=== PATIENT | male | born 1950 | race African-American/Black ===

== ENCOUNTER 2017-05-29 10:21 | Outpatient (CLI) | payer MEDICARE, BC ==
[2017-05-29] MEDS ORDERED: Sodium Chloride 0.9% 15 ML NEB ONE (18:58)
== END 2017-05-29 10:22 | disposition home or self-care (01) ==
LOC: WCC 10:21
PROVIDERS: ATTEND Family Medicine
DX: S91.302D Unspecified open wound, left foot, subsequent encounter (principal)
CPT/HCPCS: 97602; A4218

== ENCOUNTER 2017-06-05 09:41 | Outpatient (CLI) | payer MEDICARE, BC ==
[2017-06-05] MEDS ORDERED: Sodium Chloride 0.9% 15 ML NEB ONE (11:11)
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
== END 2017-06-05 09:42 | disposition home or self-care (01) ==
LOC: WCC 09:41
PROVIDERS: ATTEND Family Medicine
DX: L97.529 Non-pressure chronic ulcer of other part of left foot with unspecified severity (principal); E11.621 Type 2 diabetes mellitus with foot ulcer; E11.22 Type 2 diabetes mellitus with diabetic chronic kidney disease; I12.0 Hypertensive chronic kidney disease with stage 5 chronic kidney disease or end stage renal disease; I73.9 Peripheral vascular disease, unspecified; G47.33 Obstructive sleep apnea (adult) (pediatric); D63.1 Anemia in chronic kidney disease; K21.9 Gastro-esophageal reflux disease without esophagitis; M14.679 Charcot's joint, unspecified ankle and foot
CPT/HCPCS: 11042; 97139; G0463; 99204; A4218

== ENCOUNTER 2017-06-19 09:49 | Outpatient (CLI) | payer MEDICARE, BC ==
--- NOTE | 2017-06-19 11:46 | PRG ---
DATE OF SERVICE: 06/19/2017 HISTORY: Mr. Sean Hicks is a very pleasant 67-year-old gentleman who presents to the Wound Cent er for evaluation of a wound of the plantar surface over the lateral aspect of the left foot. The p atient was referred to the Wound Center by Dr. Clarissa Zazueta on 05/20/2017. The patient was referr ed to the Wound Center for evaluation for treatment with a bioengineered skin substitute. The patie nt has completed a course of negative pressure therapy for the ulceration of the plantar surface of the left lateral foot. PHYSICAL EXAMINATION: VITAL SIGNS: Temperature 98.4, pulse 95, respirations 17, blood pressure 145/65, Accu-Chek 297. EXTREMITIES: An ulceration of the plantar surface of the left foot over the lateral aspect of the f oot is still present. The dimensions of the wound are approximately 2.6 x 2.9 cm. The dimensions o f the wound at the time of the patient's last visit were approximately 2.7 x 3.4 cm. The wound is g ranulating. Undermining desiccated tissue and callus at the periphery of the wound were eliminated with an excisional full-thickness debridement with the use of scissors. No purulent drainage is ass ociated with the wound. No erythema of the skin surrounding the wound is present. No maceration of the skin of the periwound is noted. A posterior tibial pulse is easily palpable on the left. No s ignificant edema of the left foot is present on exam today. ASSESSMENT AND PLAN: 1. Ulceration of plantar surface of left foot over the lateral aspect of the foot. Dressing change s of Silverlon, 4 x 4s, Kerlix, and an Carlton bandage will be continued 3 times per week after cleansin g and irrigation with the assistance of Home Health. I have reiterated to the patient that he is a suitable candidate for treatment with a bioengineered skin substitute because of the presence of an easily palpable posterior tibial pulse on the left. In addition, the ulceration has been present fo r 4 weeks. The patient understands and is in agreement with the preceding treatment plan. I will s ee Mr. Hicks again in two weeks. At this time, consideration will be given to treatment with a b ioengineered skin substitute. 2. Diabetes mellitus. The patient's Accu-Chek in clinic today is 297. The patient has been remind ed that for optimal wound healing, his blood glucoses should remain below 150. 3. End-stage renal disease. 4. History of hypertension. 5. History of peripheral vascular disease. 6. Obstructive sleep apnea. 7. History of gastrointestinal bleeding. 8. Anemia. 9. Charcot foot. 10. Gastroesophageal reflux disease.
[2017-06-19] MEDS ORDERED: Sodium Chloride 0.9% 15 ML NEB ONE (17:19)
[2017-06-19] MEDS ORDERED: Lidocaine 2% Jelly 5 ML TUBE ONE (17:19)
== END 2017-06-19 09:50 | disposition home or self-care (01) ==
LOC: WCC 09:49
PROVIDERS: ATTEND Family Medicine
DX: E11.621 Type 2 diabetes mellitus with foot ulcer (principal); L97.529 Non-pressure chronic ulcer of other part of left foot with unspecified severity; E11.22 Type 2 diabetes mellitus with diabetic chronic kidney disease; I12.0 Hypertensive chronic kidney disease with stage 5 chronic kidney disease or end stage renal disease; N18.6 End stage renal disease; G47.33 Obstructive sleep apnea (adult) (pediatric); K21.9 Gastro-esophageal reflux disease without esophagitis; D64.9 Anemia, unspecified; E11.610 Type 2 diabetes mellitus with diabetic neuropathic arthropathy
CPT/HCPCS: 11042; 36416; A4218

== ENCOUNTER 2017-07-24 07:52 | Outpatient (CLI) | payer MEDICARE, BC ==
--- NOTE | 2017-07-24 08:47 | PRG ---
DATE OF SERVICE: 07/24/2017 HISTORY: Mr. Sean Hicks is a very pleasant 67-year-old gentleman, who presents to the Wound C enter for evaluation of a wound of the plantar surface over the lateral aspect of the left foot. The patient was referred to the Wound Center by Dr. Clarissa Zazueta on 05/20/2017. The patient was refer red to the Wound Center for evaluation for treatment with a bioengineered skin substitute. The patie nt has completed a course of negative pressure therapy for the ulceration of the plantar surface of t he left lateral foot. PHYSICAL EXAMINATION: VITAL SIGNS: Temperature 98.1, pulse 94, respirations 18, blood pressure 107/56. EXTREMITIES: An ulceration of the plantar surface of the left foot, over the lateral aspect of the f oot, is still present. The dimensions of the wound are approximately 2.8 x 1.0 cm. The dimensions o f the wound at the time of the patient's last visit were approximately 2.6 x 2.9 cm. The wound is gr anulating. Desiccated tissue at the periphery of the wound was eliminated with an excisional full-th ickness debridement with the use of scissors. Nonviable tissue present within the wound margins was debrided with an excisional full-thickness debridement with the use of a curette. No purulent draina ge is associated with the wound. No erythema of the skin surrounding the wound is present. No macer ation of the skin of the periwound is noted. A posterior tibial pulse is easily palpable on the left . No significant edema of the left foot is present on exam today. Dermagraft was applied to the [facility] eration of the plantar surface of the left foot over the lateral aspect of the foot followed by Mepit el, a gauze bolster, 4 x 4's, Webril, and 3M Coban 2 layer compression system. ASSESSMENT AND PLAN: 1. Ulceration of plantar surface of left foot over the lateral aspect of the foot. Dermagraft was a pplied to the left foot ulceration today. Orders will be transmitted to Home Health for dressing crissy nges of Silverlon, 4 x 4s, Kerlix, and an Carlton bandage 3 times per week after cleansing and irrigation , beginning 1 week from today. I will see Mr. Hicks again in 2 weeks. At this time, consideratio n will be given to another placement of Dermagraft. 2. Diabetes mellitus. Accu-Cheks will be obtained at the time of the patient's clinic visits. The patient has been reminded that, for optimal wound healing, his blood glucoses should remain below 150 . 3. End-stage renal disease. 4. History of hypertension. 5. History of peripheral vascular disease. 6. Obstructive sleep apnea. 7. History of gastrointestinal bleeding. 8. Anemia. 9. Charcot foot. 10. Gastroesophageal reflux disease.
== END 2017-07-24 07:53 | disposition home or self-care (01) ==
LOC: WCC 07:52
PROVIDERS: ATTEND Family Medicine
DX: E11.621 Type 2 diabetes mellitus with foot ulcer (principal); L97.529 Non-pressure chronic ulcer of other part of left foot with unspecified severity; I12.0 Hypertensive chronic kidney disease with stage 5 chronic kidney disease or end stage renal disease; E11.22 Type 2 diabetes mellitus with diabetic chronic kidney disease; N18.6 End stage renal disease; D63.1 Anemia in chronic kidney disease; G47.33 Obstructive sleep apnea (adult) (pediatric); M14.672 Charcot's joint, left ankle and foot; Z86.79 Personal history of other diseases of the circulatory system
CPT/HCPCS: 15275; 82962; 97139; Q4106; 36416

== ENCOUNTER 2017-08-07 09:08 | Outpatient (CLI) | payer MEDICARE, BC ==
--- NOTE | 2017-08-07 10:21 | PRG ---
DATE OF SERVICE: 08/07/2017 HISTORY: Mr. Sean Hicks is a very pleasant 67-year-old gentleman who presents to the Wound Ce nter for evaluation of a wound of the plantar surface of the lateral aspect of the left foot. The pa ramon was referred to the Wound Center by Dr. Clarissa Zazueta on 05/20/2017. The patient was referred to the Wound Center for evaluation for treatment with a bioengineered skin substitute. The patient has completed a course of negative pressure therapy for the ulceration of the plantar surface of the left lateral foot. Presently, the patient is receiving treatment with Dermagraft. PHYSICAL EXAMINATION: VITAL SIGNS: Temperature 97.4, pulse 110, respirations 22, blood pressure 130/60. Accu-Chek 142. EXTREMITIES: An ulceration of the plantar surface of the left foot over the lateral aspect of the fo ot is still present. The dimensions of the wound are approximately 2.3 x 0.7 cm. The dimensions of the wound at the time of the patient's last visit were approximately 2.8 x 1.0 cm. The wound is gran ulating. No purulent drainage is associated with the wound. No erythema of the skin surrounding the wound is present. No maceration of the skin of the periwound is noted. No significant edema of the left foot is present on exam today. Dermagraft was applied to the ulceration of the plantar surface of the left foot over the lateral aspect of the foot in 2 layers followed by Adaptic touch, a gauze bolster, 4 x 4's, Webril, and 3M Coban 2 layer compression system. ASSESSMENT AND PLAN: 1. Ulceration of plantar surface of left foot over the lateral aspect of the foot. Dermagraft was a pplied in 2 layers to the left foot ulceration today. I will see Mr. Hicks again in 1 week. At t his time consideration will be given to another placement of Dermagraft. 2. Diabetes mellitus. The patient's Accu-Chek in clinic today is 142. The patient has been reminde d that for optimal wound healing, his blood glucoses should remain below 150. 3. End-stage renal disease. 4. History of hypertension. 5. History of peripheral vascular disease. 6. Obstructive sleep apnea. 7. History of gastrointestinal bleeding. 8. Anemia. 9. Charcot foot. 10. Gastroesophageal reflux disease.
[2017-08-07] MEDS ORDERED: Sodium Chloride 0.9% 15 ML NEB ONE (17:21)
== END 2017-08-07 09:09 | disposition home or self-care (01) ==
LOC: WCC 09:08
PROVIDERS: ATTEND Family Medicine
DX: L97.529 Non-pressure chronic ulcer of other part of left foot with unspecified severity (principal); E11.621 Type 2 diabetes mellitus with foot ulcer; E11.22 Type 2 diabetes mellitus with diabetic chronic kidney disease; I12.0 Hypertensive chronic kidney disease with stage 5 chronic kidney disease or end stage renal disease; N18.6 End stage renal disease; G47.33 Obstructive sleep apnea (adult) (pediatric); D63.1 Anemia in chronic kidney disease; M14.679 Charcot's joint, unspecified ankle and foot; K21.9 Gastro-esophageal reflux disease without esophagitis
CPT/HCPCS: 15275; 97139; Q4106; A4218

== ENCOUNTER 2017-08-14 09:22 | Outpatient (CLI) | payer MEDICARE, BC ==
--- NOTE | 2017-08-14 10:51 | PRG ---
DATE OF SERVICE: 08/14/2017 HISTORY: Mr. Sean Hicks is a very pleasant 67-year-old gentleman who presents to the Wound Ce nter for evaluation of a wound of the plantar surface of the lateral aspect of the left foot. The pa ramon was referred to the Wound Center by Dr. Clarissa Zazueta on 05/20/2017. The patient was referred to the Wound Center for evaluation for treatment with a bioengineered skin substitute. The patient has completed a course of negative pressure therapy for the ulceration of the plantar surface of the left lateral foot. Currently, the patient is receiving treatment with Dermagraft. PHYSICAL EXAMINATION: VITAL SIGNS: Temperature 97.3, pulse 108, respirations 19, blood pressure 115/55. Accu-Chek 118. EXTREMITIES: An ulceration of the plantar surface of the left foot over the lateral aspect of the fo ot is still present. The dimensions of the wound are approximately 0.7 x 1.1 cm. The dimensions of the wound at the time of the patient's last visit were approximately 2.3 x 0.7 cm. The wound is gran ulating. No purulent drainage is associated with the wound. No erythema of the skin surrounding the wound is present. No maceration of the skin of the periwound is noted. A posterior tibial pulse is easily palpable on the left. No significant edema of the left foot is present on exam today. [place] graft was applied to the ulceration of the plantar surface of the left foot over the lateral aspect o f the foot followed by Adaptic touch, a gauze bolster, 4 x 4's, Webril, and 3M Coban 2 layer compress ion system. ASSESSMENT AND PLAN: 1. Ulceration of plantar surface of left foot over the lateral aspect of the foot. Dermagraft was a pplied to the left foot ulceration today. I will see Mr. Hicks again in 1 week. At this time, co nsideration will be given to another placement of Dermagraft. 2. Diabetes mellitus. The patient's Accu-Chek in clinic today is 118. The patient has been reminde d that for optimal wound healing, his blood glucoses should remain below 150. 3. End-stage renal disease. 4. History of hypertension. 5. History of peripheral vascular disease. 6. Obstructive sleep apnea. 7. History of gastrointestinal bleeding. 8. Anemia. 9. Charcot foot. 10. Gastroesophageal reflux disease.
== END 2017-08-14 09:23 | disposition home or self-care (01) ==
LOC: WCC 09:22
PROVIDERS: ATTEND Family Medicine
DX: L97.529 Non-pressure chronic ulcer of other part of left foot with unspecified severity (principal); E11.621 Type 2 diabetes mellitus with foot ulcer; N18.6 End stage renal disease; E11.22 Type 2 diabetes mellitus with diabetic chronic kidney disease; I12.0 Hypertensive chronic kidney disease with stage 5 chronic kidney disease or end stage renal disease; G47.33 Obstructive sleep apnea (adult) (pediatric); D63.1 Anemia in chronic kidney disease; K21.9 Gastro-esophageal reflux disease without esophagitis; M14.679 Charcot's joint, unspecified ankle and foot
CPT/HCPCS: 15275; 97139; Q4106

== ENCOUNTER 2017-08-21 09:13 | Outpatient (CLI) | payer MEDICARE, BC ==
--- NOTE | 2017-08-21 10:50 | PRG ---
DATE OF SERVICE: 08/21/2017 HISTORY: Mr. Sean Hicks is a very pleasant 67-year-old gentleman, who presents to the Wound C enter for evaluation of a wound of the plantar surface of the lateral aspect of the left foot. The p atient was referred to the Wound Center by Dr. Clarissa Zazueta on 05/20/2017. The patient was referre d to the Wound Center for evaluation for treatment with a bioengineered skin substitute. The patient has completed a course of negative pressure therapy for the ulceration of the plantar surface of the left lateral foot. Presently, the patient is receiving treatment with Dermagraft. PHYSICAL EXAMINATION: VITAL SIGNS: Temperature 97.6, pulse 111, respirations 18, blood pressure 122/56. Accu-Chek 126. EXTREMITIES: An ulceration of the plantar surface of the left foot over the lateral aspect of the fo ot is still present. The wound is granulating. No purulent drainage is associated with the wound. No erythema of the skin surrounding the wound is present. No maceration of the skin of the periwound is noted. No significant edema of the left foot is present on exam today. Dermagraft was applied t o the ulceration of the plantar surface of the left foot over the lateral aspect of the foot followed by Adaptic touch, a gauze bolster, 4 x 4's, Webril, and 3M Coban 2 layer compression system. ASSESSMENT AND PLAN: 1. Ulceration of plantar surface of left foot over the lateral aspect of the foot. Dermagraft was a pplied to the left foot ulceration today. I will see Mr. Hicks again in 1 week. At this time, co nsideration will be given to another placement of Dermagraft. 2. Diabetes mellitus. The patient's Accu-Chek in clinic today is 126. The patient has been reminde d that for optimal wound healing, his blood glucoses should remain below 150. 3. End-stage renal disease. 4. History of hypertension. 5. History of peripheral vascular disease. 6. Obstructive sleep apnea. 7. History of gastrointestinal bleeding. 8. Anemia. 9. Charcot foot. 10. Gastroesophageal reflux disease.
[2017-08-21] MEDS ORDERED: Sodium Chloride 0.9% 15 ML NEB ONE (17:55)
== END 2017-08-21 09:14 | disposition home or self-care (01) ==
LOC: WCC 09:13
PROVIDERS: ATTEND Family Medicine
DX: E11.621 Type 2 diabetes mellitus with foot ulcer (principal); L97.529 Non-pressure chronic ulcer of other part of left foot with unspecified severity; I12.0 Hypertensive chronic kidney disease with stage 5 chronic kidney disease or end stage renal disease; E11.22 Type 2 diabetes mellitus with diabetic chronic kidney disease; N18.6 End stage renal disease; D63.1 Anemia in chronic kidney disease; G47.33 Obstructive sleep apnea (adult) (pediatric); K21.9 Gastro-esophageal reflux disease without esophagitis; M14.672 Charcot's joint, left ankle and foot
CPT/HCPCS: 15275; 97139; Q4106; A4218

== ENCOUNTER 2017-08-28 09:29 | Outpatient (CLI) | payer MEDICARE, BC ==
--- NOTE | 2017-08-28 11:54 | PRG ---
DATE OF SERVICE: 08/28/2017 HISTORY: Mr. Sean Hicks is a very pleasant 67-year-old gentleman, who presents to the Wound Cent er for evaluation of a wound of the plantar surface of the lateral aspect of the left foot. The gertrude ent was referred to the Wound Center by Dr. Clarissa Zazueta on 05/20/2017. The patient was referred t o the Wound Center for evaluation for treatment with a bioengineered skin substitute. The patient kyle s completed a course of negative pressure therapy for the ulceration of the plantar surface of the le ft lateral foot. Currently, the patient is receiving treatment with Dermagraft. PHYSICAL EXAMINATION: VITAL SIGNS: Temperature 97.5, pulse 107, respirations 16, blood pressure 118/72. Accu-Chek 158. EXTREMITIES: An ulceration of the plantar surface of the left foot over the lateral aspect of the fo ot is still present. The wound is granulating. No purulent drainage is associated with the wound. No erythema of the skin surrounding the wound is present. No maceration of the skin of the periwound is noted. No significant edema of the left foot is present on exam today. Dermagraft was applied t o the ulceration of the plantar surface of the left foot over the lateral aspect of the foot followed by Adaptic, gauze bolster, 4 x 4's, Webril, and 3M Coban 2 layer compression system. ASSESSMENT AND PLAN: 1. Ulceration of plantar surface of left foot over the lateral aspect of the foot. Dermagraft was a pplied to the left foot ulceration today. Arrangements will be made for dressing changes of Adaptic, Webril, and 3M Coban 2 layer compression system on a weekly basis by Home Health for the next 2 week s. I will see Mr. Hicks again in three weeks if his wound is still present at this time. 2. Diabetes mellitus. The patient's Accu-Chek in clinic today is 158. The patient has been reminde d that for optimal wound healing, his blood glucoses should remain below 150. 3. End-stage renal disease. 4. History of hypertension. 5. History of peripheral vascular disease. 6. Obstructive sleep apnea. 7. History of gastrointestinal bleeding. 8. Anemia. 9. Charcot foot. 10. Gastroesophageal reflux disease.
[2017-08-28] MEDS ORDERED: Sodium Chloride 0.9% 15 ML NEB ONE (21:24)
== END 2017-08-28 09:30 | disposition home or self-care (01) ==
LOC: WCC 09:29
PROVIDERS: ATTEND Family Medicine
DX: E11.621 Type 2 diabetes mellitus with foot ulcer (principal); L97.529 Non-pressure chronic ulcer of other part of left foot with unspecified severity; I12.0 Hypertensive chronic kidney disease with stage 5 chronic kidney disease or end stage renal disease; E11.22 Type 2 diabetes mellitus with diabetic chronic kidney disease; N18.6 End stage renal disease; D63.1 Anemia in chronic kidney disease; K21.9 Gastro-esophageal reflux disease without esophagitis; M14.672 Charcot's joint, left ankle and foot
CPT/HCPCS: A4218

== ENCOUNTER 2017-09-25 10:13 | Outpatient (CLI) | payer MEDICARE, BC ==
--- NOTE | 2017-09-25 12:06 | PRG ---
DATE OF SERVICE: 09/25/2017 HISTORY: Mr. Sean Hicks is a very pleasant 67-year-old gentleman who presented to the Wound C enter for evaluation of a wound of the plantar surface of the lateral aspect of the left foot. The p atient was referred to the Wound Center by Dr. Clarissa Zazueta on 05/20/2017. The patient was referre d to the Wound Center for evaluation for treatment with a bioengineered skin substitute. The patient has completed a course of negative pressure therapy for the ulceration of the plantar surface of the left lateral foot. Presently, the patient is receiving treatment with Dermagraft. PHYSICAL EXAMINATION: VITAL SIGNS: Temperature 97.5, pulse 99, respirations 18, blood pressure 121/59. Accu-Chek 168. EXTREMITIES: An ulceration of the plantar surface of the left foot over the lateral aspect of the fo ot is still present. Granulation tissue is present within the wound margins. No purulent drainage i s associated with the wound. No erythema of the skin surrounding the wound is present. Maceration o f the skin of the periwound is noted. No significant edema of the left foot is present on exam today . Dermagraft was applied to the ulceration of the plantar surface of the left foot over the lateral aspect of the foot followed by Adaptic touch, a gauze bolster, 4 x 4's, Webril, and 3M Coban 2 layer compression system. ASSESSMENT AND PLAN: 1. Ulceration of plantar surface of left foot over the lateral aspect of the foot. Dermagraft was a pplied to the left foot ulceration today. I will see Mr. Hicks again in 1 week. At this time, co nsideration will be given to another placement of Dermagraft. The patient states he is utilizing his diabetic shoes with inserts. I have asked him to resume utilizing his splint for more optimal offlo ading of the ulceration of the plantar surface of the left foot. 2. Diabetes mellitus. The patient's Accu-Chek in clinic today is 168. The patient has been reminde d that for optimal wound healing, his blood glucoses should remain below 150. 3. End-stage renal disease. 4. History of hypertension. 5. History of peripheral vascular disease. 6. Obstructive sleep apnea. 7. History of gastrointestinal bleeding. 8. Anemia. 9. Charcot foot. 10. Gastroesophageal reflux disease.
[2017-09-25] MEDS ORDERED: Lidocaine 2% Jelly 5 ML TUBE ONE (17:14)
[2017-09-25] MEDS ORDERED: Sodium Chloride 0.9% 15 ML NEB ONE (17:14)
== END 2017-09-25 10:14 | disposition home or self-care (01) ==
LOC: WCC 10:13
PROVIDERS: ATTEND Family Medicine
DX: E11.621 Type 2 diabetes mellitus with foot ulcer (principal); L97.429 Non-pressure chronic ulcer of left heel and midfoot with unspecified severity; I12.0 Hypertensive chronic kidney disease with stage 5 chronic kidney disease or end stage renal disease; E11.22 Type 2 diabetes mellitus with diabetic chronic kidney disease; N18.6 End stage renal disease; D63.1 Anemia in chronic kidney disease; K21.9 Gastro-esophageal reflux disease without esophagitis; G47.33 Obstructive sleep apnea (adult) (pediatric); Z87.19 Personal history of other diseases of the digestive system
CPT/HCPCS: 15275; 97139; Q4106; A4218

== ENCOUNTER 2017-10-02 12:34 | Outpatient (CLI) | payer MEDICARE, BC ==
--- NOTE | 2017-10-02 11:23 | PRG ---
DATE OF SERVICE: 10/02/2017 HISTORY: Mr. Sean Hicks is a very pleasant 67-year-old gentleman, who presents to the Wound C enter for evaluation of a wound of the plantar surface of the lateral aspect of the left foot. The p atient was referred to the Wound Center by Dr. Clarissa Zazueta on 05/20/2017. The patient was referre d to the Wound Center for evaluation for treatment with a bioengineered skin substitute. The patient has completed a course of negative pressure therapy for the ulceration of the plantar surface of the left lateral foot. Currently, the patient is receiving treatment with Dermagraft. PHYSICAL EXAMINATION: VITAL SIGNS: Temperature 97.5, pulse 107, respirations 18, blood pressure 118/55. Accu-Chek 126. EXTREMITIES: An ulceration of the plantar surface of the left foot over the lateral aspect of the fo ot is still present. Granulation tissue is present within the wound margins. No purulent drainage i s associated with the wound. No erythema of the skin surrounding the wound is present. Maceration o f the skin of the periwound is noted. No significant edema of the left foot is present on exam today . Dermagraft was applied to the ulceration of the plantar surface of the left foot over the lateral aspect of the foot followed by Adaptic touch, a gauze bolster, 4 x 4's, Webril, and 3M Coban 2 layer compression system. ASSESSMENT AND PLAN: 1. Ulceration of plantar surface of left foot over the lateral aspect of the foot. Dermagraft was a pplied to the left foot ulceration today. I will see Mr. Hicks again in one week. At this time, consideration will be given to another placement of Dermagraft. The patient has resumed utilizing hi s splint for more optimal offloading of the ulceration of the plantar surface of the left foot as req uested at the time of the patient's last visit. 2. Diabetes mellitus. The patient's Accu-Chek in clinic today is 126. The patient has been reminde d that for optimal wound healing, his blood glucoses should remain below 150. 3. End-stage renal disease. 4. History of hypertension. 5. History of peripheral vascular disease. 6. Obstructive sleep apnea. 7. History of gastrointestinal bleeding. 8. Anemia. 9. Charcot foot. 10. Gastroesophageal reflux disease.
[2017-10-03] MEDS ORDERED: Sodium Chloride 0.9% 15 ML NEB ONE (15:48)
== END 2017-10-02 12:35 | disposition home or self-care (01) ==
LOC: WCC 12:34
PROVIDERS: ATTEND Family Medicine
DX: E11.621 Type 2 diabetes mellitus with foot ulcer (principal); L97.429 Non-pressure chronic ulcer of left heel and midfoot with unspecified severity; E11.22 Type 2 diabetes mellitus with diabetic chronic kidney disease; N18.6 End stage renal disease; I12.0 Hypertensive chronic kidney disease with stage 5 chronic kidney disease or end stage renal disease; G47.33 Obstructive sleep apnea (adult) (pediatric); D63.1 Anemia in chronic kidney disease; K21.9 Gastro-esophageal reflux disease without esophagitis; Z86.79 Personal history of other diseases of the circulatory system
CPT/HCPCS: 15275; 97139; Q4106

== ENCOUNTER 2017-10-09 09:49 | Outpatient (CLI) | payer MEDICARE, BC ==
--- NOTE | 2017-10-09 12:01 | PRG ---
DATE OF SERVICE: 10/09/2017 HISTORY: Mr. Sean Hicks is a very pleasant 67-year-old gentleman who presents to the Wound Center for evaluation of a wound of the plantar surface of the lateral aspect of the left foot. The patient was referred to the Wound Center by Dr. Clarissa Zazueta on 05/20/2017. The patient was referred to the Wound Center for evaluation for treatment with a bioengineered skin substitute. The patient has completed a course of negative pressure therapy for the ulceration of the plantar surface of the left lateral foot. Presently, the patient is receiving treatment with Dermagraft. PHYSICAL EXAMINATION: VITAL SIGNS: Temperature 97.8, pulse 107, respirations 18, blood pressure 85/ 52. Accu-Chek 226. EXTREMITIES: An ulceration of the plantar surface of the left foot over the lateral aspect of the foot is still present. Granulation tissue is present within the wound margins. No purulent drainage is associated with the wound. No erythema of the skin surrounding the wound is present. No maceration of the skin of the periwound is noted. No significant edema of the left foot is present on exam today. Dermagraft was applied to the ulceration of the plantar surface of the left foot over the lateral aspect of the foot followed by Adaptic Touch, a gauze bolster, 4 x 4s, Webril, and the Brainscape Coban 2-layer compression system. ASSESSMENT AND PLAN: 1. Ulceration of plantar surface of left foot over the lateral aspect of the foot. Dermagraft was applied to the left foot ulceration today. Orders will be transmitted to Home Health for the dressings applied in clinic today to be discontinued in 7-10 days. At this time, the patient is to receive dressing changes of Silverlon followed by bordered gauze 3 times per week after cleansing and irrigation. The patient is also to utilize his splint until his ulceration has healed completely. The patient will be discharged from clinic today with follow up on a p.r.n. basis. If the ulceration fails to heal with the preceding measures, consideration will be given to treatment with Apligraf. The patient understands and is in agreement with the preceding treatment plan. 2. Diabetes mellitus. The patient's Accu-Chek in clinic today is 226. The patient has been reminded that for optimal wound healing, his blood glucoses should remain below 150. 3. End-stage renal disease. 4. History of hypertension. 5. History of peripheral vascular disease. 6. Obstructive sleep apnea. 7. History of gastrointestinal bleeding. 8. Anemia. 9. Charcot foot. 10. Gastroesophageal reflux disease. MTDD
[2017-10-13] MEDS ORDERED: Sodium Chloride 0.9% 15 ML NEB ONE (15:17)
== END 2017-10-09 09:50 | disposition home or self-care (01) ==
LOC: WCC 09:49
PROVIDERS: ATTEND Family Medicine
DX: E11.621 Type 2 diabetes mellitus with foot ulcer (principal); L97.429 Non-pressure chronic ulcer of left heel and midfoot with unspecified severity; I12.0 Hypertensive chronic kidney disease with stage 5 chronic kidney disease or end stage renal disease; E11.22 Type 2 diabetes mellitus with diabetic chronic kidney disease; N18.6 End stage renal disease; D63.1 Anemia in chronic kidney disease; G47.33 Obstructive sleep apnea (adult) (pediatric); M14.671 Charcot's joint, right ankle and foot; Z86.79 Personal history of other diseases of the circulatory system; Z87.19 Personal history of other diseases of the digestive system
CPT/HCPCS: 15275; 97139; Q4106

== ENCOUNTER 2017-12-03 13:53 | Outpatient (CLI) | payer MEDICARE, BC ==
--- NOTE | 2017-12-03 15:36 | PRG ---
DATE OF SERVICE: 12/03/2017 HISTORY: Mr. Sean Hicks is a very pleasant 67-year-old gentleman, who presents to the Wound C enter for evaluation of a wound of the plantar surface of the lateral aspect of the left foot. The p atient was referred to the Wound Center by Dr. Clarissa Zazueta on 05/20/2017. The patient was referre d to the Wound Center for evaluation for treatment with a bioengineered skin substitute. The patient completed a course of negative pressure therapy for the ulceration of the plantar surface of the lef t lateral foot. The patient also completed a course of treatment with Dermagraft, after being seen i n the Wound Center. The patient states that the wound had almost healed completely, and after wearin g his diabetic shoes with inserts, the ulceration increased in its dimensions. PHYSICAL EXAMINATION: VITAL SIGNS: Temperature 97.9, pulse 110, respirations 18, blood pressure 84/45. Accu-Chek 149. EXTREMITIES: An ulceration of the plantar surface of the left foot over the lateral aspect of the fo ot is present. The dimensions of the wound are approximately 2.5 x 2.0 cm. Granulation tissue is pr esent within the wound margins. Necrotic and nonviable tissue present within the wound margins was d ebrided with an excisional full-thickness debridement with the use of scissors. Callus undermining a nd desiccated tissue at the periphery of the wound were also excised with the use of scissors. No pu rulent drainage is associated with the wound. No erythema of the skin surrounding the wound is prese nt. No maceration of the skin of the periwound is noted. No significant edema of the left foot is p resent on exam today. ASSESSMENT AND PLAN: 1. Ulceration of plantar surface of left foot over the lateral aspect of the foot. As stated above, the patient has completed a course of treatment with Dermagraft for the left foot ulceration. Order s will be transmitted to Home Health for dressing changes of Silverlon, 4 x 4s, Kerlix, and ZONIA 3 rik es per week after cleansing and irrigation. The patient is also to utilize his splint until the ulce ration has healed completely. I have also asked the patient to follow up with his weatherseal technician and to refrain from using his diabetic shoes with inserts until he has been seen by his weatherseal technician. The pat ient understands and is in agreement with the preceding treatment plan. I have also explained to the patient that he may require fitting with a [place] boot. 2. Diabetes mellitus. The patient's Accu-Chek in clinic today is 149. The patient has been reminde d that for optimal wound healing, his blood glucoses should remain below 150. 3. End-stage renal disease. 4. History of hypertension. 5. History of peripheral vascular disease. 6. Obstructive sleep apnea. 7. History of gastrointestinal bleeding. 8. Anemia. 9. Charcot foot. 10. Gastroesophageal reflux disease.
[2017-12-03] MEDS ORDERED: Sodium Chloride 0.9% 15 ML NEB ONE (17:53)
[2017-12-03] MEDS ORDERED: Lidocaine 2% Jelly 5 ML TUBE ONE (17:53)
== END 2017-12-03 13:54 | disposition home or self-care (01) ==
LOC: WCC 13:53
PROVIDERS: ATTEND Family Medicine
DX: E11.621 Type 2 diabetes mellitus with foot ulcer (principal); L97.529 Non-pressure chronic ulcer of other part of left foot with unspecified severity; I12.0 Hypertensive chronic kidney disease with stage 5 chronic kidney disease or end stage renal disease; E11.22 Type 2 diabetes mellitus with diabetic chronic kidney disease; I73.9 Peripheral vascular disease, unspecified; G47.33 Obstructive sleep apnea (adult) (pediatric); D63.1 Anemia in chronic kidney disease; M14.679 Charcot's joint, unspecified ankle and foot; K21.9 Gastro-esophageal reflux disease without esophagitis
CPT/HCPCS: A4218

== ENCOUNTER 2018-01-15 09:23 | Outpatient (CLI) | payer MEDICARE, BC ==
--- NOTE | 2018-01-15 11:19 | PRG ---
DATE OF SERVICE: 01/15/2018 HISTORY: Mr. Sean Hicks is a very pleasant 67-year-old gentleman who presents to the Wound Ce nter for evaluation of a wound of the plantar surface of the lateral aspect of the left foot. The pa ramon was referred to the Wound Center by Dr. Clarissa Zazueta on 05/20/2017. The patient was referred to the Wound Center for evaluation for treatment with a bioengineered skin substitute. The patient completed a course of negative pressure therapy for the ulceration of the plantar surface of the left lateral foot. The patient also completed a course of treatment with Dermagraft after being seen in the Wound Center. The patient previously stated that the wound had almost healed completely, but aft er wearing his diabetic shoes with inserts, the ulceration increased in its dimensions. The patient has been receiving dressing changes with the assistance of Home Health. He is referred to the Wound Center today by [facility] for evaluation for debridement of the plantar ulceration. PHYSICAL EXAMINATION: VITAL SIGNS: Temperature 98.2, pulse 101, respirations 18, blood pressure 99/50. Accu-Chek 118. EXTREMITIES: An ulceration of the plantar surface of the left foot over the lateral aspect of the fo ot is present. The dimensions of the wound are approximately 1.9 x 1.0 cm. Granulation tissue is pr esent within the wound margins. Necrotic and nonviable tissue present within the wound margins was d ebrided with an excisional full-thickness debridement with the use of scissors. Callus undermining a nd desiccated tissue at the periphery of the wound were also excised with the use of scissors. No pu rulent drainage is associated with the wound. No erythema of the skin surrounding the wound is prese nt. No maceration of the skin of the periwound is noted. A posterior tibial pulse is easily palpabl e on the left. No significant edema of the left foot is present on exam today. ASSESSMENT AND PLAN: 1. Ulceration of plantar surface of left foot over the lateral aspect of the foot. As stated above, the patient has completed a course of treatment with Dermagraft for the left foot ulceration. Order s will be transmitted to Home Health for dressing changes of Medihoney, 4 x 4s, Kerlix, and an Carlton ba ndage 3 times per week after cleansing and irrigation. The patient is also to utilize his splint unt il the ulceration has healed completely. Again, I have asked the patient to follow up with his pedor thist and to refrain from using his diabetic shoes with inserts until he has been seen by his pedorth ist. The patient understands and is in agreement with the preceding treatment plan. The patient was previously told that he may require fitting with a [employer] boot. 2. Diabetes mellitus. The patient's Accu-Chek in clinic today is 118. The patient has been reminde d that for optimal wound healing, his blood glucoses should remain below 150. 3. End-stage renal disease. 4. History of hypertension. 5. History of peripheral vascular disease. 6. Obstructive sleep apnea. 7. History of gastrointestinal bleeding. 8. Anemia. 9. Charcot foot. 10. Gastroesophageal reflux disease.
== END 2018-01-15 09:24 | disposition home or self-care (01) ==
LOC: WCC 09:23
PROVIDERS: ATTEND Family Medicine
DX: E11.621 Type 2 diabetes mellitus with foot ulcer (principal); L97.429 Non-pressure chronic ulcer of left heel and midfoot with unspecified severity; I12.0 Hypertensive chronic kidney disease with stage 5 chronic kidney disease or end stage renal disease; E11.22 Type 2 diabetes mellitus with diabetic chronic kidney disease; N18.6 End stage renal disease; D63.1 Anemia in chronic kidney disease; K21.9 Gastro-esophageal reflux disease without esophagitis; G47.33 Obstructive sleep apnea (adult) (pediatric); M14.672 Charcot's joint, left ankle and foot; Z86.79 Personal history of other diseases of the circulatory system; Z87.19 Personal history of other diseases of the digestive system
CPT/HCPCS: 11042

== ENCOUNTER 2018-04-02 08:01 | Outpatient (CLI) | payer MEDICARE, BC ==
--- NOTE | 2018-04-02 09:22 | PRG ---
DATE OF SERVICE: 04/02/2018 HISTORY: Mr. Sean Hicks is a very pleasant 68-year-old gentleman who presents to the Wound Ce nter for evaluation of a wound of the plantar surface of the lateral aspect of the left foot. The pa ramon was referred to the Wound Center by Dr. Clarissa Zazueta on 05/20/2017. The patient was referred to the Wound Center for evaluation for treatment with a bioengineered skin substitute. The patient completed a course of negative pressure therapy for the ulceration of the plantar surface of the left lateral foot. The patient also completed a course of treatment with Dermagraft after being seen in the Wound Center. The patient previously stated that the wound had almost healed completely, but aft er wearing his diabetic shoes with inserts, the ulceration increased in its dimensions. The patient has been receiving dressing changes with the assistance of Home Health. He is again referred to the Wound Center today by [facility] for evaluation for debridement of the plantar ulceration. The gertrude ent states he has been utilizing a splint for offloading of the plantar ulceration. The patient also admits to being on his feet more than usual because of having to attend a . PHYSICAL EXAMINATION: VITAL SIGNS: Temperature 98.5, pulse 104, respirations 24, blood pressure 135/59. Accu-Chek 258. EXTREMITIES: An ulceration of the plantar surface of the left foot over the lateral aspect of the fo ot is present. Very little granulation tissue is present within the wound margins. Necrotic and non viable tissue present within the wound margins was debrided with an excisional full-thickness debride ment with the use of scissors. Undermining and desiccated tissue at the periphery of the wound were also eliminated with the use of scissors. No purulent drainage is associated with the wound. No olivia thema of the skin surrounding the wound is present. No maceration of the skin of the periwound is no flor. No significant edema of the left foot is present on exam today. Post-debridement measurements are approximately 7.0 x 5.7 cm. ASSESSMENT AND PLAN: 1. Ulceration of plantar surface of left foot over the lateral aspect of the foot. As stated above, the patient has completed a course of treatment with Dermagraft for the left foot ulceration. Order s will be transmitted to Home Health for dressing changes of Medihoney, 4 x 4s, Kerlix, and an Carlton ba ndage 3 times per week after cleansing and irrigation. ABDs will also be utilized as needed at the t mary of dressing changes. I have explained to the patient that the splint itself may be worsening the appearance of the ulceration. The patient has been asked to stay off his feet completely as much as possible. The patient has been given a prescription for a wheelchair. I will see Mr. Hicks rogers barrett in two weeks. The patient understands and is in agreement with the preceding treatment plan. 2. Diabetes mellitus. The patient's Accu-Chek in clinic today is 258. The patient has been told th at for optimal wound healing, his blood glucoses should remain below 150. 3. End-stage renal disease. 4. History of hypertension. 5. History of peripheral vascular disease. 6. Obstructive sleep apnea. 7. History of gastrointestinal bleeding. 8. Anemia. 9. Charcot foot. 10. Gastroesophageal reflux disease.
== END 2018-04-02 08:02 | disposition home or self-care (01) ==
LOC: WCC 08:01
PROVIDERS: ATTEND Family Medicine
DX: E11.621 Type 2 diabetes mellitus with foot ulcer (principal); L97.429 Non-pressure chronic ulcer of left heel and midfoot with unspecified severity; E11.51 Type 2 diabetes mellitus with diabetic peripheral angiopathy without gangrene; E11.22 Type 2 diabetes mellitus with diabetic chronic kidney disease; I12.0 Hypertensive chronic kidney disease with stage 5 chronic kidney disease or end stage renal disease; N18.6 End stage renal disease; D63.1 Anemia in chronic kidney disease; E11.610 Type 2 diabetes mellitus with diabetic neuropathic arthropathy; G47.33 Obstructive sleep apnea (adult) (pediatric); K21.9 Gastro-esophageal reflux disease without esophagitis; Z87.19 Personal history of other diseases of the digestive system
CPT/HCPCS: 11042; 36416

== ENCOUNTER 2018-04-10 13:17 | Inpatient (IN) | payer MEDICARE, BC ==
[2018-04-10 14:21] LABS: #Basophils 0.1 thou/uL (0.0-0.2); #Eosinphils 0.1 thou/uL (0.0-0.7); #Lymphocytes 1.3 thou/uL (1.20-3.40); #Monocytes 0.7 thou/uL (0.11-0.59); #Neutrophils 11.9 thou/uL (1.40-6.50); %Basophils 0.4 % (0.0-1.0); %Eosinophils 0.6 % (0.0-10.0); %Lymphocytes 9.3 % (21.0-51.0); %Monocytes 5.3 % (0.0-10.0); %Neutrophils 84.5 % (42.0-75.0); Hemoglobin 8.8 g/dL (14.0-18.0); Mean Corpuscular HGB CONC 33.8 g/dL (32.0-36.0); Mean Corpuscular Hemoglobin 31.4 pg (27.0-31.0); Mean Corpuscular Volume 92.9 fL (78.0-98.0); Mean Platelet Volume 6.8 fL (7.4-10.4); Platelet Count 280 thou/uL (130-400); RBC Distribution Width 12.7 % (11.5-14.5); Red Blood Cell (RBC) Count 2.79 mill/uL (4.70-6.10); White Blood Cell (WBC) Count 14.1 thou/uL (4.8-10.8)
--- NOTE | 2018-04-10 14:26 | RAD ---
CHEST ONE VIEW: 04/10/18 HISTORY: 68-year-old male with history of low grade fever and left foot wound. COMPARISON: 08/14/15. Inspiration is somewhat less than optimal. There are mild increased bronchovascular markings noted bi laterally and mild vascular congestion. No confluent pneumonia. No overt edema or pleural effusion. N o cardiomegaly. IMPRESSION: Somewhat less than optimal inspiration with some mild increased bronchovascular markings and mild vas cular congestion. No confluent pneumonia or overt edema or pleural effusion. Atherosclerosis of the a rohini. POS: TPC
--- NOTE | 2018-04-10 14:32 | RAD ---
LEFT FOOT 3 VIEWS: Date: 04/10/18 HISTORY: 68-year-old male with history of low grade fever today with left foot wound that is being treated by Home Health. COMPARISON: 04/09/17. FINDINGS: Stable amputation changes of the third, fourth, and fifth toes, and postoperative anchor at the base of the fifth metatarsal, with arthrosis changes involving the cuboid fourth and fifth metatarsal join ts in particular, as well as considerable arthrosis changes of the tibiotalar joint. No evidence for new bony erosive or destructive process. No acute fracture. IMPRESSION: Stable appearing postoperative amputation changes and arthrosis and degenerative changes. Evidence fo r wound on the plantar aspect of the midfoot at the level of the cuboid bone, which was present at th e time of the prior study. No overt new process. POS: TPC
[2018-04-10 14:42] LABS: ALT (SGPT) Less than 7 U/L (8-55); AST (SGOT) 4 U/L (5-34); Albumin 3.5 g/dL (3.4-4.8); Alkaline Phosphatase 86 U/L (40-150); Anion Gap 15 mmol/L (10-20); BUN (Urea Nitrogen) 14 mg/dL (8.4-25.7); Bilirubin, Total 0.4 mg/dL (0.2-1.2); Calc. Creatinine Clearance 0 mL/min (70-130); Calcium 8.9 mg/dL (7.8-10.44); Carbon Dioxide 29 mmol/L (23-31); Chloride 96 mmol/L (98-107); Estimated GFR-MDRD 12; Globulin 3.9 g/dL (2.4-3.5); Glucose 228 mg/dL (80-115); Potassium 3.6 mmol/L (3.5-5.1); Protein, Total 7.4 g/dL (5.8-8.1); Sodium 136 mmol/L (136-145)
[2018-04-10] MEDS ORDERED: MEROPENEM 1 GM/50 ML 1 GM in Premix Bag 1 BAG IVPB SCH ×2 (15:15→22:00)
--- NOTE | 2018-04-10 15:23 | CT ---
CT LEFT LOWER LEG NONCONTRAST: HISTORY: Foot wound. Fever. Necrosis. FINDINGS: Prominent soft tissue ulceration and edema are present at the lateral plantar surface of the mid foot . Gas extends into the inflamed soft tissues that are thickened. There is cortical irregularity inv olving the lateral margin of the cuboid. Old injury and postoperative changes of the fifth metatarsal base and amputation of the fifth toes ar e evident. Severe degenerative changes throughout the foot. Osseous structures are demineralized. Severe muscu lar atrophy of the lower leg. IMPRESSION: 1. Cortical irregularity and subtle erosion involving the inferior aspect of the cuboid, evidence of osteomyelitis in the appropriate clinical setting and given the overlying ulceration of the skin. 2. Old post surgical, post traumatic, and severe degenerative changes throughout the foot. POS: ESTHER
--- NOTE | 2018-04-10 16:06 | ULT ---
ULTRASOUND WITH DOPPLER DUPLEX VENOUS LOWER EXTREMITY LEFT: HISTORY: 68-year-old male with left lower extremity pain. TECHNIQUE: Color flow Doppler, spectral waveform analysis of pulsed Doppler, and pizano-scale imaging with js eugenio and augmentation, were used to evaluate the left common femoral, femoral, popliteal, posterior t ibial, and superficial femoral, veins; and the proximal portions of the profunda femoral and greater saphenous, veins. FINDINGS: There is normal compressibility, demonstration of blood flow by color Doppler and pulsed Doppler, and response to augmentation, in all interrogated veins. There are enlarged lymph nodes in the left groi n. IMPRESSION: 1. No deep vein thrombosis in the left lower extremity. 2. Enlarged lymph nodes in left groin. ashley[] POS: ESTHER
[2018-04-10 18:19] LABS: Lactic Acid 1.4 mmol/L (0.5-2.2)
[2018-04-10] MEDS ORDERED: Ondansetron HCl/PF 4 MG/2 ML Vial IVP PRN ×2 (18:34→20:32)
[2018-04-10] MEDS ORDERED: Ondansetron ODT 4 MG TAB SL PRN (18:34)
[2018-04-10] MEDS ORDERED: Mag-Al 1200 mg/1200 mg/30 ML UDCUP PO PRN (20:32)
[2018-04-10] MEDS ORDERED: Insulin Regular 300 UNITS/3 ML VIAL SC PRN (20:32)
[2018-04-10] MEDS ORDERED: Calcium Carbonate 500 MG ChewTAB PO PRN (20:32)
[2018-04-10] MEDS ORDERED: Senokot 8.6 MG TAB PO PRN (20:32)
[2018-04-10] MEDS ORDERED: Dextrose 5% in Water 1,000 ML IV PRN (20:32)
[2018-04-10] MEDS ORDERED: Dextrose 50% Abboject 50 ML SYRINGE SLOW IVP PRN (20:32)
[2018-04-10] MEDS ORDERED: Ondansetron ODT 4 MG TAB PO PRN (20:32)
[2018-04-10] MEDS ORDERED: Acetaminophen 325 MG TAB PO PRN (20:32)
[2018-04-10] MEDS ORDERED: Vancomycin HCl 1 GM in Premix Bag 1 BAG IVPB SCH ×2 (20:45→21:00)
[2018-04-10] MEDS ORDERED: NPH, Human Insulin Isophane 300 UNIT/3 ML VIAL SC SCH ×2 (20:45→21:00)
[2018-04-10] MEDS ORDERED: Diphenoxylate HCl/Atropine Tablet PO PRN (20:54)
[2018-04-10] MEDS ORDERED: Temazepam 15 MG CAP PO PRN (20:54)
[2018-04-10] MEDS ORDERED: Vancomycin Sliding Scale 1 EACH FS ONE (21:00)
[2018-04-10] MEDS ORDERED: HOLD VANCOMYCIN FOR LEVEL >20 FS SCH (21:00)
[2018-04-10] MEDS ORDERED: Vancomycin HCl 750 MG in Sodium Chloride 0.9% 250 ML 250 ML IVPB SCH (21:00)
[2018-04-10] MEDS ORDERED: Heparin 5,000 UNITS/ML VIAL SC SCH (21:00)
[2018-04-10] MEDS ORDERED: Vancomycin HCl 1.25 GM in Sodium Chloride 0.9% 250 ML 250 ML IVPB SCH (21:00)
[2018-04-10] MEDS ORDERED: Famotidine 20 MG TAB PO SCH (21:00)
[2018-04-10] MEDS ORDERED: Vancomycin HCl 1.5 GM in Sodium Chloride 0.9% 250 ML 300 ML IVPB SCH (21:00)
[2018-04-10 21:29] LABS: Troponin I Less than 0.010 ng/mL (< 0.028)
--- NOTE | 2018-04-10 21:32 | HP ---
DATE OF ADMISSION: 04/10/2018 PRIMARY CARE PHYSICIAN: Dr. Perry. PRIMARY SURGEON: Dr. Zazueta. CHIEF COMPLAINT: Left lower extremity pain along with increasing drainage from the left foot wound a nd fever. HISTORY OF PRESENT ILLNESS: The patient is a 68-year-old -Serbian male with diabetes mellitu s, type 2; end-stage renal disease, on hemodialysis; hypertension; and peripheral vascular disease; w ho presented to the emergency room with above complaints. Two weeks ago, the patient was seen in the Wound Care. He had a left foot wound debrided and was dis charged home. Over the last one week, the patient noticed worsening swelling along with increasing d rainage and pain over the left foot wound. He also noticed a low grade fever along with chills over the last 2-3 days. The pain was moderate to severe in intensity, worse on ambulation. The drainage was serosanguineous per patient report. He denies any trauma. He currently has home healthcare. [facility] home healthcare nurse recommended the patient to be evaluated in the emergency room due to increasi ng odor from the wound. In the emergency room, his vital signs showed temperature 99.5, respirations 17, pulse rate of 114 wi th blood pressure 116/42 with O2 saturation 97% on room air. Lower extremity CT showed changes consi stent with osteomyelitis. Lower extremity Doppler was negative for DVT. He received vancomycin and meropenem in the emergency room with IV fluids. PAST MEDICAL HISTORY: 1. Diabetes mellitus, type 2. 2. Hypertension. 3. End-stage renal disease, on hemodialysis. 4. Gastroesophageal reflux disease. 5. Peripheral vascular disease. 6. Hypertension. 7. Hyperlipidemia. 8. Sleep apnea. PAST SURGICAL HISTORY: 1. Dialysis access. 2. Partial colectomy. 3. Skin graft. 4. Debridement of the left foot wound. 5. Amputation of toes of bilateral feet. ALLERGIES: The patient is allergic to IODINE. CURRENT HOME MEDICATIONS: He does not remember any of his home medication. Family to bring the list in a.m. SOCIAL HISTORY: The patient currently lives at home with his . He smokes up to half pack a day since last 25 years or so. No alcohol or drug use. He is FULL [employer], makes his own decisions with [facility] help of his family. FAMILY HISTORY: Significant for malignancy of different kinds. REVIEW OF SYSTEMS: The following complete review of systems was negative, unless otherwise mentioned in the HPI or below: Constitutional: Weight loss or gain, ability to conduct usual activities. Sk in: Rash, itching. Eyes: Double vision, pain. ENT/Mouth: Nose bleeding, neck stiffness, pain, te nderness. Cardiovascular: Palpitations, dyspnea on exertion, orthopnea. Respiratory: Shortness of breath, wheezing, cough, hemoptysis, fever or night sweats. Gastrointestinal: Poor appetite, abdomi nal pain, heartburn, nausea, vomiting, constipation, or diarrhea. Genitourinary: Urgency, frequency , dysuria, nocturia. Musculoskeletal: Pain, swelling. Neurologic/Psychiatric: Anxiety, depression . Allergy/Immunologic: Skin rash, bleeding tendency. PHYSICAL EXAMINATION: VITAL SIGNS: As discussed above. GENERAL: A 68-year-old male, in mild distress due to left foot pain. HEENT: Head atraumatic, normocephalic. Sclerae are anicteric. Moist mucous membrane. No oral lesi on. NECK: Supple, no JVD appreciated. No carotid bruit. LUNGS: Clear to auscultation bilaterally. No wheezing, rales or rhonchi. HEART: S1, S2 present. Regular rate and rhythm. No murmur, rubs, or gallops appreciated. ABDOMEN: Soft, nontender, bowel sounds present. EXTREMITIES: There is significant swelling along with erythema over the plantar aspect of the foot. The wound is approximately 4 cm in diameter with some oozing. There is some erythema around the wou nd as well. PERIPHERAL VASCULAR: Radial pulses palpable bilaterally. I could not feel the dorsalis pedis in the left foot. SKIN: As discussed above. LYMPH NODES: No palpable lymph nodes in the neck. MUSCULOSKELETAL: No joint swelling or tenderness. LABORATORY AND X-RAY FINDINGS: CBC showed WBC 14.1 with hemoglobin 8.8, hematocrit 25.9, platelet 28 0. Chemistries showed sodium 136, potassium 3.6, chloride 96, bicarbonate 29, BUN 14, creatinine 5.6 8. Lactic acid was 4.2. CRP 19.2. ESR greater than 130. X-ray of the chest by my review was negat chelle for infiltrate. Telemetry rhythm by my review showed sinus tachycardia. IMPRESSION: 1. Sepsis with acute organ dysfunction secondary to diabetic foot infection on the left. 2. Diabetes mellitus, type 2. 3. End-stage renal disease on hemodialysis. 4. Peripheral vascular disease. 5. Gastroesophageal reflux disease. 6. Chronic anemia secondary to renal disease. 7. Diabetic neuropathy. 8. Obstructive sleep apnea. 9. History of GI bleeding in the past. 10. Diverticulosis. 11. Tobacco dependence. PLAN: The patient will be monitored on the telemetry unit. We will continue vancomycin that was sta rted in the emergency room. We will add Levaquin. We will consult Infectious Disease and General Prieto rgery. Dialysis per Nephrology. We will repeat labs in a.m. We will start insulin sliding scale. Tobacco cessation was emphasized. We will confirm home medications and start accordingly. Plan of care was discussed with the patient in detail. He stated understanding.
[2018-04-10] MEDS: Docusate 100 MG CAP PO SCH (21:40)
[2018-04-10] MEDS: metroNIDAZOLE 250 MG TAB PO SCH (21:42)
[2018-04-10] MEDS ORDERED: HYDROcodone/Acetaminophen 10/325 mg Tablet PO SCH ×2 (21:45→23:59)
[2018-04-11 01:04] LABS: Troponin I 0.018 ng/mL (< 0.028)
[2018-04-11 03:30] LABS: #Basophils 0.1 thou/uL (0.0-0.2); #Eosinphils 0.3 thou/uL (0.0-0.7); #Monocytes 1.2 thou/uL (0.11-0.59); #Neutrophils 8.1 thou/uL (1.40-6.50); %Basophils 0.6 % (0.0-1.0); %Eosinophils 2.4 % (0.0-10.0); %Lymphocytes 17.4 % (21.0-51.0); %Monocytes 10.4 % (0.0-10.0); %Neutrophils 69.2 % (42.0-75.0); Hemoglobin 7.9 g/dL (14.0-18.0); Mean Corpuscular HGB CONC 33.9 g/dL (32.0-36.0); Mean Corpuscular Hemoglobin 31.7 pg (27.0-31.0); Mean Corpuscular Volume 93.4 fL (78.0-98.0); Mean Platelet Volume 6.2 fL (7.4-10.4); Platelet Count 217 thou/uL (130-400); RBC Distribution Width 12.6 % (11.5-14.5); White Blood Cell (WBC) Count 11.7 thou/uL (4.8-10.8)
[2018-04-11 03:44] LABS: Anion Gap 14 mmol/L (10-20); BUN (Urea Nitrogen) 21 mg/dL (8.4-25.7); Calc. Creatinine Clearance 15 mL/min (70-130); Calcium 8.8 mg/dL (7.8-10.44); Carbon Dioxide 28 mmol/L (23-31); Chloride 100 mmol/L (98-107); Estimated GFR-MDRD 10; Glucose 64 mg/dL (80-115); Potassium 3.5 mmol/L (3.5-5.1); Sodium 138 mmol/L (136-145); Troponin I 0.013 ng/mL (< 0.028)
[2018-04-11] MEDS: HYDROcodone/Acetaminophen 10/325 mg Tablet PO SCH ×3 (06:29→18:34)
--- NOTE | 2018-04-11 06:45 | HP ---
HISTORY OF PRESENT ILLNESS: Sean Hicks is a 68-year-old black male well known to me. The gertrude ent is a diabetic, end-stage renal disease on dialysis. He has had amputations of toes on his right foot and toes with metatarsals, left foot. He is followed by Dr. Barrett. He has developed a planta r ulceration in left foot proximally, in the proximal arch, Dr. Barrett debrided a wound. The patien t presented to the emergency room, noted to have a white count of 14,000, hemoglobin 8.8, changes in his BMP consistent with end-stage renal disease on dialysis patient. He had x-rays of his foot revea ling postoperative changes with signs of wound on the plantar aspect of the midfoot left to the level of the cuboid bone, which was present at the time of the prior study. No other new findings were ap preciated. CT scan of the lower extremities obtained revealing cortical irregularity and some erosio n involving the anterior aspect of the cuboid bone osteomyelitis findings. An MRI has been ordered. The patient has an appointment to see Dr. Zazueta in the next week or two. Today, he underwent a va scular ultrasound study revealing absence of DVT. He had lymphadenopathy in the left groin. He has been admitted to the hospital and started on vancomycin, Levaquin, and Dr. Mcneil has been consulted a long with Dr. Rojo. I personally evaluated his foot and he has a 2.5 to 3 cm opening in the plantar aspect, proximal arch , left foot. This has extensive undermining with foul-smelling necrotic grayish tissue protruding ou t. On probing, it extends down to the deep fascia, cuboid bone and tendons. He has palpable femoral and popliteal pulses. ALLERGIES: IODINE: TOBACCO: 1/2 pack per day. ALCOHOL: None. PAST MEDICAL HISTORY: Diabetes mellitus type 2, hypertension, tobacco abuse, end-stage renal disease on maintenance dialysis, followed by Dr. Emory Rojo, GERD, hypertension, hyperlipidemia, sleep ap johana, and obesity. PAST SURGICAL HISTORY: Right arm Brenda fistula, partial colectomy, skin grafting, partial amputatio ns of both feet. 04/15/2017, Dr. Alvarez performed colonoscopy and rectal polypectomy, noted changes co nsistent with subtotal colectomy. 04/07/2016, Dr. Degroot performed amputation of left fourth and thi rd toes of metatarsal, wound helping to heal by secondary intention, left fifth toe had been pr eviously amputated. 11/30/2015, Dr. Zazueta, Brenda fistula, right. 09/13/2015, IJ tunneled cathete r. 11/26/2012, total abdominal colectomy with ileocolic anastomosis. Patient had a total abdominal colectomy, ileocolic anastomosis per GI bleeding. REVIEW OF SYSTEMS: Ten-point noncontributory. MEDICATIONS: Restoril, Protonix, insulin, hydrocodone, glimepiride, ferrous sulfate, calcitriol at h ome, vancomycin, metronidazole, Levaquin in the hospital. PHYSICAL EXAMINATION: VITAL SIGNS: 6 feet tall, 227 pounds, 30 BMI, 99 degrees, 110, 22, 114/55. HEAD, EYES, EARS, NOSE AND THROAT: Unremarkable. LUNGS: Clear to auscultation. CARDIAC: Regular rate and rhythm without murmur or gallop. ABDOMEN: Soft, nontender, obese. EXTREMITIES: Unremarkable. Amputations of toes, right foot in the past. Brenda fistula of right fo rearm. Left foot, proximal plantar ulceration 3 cm diameter with necrotic foul-smelling protruding g rayish necrotic tissue undermining extensively protruding down to the cuboid bones, tendons, and fasc ia. ASSESSMENT AND PLAN: 1. Diabetic neuropathic foot ulceration. In my opinion, this will not heal and involves the cuboid bones and tarsal bones and with the extensive undermining tissue the patient is in need of below-the- knee amputation. He has an MRI scheduled for tomorrow, which I do not think is necessary, but it is scheduled. Patient will talk about this recommendation with his and will plan [id number] am putation. At a later time, I do not see any point in debriding the wound as it is so extensive and u ndermining that this wound will not heal. I would recommend amputation. 2. Tobacco abuse. 3. Diabetes mellitus. 4. Obesity. 5. Hypertension. 6. Status post total abdominal colectomy, ileocolic anastomosis.
[2018-04-11] MEDS ORDERED: Glimepiride 4 MG TAB PO SCH (08:00)
[2018-04-11] MEDS ORDERED: Sodium Chloride 0.9% 10 ML ONE (08:06)
[2018-04-11] MEDS ORDERED: NPH, Human Insulin Isophane 300 UNIT/3 ML VIAL SC SCH ×2 (09:00)
[2018-04-11] MEDS: Ferrous Sulfate 325 MG TAB PO SCH (09:43)
[2018-04-11] MEDS: metroNIDAZOLE 250 MG TAB PO SCH ×3 (09:44→20:50)
[2018-04-11] MEDS: Calcitriol 0.25 MCG CAP PO SCH (09:44)
[2018-04-11] MEDS: Docusate 100 MG CAP PO SCH (09:44)
--- NOTE | 2018-04-11 11:38 | PDOC.PN ---
- Subjective Encounter Start Date: 04/11/18 Encounter Start Time: 08:00 Patient seen and examined for Sepsis/diabetic foot infection. Feels better. Pain controlled. No new complaints. No overnight events - Objective Resuscitation Status: Resuscitation Status FULL:Full Resuscitation MAR Reviewed: Yes Vital Signs & Weight: Vital Signs (12 hours) Temp Pulse Resp BP Pulse Ox 04/11/18 07:55 98.9 F 100 18 115/51 L 94 L 04/11/18 03:14 99.4 F 91 16 112/54 L 93 L 04/10/18 23:41 98.6 F 90 20 98/51 L 95 Weight Weight 227 lb I&O: 04/10/18 04/11/18 04/12/18 06:59 06:59 06:59 Intake Total 240 Output Total 0 Balance 240 Result Diagrams: 04/11/18 03:10 04/11/18 03:10 Additional Labs: Accuchecks 04/11/18 04/11/18 04/10/18 06:37 05:46 20:47 POC Glucose 101 67 L 143 H EKG Reviewed by me: Yes (Tele SR) Phys Exam - Physical Examination Constitutional: NAD Respiratory: no wheezing, no rales, no rhonchi, clear to auscultation bilateral Cardiovascular: RRR, no rub no heaves/pulsations Gastrointestinal: soft, non-tender, no distention, positive bowel sounds Musculoskeletal: no edema Dressing over the left foot + Neurological: non-focal, moves all 4 limbs Psychiatric: A&O x 3 Dx/Plan - Plan DVT proph w/SCDs IMPRESSION: 1. Sepsis with acute organ dysfunction secondary to left diabetic foot infection. 2. Diabetes mellitus, type 2. on sliding scale. 3. End-stage renal disease on hemodialysis. 4. Peripheral vascular disease. 5. Gastroesophageal reflux disease. 6. Chronic anemia secondary to renal disease. 7. Diabetic neuropathy. 8. Obstructive sleep apnea. 9. History of GI bleeding in the past. 10. Diverticulosis. 11. Tobacco dependence. PLAN: Cont Vancomycin/Levaquin/Flagyl Await ID/Surg input AM labs Hold NPH/Amaryl due to hypoglycemia Dialysis per Nephrology Cont Wound care Cont current meds as below Review of Systems - Review of Systems Respiratory: negative: Cough, Dry, Shortness of Breath, Hemoptysis, SOB with Excertion, Pleuritic Pain, Sputum, Wheezing Cardiovascular: negative: chest pain, palpitations, orthopnea, paroxysmal nocturnal dyspnea, edema, light headedness, other - Medications/Allergies Allergies/Adverse Reactions: Allergies Allergy/AdvReac Type Severity Reaction Status Date / Time Iodine and Iodide Containing Allergy swelling Verified 04/10/18 20:33 Produc and blisters Medications: Current Medications Acetaminophen (Tylenol) 650 mg PO Q4H PRN PRN Reason: Headache/Fever or Pain Hydrocodone Bitart/Acetaminophen ([place] 10/325) 1 tab PO Q6HR [facility] Last Admin: 04/11/18 06:29 Dose: Not Given Al Hydroxide/Mg Hydroxide (Maalox) 30 ml PO Q6H PRN PRN Reason: Heartburn or Indigestion Calcitriol (Rocaltrol) 0.25 mcg PO DAILY [facility] Last Admin: 04/11/18 09:44 Dose: 0.25 mcg Calcium Carbonate (Tums) 1,000 mg PO Q4H PRN PRN Reason: Heartburn or Indigestion Dextrose/Water (Dextrose 50%) 25 gm SLOW IVP PRN PRN PRN Reason: Hypoglycemia Diphenoxylate HCl/Atropine (Lomotil) 1 tab PO BIDPRN PRN PRN Reason: Diarrhea/Loose Stools Docusate Sodium (Colace) 100 mg PO BID [facility] Last Admin: 04/11/18 09:44 Dose: 100 mg Ferrous Sulfate (Feosol) 325 mg PO QAM-WM [facility] Last Admin: 04/11/18 09:43 Dose: 325 mg Glucagon (Glucagon) 1 mg IM PRN PRN PRN Reason: Hypoglycemia Dextrose/Water (D5w) 1,000 mls @ 0 mls/hr IV .Q0M PRN; As Directed PRN Reason: Hypoglycemia Levofloxacin 500 mg/ Device 100 mls @ 100 mls/hr IVPB Q2D@2100 [facility] Last Admin: 04/10/18 21:42 Dose: 100 mls Vancomycin HCl 1.5 gm/ Sodium (Chloride) 300 mls @ 200 mls/hr IVPB WILLCALL [facility] Vancomycin HCl 1.25 gm/ Sodium (Chloride) 250 mls @ 166.667 mls/hr IVPB WILLCALL [facility] Vancomycin HCl 1 gm/ Device 200 mls @ 200 mls/hr IVPB WILLCALL [facility] Vancomycin HCl 750 mg/ Sodium (Chloride) 250 mls @ 250 mls/hr IVPB WILLCALL HOLLIE Insulin Human Regular (Humulin R) 0 units SC .BEDTIME SLIDING SC PRN PRN Reason: Bedtime Correctional Scale Insulin Human Regular (Humulin R) 0 units SC .AGGRESSIVE SLIDING PRN PRN Reason: Aggressive Sliding Scale Metronidazole (Flagyl) 250 mg PO TID [facility] Last Admin: 04/11/18 09:44 Dose: 250 mg Miscellaneous Medication (Pharmacy To Dose) 1 each IVPB ONE PRN PRN Reason: Pharmacy to dose Stop: 04/20/18 20:32 Hold Vancomycin For (Level >20) 0 each FS .AT DIALYSIS [facility] Ondansetron HCl (Zofran Odt) 4 mg PO Q6H PRN PRN Reason: Nausea/Vomiting Ondansetron HCl (Zofran) 4 mg IVP Q6H PRN PRN Reason: Nausea/Vomiting Pantoprazole Sodium (Protonix) 40 mg PO DAILY [facility] Last Admin: 04/11/18 09:44 Dose: 40 mg Senna (Senokot) 2 tab PO HSPRN PRN PRN Reason: Constipation Temazepam (Restoril) 15 mg PO HSPRN PRN PRN Reason: Insomnia
--- NOTE | 2018-04-11 11:42 | MRI ---
MRI LEFT FOOT WITHOUT CONTRAST: Date: 04/11/18 HISTORY: Ulcer. Evaluate for osteomyelitis. COMPARISON: Lateral radiograph same day. FINDINGS: There is a large plantar ulcer of the mid foot extending to the fifth metatarsal, as well as the cubo id. There is loss of normal marrow signal within the plantar cortex of the cuboid, as well as of the remnant of the fifth metatarsal base. There is also loss of normal marrow signal of the fourth metata rsal base. There is overlying susceptibility from tendon suture anchor. Evaluation for drainable fluid collection is limited without intravenous contrast. There is a sinus t ract extending to the skin. There is abnormal fluid within the fourth and fifth tarsometatarsal joints. IMPRESSION: Osteomyelitis of the plantar aspect of the cuboid, as well as of the fifth and likely the fourth meta tarsal bases. POS: ESTHER
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
[2018-04-11] MEDS ORDERED: Aspirin 81 mg Enteric Coated Tablet PO SCH (12:00)
--- NOTE | 2018-04-11 18:34 | CON ---
DATE OF CONSULTATION: 04/11/2018 REASON FOR CONSULTATION: Left foot infection. HISTORY OF PRESENT ILLNESS: A 68-year-old known to me from prior visits, last time I saw him on 04/2017. He presented with type 2 diabetes, peripheral vascular disease, neuropathy, chronic ulcer in the mid plantar left foot region , fever, and neutrophilia. He did have a CT angio evaluation, which showed bilateral runoff with high grade focal distal SFA stenosis. At that time, Dr. Singh evaluated the patient and he felt that his circulation was adequate for healing of wounds. Left foot MRI without contrast done showed T2 hyperintense, T1 hypointense signal consistent with a phlegmon. There are some subtle signal changes in the plantar periphery of the cuboid bone overlying the large plantar ulcer, nonspecific osteitis. The patient followed with Dr. Barrett through the second half of 2016 and the first half of 2017 and did have granulation of the wound. He used the splint and Dermagraft, but never completely closed the area and he did receive protracted antimicrobial therapy at the end of 2016. Finally , he developed worsening of the appearance of the ulceration with drainage and he was admitted. He has been evaluated by Surgery. He did have a CT of the extremity, which demonstrated cortical irregularity and subtle erosion in the inferior aspect of the cuboid. The patient had an MRI, which showed osteomyelitis of the plantar aspect of the cuboid as well as a fifth and likely fourth metatarsal bases. Currently, he is awake and alert. He denies any headaches, no shortness of breath, cough or sputum production, no chest pain or abdominal pain, no diarrhea, no genitourinary symptoms. The patient is dialyzed 3 times a week through an AV fistula in the right upper extremity. PAST MEDICAL HISTORY: Includes type 2 diabetes; GISELE; COPD; prior amputations of toes in the right and left feet; chronic ulcer in the mid foot area, left side, with cuboid osteomyelitis; peripheral vascular disease, which was felt not to be requiring revascularization by Dr. Singh recently. FAMILY HISTORY: Noncontributory. ALLERGIES: IODINE. CURRENT MEDICATIONS: Include Wallace, Maalox, Ecotrin, Rocaltrol, Tums, dextrose , Feosol, insulin, levofloxacin, Flagyl, vancomycin, sliding scale. PHYSICAL EXAMINATION: VITAL SIGNS: T-max 99.4, blood pressure 130/50, pulse 98, respirations 16, O2 sat 94%. SKIN: Examination shows the ulcerated area in the mid foot region left side with a necrotic center. The area probes to bone. There is purulent exudate draining from the site. The patient has no lymphadenopathy. HEENT: Ocular movements conjugate. Oral cavity is noncontributory. NECK: Supple. No jugular venous distention. LUNGS: With symmetric clear breath sounds. HEART: S1, S2, regular rate without murmurs. ABDOMEN: Soft, nondistended or tender. No ascites. No bladder distention. GENITOURINARY: No genital abnormalities. EXTREMITIES: I could not feel any popliteals or dorsalis pedis in the left side. The foot is warm. LABORATORY DATA: The latest labs with a white cell count initially 14, now 11.7 ; hemoglobin 7.9; platelets 217. Sodium 138, creatinine 6.38, calcium 8.9. Liver profile normal, alkaline phosphatase including. CRP is 19.2. Microbiology: Two sets of blood cultures thus far negative. Previous foot culture from 2016 with Staph aureus, which was an MSSA Enterococcus and Proteus mirabilis. The Proteus had a broad susceptibility profile. He also had Prevotella retrieved. ASSESSMENT: Type 2 diabetes; peripheral vascular disease; end-stage renal disease, on hemodialysis, on AV fistula; and chronic ulcer in the left foot with no evidence of recrudescence with worsening, evidence of osteomyelitis. DISCUSSION: The patient has peripheral vascular disease. The options would include a conservative surgery with limited debridement of the areas of osteomyelitis involvement associated with protracted antimicrobial therapy versus BKA amputation. He wants to get a second opinion in terms of surgical approaches. Since he has peripheral vascular disease, the chances for successful conservative approach with just debridement of the infected bone without total amputation of the foot would be less, but I guess it could be attempted. The current antimicrobial regimen seems to be adequate based on the previous microbiology, but that is an old sample and repeat cultures would be necessary if a conservative approach is chosen. Obviously if BKA is chosen, then no antimicrobial therapy would be required after the procedure is completed. In view of the areas of stenosis detected during the angiogram done last year, he would be at risk for complications of the BKA amputation site healing as well. JAZZY
[2018-04-11] MEDS: Insulin Regular 300 UNITS/3 ML VIAL SC PRN ×2 (18:43→20:50)
--- NOTE | 2018-04-11 20:37 | PRG ---
DATE OF SERVICE: 04/11/2018 SUBJECTIVE: Sean Hicks has no complaints today. He requested second opinion regarding his left foot. Dr. Zazueta is out of town for the next week and a half. He had been seen her previously. Sh e had performed his right seminal fistula and performed amputation of some of his toes. The patient has had a CT scan and MRI scan of his left foot demonstrating osteomyelitis of the cuboid bone as wel l as osteomyelitis of the fifth and likely fourth metatarsal bases. This osteomyelitic infection is not amenable to intravenous antibiotic treatment as there is too much soft tissue destruction and inf ection and the underlying neuropathic ulcer is too deep. Antibiotics will not suffice for this and I have informed the patient and his family of this. I again have recommended a [id number] amputat ion. The patient desires a second opinion and I have talked to Dr. Armond Vallejo about seeing him. I have asked the patient prior to this dictation to visit to ensure that he was agreeable as Dr. Jono holland is not available for another week and a half to [address] Vallejo will see the patient later t fátima or tomorrow. It is the patient's perception that per conversations with Dr. Mcneil and Darrel that antibiotics alone administered during dialysis will remedy his osteomyelitis problem, but I have info rmed him that I have a different opinion that this current neuropathic plantar wound is extensive wit h abundant necrotic gangrenous tissue, there is foul smelling and there is extensive undermining and destruction and that antibiotics alone will not resolve this diabetic neuropathic ulceration and oste omyelitis problem, and that [id number] amputation is warranted. We will await second opinion.
[2018-04-12] MEDS: HYDROcodone/Acetaminophen 10/325 mg Tablet PO SCH ×5 (00:25→23:32)
[2018-04-12 05:47] LABS: #Eosinphils 0.4 thou/uL (0.0-0.7); #Lymphocytes 1.5 thou/uL (1.20-3.40); #Monocytes 0.7 thou/uL (0.11-0.59); #Neutrophils 6.4 thou/uL (1.40-6.50); %Basophils 0.4 % (0.0-1.0); %Eosinophils 4.6 % (0.0-10.0); %Lymphocytes 16.4 % (21.0-51.0); %Monocytes 7.7 % (0.0-10.0); %Neutrophils 70.9 % (42.0-75.0); Hemoglobin 7.6 g/dL (14.0-18.0); Mean Corpuscular HGB CONC 33.3 g/dL (32.0-36.0); Mean Corpuscular Hemoglobin 31.3 pg (27.0-31.0); Mean Corpuscular Volume 93.9 fL (78.0-98.0); Mean Platelet Volume 7.1 fL (7.4-10.4); Platelet Count 285 thou/uL (130-400); RBC Distribution Width 12.6 % (11.5-14.5); Red Blood Cell (RBC) Count 2.44 mill/uL (4.70-6.10); White Blood Cell (WBC) Count 9.1 thou/uL (4.8-10.8)
[2018-04-12 06:16] LABS: Anion Gap 16 mmol/L (10-20); BUN (Urea Nitrogen) 32 mg/dL (8.4-25.7); Calc. Creatinine Clearance 10 mL/min (70-130); Calcium 8.8 mg/dL (7.8-10.44); Carbon Dioxide 26 mmol/L (23-31); Chloride 99 mmol/L (98-107); Estimated GFR-MDRD 6; Glucose 159 mg/dL (80-115); Potassium 3.6 mmol/L (3.5-5.1); Sodium 137 mmol/L (136-145)
[2018-04-12] MEDS: Docusate 100 MG CAP PO SCH (09:48)
[2018-04-12] MEDS: Aspirin 81 mg Enteric Coated Tablet PO SCH (09:48)
[2018-04-12] MEDS: Saccharomyces boulardii 250 MG CAP PO SCH (09:48)
[2018-04-12] MEDS: Calcitriol 0.25 MCG CAP PO SCH (09:48)
[2018-04-12] MEDS: metroNIDAZOLE 250 MG TAB PO SCH ×3 (09:48→20:44)
[2018-04-12] MEDS: Ferrous Sulfate 325 MG TAB PO SCH (09:48)
--- NOTE | 2018-04-12 10:47 | PRG ---
DATE OF SERVICE: 04/12/2018 SUBJECTIVE: Mr. Hicks is a 68-year-old black male with end-stage renal disease on maintenance hem odialysis. He was admitted for left foot infection - x-ray of the foot suggests osteomyelitis. Malik mmendation for foot surgery was done to the patient, but he declined. He wants to try IV antibiotics . He is currently receiving Flagyl, Levaquin, and vancomycin. Infectious Disease is also following. We are following this patient for his maintenance hemodialysis. No other complaints today, no ches t pain or shortness of breath. OBJECTIVE: VITAL SIGNS: Blood pressure 107/50, heart rate 97, respiratory rate 19, temperature 98.9, pulse ox 9 5% - on room air. GENERAL: Noted to be awake, alert, supine, comfortable, not in distress. SKIN: Adequate turgor. HEENT: He has slightly pale conjunctivae, anicteric sclerae. NECK: No neck mass, no carotid bruits, no JVD. CHEST: No deformities. LUNGS: Clear breath sounds. HEART: Normal sinus rhythm. No murmur, no gallops, no rubs. ABDOMEN: Globular, soft, nontender, no masses. EXTREMITIES: No edema, positive for left foot dressing. MEDICATIONS: Of 04/12/2018 was reviewed. LABORATORY DATA: Of 04/12/2018, white count 9.1, hemoglobin 7.6. Sodium 137, potassium 3.6, chlorid e 99, carbon dioxide 26, BUN 32, creatinine 9.85, glucose 159, calcium is 8.8. ASSESSMENT AND PLAN: 1. Left foot osteomyelitis - declining surgery. Continue IV antibiotics. ID is following. This pa tient most likely will need several weeks of IV antibiotics. 2. End-stage renal disease, stable. We will continue current Friday, Friday, Friday hemodialysis regimen. There is no indication for any emergent hemodialysis today. 3. Anemia. Resume Epogen 10,000 units subcutaneously every week. Continue ferrous sulfate.
[2018-04-12] MEDS: Epoetin (ESRD) 10,000 UNITS/ML VIAL SC SCH (12:01)
[2018-04-12] MEDS: Insulin Regular 300 UNITS/3 ML VIAL SC PRN ×2 (12:06→20:51)
--- NOTE | 2018-04-12 14:03 | PDOC.PN ---
- Subjective Encounter Start Date: 04/12/18 Encounter Start Time: 08:00 Patient seen and examined for Sepsis. No fever or chills. Pain controlled. No new complaints. No overnight events - Objective Resuscitation Status: Resuscitation Status FULL:Full Resuscitation MAR Reviewed: Yes Vital Signs & Weight: Vital Signs (12 hours) Temp Pulse Resp BP BP Pulse Ox 04/12/18 11:48 98.6 F 76 16 114/51 L 97 04/12/18 08:01 98.9 F 97 19 107/50 L 95 04/12/18 03:10 98.4 F 84 18 119/60 94 L Weight Admit Weight 227 lb Weight 227 lb I&O: 04/11/18 04/12/18 04/13/18 06:59 06:59 06:59 Intake Total 240 200 Output Total 0 Balance 240 200 Result Diagrams: 04/12/18 04:05 04/12/18 04:05 Additional Labs: Accuchecks 04/12/18 04/12/18 04/11/18 10:36 05:41 20:29 POC Glucose 272 H 178 H 253 H 04/11/18 16:42 POC Glucose 186 H EKG Reviewed by me: Yes (Tele SR) Phys Exam - Physical Examination Constitutional: NAD Respiratory: no wheezing, no rhonchi Cardiovascular: RRR, no rub Gastrointestinal: soft, non-tender, positive bowel sounds Musculoskeletal: no edema left foot dressing + Dx/Plan - Plan PT/OT, DVT proph w/SCDs IMPRESSION: 1. Sepsis with acute organ dysfunction secondary to left diabetic foot infection. WBC improving 2. Diabetes mellitus, type 2. on sliding scale. uncontrolled. 3. End-stage renal disease on hemodialysis. 4. Peripheral vascular disease. on ASA 5. Gastroesophageal reflux disease. on PPI 6. Chronic anemia secondary to renal disease. on Procrit 7. Diabetic neuropathy. 8. Obstructive sleep apnea. 9. History of GI bleeding in the past. 10. Diverticulosis. 11. Tobacco dependence. Counselled. PLAN: Cont current Atbx AM labs Resume NPH at 10 units BID and Amaryl at 2 mg BID-WM Dialysis per Nephrology Cont Wound care Cont other meds as below Not on SQ Heparin due to Anemia Monitor Vancomycin levels Review of Systems - Medications/Allergies Allergies/Adverse Reactions: Allergies Allergy/AdvReac Type Severity Reaction Status Date / Time Iodine and Iodide Containing Allergy swelling Verified 04/10/18 20:33 Produc and blisters Medications: Current Medications Acetaminophen (Tylenol) 650 mg PO Q4H PRN PRN Reason: Headache/Fever or Pain Hydrocodone Bitart/Acetaminophen ([place] 10/325) 1 tab PO Q6HR [facility] Last Admin: 04/12/18 12:00 Dose: 1 tab Al Hydroxide/Mg Hydroxide (Maalox) 30 ml PO Q6H PRN PRN Reason: Heartburn or Indigestion Aspirin (Ecotrin) 81 mg PO DAILY [facility] Last Admin: 04/12/18 09:48 Dose: 81 mg Calcitriol (Rocaltrol) 0.25 mcg PO DAILY [facility] Last Admin: 04/12/18 09:48 Dose: 0.25 mcg Calcium Carbonate (Tums) 1,000 mg PO Q4H PRN PRN Reason: Heartburn or Indigestion Dextrose/Water (Dextrose 50%) 25 gm SLOW IVP PRN PRN PRN Reason: Hypoglycemia Diphenoxylate HCl/Atropine (Lomotil) 1 tab PO BIDPRN PRN PRN Reason: Diarrhea/Loose Stools Docusate Sodium (Colace) 100 mg PO DAILY [facility] Last Admin: 04/12/18 09:48 Dose: 100 mg Epoetin Rafael (Procrit) 10,000 units SC Q7D [facility] Last Admin: 04/12/18 12:01 Dose: 10,000 units Ferrous Sulfate (Feosol) 325 mg PO QAM-WM [facility] Last Admin: 04/12/18 09:48 Dose: 325 mg Glucagon (Glucagon) 1 mg IM PRN PRN PRN Reason: Hypoglycemia Dextrose/Water (D5w) 1,000 mls @ 0 mls/hr IV .Q0M PRN; As Directed PRN Reason: Hypoglycemia Levofloxacin 500 mg/ Device 100 mls @ 100 mls/hr IVPB Q2D@2100 [facility] Last Admin: 04/10/18 21:42 Dose: 100 mls Vancomycin HCl 1.5 gm/ Sodium (Chloride) 300 mls @ 200 mls/hr IVPB WILLCALL [facility] Vancomycin HCl 1.25 gm/ Sodium (Chloride) 250 mls @ 166.667 mls/hr IVPB WILLCALL [facility] Vancomycin HCl 1 gm/ Device 200 mls @ 200 mls/hr IVPB WILLCALL [facility] Vancomycin HCl 750 mg/ Sodium (Chloride) 250 mls @ 250 mls/hr IVPB WILLCALL [facility] Insulin Human Regular (Humulin R) 0 units SC .BEDTIME SLIDING SC PRN PRN Reason: Bedtime Correctional Scale Last Admin: 04/11/18 20:50 Dose: 3 unit Insulin Human Regular (Humulin R) 0 units SC .MODERATE SLIDING SC PRN PRN Reason: Moderate Correctional Scale Last Admin: 04/12/18 12:06 Dose: 6 unit Metronidazole (Flagyl) 250 mg PO TID [facility] Last Admin: 04/12/18 09:48 Dose: 250 mg Miscellaneous Medication (Pharmacy To Dose) 1 each IVPB ONE PRN PRN Reason: Pharmacy to dose Stop: 04/20/18 20:32 Hold Vancomycin For (Level >20) 0 each FS .AT DIALYSIS [facility] Ondansetron HCl (Zofran Odt) 4 mg PO Q6H PRN PRN Reason: Nausea/Vomiting Ondansetron HCl (Zofran) 4 mg IVP Q6H PRN PRN Reason: Nausea/Vomiting Pantoprazole Sodium (Protonix) 40 mg PO DAILY [facility] Last Admin: 04/12/18 09:48 Dose: 40 mg Saccharomyces Boulardii (Florastor) 250 mg PO DAILY [facility] Last Admin: 04/12/18 09:48 Dose: 250 mg Senna (Senokot) 2 tab PO HSPRN PRN PRN Reason: Constipation Temazepam (Restoril) 15 mg PO HSPRN PRN PRN Reason: Insomnia
[2018-04-12] MEDS: Glimepiride 2 MG TAB PO SCH (16:17)
[2018-04-12] MEDS: NPH, Human Insulin Isophane 300 UNIT/3 ML VIAL SC SCH (20:53)
[2018-04-13 05:06] LABS: #Eosinphils 0.4 thou/uL (0.0-0.7); #Lymphocytes 1.6 thou/uL (1.20-3.40); #Monocytes 0.7 thou/uL (0.11-0.59); #Neutrophils 5.9 thou/uL (1.40-6.50); %Basophils 0.3 % (0.0-1.0); %Eosinophils 5.1 % (0.0-10.0); %Lymphocytes 18.6 % (21.0-51.0); Hemoglobin 7.3 g/dL (14.0-18.0); Mean Corpuscular HGB CONC 34.1 g/dL (32.0-36.0); Mean Corpuscular Hemoglobin 31.8 pg (27.0-31.0); Mean Corpuscular Volume 93.3 fL (78.0-98.0); Mean Platelet Volume 6.8 fL (7.4-10.4); Platelet Count 289 thou/uL (130-400); RBC Distribution Width 12.8 % (11.5-14.5); Red Blood Cell (RBC) Count 2.31 mill/uL (4.70-6.10); White Blood Cell (WBC) Count 8.7 thou/uL (4.8-10.8)
[2018-04-13] MEDS: HYDROcodone/Acetaminophen 10/325 mg Tablet PO SCH ×3 (05:30→19:53)
[2018-04-13 05:31] LABS: Anion Gap 18 mmol/L (10-20); BUN (Urea Nitrogen) 38 mg/dL (8.4-25.7); Calc. Creatinine Clearance 9 mL/min (70-130); Calcium 8.5 mg/dL (7.8-10.44); Carbon Dioxide 23 mmol/L (23-31); Chloride 98 mmol/L (98-107); Estimated GFR-MDRD 5; Glucose 85 mg/dL (80-115); Potassium 3.6 mmol/L (3.5-5.1); Sodium 135 mmol/L (136-145)
--- NOTE | 2018-04-13 07:47 | CON ---
DATE OF CONSULTATION: 04/12/2018 HISTORY OF PRESENT ILLNESS: Mr. Huntley is a 68-year-old male who has type 2 diabetes, peripheral va scular disease, diabetic neuropathy. He has had chronic open ulcer on the mid plantar aspect of the left foot. He had studies which showed high-grade stenosis at the distal superficial femoral artery. He had regular x-rays and MRI, which showed osteomyelitis on the plantar aspect of the cuboid fourt h and fifth metatarsal bones. The patient has had amputations of toes to the left foot. He has also had amputations previously to the right foot. Right foot currently is doing very well, has no open wounds. He states that he has been treated with antibiotics per Dr. Mcneil and has very little pain i n the left foot. It was recommended by Dr. Degroot that he undergo left [id number] amputation. T he patient requested a second opinion. PHYSICAL EXAMINATION: LEFT FOOT: Patient has an open wound on the plantar lateral aspect of the mid foot. There is purule nt exudate at the site. The wound measures approximately 2.5 cm. There is moderate swelling on the plantar aspect of the foot, no swelling in the ankle or leg. There is no erythema in the ankle or le g. No palpable pulses in the foot or ankle. IMPRESSION: Patient has osteomyelitis of the left foot with type 2 diabetes, severe peripheral vascu lar disease, diabetic neuropathy, and end-stage renal disease. DISCUSSION: I talked with the patient and based on the anatomy of his left foot as well as the osteo myelitis, it is my opinion that he has an extremely low chance of healing this with any type of local surgery. I explained to him and his and his family that his best option to be completely rid o f the infection would be a [id number] amputation. I do not feel that he has good enough circulat ion that a Syme's amputation at the ankle would be of benefit. The patient's questions were answered and we will consider that option.
[2018-04-13] MEDS ORDERED: Sodium Chloride 0.9% 10 ML ONE (09:00)
--- NOTE | 2018-04-13 09:16 | PRG ---
DATE OF SERVICE: 04/13/2018 SUBJECTIVE: Mr. Hicks is a 68-year-old black male with known history of ESRD. Admitted for left foot infection, currently on IV antibiotics. ID and Surgery are following. Patient declining surger y. I am at the bedside supervising his hemodialysis. He is tolerating said treatment. PHYSICAL EXAMINATION: VITAL SIGNS: Blood pressure is 135/50, heart rate 95, respiratory rate 20, temperature 98.6, pulse o x 94%. GENERAL: Noted to be awake, alert, comfortable, not in distress. SKIN: Adequate turgor. HEENT: He has slightly pale conjunctivae, anicteric sclerae. NECK: No neck mass, no carotid bruits, no JVD. CHEST: No deformities. LUNGS: Clear breath sounds. No wheezing, no crackles. HEART: Normal sinus rhythm. No murmur, no gallops or rubs. ABDOMEN: Globular, soft, nontender, no masses. EXTREMITIES: Left foot dressing. MEDICATIONS: 04/13/2018 - Reviewed. LABORATORY: 04/13/2018 - White count 8.7, hemoglobin 7.3. Sodium 135, potassium 3.6, chloride 98, c arbon dioxide 23, BUN 38, creatinine 11.62, glucose 85, calcium 8.5. ASSESSMENT AND PLAN: 1. End-stage renal disease, stable. Continuing Friday, Friday, Friday dialysis. Fluid removal o nly as tolerated. 2. Anemia. Epogen initiated at 10,000 units subcutaneously every week. 3. Left foot cellulitis on IV antibiotics. ID is following. Recheck base met and CBC in a.m.
[2018-04-13 12:49] LABS: Vancomycin, Random 6.4 ug/mL (See Comment)
[2018-04-13] MEDS: Glimepiride 2 MG TAB PO SCH ×2 (13:56→14:02)
[2018-04-13] MEDS: metroNIDAZOLE 250 MG TAB PO SCH ×3 (13:57→20:19)
[2018-04-13] MEDS: Ferrous Sulfate 325 MG TAB PO SCH (14:02)
[2018-04-13] MEDS: Docusate 100 MG CAP PO SCH (14:02)
[2018-04-13] MEDS: Aspirin 81 mg Enteric Coated Tablet PO SCH (14:02)
[2018-04-13] MEDS: Calcitriol 0.25 MCG CAP PO SCH (14:02)
[2018-04-13] MEDS: Saccharomyces boulardii 250 MG CAP PO SCH (14:02)
[2018-04-13] MEDS: NPH, Human Insulin Isophane 300 UNIT/3 ML VIAL SC SCH ×2 (16:31→20:20)
[2018-04-13] MEDS ORDERED: Vancomycin HCl 1.25 GM in Sodium Chloride 0.9% 250 ML 250 ML IVPB SCH (17:45)
--- NOTE | 2018-04-13 18:54 | PRG ---
DATE OF SERVICE: 04/13/2018 Sean Hicks has received a second opinion regarding management of his neuropathic ulcer, diabetic left foot with osteomyelitis of his cuboid bone. Dr. Vallejo has seen him and told the patient that prognosis is poor and this will not heal and amputation is the best solution. I have talked to the p atient today. Patient states that Dr. Rojo, Dr. Mcneil and Dr. Woo; however, have told him that anti biotics are worth a try. At this point, the patient should keep followup appointments with Dr. Jono holland and Dr. Zazueta is out of town this week. I will see the patient is needed. Please call if I can provide any other services.
--- NOTE | 2018-04-13 20:21 | PDOC.PN ---
- Subjective Encounter Start Date: 04/13/18 Encounter Start Time: 07:30 Patient seen and examined for diabetic foot infection. No new complaints. No overnight events - Objective Resuscitation Status: Resuscitation Status FULL:Full Resuscitation MAR Reviewed: Yes Vital Signs & Weight: Vital Signs (12 hours) Temp Pulse Resp BP BP Pulse Ox 04/13/18 19:57 97.6 F 92 18 134/60 04/13/18 16:07 97.8 F 97 16 125/57 L 97 04/13/18 12:41 98.2 F 88 16 148/55 H 93 L 04/13/18 09:15 98.0 F 87 16 93 L Weight Admit Weight 227 lb Weight 233 lb 3.2 oz I&O: 04/12/18 04/13/18 04/14/18 06:59 06:59 06:59 Intake Total 200 460 Output Total 0 Balance 200 460 Result Diagrams: 04/13/18 04:08 04/13/18 04:08 Additional Labs: Accuchecks 04/13/18 04/13/18 04/13/18 16:15 14:16 05:29 POC Glucose 175 H 140 H 91 04/12/18 20:42 POC Glucose 202 H EKG Reviewed by me: Yes (Tele SR) Phys Exam - Physical Examination Constitutional: NAD Respiratory: no wheezing, no rhonchi Cardiovascular: RRR, no rub Gastrointestinal: soft, non-tender, positive bowel sounds Musculoskeletal: no edema dressing + Neurological: non-focal, moves all 4 limbs Dx/Plan - Plan DVT proph w/SCDs IMPRESSION: 1. Sepsis with acute organ dysfunction secondary to left diabetic foot infection. 2. Diabetes mellitus, type 2. on sliding scale. 3. End-stage renal disease on hemodialysis. 4. Peripheral vascular disease. on ASA 5. Gastroesophageal reflux disease. on PPI 6. Chronic anemia secondary to renal disease. on Procrit 7. Diabetic neuropathy. 8. Obstructive sleep apnea. 9. History of GI bleeding in the past. 10. Diverticulosis. 11. Tobacco dependence. Counselled. PLAN: Cont Vancomycin/Levaquin and Flagyl - Monitor Vancomycin levels Cont NPH at 10 units BID and Amaryl at 2 mg BID-WM Patient declining BKA HH in AM Dialysis per Nephrology Cont Wound care Cont other meds as below Not on SQ Heparin due to Anemia DC planning in 24 hr if ok with ID Review of Systems - Review of Systems Respiratory: negative: Cough, Dry, Shortness of Breath, Hemoptysis, SOB with Excertion, Pleuritic Pain, Sputum, Wheezing Cardiovascular: negative: chest pain, palpitations, orthopnea, paroxysmal nocturnal dyspnea, edema, light headedness, other - Medications/Allergies Allergies/Adverse Reactions: Allergies Allergy/AdvReac Type Severity Reaction Status Date / Time Iodine and Iodide Containing Allergy swelling Verified 04/10/18 20:33 Produc and blisters Medications: Current Medications Acetaminophen (Tylenol) 650 mg PO Q4H PRN PRN Reason: Headache/Fever or Pain Hydrocodone Bitart/Acetaminophen ([place] 10/325) 1 tab PO Q6HR [facility] Last Admin: 04/13/18 19:53 Dose: 1 tab Al Hydroxide/Mg Hydroxide (Maalox) 30 ml PO Q6H PRN PRN Reason: Heartburn or Indigestion Aspirin (Ecotrin) 81 mg PO DAILY [facility] Last Admin: 04/13/18 14:02 Dose: 81 mg Calcitriol (Rocaltrol) 0.25 mcg PO DAILY [facility] Last Admin: 04/13/18 14:02 Dose: 0.25 mcg Calcium Carbonate (Tums) 1,000 mg PO Q4H PRN PRN Reason: Heartburn or Indigestion Dextrose/Water (Dextrose 50%) 25 gm SLOW IVP PRN PRN PRN Reason: Hypoglycemia Diphenoxylate HCl/Atropine (Lomotil) 1 tab PO BIDPRN PRN PRN Reason: Diarrhea/Loose Stools Docusate Sodium (Colace) 100 mg PO DAILY [facility] Last Admin: 04/13/18 14:02 Dose: 100 mg Epoetin Rafael (Procrit) 10,000 units SC Q7D [facility] Last Admin: 04/12/18 12:01 Dose: 10,000 units Ferrous Sulfate (Feosol) 325 mg PO QAM-WM [facility] Last Admin: 04/13/18 14:02 Dose: 325 mg Glimepiride (Amaryl) 2 mg PO BID-AC [facility] Last Admin: 04/13/18 14:02 Dose: 2 mg Glucagon (Glucagon) 1 mg IM PRN PRN PRN Reason: Hypoglycemia Dextrose/Water (D5w) 1,000 mls @ 0 mls/hr IV .Q0M PRN; As Directed PRN Reason: Hypoglycemia Levofloxacin 500 mg/ Device 100 mls @ 100 mls/hr IVPB Q2D@2100 [facility] Last Admin: 04/12/18 20:43 Dose: 100 mls Vancomycin HCl 1.5 gm/ Sodium (Chloride) 300 mls @ 200 mls/hr IVPB WILLCALL [facility] Vancomycin HCl 1.25 gm/ Sodium (Chloride) 250 mls @ 166.667 mls/hr IVPB WILLCALL [facility] Vancomycin HCl 1 gm/ Device 200 mls @ 200 mls/hr IVPB WILLCALL [facility] Vancomycin HCl 750 mg/ Sodium (Chloride) 250 mls @ 250 mls/hr IVPB WILLCALL [facility] Vancomycin HCl 1.25 gm/ Sodium (Chloride) 250 mls @ 166.667 mls/hr IVPB NOW [facility] Stop: 04/13/18 23:59 Last Admin: 04/13/18 17:53 Dose: 250 mls Insulin Human NPH (Humulin N) 10 unit SC BID [facility] Last Admin: 04/13/18 16:31 Dose: 10 unit Insulin Human Regular (Humulin R) 0 units SC .BEDTIME SLIDING SC PRN PRN Reason: Bedtime Correctional Scale Last Admin: 04/12/18 20:51 Dose: 2 unit Insulin Human Regular (Humulin R) 0 units SC .AGGRESSIVE SLIDING PRN PRN Reason: Aggressive Sliding Scale Metronidazole (Flagyl) 250 mg PO TID [facility] Last Admin: 04/13/18 14:02 Dose: 250 mg Miscellaneous Medication (Pharmacy To Dose) 1 each IVPB ONE PRN PRN Reason: Pharmacy to dose Stop: 04/20/18 20:32 Hold Vancomycin For (Level >20) 0 each FS .AT DIALYSIS [facility] Ondansetron HCl (Zofran Odt) 4 mg PO Q6H PRN PRN Reason: Nausea/Vomiting Ondansetron HCl (Zofran) 4 mg IVP Q6H PRN PRN Reason: Nausea/Vomiting Pantoprazole Sodium (Protonix) 40 mg PO DAILY [facility] Last Admin: 04/13/18 12:02 Dose: 40 mg Saccharomyces Boulardii (Florastor) 250 mg PO DAILY [facility] Last Admin: 04/13/18 14:02 Dose: 250 mg Senna (Senokot) 2 tab PO HSPRN PRN PRN Reason: Constipation Temazepam (Restoril) 15 mg PO HSPRN PRN PRN Reason: Insomnia
[2018-04-13] MEDS: Senokot S 8.6-50 MG TAB PO SCH (20:29)
[2018-04-14] MEDS: HYDROcodone/Acetaminophen 10/325 mg Tablet PO SCH ×5 (00:31→22:30)
[2018-04-14 04:41] LABS: #Basophils 0.1 thou/uL (0.0-0.2); #Eosinphils 0.3 thou/uL (0.0-0.7); #Lymphocytes 2.2 thou/uL (1.20-3.40); #Monocytes 0.8 thou/uL (0.11-0.59); #Neutrophils 4.9 thou/uL (1.40-6.50); %Basophils 0.6 % (0.0-1.0); %Eosinophils 4.1 % (0.0-10.0); %Lymphocytes 26.9 % (21.0-51.0); %Monocytes 9.1 % (0.0-10.0); %Neutrophils 59.3 % (42.0-75.0); Mean Corpuscular HGB CONC 32.8 g/dL (32.0-36.0); Mean Corpuscular Hemoglobin 30.9 pg (27.0-31.0); Mean Corpuscular Volume 94.2 fL (78.0-98.0); Mean Platelet Volume 6.8 fL (7.4-10.4); Platelet Count 337 thou/uL (130-400); RBC Distribution Width 12.8 % (11.5-14.5); Red Blood Cell (RBC) Count 2.58 mill/uL (4.70-6.10); White Blood Cell (WBC) Count 8.2 thou/uL (4.8-10.8)
[2018-04-14 05:19] LABS: Anion Gap 16 mmol/L (10-20); BUN (Urea Nitrogen) 21 mg/dL (8.4-25.7); Calc. Creatinine Clearance 13 mL/min (70-130); Calcium 8.7 mg/dL (7.8-10.44); Carbon Dioxide 25 mmol/L (23-31); Chloride 100 mmol/L (98-107); Estimated GFR-MDRD 8; Glucose 135 mg/dL (80-115); Potassium 3.9 mmol/L (3.5-5.1); Sodium 137 mmol/L (136-145)
--- NOTE | 2018-04-14 08:53 | PRG ---
DATE OF SERVICE: 04/14/2018 SUBJECTIVE: Mr. Hicks is a 68-year-old black male with ESRD and being followed by [facility] or his maintenance hemodialysis. He underwent hemodialysis yesterday without any difficulty. He is tolerating said treatment. No new complaints today, no chest pain or shortness of breath. He has be en evaluated by Dr. Degroot and Dr. Vallejo. He has been advised to consider a left BKA due to poor c irculation and for his underlying osteomyelitis. The patient is still hesitant to do this. He did h ave a discussion with Dr. Degroot regarding consideration for a possibility of any revascularization t o improve blood flow. Dr. Degroot is contemplating on this. PHYSICAL EXAMINATION: VITAL SIGNS: Blood pressure is 143/63, heart rate 94, respiratory rate 16, temperature 97.9, pulse o x 94%. GENERAL: Awake, comfortable, not in overt distress. SKIN: Adequate turgor. HEENT: He has slightly pale conjunctivae, anicteric sclerae. NECK: No neck mass, no carotid bruits, no JVD. CHEST: No deformities. LUNGS: Clear breath sounds, no wheezing, no crackles. HEART: Normal sinus rhythm. No murmur, no gallops or rubs. ABDOMEN: Globular, soft, nontender. No masses. EXTREMITIES: No edema. Positive for left foot dressing. MEDICATIONS: 04/14/2018 - Reviewed. LABORATORY: 04/14/2018 - White count 8.2, hemoglobin 8. Sodium 137, potassium 3.9, chloride 100, ca rbon dioxide 25, BUN 21, creatinine 7.85, glucose 135, calcium 8.7. ASSESSMENT AND PLAN: 1. End-stage renal disease, stable. Continuing Friday, Friday, Friday hemodialysis regimen. Flu id removal only as tolerated. 2. Anemia - the patient has been placed on a weekly Epogen at 10,000 units subcutaneously every week . P.r.n. blood transfusion. 3. Left foot infection/osteomyelitis. Recommendation for left [id number] amputation, but the pa ramon is declining to proceed with this. He wants to be evaluated for possible revascularization. Maya Degroot is to address this. Recheck base met and CBC in a.m.
[2018-04-14] MEDS: Calcitriol 0.25 MCG CAP PO SCH (09:48)
[2018-04-14] MEDS: Aspirin 81 mg Enteric Coated Tablet PO SCH (09:48)
[2018-04-14] MEDS: Senokot S 8.6-50 MG TAB PO SCH ×3 (09:48→22:29)
[2018-04-14] MEDS: Polyethylene Glycol 3350 17 GM Packet PO SCH (09:48)
[2018-04-14] MEDS: Ferrous Sulfate 325 MG TAB PO SCH (09:48)
[2018-04-14] MEDS: Glimepiride 2 MG TAB PO SCH ×2 (09:48→16:10)
[2018-04-14] MEDS: metroNIDAZOLE 250 MG TAB PO SCH ×3 (09:48→22:29)
[2018-04-14] MEDS: Saccharomyces boulardii 250 MG CAP PO SCH (09:48)
--- NOTE | 2018-04-14 10:47 | PRG ---
DATE OF SERVICE: 04/14/2018 Mr. Hicks is doing well today. I have reviewed past records, he has had previous imaging demonstr ating suggesting left superficial femoral artery, high grade stenosis. By exam he has PAD. The gertrude ent refused surgical intervention for his left foot wound. It is my belief that this wound will not heal and he will need a below knee amputation, but other consultants have given the patient hope that antibiotics will resolve this. To optimize healing conditions I have consulted Dr. Blaine Singh for ar teriography and interventional procedures indicated for maximizing optimizing left foot blood flow. Even if he ends with a below knee amputation intervention of a significant stenosis of his superficia l femoral artery will improve healing. The patient also asked me about his ventral hernias. He has a subtotal abdominal colectomy with ileorectal distal sigmoid anastomosis by Dr. Yuan years ago. He has 2 large incisional hernias in his upper abdomen which are asymptomatic, but cosmetically bother h im. He is obese. I have told him that there is no urgency in repairing these hernias and he can hav e them addressed as an outpatient when he follows with Dr. Zazueta in the future. At this time, we w ill focus on his peripheral vascular disease and his neuropathic ulcer and osteomyelitis of his cuboi d bone.
[2018-04-14] MEDS: NPH, Human Insulin Isophane 300 UNIT/3 ML VIAL SC SCH ×2 (10:58→22:31)
[2018-04-14] MEDS: Insulin Regular 300 UNITS/3 ML VIAL SC PRN (12:10)
--- NOTE | 2018-04-14 12:18 | PRG ---
DATE OF SERVICE: 04/14/2018 SUBJECTIVE: The patient is seen and examined at bedside. He is not having much complaints to offer. He feels good. His appetite is fair. He does not have much pain. OBJECTIVE: VITAL SIGNS: Blood pressure is 143/63, pulse is 94, respiratory rate 16, O2 saturation is 94% on isha m air. His temperature is 97.9. HEENT: His head is atraumatic, normocephalic. Eyes are PERRLA. Sclerae nonicteric. Oral mucosa is moist. NECK: Supple, no lymphadenopathy. LUNGS: Clear. HEART: S1 and S2 normal. ABDOMEN: Soft, nontender. He has large 2 incisional hernias in his upper abdomen, but both of them are asymptomatic. EXTREMITIES: His left foot is dressed. NEUROLOGIC EXAMINATION: He is alert and oriented x4. There are not any motor deficits. LABORATORY DATA: Showed a white count of 8.2, hemoglobin 8.0, hematocrit 24.3, platelet count is 337 . Normal electrolytes, BUN 21, creatinine 7.85. Glycemia is ranging from 140-203, calcium is 8.7. Microbiology: Blood cultures x2, no growth in 48 hours. IMPRESSION: 1. Sepsis with acute organ dysfunction, secondary to left diabetic foot infection. 2. Diabetes mellitus, type 2. 3. End-stage renal disease, on hemodialysis 3 times a week. 4. Peripheral vascular disease. The patient is going to have evaluation by cardiovascular surgeon a nd he might go through the revascularization procedure to improve the blood supply to the left foot. 5. Gastroesophageal reflux disease, on PPI. 6. Chronic anemia secondary to renal disease, on weekly Procrit. 7. Diabetic neuropathy. 8. Obstructive sleep apnea. 9. History of gastrointestinal bleeding in the past. 10. Tobacco dependence. 11. Diverticulosis. PLAN: 1. Continue vancomycin, Levaquin, and Flagyl. 2. Obtain cardiovascular consultation for revascularization of his left lower extremity. 3: Apparently, the patient declined [id number] amputation of this leg. 4. We will continue dialysis per Nephrology recommendation. 5. We will continue wound care.
--- NOTE | 2018-04-14 23:08 | CON ---
DATE OF CONSULTATION: 04/14/2018 HISTORY OF PRESENT ILLNESS: This is a 68-year-old gentleman on chronic hemodialysis for the past sev eral years who has had multiple toe amputations related to vascular disease. He has had an open woun d on the plantar aspect of his left foot for at least a year and this has failed to heal. He was adm itted and evaluated and felt to be a candidate for a [id number] amputation; however, he preferred to continue with attempts at limb preservation. CTA was done showing what appeared to be about 80% stenosis in the distal left SFA/proximal popliteal artery on the left and I was therefore consulted. PAST MEDICAL HISTORY: Significant for insulin-dependent diabetes mellitus and smoking history. PAST SURGICAL HISTORY: Includes colon resection for diverticulitis as well as multiple toe amputatio ns, all done by Dr. Yuan. He has also had an AV fistula in his right arm by Dr. Zazueta. MEDICATIONS: Prior to admission included insulin, glimepiride, and Calcitriol, and iron supplements. ALLERGIES: He reports allergies to IODINE. PHYSICAL EXAMINATION: GENERAL: Alert, cooperative gentleman in no distress. VITAL SIGNS: Weight 222. NECK: No carotid bruits. Full geller. LUNGS: Clear to auscultation. CARDIAC: Regular rate and rhythm. No murmurs with a continuous thrill at the supraclavicular area o n the right. He has a functioning AV fistula in the right lower arm Brenda. ABDOMEN: Obese. EXTREMITIES: He has palpable femoral pulses bilaterally as well as a left popliteal and left posteri or tibial. I did not palpate a right popliteal pulse. He has a dressing on his left foot and I have reviewed photos of this and he has a large deep wound involving his mid and proximal plantar surface of his foot with reported osteo of the calcaneus. At this time, plan angiography, possible angioplasty or stenting of his distal SFA. Left SFA of the stenosis appears significant. Overall, his examination vascular-magaña is relatively well preserved wi th good Doppler signals and a palpable posterior tibial pulse.
[2018-04-15] MEDS ORDERED: predniSONE 20 MG TAB PO SCH ×2 (04:00→11:55)
[2018-04-15 05:43] LABS: Anion Gap 17 mmol/L (10-20); BUN (Urea Nitrogen) 28 mg/dL (8.4-25.7); Calc. Creatinine Clearance 10 mL/min (70-130); Calcium 8.6 mg/dL (7.8-10.44); Carbon Dioxide 25 mmol/L (23-31); Chloride 101 mmol/L (98-107); Estimated GFR-MDRD 6; Glucose 178 mg/dL (80-115); Potassium 4.2 mmol/L (3.5-5.1); Sodium 139 mmol/L (136-145)
[2018-04-15 05:46] LABS: #Basophils 0.1 thou/uL (0.0-0.2); #Eosinphils 0.4 thou/uL (0.0-0.7); #Lymphocytes 1.4 thou/uL (1.20-3.40); #Monocytes 0.7 thou/uL (0.11-0.59); #Neutrophils 4.9 thou/uL (1.40-6.50); %Eosinophils 4.9 % (0.0-10.0); %Lymphocytes 18.6 % (21.0-51.0); %Neutrophils 65.5 % (42.0-75.0); Hemoglobin 7.6 g/dL (14.0-18.0); Mean Corpuscular HGB CONC 32.8 g/dL (32.0-36.0); Mean Corpuscular Hemoglobin 31.1 pg (27.0-31.0); Mean Corpuscular Volume 94.8 fL (78.0-98.0); Mean Platelet Volume 6.8 fL (7.4-10.4); Platelet Count 329 thou/uL (130-400); Red Blood Cell (RBC) Count 2.44 mill/uL (4.70-6.10); White Blood Cell (WBC) Count 7.4 thou/uL (4.8-10.8)
[2018-04-15] MEDS: HYDROcodone/Acetaminophen 10/325 mg Tablet PO SCH ×3 (06:26→18:31)
[2018-04-15] MEDS ORDERED: Iopamidol 370 76% 50 ML VIAL FS ONE (06:53)
[2018-04-15 09:51] LABS: HBSAg Index 0.15 S/CO (0-0.99); Hep B Surf AB Non-Reactive (NonReactive); Hep B Surf Ag Non-Reactive S/CO (NonReactive)
--- NOTE | 2018-04-15 09:56 | PRG ---
DATE OF SERVICE: 04/15/2018 SUBJECTIVE: Mr. Hicks is a 68-year-old black male with end-stage renal disease [facility] I am at the bedside supervising his dialysis. He has also been seen by Vas cular Surgery, Dr. Singh for a planned angiography and possible angioplasty or stenting of the distal left SFA. Please note, he came in with left foot ulceration. Initial recommendation is to consider left BKA, b ut the patient declined and would like to proceed with possible revascularization if that is possible . He voices no new complaints. He denies any chest pain or shortness of breath. PHYSICAL EXAMINATION: VITAL SIGNS: Blood pressure is 148/66, heart rate 94, respiratory rate 14, temperature 98.5, pulse o x 95%. GENERAL: Awake, alert, comfortable, not in distress. SKIN: Adequate turgor. HEENT: Slightly pale conjunctivae, anicteric sclerae. NECK: No neck mass, no carotid bruits, no JVD. CHEST: No deformities. LUNGS: Clear breath sounds. No wheezing, no crackles. HEART: Normal sinus rhythm. No murmur, gallops or rubs. ABDOMEN: Globular, soft, nontender, no masses. EXTREMITIES: No edema, no deformities except for left foot dressing. MEDICATIONS: Of 04/15/2018 was reviewed. LABORATORY DATA: Of 04/15/2018, white count 7.4, hemoglobin 7.6. Sodium 139, potassium 4.2, chlorid e 101, carbon dioxide 25, BUN 28, creatinine 9.87, glucose 178, calcium 8.6. ASSESSMENT AND PLAN: 1. End-stage renal disease, stable. Continuing Friday, Friday, Friday hemodialysis. Fluid remov al as tolerated. 2. Anemia, continuing weekly Epogen and iron supplementation, p.r.n. blood transfusion. 3. Left foot ulceration/cellulitis on IV antibiotics. Patient will undergo angiography for possible revascularization. Recheck base met and CBC in a.m.
[2018-04-15] MEDS ORDERED: diphenhydrAMINE 50 MG CAP PO SCH (11:00)
[2018-04-15] MEDS: Calcitriol 0.25 MCG CAP PO SCH (13:16)
[2018-04-15] MEDS: Ferrous Sulfate 325 MG TAB PO SCH (13:16)
[2018-04-15] MEDS: Glimepiride 2 MG TAB PO SCH ×2 (13:16→16:37)
[2018-04-15] MEDS: Aspirin 81 mg Enteric Coated Tablet PO SCH (13:16)
[2018-04-15] MEDS: Saccharomyces boulardii 250 MG CAP PO SCH (13:17)
[2018-04-15] MEDS: NPH, Human Insulin Isophane 300 UNIT/3 ML VIAL SC SCH ×2 (13:17→20:38)
[2018-04-15] MEDS: Senokot S 8.6-50 MG TAB PO SCH ×2 (13:17→20:38)
[2018-04-15] MEDS: Polyethylene Glycol 3350 17 GM Packet PO SCH (13:17)
[2018-04-15] MEDS: metroNIDAZOLE 250 MG TAB PO SCH ×3 (13:17→20:38)
[2018-04-15] MEDS ORDERED: Heparin 10,000 UNITS/1 ML VIAL ONE (13:42)
[2018-04-15] MEDS ORDERED: Protamine Sulfate 50 MG/5 ML VIAL ONE (14:15)
[2018-04-15 15:08] LABS: Vancomycin, Random 15.4 ug/mL (See Comment)
[2018-04-15] MEDS ORDERED: Clopidogrel Bisulfate 75 MG TAB PO SCH (15:15)
[2018-04-15] MEDS ORDERED: Vancomycin HCl 750 MG in Sodium Chloride 0.9% 250 ML 250 ML IVPB SCH (16:15)
--- NOTE | 2018-04-15 18:23 | OP ---
DATE OF PROCEDURE: 04/15/2018 PREOPERATIVE DIAGNOSIS: Peripheral artery disease. PROCEDURE: Aortogram, bilateral lower extremity runoff, left superficial femoral angioplasty for abo ut 40 balloon, left posterior tibial angioplasty for about 40 drug-coated Lutonix balloon. CONTRAST: 46 mL FLUOROSCOPY: Fluoroscopy 7.3 minutes. PROCEDURE: After adequate prepping and draping, ultrasound guided puncture of the right common femor al artery was performed after 1% lidocaine infiltration. A 5 Cambodian dilator and sheath were placed a nd runoff of the right leg was obtained. Following this, a 4-Cambodian Contra catheter was introduced i n the aorta where aortogram and iliofemoral runoff was obtained. The Contra catheter directed it int o the left common femoral artery and runoff of the left leg. Following heparinization, the wire was advanced through the Contra catheter and the 5-Cambodian sheath and system exchanged for a 6-Cambodian dest ination sheath. An 0.014 loose wire was then passed through the stenosis in the posterior tibial art olivia and a 4 x 40 Lutonix balloon inflated for 2 minutes. The balloon was then withdrawn into the mid superficial femoral artery where it was again inflated. Runoff was then obtained and the balloon wa s then readvanced into the posterior tibial where it was reinflated again. System was then removed a fter protamine administration. FINDINGS: Aortoiliac segments were unremarkable as were common and deep femoral arteries. Left supe rficial femoral artery had some irregularities with the worst being about 75% in the mid portion, and then single vessel runoff below the knee with a 90% proximal posterior tibial stenosis reduced to ab out 20%. Right leg demonstrated diffuse severe disease in the superficial femoral artery with essent ially single vessel runoff via a diseased posterior tibial.
[2018-04-15] MEDS: Insulin Regular 300 UNITS/3 ML VIAL SC PRN (21:40)
--- NOTE | 2018-04-15 23:51 | PDOC.PN ---
- Subjective Encounter Start Date: 04/15/18 Encounter Start Time: 16:00 Subjective: nsg notes rev, allen ovn, no new c/o -: reports he had an angioplasty earlier today and is aware of POC -: denies any fevers/ chills/ pain - Objective Resuscitation Status: Resuscitation Status FULL:Full Resuscitation Vital Signs & Weight: Vital Signs (12 hours) Temp Pulse Resp BP Pulse Ox 04/15/18 20:40 98.5 F 93 18 94 L 04/15/18 20:00 98.5 F 93 18 137/54 L 96 04/15/18 16:00 99 F 85 18 153/67 H 95 04/15/18 14:30 99 F 85 18 Weight Admit Weight 227 lb Weight 223 lb 4.8 oz I&O: 04/14/18 04/15/18 04/16/18 06:59 06:59 06:59 Intake Total 460 Balance 460 Result Diagrams: 04/15/18 05:17 04/16/18 05:15 Additional Labs: Accuchecks 04/15/18 04/15/18 04/14/18 16:20 05:26 20:41 POC Glucose 197 H 194 H 144 H Phys Exam - Physical Examination Constitutional: NAD lying in hospital bed HEENT: PERRLA, moist MMs Respiratory: no wheezing, no rales, no rhonchi, clear to auscultation bilateral Cardiovascular: RRR, no significant murmur, no rub Gastrointestinal: positive bowel sounds Musculoskeletal: pulses present dressing on LLE not removed Psychiatric: normal affect, A&O x 3 Dx/Plan - Plan cont current plan of care, continue antibiotics IMPRESSION: 1. Sepsis with acute organ dysfunction secondary to left diabetic foot infection. continue vanc/ levaquin/ flagyl combination s/p balloon angioplasty - pt would like to avoid surg/ BKA if at all possible continue with wound care as well 2. Diabetes mellitus, type 2. on sliding scale. stable, continue to monitor 3. End-stage renal disease on hemodialysis. continue 4. Peripheral vascular disease. on ASA also with PAD s/p balloon angioplasty 04/15/18 5. Gastroesophageal reflux disease. on PPI 6. Chronic anemia secondary to renal disease. on Procrit 7. Diabetic neuropathy. 8. Obstructive sleep apnea. 9. History of GI bleeding in the past. 10. Diverticulosis. 11. Tobacco dependence. Counselled. diet: as juan j activity: as juan j dvt ppx Review of Systems - Medications/Allergies Allergies/Adverse Reactions: Allergies Allergy/AdvReac Type Severity Reaction Status Date / Time Iodine and Iodide Containing Allergy swelling Verified 04/10/18 20:33 Produc and blisters Medications: Current Medications Acetaminophen (Tylenol) 650 mg PO Q4H PRN PRN Reason: Headache/Fever or Pain Hydrocodone Bitart/Acetaminophen ([place] 10/325) 1 tab PO Q6HR [facility] Last Admin: 04/15/18 18:31 Dose: 1 tab Al Hydroxide/Mg Hydroxide (Maalox) 30 ml PO Q6H PRN PRN Reason: Heartburn or Indigestion Aspirin (Ecotrin) 81 mg PO DAILY [facility] Last Admin: 04/15/18 13:16 Dose: Not Given Calcitriol (Rocaltrol) 0.25 mcg PO DAILY [facility] Last Admin: 04/15/18 13:16 Dose: Not Given Calcium Carbonate (Tums) 1,000 mg PO Q4H PRN PRN Reason: Heartburn or Indigestion Clopidogrel Bisulfate (Plavix) 75 mg PO DAILY [facility] Dextrose/Water (Dextrose 50%) 25 gm SLOW IVP PRN PRN PRN Reason: Hypoglycemia Diphenoxylate HCl/Atropine (Lomotil) 1 tab PO BIDPRN PRN PRN Reason: Diarrhea/Loose Stools Epoetin Rafael (Procrit) 10,000 units SC Q7D [facility] Last Admin: 04/12/18 12:01 Dose: 10,000 units Ferrous Sulfate (Feosol) 325 mg PO QAM-WM [facility] Last Admin: 04/15/18 13:16 Dose: Not Given Glimepiride (Amaryl) 2 mg PO BID-AC [facility] Last Admin: 04/15/18 16:37 Dose: 2 mg Glucagon (Glucagon) 1 mg IM PRN PRN PRN Reason: Hypoglycemia Dextrose/Water (D5w) 1,000 mls @ 0 mls/hr IV .Q0M PRN PRN Reason: Hypoglycemia Levofloxacin 500 mg/ Device 100 mls @ 100 mls/hr IVPB Q2D@2100 [facility] Last Admin: 04/14/18 22:29 Dose: 100 mls Vancomycin HCl 1.5 gm/ Sodium (Chloride) 300 mls @ 200 mls/hr IVPB WILLCALL [facility] Vancomycin HCl 1.25 gm/ Sodium (Chloride) 250 mls @ 166.667 mls/hr IVPB WILLCALL [facility] Vancomycin HCl 1 gm/ Device 200 mls @ 200 mls/hr IVPB WILLCALL [facility] Vancomycin HCl 750 mg/ Sodium (Chloride) 250 mls @ 250 mls/hr IVPB WILLCALL [facility] Insulin Human NPH (Humulin N) 10 unit SC BID [facility] Last Admin: 04/15/18 20:38 Dose: 10 unit Insulin Human Regular (Humulin R) 0 units SC .BEDTIME SLIDING SC PRN PRN Reason: Bedtime Correctional Scale Last Admin: 04/15/18 21:40 Dose: 4 unit Insulin Human Regular (Humulin R) 0 units SC .AGGRESSIVE SLIDING PRN PRN Reason: Aggressive Sliding Scale Last Admin: 04/14/18 12:10 Dose: 3 unit Metronidazole (Flagyl) 250 mg PO TID [facility] Last Admin: 04/15/18 20:38 Dose: 250 mg Miscellaneous Medication (Pharmacy To Dose) 1 each IVPB ONE PRN PRN Reason: Pharmacy to dose Stop: 04/20/18 20:32 Hold Vancomycin For (Level >20) 0 each FS .AT DIALYSIS [facility] Ondansetron HCl (Zofran Odt) 4 mg PO Q6H PRN PRN Reason: Nausea/Vomiting Ondansetron HCl (Zofran) 4 mg IVP Q6H PRN PRN Reason: Nausea/Vomiting Pantoprazole Sodium (Protonix) 40 mg PO DAILY [facility] Last Admin: 04/15/18 13:17 Dose: Not Given Polyethylene Glycol (Miralax) 17 gm PO DAILY [facility] Last Admin: 04/15/18 13:17 Dose: Not Given Saccharomyces Boulardii (Florastor) 250 mg PO DAILY [facility] Last Admin: 04/15/18 13:17 Dose: Not Given Senna (Senokot) 2 tab PO HSPRN PRN PRN Reason: Constipation Senna/Docusate Sodium (Senokot S) 1 tab PO BID [facility] Last Admin: 04/15/18 20:38 Dose: 1 tab Temazepam (Restoril) 15 mg PO HSPRN PRN PRN Reason: Insomnia
[2018-04-16] MEDS: HYDROcodone/Acetaminophen 10/325 mg Tablet PO SCH ×4 (00:21→18:01)
[2018-04-16 05:42] LABS: Anion Gap 16 mmol/L (10-20); BUN (Urea Nitrogen) 22 mg/dL (8.4-25.7); Calc. Creatinine Clearance 14 mL/min (70-130); Calcium 8.7 mg/dL (7.8-10.44); Carbon Dioxide 26 mmol/L (23-31); Chloride 99 mmol/L (98-107); Estimated GFR-MDRD 9; Glucose 153 mg/dL (80-115); Potassium 4.5 mmol/L (3.5-5.1); Sodium 136 mmol/L (136-145)
[2018-04-16] MEDS: Calcitriol 0.25 MCG CAP PO SCH (08:56)
[2018-04-16] MEDS: Senokot S 8.6-50 MG TAB PO SCH ×2 (08:56→20:20)
[2018-04-16] MEDS: Saccharomyces boulardii 250 MG CAP PO SCH (08:56)
[2018-04-16] MEDS: NPH, Human Insulin Isophane 300 UNIT/3 ML VIAL SC SCH (08:56)
[2018-04-16] MEDS: Glimepiride 2 MG TAB PO SCH ×2 (08:57→16:56)
[2018-04-16] MEDS: Ferrous Sulfate 325 MG TAB PO SCH (08:57)
[2018-04-16] MEDS: Polyethylene Glycol 3350 17 GM Packet PO SCH (08:57)
[2018-04-16] MEDS: metroNIDAZOLE 250 MG TAB PO SCH ×3 (08:57→20:20)
[2018-04-16] MEDS: Aspirin 81 mg Enteric Coated Tablet PO SCH (08:59)
[2018-04-16] MEDS: Clopidogrel Bisulfate 75 MG TAB PO SCH (09:01)
--- NOTE | 2018-04-16 09:07 | PRG ---
DATE OF SERVICE: 04/16/2018 SERVICE: Renal Medicine. SUBJECTIVE: Mr. Hicks is a 68-year-old black male with end-stage renal disease and being followed by the Renal Service for his maintenance hemodialysis. He underwent hemodialysis yesterday without any difficulty. In addition, yesterday, he underwent an aortogram with bilateral lower extremity run off. He also underwent a left superficial femoral artery angioplasty. His left foot is being treat ed with IV antibiotics. He underwent the said procedure in the hope of improving blood flow to his l eft foot and hoping to enhance healing of the left foot ulceration. He has declined any BKA at the [facility]. No other complaints today. Denies any chest pain or shortness of breath. His appetite is ex cellent. PHYSICAL EXAMINATION: VITAL SIGNS: Blood pressure is 137/63, heart rate 84, respiratory rate 18, temperature 97.7, pulse o x 94%. GENERAL: Noted to be awake, alert, comfortable, not in distress. SKIN: Adequate turgor. HEENT: He has slightly pale conjunctivae, anicteric sclerae. NECK: No neck mass, no carotid bruits, no JVD. CHEST: No deformities. LUNGS: Clear breath sounds. No wheezing, no crackles. HEART: Normal sinus rhythm. No murmur, no gallops or rubs. ABDOMEN: Globular, soft, nontender, no masses. EXTREMITIES: No edema, possible left foot dressing. MEDICATIONS: Of 04/16/2018 was reviewed. LABORATORY DATA: Of 04/15/2018, white count 7.4, hemoglobin 7.6. Sodium 136, potassium 4.5, chlorid e 99, carbon dioxide 26, BUN 22, creatinine 7.3, glucose 153, calcium 8.7. ASSESSMENT AND PLAN: 1. End-stage renal disease, stable. No indication for any emergent hemodialysis. Continuing Friday , Friday, Friday dialysis regimen. 2. Peripheral vascular disease - status post aortogram - with angioplasty of the left superficial fe moral artery. Doing well. 3. Left foot ulceration, currently on antibiotics, status post revascularization. 4. Anemia. We will continue current weekly Epogen. Recheck CBC, base met in a.m.
[2018-04-16 12:39] VITALS: BMI 29.8
--- NOTE | 2018-04-16 13:11 | PDOC.PN ---
- Subjective Encounter Start Date: 04/16/18 Encounter Start Time: 13:11 Subjective: nsg notes rev, allen ovn, seated in hospital chair, conversant -: no new c/o, @ bedside, understands POC - Objective Resuscitation Status: Resuscitation Status FULL:Full Resuscitation Vital Signs & Weight: Vital Signs (12 hours) Temp Pulse Resp BP Pulse Ox 04/16/18 08:00 97.7 F 84 18 137/63 94 L 04/16/18 04:00 97.9 F 83 16 115/56 L 96 Weight Admit Weight 227 lb Weight 220 lb 3.869 oz I&O: 04/15/18 04/16/18 04/17/18 06:59 06:59 06:59 Intake Total 460 180 Balance 460 180 Result Diagrams: 04/15/18 05:17 04/16/18 05:15 Additional Labs: Accuchecks 04/15/18 04/15/18 21:11 16:20 POC Glucose 334 H 197 H Phys Exam - Physical Examination Constitutional: NAD seated in hospital chair HEENT: PERRLA, moist MMs Respiratory: no wheezing, no rales, no rhonchi, clear to auscultation bilateral Cardiovascular: RRR, no significant murmur, no rub Gastrointestinal: soft, non-tender, positive bowel sounds 1+ edema LLE Neurological: moves all 4 limbs Psychiatric: normal affect, A&O x 3 Dx/Plan - Plan IMPRESSION: 1. Sepsis with acute organ dysfunction secondary to left diabetic foot infection. continue vanc/ levaquin/ flagyl combination s/p balloon angioplasty - pt would like to avoid surg/ BKA if at all possible continue with wound care as well continue to monitor 2. Diabetes mellitus, type 2. on sliding scale. stable, continue to monitor 3. End-stage renal disease on hemodialysis. apprec nephrolog c/s 4. Peripheral vascular disease. on ASA also with PAD s/p balloon angioplasty 04/15/18 5. Gastroesophageal reflux disease. on PPI 6. Chronic anemia secondary to renal disease. on Procrit 7. Diabetic neuropathy. 8. Obstructive sleep apnea. 9. History of GI bleeding in the past. 10. Diverticulosis. 11. Tobacco dependence. Counselled. diet: as juan j activity: as juan j dvt ppx transfer to med/surg Review of Systems - Medications/Allergies Allergies/Adverse Reactions: Allergies Allergy/AdvReac Type Severity Reaction Status Date / Time Iodine and Iodide Containing Allergy swelling Verified 04/10/18 20:33 Produc and blisters Medications: Current Medications Acetaminophen (Tylenol) 650 mg PO Q4H PRN PRN Reason: Headache/Fever or Pain Hydrocodone Bitart/Acetaminophen ([place] 10/325) 1 tab PO Q6HR [facility] Last Admin: 04/16/18 12:50 Dose: 1 tab Al Hydroxide/Mg Hydroxide (Maalox) 30 ml PO Q6H PRN PRN Reason: Heartburn or Indigestion Aspirin (Ecotrin) 81 mg PO DAILY [facility] Last Admin: 04/16/18 08:59 Dose: 81 mg Calcitriol (Rocaltrol) 0.25 mcg PO DAILY [facility] Last Admin: 04/16/18 08:56 Dose: 0.25 mcg Calcium Carbonate (Tums) 1,000 mg PO Q4H PRN PRN Reason: Heartburn or Indigestion Clopidogrel Bisulfate (Plavix) 75 mg PO DAILY [facility] Last Admin: 04/16/18 09:01 Dose: 75 mg Dextrose/Water (Dextrose 50%) 25 gm SLOW IVP PRN PRN PRN Reason: Hypoglycemia Diphenoxylate HCl/Atropine (Lomotil) 1 tab PO BIDPRN PRN PRN Reason: Diarrhea/Loose Stools Epoetin Rafael (Procrit) 10,000 units SC Q7D [facility] Last Admin: 04/12/18 12:01 Dose: 10,000 units Ferrous Sulfate (Feosol) 325 mg PO QAM-WM [facility] Last Admin: 04/16/18 08:57 Dose: 325 mg Glimepiride (Amaryl) 2 mg PO BID-AC [facility] Last Admin: 04/16/18 08:57 Dose: 2 mg Glucagon (Glucagon) 1 mg IM PRN PRN PRN Reason: Hypoglycemia Dextrose/Water (D5w) 1,000 mls @ 0 mls/hr IV .Q0M PRN PRN Reason: Hypoglycemia Levofloxacin 500 mg/ Device 100 mls @ 100 mls/hr IVPB Q2D@2100 [facility] Last Admin: 04/14/18 22:29 Dose: 100 mls Vancomycin HCl 1.5 gm/ Sodium (Chloride) 300 mls @ 200 mls/hr IVPB WILLCALL [facility] Vancomycin HCl 1.25 gm/ Sodium (Chloride) 250 mls @ 166.667 mls/hr IVPB WILLCALL [facility] Vancomycin HCl 1 gm/ Device 200 mls @ [facility]ls[facility] Vancomycin HCl 750 mg/ Sodium (Chloride) 250 mls @ 250 mls/[facility] Insulin Human NPH (Humulin N) 10 unit SC BID [facility] Last Admin: 04/16/18 08:56 Dose: 10 unit Insulin Human Regular (Humulin R) 0 units SC .BEDTIME SLIDING SC PRN PRN Reason: Bedtime Correctional Scale Last Admin: 04/15/18 21:40 Dose: 4 unit Insulin Human Regular (Humulin R) 0 units SC .AGGRESSIVE SLIDING PRN PRN Reason: Aggressive Sliding Scale Last Admin: 04/14/18 12:10 Dose: 3 unit Metronidazole (Flagyl) 250 mg PO TID [facility] Last Admin: 04/16/18 08:57 Dose: 250 mg Miscellaneous Medication (Pharmacy To Dose) 1 each IVPB ONE PRN PRN Reason: Pharmacy to dose Stop: 04/20/18 20:32 Hold Vancomycin For (Level >20) 0 each FS .AT DIALYSIS [facility] Ondansetron HCl (Zofran Odt) 4 mg PO Q6H PRN PRN Reason: Nausea/Vomiting Ondansetron HCl (Zofran) 4 mg IVP Q6H PRN PRN Reason: Nausea/Vomiting Pantoprazole Sodium (Protonix) 40 mg PO DAILY [facility] Last Admin: 04/16/18 08:56 Dose: 40 mg Polyethylene Glycol (Miralax) 17 gm PO DAILY [facility] Last Admin: 04/16/18 08:57 Dose: 17 gm Saccharomyces Boulardii (Florastor) 250 mg PO DAILY [facility] Last Admin: 04/16/18 08:56 Dose: 250 mg Senna (Senokot) 2 tab PO HSPRN PRN PRN Reason: Constipation Senna/Docusate Sodium (Senokot S) 1 tab PO BID [facility] Last Admin: 04/16/18 08:56 Dose: 1 tab Temazepam (Restoril) 15 mg PO HSPRN PRN PRN Reason: Insomnia
[2018-04-17] MEDS: HYDROcodone/Acetaminophen 10/325 mg Tablet PO SCH ×4 (00:55→17:57)
[2018-04-17] MEDS: NPH, Human Insulin Isophane 300 UNIT/3 ML VIAL SC SCH ×3 (04:47→21:09)
[2018-04-17 05:49] LABS: #Basophils 0.1 thou/uL (0.0-0.2); #Eosinphils 0.2 thou/uL (0.0-0.7); #Monocytes 0.7 thou/uL (0.11-0.59); #Neutrophils 5.5 thou/uL (1.40-6.50); %Basophils 0.7 % (0.0-1.0); %Eosinophils 2.6 % (0.0-10.0); %Neutrophils 64.8 % (42.0-75.0); Hemoglobin 8.4 g/dL (14.0-18.0); Mean Corpuscular HGB CONC 33.6 g/dL (32.0-36.0); Mean Corpuscular Hemoglobin 31.5 pg (27.0-31.0); Mean Corpuscular Volume 93.7 fL (78.0-98.0); Mean Platelet Volume 6.1 fL (7.4-10.4); Platelet Count 432 thou/uL (130-400); RBC Distribution Width 13.3 % (11.5-14.5); Red Blood Cell (RBC) Count 2.68 mill/uL (4.70-6.10); White Blood Cell (WBC) Count 8.4 thou/uL (4.8-10.8)
[2018-04-17 06:01] LABS: Anion Gap 16 mmol/L (10-20); BUN (Urea Nitrogen) 30 mg/dL (8.4-25.7); Calc. Creatinine Clearance 11 mL/min (70-130); Calcium 8.3 mg/dL (7.8-10.44); Carbon Dioxide 25 mmol/L (23-31); Chloride 100 mmol/L (98-107); Estimated GFR-MDRD 7; Glucose 75 mg/dL (80-115); Potassium 3.7 mmol/L (3.5-5.1); Sodium 137 mmol/L (136-145)
[2018-04-17 08:06] LABS: Vancomycin, Random 20.2 ug/mL (See Comment)
--- NOTE | 2018-04-17 11:10 | PRG ---
DATE OF SERVICE: 04/17/2018 SUBJECTIVE: Mr. Hicks is a 68-year-old black male with known history of peripheral vascular disea se and ESRD being followed by [facility]al Service for his maintenance hemodialysis. He is currently at the dialysis. I am supervising his dialysis. I am at the bedside. No other complaints, no chest pain or shortness of breath. PHYSICAL EXAMINATION: VITAL SIGNS: Blood pressure is 114/58, heart rate 86, respiratory 16, temperature 98.7, pulse ox 100 %. GENERAL: Awake, supine, comfortable, not in distress SKIN: Adequate turgor. HEENT: He has slightly pale conjunctivae, anicteric sclerae. NECK: No neck mass, no carotid bruits, no JVD. CHEST: No deformities. LUNGS: Clear breath sounds, no wheezing, no crackles. HEART: Normal sinus rhythm. No murmur, no gallops or rubs. ABDOMEN: Globular, soft, nontender, no masses. EXTREMITIES: No edema, no deformities. Positive for left foot dressing. MEDICATIONS: 04/17/2018 - Reviewed. LABORATORIES: 04/17/2018 - White count 8.4, hemoglobin 8.4, sodium 137, potassium 3.7, chloride 100, carbon dioxide 25, BUN 30, creatinine 9.34, glucose 75. ASSESSMENT AND PLAN: 1. End-stage renal disease, stable. Continuing Friday, Friday, Friday dialysis. Tolerating said treatment. 2. Left foot infection/osteomyelitis on antibiotics. 3. Peripheral vascular disease - the patient is status post revascularization of the left upper extr emity in the hope of improving blood circulation to enhance left foot wound healing. 4. Anemia, on weekly Epogen, p.r.n. blood transfusion. Agree with current management.
[2018-04-17] MEDS: Glimepiride 2 MG TAB PO SCH ×2 (12:01→15:29)
[2018-04-17] MEDS: metroNIDAZOLE 250 MG TAB PO SCH ×3 (12:02→21:09)
[2018-04-17] MEDS: Polyethylene Glycol 3350 17 GM Packet PO SCH (13:00)
[2018-04-17] MEDS: Saccharomyces boulardii 250 MG CAP PO SCH (13:00)
[2018-04-17] MEDS: Senokot S 8.6-50 MG TAB PO SCH ×2 (13:00→21:17)
[2018-04-17] MEDS: Ferrous Sulfate 325 MG TAB PO SCH (13:00)
[2018-04-17] MEDS: Aspirin 81 mg Enteric Coated Tablet PO SCH (13:00)
[2018-04-17] MEDS: Calcitriol 0.25 MCG CAP PO SCH (13:00)
[2018-04-17] MEDS: Clopidogrel Bisulfate 75 MG TAB PO SCH (13:00)
[2018-04-17] MEDS: Insulin Regular 300 UNITS/3 ML VIAL SC PRN (21:14)
--- NOTE | 2018-04-17 21:27 | PDOC.PN ---
- Subjective Encounter Start Date: 04/17/18 Encounter Start Time: 20:00 Subjective: nsg notes rev, allen ovn, no new issues - Objective Resuscitation Status: Resuscitation Status FULL:Full Resuscitation Vital Signs & Weight: Vital Signs (12 hours) Temp Pulse Resp BP Pulse Ox 04/17/18 19:45 98.4 F 93 16 145/71 H 96 04/17/18 18:29 98.2 F 94 18 132/69 97 04/17/18 16:00 98.0 F 87 16 116/55 L 93 L 04/17/18 11:35 97.9 F 92 16 116/56 L 96 Weight Admit Weight 227 lb Weight 218 lb 12.8 oz I&O: 04/16/18 04/17/18 04/18/18 06:59 06:59 06:59 Intake Total 180 1650 Output Total 0 Balance 180 1650 Result Diagrams: 04/17/18 05:16 04/17/18 05:16 Additional Labs: Accuchecks 04/17/18 04/17/18 04/17/18 20:48 16:47 06:01 POC Glucose 269 H 139 H 89 Dx/Plan - Plan IMPRESSION: 1. Sepsis with acute organ dysfunction secondary to left diabetic foot infection. continue vanc/ levaquin/ flagyl combination s/p balloon angioplasty - pt would like to avoid surg/ BKA if at all possible continue with wound care as well continue to monitor 2. Diabetes mellitus, type 2. on sliding scale. stable, continue to monitor 3. End-stage renal disease on hemodialysis. apprec nephrology c/s 4. Peripheral vascular disease. on ASA also with PAD s/p balloon angioplasty 04/15/18 5. Gastroesophageal reflux disease. on PPI 6. Chronic anemia secondary to renal disease. on Procrit 7. Diabetic neuropathy. stable 8. Obstructive sleep apnea. stable 9. History of GI bleeding in the past. 10. Diverticulosis. 11. Tobacco dependence. Counselled. diet: as juan j activity: as juan j dvt ppx Review of Systems - Medications/Allergies Allergies/Adverse Reactions: Allergies Allergy/AdvReac Type Severity Reaction Status Date / Time Iodine and Iodide Containing Allergy swelling Verified 04/10/18 20:33 Produc and blisters Medications: Current Medications Acetaminophen (Tylenol) 650 mg PO Q4H PRN PRN Reason: Headache/Fever or Pain Hydrocodone Bitart/Acetaminophen ([place] 10/325) 1 tab PO Q6HR [facility] Last Admin: 04/18/18 05:38 Dose: 1 tab Al Hydroxide/Mg Hydroxide (Maalox) 30 ml PO Q6H PRN PRN Reason: Heartburn or Indigestion Aspirin (Ecotrin) 81 mg PO DAILY [facility] Last Admin: 04/18/18 08:30 Dose: 81 mg Calcitriol (Rocaltrol) 0.25 mcg PO DAILY [facility] Last Admin: 04/18/18 08:30 Dose: 0.25 mcg Calcium Carbonate (Tums) 1,000 mg PO Q4H PRN PRN Reason: Heartburn or Indigestion Clopidogrel Bisulfate (Plavix) 75 mg PO DAILY [facility] Last Admin: 04/18/18 08:30 Dose: 75 mg Dextrose/Water (Dextrose 50%) 25 gm SLOW IVP PRN PRN PRN Reason: Hypoglycemia Diphenoxylate HCl/Atropine (Lomotil) 1 tab PO BIDPRN PRN PRN Reason: Diarrhea/Loose Stools Epoetin Rafael (Procrit) 10,000 units SC Q7D [facility] Last Admin: 04/12/18 12:01 Dose: 10,000 units Ferrous Sulfate (Feosol) 325 mg PO QAM-WM [facility] Last Admin: 04/18/18 08:30 Dose: 325 mg Glimepiride (Amaryl) 2 mg PO BID-AC [facility] Last Admin: 04/17/18 15:29 Dose: 2 mg Glucagon (Glucagon) 1 mg IM PRN PRN PRN Reason: Hypoglycemia Dextrose/Water (D5w) 1,000 mls @ 0 mls/hr IV .Q0M PRN PRN Reason: Hypoglycemia Levofloxacin 500 mg/ Device 100 mls @ 100 mls/hr IVPB Q2D@2100 [facility] Last Admin: 04/16/18 20:19 Dose: 100 mls Vancomycin HCl 1.5 gm/ Sodium (Chloride) 300 mls @ 200 mls/hr IVPB WILLCALL [facility] Vancomycin HCl 1.25 gm/ Sodium (Chloride) 250 mls @ 166.667 mls/hr IVPB WILLCALL [facility] Vancomycin HCl 1 gm/ Device 200 mls @ 200 mls/hr IVPB WILLCALL [facility] Vancomycin HCl 750 mg/ Sodium (Chloride) 250 mls @ 250 mls/hr IVPB WILLCALL [facility] Insulin Human NPH (Humulin N) 10 unit SC BID [facility] Last Admin: 04/18/18 08:31 Dose: 10 unit Insulin Human Regular (Humulin R) 0 units SC .BEDTIME SLIDING SC PRN PRN Reason: Bedtime Correctional Scale Last Admin: 04/17/18 21:14 Dose: 3 unit Insulin Human Regular (Humulin R) 0 units SC .AGGRESSIVE SLIDING PRN PRN Reason: Aggressive Sliding Scale Last Admin: 04/18/18 05:39 Dose: 3 unit Metronidazole (Flagyl) 250 mg PO TID [facility] Last Admin: 04/18/18 08:31 Dose: 250 mg Miscellaneous Medication (Pharmacy To Dose) 1 each IVPB ONE PRN PRN Reason: Pharmacy to dose Stop: 04/20/18 20:32 Hold Vancomycin For (Level >20) 0 each FS .AT DIALYSIS [facility] Ondansetron HCl (Zofran Odt) 4 mg PO Q6H PRN PRN Reason: Nausea/Vomiting Ondansetron HCl (Zofran) 4 mg IVP Q6H PRN PRN Reason: Nausea/Vomiting Pantoprazole Sodium (Protonix) 40 mg PO DAILY [facility] Last Admin: 04/18/18 08:31 Dose: 40 mg Polyethylene Glycol (Miralax) 17 gm PO DAILY [facility] Last Admin: 04/18/18 08:31 Dose: 17 gm Saccharomyces Boulardii (Florastor) 250 mg PO DAILY [facility] Last Admin: 04/18/18 08:30 Dose: 250 mg Senna (Senokot) 2 tab PO HSPRN PRN PRN Reason: Constipation Senna/Docusate Sodium (Senokot S) 1 tab PO BID [facility] Last Admin: 04/18/18 08:30 Dose: 1 tab Temazepam (Restoril) 15 mg PO HSPRN PRN PRN Reason: Insomnia
[2018-04-18] MEDS: HYDROcodone/Acetaminophen 10/325 mg Tablet PO SCH ×5 (00:39→23:53)
[2018-04-18] MEDS: Insulin Regular 300 UNITS/3 ML VIAL SC PRN ×4 (05:39→20:22)
[2018-04-18] MEDS: Senokot S 8.6-50 MG TAB PO SCH ×2 (08:30→20:20)
[2018-04-18] MEDS: Saccharomyces boulardii 250 MG CAP PO SCH (08:30)
[2018-04-18] MEDS: Clopidogrel Bisulfate 75 MG TAB PO SCH (08:30)
[2018-04-18] MEDS: Aspirin 81 mg Enteric Coated Tablet PO SCH (08:30)
[2018-04-18] MEDS: Calcitriol 0.25 MCG CAP PO SCH (08:30)
[2018-04-18] MEDS: Ferrous Sulfate 325 MG TAB PO SCH (08:30)
[2018-04-18] MEDS: Polyethylene Glycol 3350 17 GM Packet PO SCH (08:31)
[2018-04-18] MEDS: NPH, Human Insulin Isophane 300 UNIT/3 ML VIAL SC SCH ×2 (08:31→20:23)
[2018-04-18] MEDS: metroNIDAZOLE 250 MG TAB PO SCH ×3 (08:31→20:20)
--- NOTE | 2018-04-18 10:23 | PDOC.PN ---
- Subjective Encounter Start Date: 04/18/18 Encounter Start Time: 10:22 Subjective: nsg notes rev, allen ovn, no new c/o -: denies any pain - Objective Resuscitation Status: Resuscitation Status FULL:Full Resuscitation Vital Signs & Weight: Vital Signs (12 hours) Temp Pulse Resp BP Pulse Ox 04/18/18 08:00 98.5 F 97 20 100 04/18/18 07:37 98.5 F 97 20 134/62 100 04/18/18 04:25 98.6 F 93 18 121/68 97 04/18/18 00:00 97.9 F 90 18 130/71 97 Weight Admit Weight 227 lb Weight 218 lb 12.8 oz I&O: 04/17/18 04/18/18 04/19/18 06:59 06:59 06:59 Intake Total 1650 600 240 Output Total 0 Balance 1650 600 240 Result Diagrams: 04/17/18 05:16 04/17/18 05:16 Additional Labs: Accuchecks 04/18/18 04/17/18 04/17/18 04:28 20:48 16:47 POC Glucose 177 H 269 H 139 H 04/17/18 04/16/18 06:01 05:47 POC Glucose 89 156 H Phys Exam - Physical Examination Constitutional: NAD HEENT: moist MMs Respiratory: no wheezing, no rales, no rhonchi Cardiovascular: RRR, no significant murmur, no rub Gastrointestinal: soft, non-tender, no distention, positive bowel sounds Neurological: moves all 4 limbs Dx/Plan - Plan cont current plan of care, continue antibiotics IMPRESSION: 1. Sepsis with acute organ dysfunction secondary to left diabetic foot infection. continue vanc/ levaquin/ flagyl combination - to examine whether or not the IV medications can be given with HD (already on oral flagyl) s/p balloon angioplasty - pt would like to avoid surg/ BKA if at all possible continue with wound care as well continue to monitor apprec ID c/s 2. Diabetes mellitus, type 2. on sliding scale. stable, continue to monitor 3. End-stage renal disease on hemodialysis. apprec nephrology c/s 4. Peripheral vascular disease. on ASA also with PAD s/p balloon angioplasty 04/15/18 5. Gastroesophageal reflux disease. on PPI 6. Chronic anemia secondary to renal disease. on Procrit 7. Diabetic neuropathy. stable 8. Obstructive sleep apnea. stable 9. History of GI bleeding in the past. 10. Diverticulosis. 11. Tobacco dependence. Counselled. diet: as juan j activity: as juan j dvt ppx d/w pt at bedside Review of Systems - Medications/Allergies Allergies/Adverse Reactions: Allergies Allergy/AdvReac Type Severity Reaction Status Date / Time Iodine and Iodide Containing Allergy swelling Verified 04/10/18 20:33 Produc and blisters Medications: Current Medications Acetaminophen (Tylenol) 650 mg PO Q4H PRN PRN Reason: Headache/Fever or Pain Hydrocodone Bitart/Acetaminophen ([place] 10/325) 1 tab PO Q6HR [facility] Last Admin: 04/18/18 05:38 Dose: 1 tab Al Hydroxide/Mg Hydroxide (Maalox) 30 ml PO Q6H PRN PRN Reason: Heartburn or Indigestion Aspirin (Ecotrin) 81 mg PO DAILY [facility] Last Admin: 04/18/18 08:30 Dose: 81 mg Calcitriol (Rocaltrol) 0.25 mcg PO DAILY [facility] Last Admin: 04/18/18 08:30 Dose: 0.25 mcg Calcium Carbonate (Tums) 1,000 mg PO Q4H PRN PRN Reason: Heartburn or Indigestion Clopidogrel Bisulfate (Plavix) 75 mg PO DAILY [facility] Last Admin: 04/18/18 08:30 Dose: 75 mg Dextrose/Water (Dextrose 50%) 25 gm SLOW IVP PRN PRN PRN Reason: Hypoglycemia Diphenoxylate HCl/Atropine (Lomotil) 1 tab PO BIDPRN PRN PRN Reason: Diarrhea/Loose Stools Epoetin Rafael (Procrit) 10,000 units SC Q7D [facility] Last Admin: 04/12/18 12:01 Dose: 10,000 units Ferrous Sulfate (Feosol) 325 mg PO QAM-WM [facility] Last Admin: 04/18/18 08:30 Dose: 325 mg Glimepiride (Amaryl) 2 mg PO BID-AC [facility] Last Admin: 04/17/18 15:29 Dose: 2 mg Glucagon (Glucagon) 1 mg IM PRN PRN PRN Reason: Hypoglycemia Dextrose/Water (D5w) 1,000 mls @ 0 mls/hr IV .Q0M PRN PRN Reason: Hypoglycemia Levofloxacin 500 mg/ Device 100 mls @ 100 mls/hr IVPB Q2D@2100 [facility] Last Admin: 04/16/18 20:19 Dose: 100 mls Vancomycin HCl 1.5 gm/ Sodium (Chloride) 300 mls @ 200 mls/hr IVPB [facility] Vancomycin HCl 1.25 gm/ Sodium (Chloride) 250 mls @ 166.667 mls/hr [facility] Van[facility]ycin HCl 1 gm/ Device 200 mls @ 200 mls/hr [facility] Vancomycin HCl 750 mg/ Sodium (Chloride) 250 mls @ 250 mls/hr [facility] Insulin Human NPH (Humulin N) 10 unit SC BID [facility] Last Admin: 04/18/18 08:31 Dose: 10 unit Insulin Human Regular (Humulin R) 0 units SC .BEDTIME SLIDING SC PRN PRN Reason: Bedtime Correctional Scale Last Admin: 04/17/18 21:14 Dose: 3 unit Insulin Human Regular (Humulin R) 0 units SC .AGGRESSIVE SLIDING PRN PRN Reason: Aggressive Sliding Scale Last Admin: 04/18/18 05:39 Dose: 3 unit Metronidazole (Flagyl) 250 mg PO TID [facility] Last Admin: 04/18/18 08:31 Dose: 250 mg Miscellaneous Medication (Pharmacy To Dose) 1 each IVPB ONE PRN PRN Reason: Pharmacy to dose Stop: 04/20/18 20:32 Hold Vancomycin For (Level >20) 0 each FS .AT DIALYSIS [facility] Ondansetron HCl (Zofran Odt) 4 mg PO Q6H PRN PRN Reason: Nausea/Vomiting Ondansetron HCl (Zofran) 4 mg IVP Q6H PRN PRN Reason: Nausea/Vomiting Pantoprazole Sodium (Protonix) 40 mg PO DAILY [facility] Last Admin: 04/18/18 08:31 Dose: 40 mg Polyethylene Glycol (Miralax) 17 gm PO DAILY [facility] Last Admin: 04/18/18 08:31 Dose: 17 gm Saccharomyces Boulardii (Florastor) 250 mg PO DAILY [facility] Last Admin: 04/18/18 08:30 Dose: 250 mg Senna (Senokot) 2 tab PO HSPRN PRN PRN Reason: Constipation Senna/Docusate Sodium (Senokot S) 1 tab PO BID [facility] Last Admin: 04/18/18 08:30 Dose: 1 tab Temazepam (Restoril) 15 mg PO HSPRN PRN PRN Reason: Insomnia
[2018-04-18] MEDS: Glimepiride 2 MG TAB PO SCH ×2 (10:38→16:45)
[2018-04-19] MEDS: HYDROcodone/Acetaminophen 10/325 mg Tablet PO SCH ×3 (05:48→17:59)
[2018-04-19] MEDS: Insulin Regular 300 UNITS/3 ML VIAL SC PRN ×3 (05:50→21:21)
[2018-04-19] MEDS: metroNIDAZOLE 250 MG TAB PO SCH ×3 (09:47→21:21)
[2018-04-19] MEDS: Glimepiride 2 MG TAB PO SCH ×2 (09:47→16:49)
[2018-04-19] MEDS: Saccharomyces boulardii 250 MG CAP PO SCH (09:48)
[2018-04-19] MEDS: Clopidogrel Bisulfate 75 MG TAB PO SCH (09:48)
[2018-04-19] MEDS: Senokot S 8.6-50 MG TAB PO SCH ×2 (09:48→21:21)
[2018-04-19] MEDS: Calcitriol 0.25 MCG CAP PO SCH (09:48)
[2018-04-19] MEDS: Polyethylene Glycol 3350 17 GM Packet PO SCH (09:48)
[2018-04-19] MEDS: Ferrous Sulfate 325 MG TAB PO SCH (09:48)
[2018-04-19] MEDS: NPH, Human Insulin Isophane 300 UNIT/3 ML VIAL SC SCH ×2 (09:49→21:21)
[2018-04-19] MEDS: Aspirin 81 mg Enteric Coated Tablet PO SCH (09:49)
--- NOTE | 2018-04-19 10:08 | PRG ---
DATE OF SERVICE: 04/19/2018 Mr. Hicks is 68-year-old black male being followed up for his maintenance hemodialysis. He was ad mitted for left foot infection. He is on IV antibiotics. Revascularization was done with the left l eg also. Doing well. No other complaints, no chest pain, shortness of breath. OBJECTIVE: VITAL SIGNS: Blood pressure 132/65, heart rate 88, respiratory rate 16, temperature 98.5, pulse ox 9 6%. GENERAL: Awake, alert, comfortable, not in distress. SKIN: Adequate turgor. HEENT: Slightly pale conjunctivae, anicteric sclerae. NECK: No neck mass, no carotid bruits, no JVD. CHEST: No deformities. LUNGS: Clear breath sounds, no wheezing, no crackles. HEART: Normal sinus rhythm. No murmur, no gallops, no rubs. ABDOMEN: Globular, soft, nontender. No masses. EXTREMITIES: No edema, possible left foot dressing. MEDICATIONS: Medications of 04/19/2018 was reviewed. LABORATORY DATA: Laboratories of 04/17/2018 hemoglobin 8.4. 04/19/2018 glucose 178. 04/17/2018 BUN 30, creatinine 9.34, potassium 3.7. ASSESSMENT AND PLAN: 1. End-stage renal disease, stable. We will continue current Friday, Friday, Friday dialysis. I have scheduled him for dialysis in a.m. Fluid removal as tolerated. 2. Anemia, continuing weekly Epogen, p.r.n. blood transfusion. 3. Left foot infection -- on IV antibiotics. Status post revascularization left leg. He will need several weeks of antibiotics. ID following. Recheck base met and CBC in a.m.
[2018-04-19] MEDS: Epoetin (ESRD) 10,000 UNITS/ML VIAL SC SCH (11:42)
--- NOTE | 2018-04-19 16:40 | PDOC.PN ---
- Subjective Encounter Start Date: 04/19/18 Encounter Start Time: 16:30 Subjective: f/u for L DM foot with polymicrobial infection on Vanc/Levaquin/ Flagyl. -: No new complaints. - Objective Resuscitation Status: Resuscitation Status FULL:Full Resuscitation MAR Reviewed: Yes Vital Signs & Weight: Vital Signs (12 hours) Temp Pulse Resp BP Pulse Ox 04/19/18 08:00 98.5 F 88 16 96 04/19/18 07:38 98.5 F 88 16 132/65 96 Weight Admit Weight 227 lb Weight 218 lb 12.8 oz I&O: 04/18/18 04/19/18 04/20/18 06:59 06:59 06:59 Intake Total 600 1052 540 Balance 600 1052 540 Result Diagrams: 04/17/18 05:16 04/17/18 05:16 Additional Labs: Accuchecks 04/19/18 04/19/18 04/18/18 11:35 04:58 20:07 POC Glucose 174 H 178 H 210 H Microbiology 04/07/16 13:42 Foot - Left Bacterial Culture - Final 04/07/16 13:42 Foot - Left Anaerobic Culture - Final Proteus mirabilis Staphylococcus aureus Enterococcus species Prevotella loescheii Phys Exam - Physical Examination Constitutional: NAD HEENT: PERRLA, sclera anicteric, oral pharynx no lesions Neck: no nodes, no JVD, supple, full ROM Respiratory: no wheezing, no rales, no rhonchi, clear to auscultation bilateral S1, S2 Cardiovascular: RRR, no significant murmur, no rub, gallop Gastrointestinal: soft, non-tender, no distention, positive bowel sounds Musculoskeletal: pulses present Neurological: normal sensation, moves all 4 limbs Psychiatric: A&O x 3 Skin: no rash, normal turgor, cap refill <2 seconds Dx/Plan (1) Diabetic foot ulcer Code(s): E11.621 - TYPE 2 DIABETES MELLITUS WITH FOOT ULCER; L97.509 - NON- PRESSURE CHRONIC ULCER OTH PRT UNSP FOOT W UNSP SEVERITY Status: Acute Qualifiers: Diabetic foot ulcer location: midfoot Diabetes mellitus type: type 2 Laterality: left Non-pressure ulcer stage: with necrosis of muscle Qualified Code(s): E11.621 - Type 2 diabetes mellitus with foot ulcer; L97.423 - Non-pressure chronic ulcer of left heel and midfoot with necrosis of muscle Comment: Continue Vanc/Flagyl/Levaquin and streamline abx regimen for outpt, local WCT (2) Peripheral vascular disease Code(s): I73.9 - PERIPHERAL VASCULAR DISEASE, UNSPECIFIED Status: Chronic Comment: s/p balloon angioplasty, continue ASA/Plavix (3) Chronic anemia Code(s): D64.9 - ANEMIA, UNSPECIFIED Status: Chronic Comment: Stable currently, serial CBC, Epogen weekly (4) DM type 2 (diabetes mellitus, type 2) Status: Chronic Qualifiers: Diabetes mellitus remote computer terminal operator insulin use: with remote computer terminal operator use Diabetes mellitus complication status: with kidney complications Diabetes mellitus complication detail: with chronic kidney disease Chronic kidney disease stage : on chronic dialysis Qualified Code(s): E11.22 - Type 2 diabetes mellitus with diabetic chronic kidney disease; N18.6 - End stage renal disease; Z79.4 - senior care (current) use of insulin; Z99.2 - Dependence on renal dialysis Comment: Continue NPH 10u BID, ISS, ADA (5) End stage renal disease Code(s): N18.6 - END STAGE RENAL DISEASE Status: Chronic Comment: HD on // - Plan continue antibiotics, PT/OT, clinical social work aide, out of bed/ambulate Stable overall -: HD per Nephrology on // -: CM for assistance with outpt abx regimen -: Continue ASA/Plavix -: AM lab: BMP, CBC * .
[2018-04-20] MEDS: HYDROcodone/Acetaminophen 10/325 mg Tablet PO SCH ×3 (00:39→13:31)
[2018-04-20 05:09] LABS: #Basophils 0.1 thou/uL (0.0-0.2); #Eosinphils 0.3 thou/uL (0.0-0.7); #Lymphocytes 2.1 thou/uL (1.20-3.40); #Monocytes 0.8 thou/uL (0.11-0.59); #Neutrophils 5.4 thou/uL (1.40-6.50); %Basophils 0.8 % (0.0-1.0); %Eosinophils 3.6 % (0.0-10.0); %Lymphocytes 24.5 % (21.0-51.0); %Monocytes 8.7 % (0.0-10.0); %Neutrophils 62.5 % (42.0-75.0); Hemoglobin 8.6 g/dL (14.0-18.0); Mean Corpuscular HGB CONC 32.5 g/dL (32.0-36.0); Mean Corpuscular Hemoglobin 30.5 pg (27.0-31.0); Mean Corpuscular Volume 93.8 fL (78.0-98.0); Mean Platelet Volume 6.2 fL (7.4-10.4); Platelet Count 403 thou/uL (130-400); RBC Distribution Width 13.3 % (11.5-14.5); Red Blood Cell (RBC) Count 2.82 mill/uL (4.70-6.10); White Blood Cell (WBC) Count 8.7 thou/uL (4.8-10.8)
[2018-04-20 05:17] LABS: Anion Gap 16 mmol/L (10-20); BUN (Urea Nitrogen) 40 mg/dL (8.4-25.7); Calc. Creatinine Clearance 8 mL/min (70-130); Calcium 8.6 mg/dL (7.8-10.44); Carbon Dioxide 24 mmol/L (23-31); Chloride 104 mmol/L (98-107); Estimated GFR-MDRD 5; Glucose 173 mg/dL (80-115); Potassium 4.7 mmol/L (3.5-5.1); Sodium 139 mmol/L (136-145)
[2018-04-20] MEDS: Insulin Regular 300 UNITS/3 ML VIAL SC PRN (05:26)
[2018-04-20 08:10] VITALS: TEMP 97.7
[2018-04-20] MEDS: metroNIDAZOLE 250 MG TAB PO SCH ×2 (09:09→17:08)
[2018-04-20] MEDS: Aspirin 81 mg Enteric Coated Tablet PO SCH (09:09)
[2018-04-20] MEDS: Calcitriol 0.25 MCG CAP PO SCH (09:09)
[2018-04-20] MEDS: Ferrous Sulfate 325 MG TAB PO SCH (09:10)
[2018-04-20] MEDS: Clopidogrel Bisulfate 75 MG TAB PO SCH (09:10)
[2018-04-20] MEDS: Saccharomyces boulardii 250 MG CAP PO SCH (09:10)
[2018-04-20] MEDS: Glimepiride 2 MG TAB PO SCH ×2 (09:10→17:08)
[2018-04-20] MEDS: NPH, Human Insulin Isophane 300 UNIT/3 ML VIAL SC SCH (09:10)
[2018-04-20] MEDS: Polyethylene Glycol 3350 17 GM Packet PO SCH (09:11)
[2018-04-20] MEDS: Senokot S 8.6-50 MG TAB PO SCH (09:11)
--- NOTE | 2018-04-20 09:49 | PRG ---
DATE OF SERVICE: 04/20/2018 SUBJECTIVE: Mr. Hicks is 68-year-old black male with end-stage renal disease and being followed b y the Renal Service for his maintenance hemodialysis. I have scheduled him for an afternoon dialysis today. He was admitted for a left foot cellulitis. He had also osteomyelitis. He declined surgery . He declined amputation. He underwent revascularization. In addition, the plan is to give him sev eral weeks of antibiotics. No new complaints today, no chest pain or shortness of breath. OBJECTIVE: VITAL SIGNS: Blood pressure is 151/70, heart rate 84, respiratory rate 18, temperature 97.7, pulse o x 96%. GENERAL: Awake, alert, supine, comfortable, not in distress SKIN: Adequate turgor. HEENT: He has slightly pale conjunctivae, anicteric sclerae. NECK: No neck mass, no carotid bruits, no JVD. CHEST: No deformities. LUNGS: Clear breath sounds, no wheezing, no crackles. HEART: Normal sinus rhythm. No murmur, no gallops or rubs. ABDOMEN: Globular, soft, nontender. No masses. EXTREMITIES: No edema. Positive for left foot dressing. MEDICATIONS: Of 04/20/2018 was reviewed. LABORATORY DATA: Of 04/20/2018 showed the following: White count 8.7, hemoglobin 8.6. Sodium 139, potassium 4.7, chloride 104, carbon dioxide 24, BUN 40, creatinine 12.03, glucose 173, calcium 8.6. ASSESSMENT AND PLAN: 1. End-stage renal disease, stable. We will continue current Friday, Friday, Friday dialysis. A gain, fluid removal as tolerated by the patient. 2. Left foot cellulitis/osteomyelitis on antibiotics. The plan is to give him a course of several w eeks of antibiotics. He has declined amputation. He is status post revascularization. 3. Anemia, continuing weekly Epogen, p.r.n. blood transfusion. Overall, agree with current manageme nt.
[2018-04-20 12:36] LABS: Vancomycin, Random 13.6 ug/mL (See Comment)
--- NOTE | 2018-04-20 13:57 | DIS ---
DATE OF ADMISSION: 04/10/2018 DATE OF DISCHARGE: 04/20/2018 DISCHARGE DIAGNOSES: 1. Diabetic left foot ulcer. 2. Left lower extremity peripheral vascular disease, status post percutaneous transluminal angioplas ty with stent placement 04/15/2018. 3. Osteomyelitis of the left foot. 4. Sepsis secondarily to diabetic left foot infection, resolved. 5. End-stage renal disease with hemodialysis. 6. Diabetes mellitus type 2, insulin requiring. 7. Diabetic neuropathy. 8. Tobacco use. CONSULTATIONS: Dr. Mcneil with Infectious Disease Service. Dr. Degroot with General Surgery Service. Dr. Rojo with Nephrology Service. Dr. Singh with Vascular Surgery Service. PERTINENT LABORATORY AND X-RAY FINDINGS: Lactic acid level ranged between 1.4-4.2. CRP 19.2. CBC s howed a white blood cell count ranging between 7.4-14.1, hemoglobin ranged between 7.3-8.8. Hepatiti s B surface antigen and antibody nonreactive. Blood cultures x2 dated 04/09/2018 showed no growth at 5 days. Left foot ulcer bacterial culture dated 04/10/2018 showed mixed skin santosh. Blood cultures x2 from 04/10/2018 showed no growth at 5 days. Portable chest x-ray dated 04/10/2018 showed mild increased bronchovascular markings with mild vascul ar prominence. Three views of the left foot dated 04/10/2018 showed postoperative amputation changes and arthrosis with degenerative changes chronically noted. Wound on the plantar aspect of the mid f oot at the level of the cuboid bone noted. CT of the left lower extremity dated 04/10/2018 showed maldonado btle erosion involving the inferior aspect of the cuboid with evidence of osteomyelitis. Post-surgic al and posttraumatic changes with severe degeneration throughout the foot noted. Left lower extremit y venous Doppler study dated 04/10/2018 showed no evidence for DVT. MRI of the left lower extremity dated 04/11/2018 showed osteomyelitis of the plantar aspect of the cuboid as well as the fifth and fo urth metatarsal bases. HOSPITAL COURSE: The patient was admitted to the medical floor after initially presenting with left lower extremity pain with increased drainage of the left foot in the context of chronic diabetic foot ulcer. The patient underwent extensive evaluation with multiple imaging studies confirming the pres ence of osteomyelitis of the cuboid bone as well as fourth and fifth metatarsal bases. The patient w as evaluated by the Surgical Service; however, the patient did not want to proceed with amputation of his left lower extremity. Consultation was obtained with Vascular Surgery Service at which point th e patient underwent subsequent revascularization after percutaneous transluminal angioplasty was perf ormed on 04/15/2018 with stent placement. The patient continued on broad spectrum IV antibiotic ther apy to include vancomycin, Levaquin, and Flagyl. Local wound care was obtained through Wound Care Se rvices throughout the hospital course. The patient continued to receive maintenance hemodialysis thr oughout the hospital course at the direction of Nephrology Service without complication. The patient 's hospital course was protracted due to the complicated left foot wound. The patient ultimately cli nically stabilized and has been ambulatory with mild assistance. The patient voiding appropriately, tolerating oral intake and responding appropriately to maintenance hemodialysis. I have examined the patient at the time of discharge and discussed followup instructions and planning at which point the patient verbalized understanding and agreement. The patient overall clinically stabilized and ready for discharge on 04/20/2018. DISCHARGE MEDICATIONS: 1. Calcitriol 0.25 mcg p.o. daily. 2. Ferrous sulfate 325 mg p.o. daily. 3. Hydrocodone 10/325 mg 1 tab p.o. q.4 hours p.r.n. 4. NPH insulin 30-90 units subcutaneously b.i.d. 5. Protonix 40 mg p.o. daily. 6. Restoril 15 mg p.o. at bedtime. 7. Enteric-coated aspirin 81 mg p.o. daily. 8. Ciprofloxacin 250 mg p.o. q.12h. every other day x6 weeks. 9. Plavix 75 mg p.o. daily. 10. Amaryl 2 mg p.o. b.i.d. 11. Flagyl 250 mg p.o. t.i.d. x4 weeks. 12. Vancomycin sliding scale with hemodialysis x6 weeks. FOLLOWUP: The patient will follow up with Dr. Phoenix within 7 days of discharge. The patient will fo llow up with Dr. Emory Rojo with Nephrology Service. SPECIAL INSTRUCTIONS: Patient receiving [facility] for local wound care to the l eft foot. DIET: Heart healthy, ADA and renal. CODE STATUS: Full. DISPOSITION: Home with [facility] on 04/20/2018. Total time preparing and coordinating discharge is 35 minutes.
[2018-04-20 18:30] VITALS: BP 119/64
== END 2018-04-20 17:59 | disposition home or self-care (01) | DRG 853 ==
LOC: ERS 13:17 → 2NO 15:38 → T4-A 04-14 17:12 → 2NO 04-14 17:18 → T4-B 04-17 18:26
PROVIDERS: ADMIT Internal Medicine; ATTEND Internal Medicine
PROC: 047S3ZZ Dilation of Left Posterior Tibial Artery, Percutaneous Approach (ICD-10-PCS; principal; 2018-04-15)
PROC: B41DYZZ Fluoroscopy of Aorta and Bilateral Lower Extremity Arteries using Other Contrast (ICD-10-PCS; 2018-04-15)
DX: A41.9 Sepsis, unspecified organism (principal); N18.6 End stage renal disease; M86.8X7 Other osteomyelitis, ankle and foot; L03.116 Cellulitis of left lower limb; E11.621 Type 2 diabetes mellitus with foot ulcer; R65.20 Severe sepsis without septic shock; L97.529 Non-pressure chronic ulcer of other part of left foot with unspecified severity; E11.51 Type 2 diabetes mellitus with diabetic peripheral angiopathy without gangrene; E11.69 Type 2 diabetes mellitus with other specified complication; E11.22 Type 2 diabetes mellitus with diabetic chronic kidney disease; Z79.4 Long term (current) use of insulin; E11.40 Type 2 diabetes mellitus with diabetic neuropathy, unspecified; K21.9 Gastro-esophageal reflux disease without esophagitis; G47.33 Obstructive sleep apnea (adult) (pediatric); K57.90 Diverticulosis of intestine, part unspecified, without perforation or abscess without bleeding; D63.1 Anemia in chronic kidney disease; E11.65 Type 2 diabetes mellitus with hyperglycemia; E66.9 Obesity, unspecified; Z68.29 Body mass index [BMI] 29.0-29.9, adult
CPT/HCPCS: 36246; 36247; 36415; 36416; 37246; 71045; 75630; 75716; 76942; 80048; 80053; 80202; 83605; 84484; 85025; 85347; 85652; 86140; 86706; 87040; 87340; 90935; 96361; 96365; 96368; A4216; C1769; C1887; G0257; G8978-GP-CI; G8979-GP-CI; G8980-GP-CI; J1644; J1815; J1956; J2185; J2720; J3370; J7050; J7506; Q4081

== ENCOUNTER 2018-05-07 10:29 | Outpatient (CLI) | payer MEDICARE, BC ==
--- NOTE | 2018-05-07 11:21 | PRG ---
DATE OF SERVICE: 05/07/2018 HISTORY: Mr. Sean Hicks is a very pleasant 68-year-old gentleman who presents to the Wound C enter for evaluation of an ulceration of the plantar surface of the lateral aspect of the left foot. Since the patient was last seen in the Wound Center, Mr. Hicks was admitted to [facility]. MRI of the left lower extremity revealed osteomyelitis of the plantar aspect of the cuboid as well as of the 5th and likely the 4th metatarsal bases. Also, during the patient's hospit al stay, Mr. Hicks was seen in consultation by Dr. Sean Singh on 04/15/2018. The patient underwe nt percutaneous revascularization of the left lower extremity. The patient is presently receiving IV antibiotics at dialysis for a total of 6 weeks. The patient is also receiving p.o. antibiotics as p er Infectious Diseases. The patient has resumed receiving dressing changes with the assistance of [facility]. PHYSICAL EXAMINATION: VITAL SIGNS: Temperature 97.7, pulse 108, respirations 18, blood pressure 147/63. Accu-Chek 128. EXTREMITIES: An ulceration of the lateral aspect of the left foot over the lateral aspect of the lef t foot is still present. The dimensions of the wound are approximately 4.8 x 4.0 cm. Granulation ti ssue is present within the wound margins. Nonviable tissue present within the wound margins was debr ided with an excisional full-thickness debridement. No purulent drainage is associated with the woun d. No erythema of the skin surrounding the wound is present. No maceration of the skin of the periw ound is noted. No significant edema of the left foot is present on today's exam. ASSESSMENT AND PLAN: 1. Ulceration of plantar surface of the left foot over the lateral aspect of the foot. Dressing crissy nges of Medihoney, 4 x 4s and an ABD and Kerlix will be continued 3 times per week after cleansing an d irrigation with the assistance of [facility]. As stated above, the patient is now receiving IV an d p.o. antibiotics as per Infectious Diseases for left foot osteomyelitis. In addition, on 8 the patient underwent percutaneous revascularization of the left lower extremity by Dr. Sean Singh . The importance of offloading of the left foot has been discussed with Mr. Hicks. He has been g iven a prescription for a knee scooter. I will see Mr. Hicks again in 2 weeks. 2. Diabetes mellitus. The patient's Accu-Chek in clinic today is 128. The patient has been reminde d that for optimal wound healing, his blood glucoses should remain below 150. 3. End-stage renal disease. 4. History of hypertension. 5. History of peripheral vascular disease. 6. Obstructive sleep apnea. 7. History of gastrointestinal bleeding. 8. Anemia. 9. Charcot foot. 10. Gastroesophageal reflux disease.
[2018-05-07] MEDS ORDERED: Sodium Chloride 0.9% 15 ML NEB ONE (12:36)
== END 2018-05-07 10:30 | disposition home or self-care (01) ==
LOC: WCC 10:29
PROVIDERS: ATTEND Family Medicine
DX: E11.621 Type 2 diabetes mellitus with foot ulcer (principal); L97.529 Non-pressure chronic ulcer of other part of left foot with unspecified severity; E11.22 Type 2 diabetes mellitus with diabetic chronic kidney disease; I12.0 Hypertensive chronic kidney disease with stage 5 chronic kidney disease or end stage renal disease; N18.6 End stage renal disease; E11.51 Type 2 diabetes mellitus with diabetic peripheral angiopathy without gangrene; G47.33 Obstructive sleep apnea (adult) (pediatric); D63.1 Anemia in chronic kidney disease; K21.9 Gastro-esophageal reflux disease without esophagitis; M14.671 Charcot's joint, right ankle and foot
CPT/HCPCS: A4218

== ENCOUNTER 2018-05-28 09:50 | Outpatient (CLI) | payer MEDICARE, BC ==
--- NOTE | 2018-05-28 10:49 | PRG ---
DATE OF SERVICE: 05/28/2018 HISTORY: Mr. Sean Hicks is a very pleasant 68-year-old gentleman who presents to the Wound Ce nter for evaluation of an ulceration of the plantar surface of the lateral aspect of the left foot. Mr. Hicks was recently admitted to [facility]. MRI of the left lower extre mity revealed osteomyelitis of the plantar aspect of the cuboid as well as of the 5th and likely the fourth metatarsal bases. Also, during the patient's hospital stay, Mr. Hicks was seen in consulta tion by Dr. Sean Singh on 04/15/2018. The patient underwent percutaneous revascularization of the left lower extremity. The patient is currently receiving IV antibiotics at dialysis for a total of 6 weeks. The patient is also receiving p.o. antibiotics as per Infectious Diseases. The patient cont inues to receive dressing changes of Noel with the assistance of Home Health. PHYSICAL EXAMINATION: VITAL SIGNS: Temperature 98.1, pulse 102, respirations 20, blood pressure 133/62. Accu-Chek 178. EXTREMITIES: An ulceration of the lateral aspect of the left foot is still present. The dimensions of the wound are approximately 3.6 x 3.3 cm. The dimensions of the wound at the time of the patient' s visit on 05/07/2018 were approximately 4.8 x 4.0 cm. Granulation tissue is present within the woun d margins. Nonviable tissue present within the wound margins was debrided with an excisional full-th ickness debridement. No purulent drainage is associated with the wound. No erythema of the skin mary rounding the wound is present. No maceration of the skin of the periwound is noted. A posterior tib ial pulse is palpable on the left. No significant edema of the left foot is present on exam today. ASSESSMENT AND PLAN: 1. Ulceration of plantar surface of the left foot over the lateral aspect of the foot. Dressing crissy nges of Medihotonio, 4 x 4s, ABD and Kerlix will be continued 3 times per week after cleansing and irri gation with the assistance of Home Health. As stated above, the patient is now receiving IV and p.o. antibiotics as per Infectious Diseases for left foot osteomyelitis. In addition, on 04/15/2018, georgina degroot underwent percutaneous revascularization of the left lower extremity by Dr. Sean Singh. The im portance of offloading of the left foot has again been discussed with Mr. Hicks. I will see Mr. Gilbert zuñiga again in two weeks. 2. Diabetes mellitus. The patient's Accu-Chek in clinic today is 178. The patient has been reminde d that for optimal wound healing, his blood glucoses should remain below 150. 3. End-stage renal disease. 4. History of hypertension. 5. History of peripheral vascular disease. 6. Obstructive sleep apnea. 7. History of gastrointestinal bleeding. 8. Anemia. 9. Charcot foot. 10. Gastroesophageal reflux disease.
[2018-05-28] MEDS ORDERED: Sodium Chloride 0.9% 15 ML NEB ONE (20:24)
== END 2018-05-28 09:51 | disposition home or self-care (01) ==
LOC: WCC 09:50
PROVIDERS: ATTEND Family Medicine
DX: E11.621 Type 2 diabetes mellitus with foot ulcer (principal); L97.529 Non-pressure chronic ulcer of other part of left foot with unspecified severity; M86.9 Osteomyelitis, unspecified; E11.22 Type 2 diabetes mellitus with diabetic chronic kidney disease; I12.0 Hypertensive chronic kidney disease with stage 5 chronic kidney disease or end stage renal disease; N18.6 End stage renal disease; D63.1 Anemia in chronic kidney disease; G47.33 Obstructive sleep apnea (adult) (pediatric); M14.679 Charcot's joint, unspecified ankle and foot; K21.9 Gastro-esophageal reflux disease without esophagitis; Z86.79 Personal history of other diseases of the circulatory system; Z87.19 Personal history of other diseases of the digestive system
CPT/HCPCS: 11042; A4218

== ENCOUNTER 2018-06-18 09:10 | Outpatient (CLI) | payer MEDICARE, BC ==
[~2018-06-18 09:10] MED LIST: Lidocaine 2% Jelly 5 ML TUBE ONE; Sodium Chloride 0.9% 15 ML NEB ONE
--- NOTE | 2018-06-18 10:28 | PRG ---
DATE OF SERVICE: 06/18/2018 HISTORY: Mr. Sean Hicks is a very pleasant 68-year-old gentleman who presents to the Wound Ce nter for evaluation of an ulceration of the plantar surface of the lateral aspect of the left foot. Mr. Hicks was recently admitted to [facility]. MRI of the left lower extre mity revealed osteomyelitis of the plantar aspect of the cuboid as well as of the 5th and likely the 4th metatarsal bases. Also, during the patient's hospital stay, Mr. Hicks was seen in consultatio n by Dr. Sean Singh on 04/15/2018. The patient underwent percutaneous revascularization of the left lower extremity. The patient states that he recently completed a course of IV antibiotics at [facility] for a total of 6 weeks. The patient has also received p.o. antibiotics as per Infectious Diseases . The patient continues to receive dressing changes of Noel with the assistance of Home Health. PHYSICAL EXAMINATION: VITAL SIGNS: Temperature 98.0, pulse 104, respirations 19, blood pressure 138/63. Accu-Chek 128. EXTREMITIES: An ulceration of the lateral aspect of the left foot is still present. The dimensions of the wound are approximately 2.1 x 3.2 cm. The dimensions of the wound at the time of the patient' s visit on 05/28/2018 were approximately 3.6 x 3.3 cm. Granulation tissue is present within the woun d margins. Nonviable tissue present within the wound margins was debrided with an excisional full-th ickness debridement with the use of a curette. Callus desiccated tissue and undermining at the perip buddy of the wound were eliminated with the use of scissors. No purulent drainage is associated with the wound. No erythema of the skin surrounding the wound is present. No maceration of the skin of t he periwound is noted. No significant edema of the left foot is present on exam today. ASSESSMENT AND PLAN: 1. Ulceration of plantar surface of the left foot over the lateral aspect of the foot. Dressing crissy nges of Noel, 4 x 4s, ABD and Kerlix will be continued 3 times per week after cleansing and irri gation with the assistance of Home Health. As stated above, the patient has received IV and p.o. ant ibiotics as per Infectious Diseases for left foot osteomyelitis. In addition, on 04/15/2018, patient underwent percutaneous revascularization of the left lower extremity by Dr. Sean Singh. The import ance of offloading of the left foot has again been discussed with Mr. Hicks. I will see Mr. David robles again in two weeks. 2. Diabetes mellitus. The patient's Accu-Chek in clinic today is 128. The patient has been reminde d that for optimal wound healing, his blood glucoses should remain below 150. 3. End-stage renal disease. 4. History of hypertension. 5. History of peripheral vascular disease. 6. Obstructive sleep apnea. 7. History of gastrointestinal bleeding. 8. Anemia. 9. Charcot foot. 10. Gastroesophageal reflux disease.
== END 2018-06-18 09:11 | disposition home or self-care (01) ==
LOC: WCC 09:10
PROVIDERS: ATTEND Family Medicine
DX: E11.621 Type 2 diabetes mellitus with foot ulcer (principal); L97.529 Non-pressure chronic ulcer of other part of left foot with unspecified severity; E11.22 Type 2 diabetes mellitus with diabetic chronic kidney disease; E11.610 Type 2 diabetes mellitus with diabetic neuropathic arthropathy; N18.6 End stage renal disease; G47.33 Obstructive sleep apnea (adult) (pediatric); D64.9 Anemia, unspecified; K21.9 Gastro-esophageal reflux disease without esophagitis; Z86.79 Personal history of other diseases of the circulatory system; Z87.19 Personal history of other diseases of the digestive system
CPT/HCPCS: 11042

== ENCOUNTER 2018-07-02 08:41 | Outpatient (CLI) | payer MEDICARE, BC ==
--- NOTE | 2018-07-02 09:58 | PRG ---
DATE OF SERVICE: 07/02/2018 HISTORY: Mr. Sean Hicks is a very pleasant 68-year-old gentleman who presents to the Wound Ce nter for evaluation of an ulceration of the plantar surface of the lateral aspect of the left foot. The patient was previously admitted to [facility]. MRI of the left lower extr emity revealed osteomyelitis of the plantar aspect of the cuboid as well as of the fifth and likely t he fourth metatarsal bases. Also during the patient's hospital stay, Mr. Hicks was seen in consul tation by Dr. Sean Singh on 04/15/2018. The patient underwent percutaneous revascularization of the left lower extremity. The patient stated that he completed a course of IV antibiotics at dialysis f or a total of 6 weeks. The patient has also received p.o. antibiotics as per Infectious Diseases. T he patient continues to receive dressing changes of Medihotonio with the assistance of Home Health. PHYSICAL EXAMINATION: VITAL SIGNS: Temperature 98.2, pulse 101, respirations 18, blood pressure 118/78. Accu-Chek 142. EXTREMITIES: An ulceration of the lateral aspect of the left foot is still present. The dimensions of the wound are approximately 1.5 x 2.5 cm. The dimensions of the wound at the time of the patient' s visit on 06/18/2018 were approximately 2.1 x 3.2 cm. Granulation tissue is present within the woun d margins. Nonviable tissue present within the wound margins was debrided with an excisional full-th ickness debridement. No purulent drainage is associated with the wound. No erythema of the skin mary rounding the wound is present. No maceration of the skin of the periwound is noted. No significant edema of the left foot is present on exam today. ASSESSMENT AND PLAN: 1. Ulceration of plantar surface of the left foot over the lateral aspect of the foot. Dressing crissy nges of Medihoney, 4 x 4s and an ABD and Kerlix will be continued 3 times per week after cleansing an d irrigation with the assistance of Home Health. An Carlton bandage may also be used as needed at the ti me of dressing changes. As stated above, the patient has received IV and p.o. antibiotics as per Inf ectious Diseases for left foot osteomyelitis. In addition, on 04/15/2018, the patient underwent perc utaneous revascularization of the left lower extremity by Dr. Sean Singh. The importance of offload ing of the left foot has again been discussed with Pauline Kurt. He has been told that crutches, whe elchair or knee scooter are options for improved offloading of the left foot. I will see Mr. Audi marie again in two weeks. 2. Diabetes mellitus. The patient's Accu-Chek in clinic today is 142. The patient has been reminde d that for optimal wound healing, his blood glucoses should remain below 150. 3. End-stage renal disease. 4. History of hypertension. 5. History of peripheral vascular disease. 6. Obstructive sleep apnea. 7. History of gastrointestinal bleeding. 8. Anemia. 9. Charcot foot. 10. Gastroesophageal reflux disease.
== END 2018-07-02 08:42 | disposition home or self-care (01) ==
LOC: WCC 08:41
PROVIDERS: ATTEND Family Medicine
DX: E11.621 Type 2 diabetes mellitus with foot ulcer (principal); L97.529 Non-pressure chronic ulcer of other part of left foot with unspecified severity; I12.0 Hypertensive chronic kidney disease with stage 5 chronic kidney disease or end stage renal disease; E11.22 Type 2 diabetes mellitus with diabetic chronic kidney disease; N18.6 End stage renal disease; D63.1 Anemia in chronic kidney disease; G47.33 Obstructive sleep apnea (adult) (pediatric); K21.9 Gastro-esophageal reflux disease without esophagitis; M14.679 Charcot's joint, unspecified ankle and foot; Z87.19 Personal history of other diseases of the digestive system; Z86.79 Personal history of other diseases of the circulatory system
CPT/HCPCS: 11042

== ENCOUNTER 2018-07-23 09:44 | Outpatient (CLI) | payer MEDICARE, BC ==
--- NOTE | 2018-07-23 10:57 | PRG ---
DATE OF SERVICE: 07/23/2018 HISTORY: Mr. Sean Hicks is a very pleasant 68-year-old gentleman who presents to the Wound Ce nter for evaluation of an ulceration of the plantar surface of the lateral aspect of the left foot. The patient was previously admitted to [facility]. MRI of the left lower extr emity revealed osteomyelitis of the plantar aspect of the cuboid as well as of the 5th and likely the fourth metatarsal bases. Also, during the patient's hospital stay, Mr. Hicks was seen in consult ation by Dr. Sean Singh on 04/15/2018. The patient underwent percutaneous revascularization of the left lower extremity. The patient stated that he completed a course of IV antibiotics at [facility] a total of 6 weeks. The patient has also received p.o. antibiotics as per Infectious Diseases. Th e patient continues to receive dressing changes of Noel with the assistance of Home Health. PHYSICAL EXAMINATION: VITAL SIGNS: Temperature 97.8, pulse 95, respirations 18, blood pressure 114/53. Accu-Chek 153. EXTREMITIES: An ulceration of the lateral aspect of the left foot is still present. The dimensions of the wound are approximately 2.1 x 0.9 cm. The dimensions of the wound at the time of the patient' s visit on 07/02/2018 were approximately 2.5 x 1.5 cm. Granulation tissue is present within the woun d margins. Nonviable tissue present within the wound margins was debrided with an excisional full-th ickness debridement. No purulent drainage is associated with the wound. No erythema of the skin mary rounding the wound is present. No maceration of the skin of the periwound is noted. No significant edema of the left foot is present on exam today. ASSESSMENT AND PLAN: 1. Ulceration of plantar surface of the left foot over the lateral aspect of the foot. Dressing crissy nges of Medihotonio, 4 x 4s, ABD and Kerlix will be continued 3 times per week after cleansing and irri gation with the assistance of Home Health. An Carlton bandage may be utilized as needed at the time of d ressing changes. As stated above, the patient has received IV and p.o. antibiotics as per Infectious Diseases for left foot osteomyelitis. In addition, on 04/15/2018, the patient underwent percutaneou s revascularization of the left lower extremity by Dr. Sean Singh. The importance of offloading of the left foot has once again been discussed with Mr. Hicks. I will see Mr. Hicks again in 3 we eks. 2. Diabetes mellitus. The patient's Accu-Chek in clinic today is 153. The patient has been reminde d that for optimal wound healing, his blood glucoses should remain below 150. 3. End-stage renal disease. 4. History of hypertension. 5. History of peripheral vascular disease. 6. Obstructive sleep apnea. 7. History of gastrointestinal bleeding. 8. Anemia. 9. Charcot foot. 10. Gastroesophageal reflux disease.
[2018-07-23] MEDS ORDERED: Sodium Chloride 0.9% 15 ML NEB ONE (18:00)
== END 2018-07-23 09:45 | disposition home or self-care (01) ==
LOC: WCC 09:44
PROVIDERS: ATTEND Family Medicine
DX: E11.621 Type 2 diabetes mellitus with foot ulcer (principal); L97.529 Non-pressure chronic ulcer of other part of left foot with unspecified severity; E11.22 Type 2 diabetes mellitus with diabetic chronic kidney disease; N18.6 End stage renal disease; G47.33 Obstructive sleep apnea (adult) (pediatric); D64.9 Anemia, unspecified; K21.9 Gastro-esophageal reflux disease without esophagitis; M14.672 Charcot's joint, left ankle and foot; Z87.19 Personal history of other diseases of the digestive system; Z86.79 Personal history of other diseases of the circulatory system
CPT/HCPCS: 11042; A4218

== ENCOUNTER 2018-08-20 14:28 | Outpatient (CLI) | payer MEDICARE, BC ==
[~2018-08-20 14:28] MED LIST changes: -Lidocaine 2% Jelly 5 ML TUBE ONE
--- NOTE | 2018-08-20 16:36 | PRG ---
DATE OF SERVICE: 08/20/2018 HISTORY: Mr. Sean Hicks is a very pleasant 68-year-old gentleman, who presents to the Wound Center for evaluation of an ulceration of the plantar surface of the lateral aspect of the left foot. The patient was previously admitted to [facility]. MRI of the left lower extremity revealed osteomyelitis of the plantar aspect of the cuboid as well as of the fifth and likely the fourth metatarsal bases. Also during the patient's hospital stay, Mr. Hicks was seen in consultation by Dr. Sean Singh on 04/15/2018. The patient underwent percutaneous revascularization of the left lower extremity. The patient stated that he completed a course of IV antibiotics at dialysis for a total of 6 weeks. The patient has also received p.o. antibiotics as per Infectious Diseases. The patient continues to receive dressing changes of Medihoney with the assistance of Home Health. PHYSICAL EXAMINATION: VITAL SIGNS: Temperature 98.1, pulse 92, respirations 16, and blood pressure 108/56. Accu-Chek 143. EXTREMITIES: An ulceration of the lateral aspect of the left foot is still present. The dimensions of the wound are approximately 2.0 x 0.9 cm. The dimensions of the wound at the time of the patient's visit on 07/23/2018 were approximately 2.1 x 0.9 cm. Granulation tissue was present within the wound margins. Nonviable tissue present within the wound margins was debrided with an excisional full-thickness debridement. Callus, desiccated tissue, and undermining at the periphery of the wound were eliminated with the use of scissors. No purulent drainage is associated with the wound. No erythema of the skin surrounding the wound is present. No maceration of the skin of the periwound is noted. No significant edema of the left foot is present on exam today. Postdebridement measurements are approximately 2.6 x 1.2 cm. ASSESSMENT AND PLAN: 1. Ulceration of plantar surface of the left foot over the lateral aspect of the foot. Dressing changes of Medihoney, 4x4s, ABD as needed, Kerlix, and an Carlton bandage will be continued 3 times per week after cleansing and irrigation with the assistance of Home Health. As stated above, the patient has received IV and p.o. antibiotics as per Infectious Diseases for left foot osteomyelitis. In addition, on 04/15/2018, the patient underwent percutaneous revascularization of the left lower extremity by Dr. Sean Singh. The importance of offloading of the left foot has once again been discussed with Mr. Hicks. I will see Mr. Hicks again in 4 weeks. 2. Diabetes mellitus. The patient's Accu-Chek in clinic today is 143. The patient has been reminded that for optimal wound healing the patient's blood glucoses should remain below 150. 3. End-stage renal disease. 4. History of hypertension. 5. History of peripheral vascular disease. 6. Obstructive sleep apnea. 7. History of gastrointestinal bleeding. 8. Anemia. 9. Charcot foot. 10. Gastroesophageal reflux disease. Job ID: [id number]
== END 2018-08-20 14:29 | disposition home or self-care (01) ==
LOC: WCC 14:28
PROVIDERS: ATTEND Family Medicine
DX: E11.621 Type 2 diabetes mellitus with foot ulcer (principal); L97.529 Non-pressure chronic ulcer of other part of left foot with unspecified severity; E11.22 Type 2 diabetes mellitus with diabetic chronic kidney disease; E11.610 Type 2 diabetes mellitus with diabetic neuropathic arthropathy; N18.6 End stage renal disease; G47.33 Obstructive sleep apnea (adult) (pediatric); D64.9 Anemia, unspecified; K21.9 Gastro-esophageal reflux disease without esophagitis; Z86.79 Personal history of other diseases of the circulatory system; Z87.19 Personal history of other diseases of the digestive system
CPT/HCPCS: A4218

== ENCOUNTER 2018-10-01 10:41 | Outpatient (CLI) | payer MEDICARE, BC ==
--- NOTE | 2018-10-01 12:11 | PRG ---
DATE OF SERVICE: 10/01/2018 SUBJECTIVE: Mr. Sean Hicks is a very pleasant 68-year-old gentleman, who presents to the Wound Center for evaluation of an ulceration of the plantar surface of the lateral aspect of the left foot. The patient was previously admitted to [facility]. MRI of the left lower extremity revealed osteomyelitis of the plantar aspect of the cuboid as well as of the fifth and likely the fourth metatarsal bases. Also during the patient's hospital stay, Mr. Hicks was seen in consultation by Dr. Sean Singh on 04/15/2018. The patient underwent percutaneous revascularization of the left lower extremity. The patient stated that he completed a course of IV antibiotics at dialysis for a total of 6 weeks. The patient has also received p.o. antibiotics as per Infectious Diseases. The patient continues to receive dressing changes of Medihoney with the assistance of Home Health. OBJECTIVE: VITAL SIGNS: Temperature 98.0, pulse 108, respirations 19, blood pressure 132/59. Accu-Chek 156. EXTREMITIES: An ulceration of the lateral aspect of the left foot is still present. The dimensions of the wound are approximately 1.3 x 1.9 cm. Granulation tissue is present within the wound margins. Nonviable tissue present within the wound margins was debrided with an excisional full-thickness debridement. Callus desiccated tissue and undermining at the periphery of the wound were eliminated with the use of scissors. No purulent drainage is associated with the wound. No erythema of the skin surrounding the wound is present. No maceration of the skin of the periwound is noted. No significant edema of the left foot is present on exam today. ASSESSMENT AND PLAN: 1. Ulceration of plantar surface of the left foot over the lateral aspect of the foot. Dressing changes of Medihoney, 4x4s, Kerlix, and an Carlton bandage will be continued three times per week after cleansing and irrigation with the assistance of Home Health. ABDs will be utilized as needed at the time of dressing changes. As stated above, the patient has received IV and p.o. antibiotics as per Infectious Diseases for left foot osteomyelitis. In addition, on 04/15/2018, the patient underwent percutaneous revascularization of the left lower extremity by Dr. Sean Singh. The importance of offloading of the left foot has again been discussed with the patient. I will see Mr. Hicks again in 4 weeks. The patient states he has an appointment with [facility] in November of this year. 2. Diabetes mellitus. The patient's Accu-Chek in clinic today is 156. The patient has been reminded that for optimal wound healing, his blood glucoses should remain below 150. 3. End-stage renal disease. 4. History of hypertension. 5. History of peripheral vascular disease. 6. Obstructive sleep apnea. 7. History of gastrointestinal bleeding. 8. Anemia. 9. Charcot foot. 10. Gastroesophageal reflux disease. Job ID: [id number]
[2018-10-01] MEDS ORDERED: Sodium Chloride 0.9% 15 ML NEB ONE ×2 (15:56→19:55)
[2018-10-01] MEDS ORDERED: Lidocaine 2% PF 100 mg/5 ml Syringe ONE ×2 (15:56→19:55)
== END 2018-10-01 10:42 | disposition home or self-care (01) ==
LOC: WCC 10:41
PROVIDERS: ATTEND Family Medicine
DX: E11.621 Type 2 diabetes mellitus with foot ulcer (principal); L97.429 Non-pressure chronic ulcer of left heel and midfoot with unspecified severity; I12.0 Hypertensive chronic kidney disease with stage 5 chronic kidney disease or end stage renal disease; N18.6 End stage renal disease; D63.1 Anemia in chronic kidney disease; K21.9 Gastro-esophageal reflux disease without esophagitis; G47.33 Obstructive sleep apnea (adult) (pediatric); M14.672 Charcot's joint, left ankle and foot; Z86.79 Personal history of other diseases of the circulatory system; Z87.19 Personal history of other diseases of the digestive system
CPT/HCPCS: 11042; A4218; J2001

== ENCOUNTER 2018-10-22 10:03 | Outpatient (CLI) | payer MEDICARE, BC ==
--- NOTE | 2018-10-22 11:19 | PRG ---
DATE OF SERVICE: 10/22/2018 SUBJECTIVE: Mr. Sean Hicks is a very pleasant 68-year-old gentleman, who presents to the Wound Center for evaluation of an ulceration of the plantar surface of the lateral aspect of the left foot. MRI of the left lower extremity revealed osteomyelitis of the plantar aspect of the cuboid as well as of the fifth and likely the fourth metatarsal bases. Also, during the patient's hospital stay, Mr. Hicks was seen in consultation by Dr. Sean Singh on 04/15/2018. The patient underwent percutaneous revascularization of the left lower extremity. The patient stated that he completed a course of IV antibiotics at dialysis for a total of 6 weeks. The patient has also received p.o. antibiotics as per Infectious Diseases. The patient continues to receive dressing changes of Medihoney with the assistance of Home Health. OBJECTIVE: VITAL SIGNS: Temperature 97.5, pulse 99, respirations 18, blood pressure 140/60. Accu-Chek 128. EXTREMITIES: An ulceration of the lateral aspect of the left foot is still present. The dimensions of the wound are approximately 1.9 x 1.7 cm. The dimensions of the wound at the time of the patient's visit on 10/01/2018 were approximately 1.9 x 1.3 cm. Granulation tissue is present within the wound margins. Nonviable tissue present within the wound margins was debrided with an excisional full-thickness debridement. Callus desiccated tissue and undermining at the periphery of the wound were eliminated with the use of scissors. No purulent drainage is associated with the wound. No erythema of the skin surrounding the wound is present. No maceration of the skin of the periwound is noted. No significant edema of the left foot is present on exam today. ASSESSMENT AND PLAN: 1. Ulceration of plantar surface of the left foot over the lateral aspect of the foot. Dressing changes of Medihoney will be discontinued. Dressing changes of Promogran will be initiated today. Bordered gauze and Kerlix will be utilized as secondary dressings. As stated above, the patient has received IV and p.o. antibiotics as per Infectious Diseases for left foot osteomyelitis. In addition, on 04/15/2018, the patient underwent percutaneous revascularization of the left lower extremity by Dr. Sean Singh. The importance of offloading of the left foot has again been discussed with the patient. I will see Mr. Kurt again in 4 weeks. 2. Diabetes mellitus. The patient's Accu-Chek in clinic today is 128. The patient has been reminded that for optimal wound healing his blood glucoses should remain below 150. 3. End-stage renal disease. 4. History of hypertension. 5. History of peripheral vascular disease. 6. Obstructive sleep apnea. 7. History of gastrointestinal bleeding. 8. Anemia. 9. Charcot foot. 10. Gastroesophageal reflux disease. Job ID: [id number]
[2018-10-22] MEDS ORDERED: Lidocaine 2% PF 100 mg/5 ml Syringe ONE (15:00)
[2018-10-22] MEDS ORDERED: Sodium Chloride 0.9% 15 ML NEB ONE (15:00)
== END 2018-10-22 10:04 | disposition home or self-care (01) ==
LOC: WCC 10:03
PROVIDERS: ATTEND Family Medicine
DX: E11.621 Type 2 diabetes mellitus with foot ulcer (principal); L97.529 Non-pressure chronic ulcer of other part of left foot with unspecified severity; E11.22 Type 2 diabetes mellitus with diabetic chronic kidney disease; I12.0 Hypertensive chronic kidney disease with stage 5 chronic kidney disease or end stage renal disease; N18.6 End stage renal disease; G47.33 Obstructive sleep apnea (adult) (pediatric); D63.1 Anemia in chronic kidney disease; E11.610 Type 2 diabetes mellitus with diabetic neuropathic arthropathy; K21.9 Gastro-esophageal reflux disease without esophagitis; Z86.79 Personal history of other diseases of the circulatory system
CPT/HCPCS: 11042

== ENCOUNTER 2018-12-03 10:22 | Outpatient (CLI) | payer MEDICARE, BC ==
[~2018-12-03 10:22] MED LIST changes: +Lidocaine 2% PF 100 mg/5 ml Syringe ONE
--- NOTE | 2018-12-03 11:28 | PRG ---
DATE OF SERVICE: 12/03/2018 HISTORY: Mr. Sean Hicks is a very pleasant 68-year-old gentleman, who presents to the Wound Center for evaluation of an ulceration of the plantar surface of the lateral aspect of the left foot. MRI of the left lower extremity revealed osteomyelitis of the plantar aspect of the cuboid as well as of the fifth and likely the fourth metatarsal bases. Also during the patient's hospital stay, Mr. Hicks was seen in consultation by Dr. Sean Singh on 04/15/2018. The patient underwent percutaneous revascularization of the left lower extremity. The patient previously stated that he completed a course of IV antibiotics at dialysis for a total of 6 weeks. The patient has also received p.o. antibiotics as per Infectious Diseases. The patient has been receiving dressing changes of Promogran and gauze with the assistance of Home Health since his last visit. The patient also states that he has had new shoes fitted for him by a flow coordinator in [place] [employer] [employer], [place]. PHYSICAL EXAMINATION: VITAL SIGNS: Temperature 97.7, pulse 81, respirations 22, blood pressure 137/60. EXTREMITIES: An ulceration of the lateral aspect of the left foot is still present. The dimensions of the wound are approximately 1.3 x 1.6 cm. The dimensions of the wound at the time of the patient's visit on 10/22/2018 were approximately 1.9 x 1.7 cm. Granulation tissue is present within the wound margins. Nonviable tissue present within the wound margins was debrided with an excisional full-thickness debridement with the use of a curette. Callus desiccated tissue and undermining at the periphery of the wound were eliminated with the use of scissors. No purulent drainage is associated with the wound. No erythema of the skin surrounding the wound is present. No maceration of the skin of the periwound is noted. No significant edema of the left foot is present on exam today. ASSESSMENT AND PLAN: 1. Ulceration of plantar surface of the left foot over the lateral aspect of the foot. Dressing changes of Promogran and gauze will be continued 3 times per week after cleansing and irrigation with the assistance of Home Health. As stated above, the patient has received IV and p.o. antibiotics as per Infectious Diseases for left foot osteomyelitis. In addition on 04/15/2018, the patient underwent percutaneous revascularization of the left lower extremity by Dr. Sean Singh. The patient states he has a followup appointment with his flow coordinator in 4 weeks. I will see Mr. Hicks again in 5 weeks. 2. Two diabetes mellitus. Accu-Cheks will be obtained at the time of the patient's clinic visits. The patient has been reminded that for optimal wound healing, his blood glucoses should remain below 150. 3. End-stage renal disease. 4. History of hypertension. 5. History of peripheral vascular disease. 6. Obstructive sleep apnea. 7. History of gastrointestinal bleeding. 8. Anemia. 9. Charcot foot. 10. Gastroesophageal reflux disease. Job ID: [id number]
== END 2018-12-03 10:23 | disposition home or self-care (01) ==
LOC: WCC 10:22
PROVIDERS: ATTEND Family Medicine
DX: E11.621 Type 2 diabetes mellitus with foot ulcer (principal); L97.529 Non-pressure chronic ulcer of other part of left foot with unspecified severity; E11.22 Type 2 diabetes mellitus with diabetic chronic kidney disease; I12.0 Hypertensive chronic kidney disease with stage 5 chronic kidney disease or end stage renal disease; N18.6 End stage renal disease; G47.33 Obstructive sleep apnea (adult) (pediatric); K21.9 Gastro-esophageal reflux disease without esophagitis; E11.51 Type 2 diabetes mellitus with diabetic peripheral angiopathy without gangrene; I73.9 Peripheral vascular disease, unspecified; D64.9 Anemia, unspecified
CPT/HCPCS: 11042; A4218; J2001

== ENCOUNTER 2019-01-07 09:55 | Outpatient (CLI) | payer MEDICARE, BC ==
--- NOTE | 2019-01-07 11:21 | PRG ---
DATE OF SERVICE: 01/07/2019 HISTORY: Mr. Sean Hicks is a very pleasant 68-year-old gentleman, who presents to the Wound Center for evaluation of an ulceration of the plantar surface of the lateral aspect of the left foot. MRI of the left lower extremity revealed osteomyelitis of the plantar aspect of the cuboid as well as of the fifth and likely the fourth metatarsal bases. Also during the patient's hospital stay, Mr. Hicks was seen in consultation by Dr. Sean Singh on 04/15/2018. The patient underwent percutaneous revascularization of the left lower extremity. The patient previously stated that he completed a course of IV antibiotics at dialysis for a total of 6 weeks. The patient has also received p.o. antibiotics as per Infectious Diseases. The patient has been receiving dressing changes of Promogran and gauze with the assistance of Home Health since his last visit. The patient today states that he has been unable to obtain new diabetic shoes with inserts. PHYSICAL EXAMINATION: VITAL SIGNS: Temperature 97.7, pulse 101, respirations are 16, and blood pressure 132/53. Accu-Chek 178. EXTREMITIES: An ulceration of the lateral aspect of the left foot is still present. The dimensions of the wound are approximately 1.9 x 2.0 cm. The dimensions of the wound at the time of the patient's last visit were approximately 1.3 x 1.6 cm. Granulation tissue is present within the wound margins. Nonviable tissue present within the wound margins was debrided with an excisional full-thickness debridement. Callus desiccated tissue and undermining at the periphery of the wound were eliminated with the use of scissors. No purulent drainage is associated with the wound. No erythema of the skin surrounding the wound is present. Maceration of the skin of the periwound is noted. No significant edema of the left foot is present on today's exam. ASSESSMENT AND PLAN: 1. Ulceration of plantar surface of the left foot over the lateral aspect of the foot. Dressing changes of SilvaSorb gel sheet will be initiated today. These dressing changes are to be performed 3 times per week after cleansing and irrigation with the assistance of Home Health. An ABD and Kerlix will be utilized as secondary dressings. As stated above, the patient has received IV and p.o. antibiotics as per Infectious Diseases for left foot osteomyelitis. In addition on 04/15/2018, the patient underwent percutaneous revascularization of the left lower extremity by Dr. Sean Singh. I have asked the patient to be seen by his primary care physician so that he may obtain approval for diabetic shoes with inserts. I will see Mr. Hicks again in 5 weeks. 2. Diabetes mellitus. The patient's Accu-Chek in clinic today is 178. The patient has been reminded that for optimal wound healing, his blood glucoses should remain below 150. 3. End-stage renal disease. 4. History of hypertension. 5. History of peripheral vascular disease. 6. Obstructive sleep apnea. 7. History of gastrointestinal bleeding. 8. Anemia. 9. Charcot foot. 10. Gastroesophageal reflux disease. Job ID: [id number]
[2019-01-07] MEDS ORDERED: Lidocaine 2% 11 ML SYR ONE (16:17)
[2019-01-07] MEDS ORDERED: Sodium Chloride 0.9% 15 ML NEB ONE (16:17)
== END 2019-01-07 09:56 | disposition home or self-care (01) ==
LOC: WCC 09:55
PROVIDERS: ATTEND Family Medicine
DX: E11.621 Type 2 diabetes mellitus with foot ulcer (principal); L97.529 Non-pressure chronic ulcer of other part of left foot with unspecified severity; I12.0 Hypertensive chronic kidney disease with stage 5 chronic kidney disease or end stage renal disease; E11.22 Type 2 diabetes mellitus with diabetic chronic kidney disease; N18.6 End stage renal disease; G47.33 Obstructive sleep apnea (adult) (pediatric); D64.9 Anemia, unspecified; E11.51 Type 2 diabetes mellitus with diabetic peripheral angiopathy without gangrene; I73.9 Peripheral vascular disease, unspecified; K21.9 Gastro-esophageal reflux disease without esophagitis; D63.1 Anemia in chronic kidney disease
CPT/HCPCS: 11042; A4218

== ENCOUNTER 2019-02-11 12:10 | Outpatient (CLI) | payer MEDICARE, BC ==
--- NOTE | 2019-02-11 11:57 | PRG ---
DATE OF SERVICE: 02/11/2019 HISTORY: Mr. Sean Hicks is a very pleasant 69-year-old gentleman, who [facility] for evaluation of an ulceration of the plantar surface of the lateral aspect of the left foot. MRI of the left lower extremity obtained on 04/11/2018 revealed osteomyelitis of the plantar aspect of the cuboid as well as of the fifth and likely the fourth metatarsal bases. Also during the patient's hospital stay, Mr. Hicks was seen in consultation by Dr. Sean Singh on 04/15/2018. The patient underwent percutaneous revascularization of the left lower extremity. The patient previously stated that he completed a course of IV antibiotics at dialysis for a total of 6 weeks. The patient has also received p.o. antibiotics as per Infectious Diseases. Since the patient's last visit, Mr. Hicks has been receiving dressing changes of SilvaSorb gel sheet with the assistance of Home Health. PHYSICAL EXAMINATION: VITAL SIGNS: Temperature 97.6, pulse 102, and blood pressure 111/56. Accu-Chek 142. EXTREMITIES: An ulceration of the lateral aspect of the left foot is present, which measures approximately 1.7 x 1.2 cm. The dimensions of the wound at the time of the patient's last visit were approximately 1.9 x 2.0 cm. Granulation tissue is present within the wound margins. Nonviable tissue present within the wound margins was debrided with an excisional full-thickness debridement. Callus desiccated tissue and undermining at the periphery of the wound were eliminated with the use of scissors. No purulent drainage is associated with the wound. No erythema of the skin surrounding the wound is present. No maceration of the skin of the periwound is noted. No significant edema of the left foot is present on exam today. ASSESSMENT AND PLAN: 1. Ulceration of plantar surface of the left foot over the lateral aspect of the foot. Dressing changes of SilvaSorb gel sheet will be continued 3 times per week after cleansing and irrigation with the assistance of Home Health. An ABD and Kerlix will be utilized as secondary dressings. As stated above, the patient has received IV and p.o. antibiotics as per Infectious Diseases for left foot osteomyelitis. In addition on 04/15/2018, the patient underwent percutaneous revascularization of the left lower extremity by Dr. Sean Singh. I will see Mr. Hicks again in 4 to 6 weeks. 2. Diabetes mellitus. The patient's Accu-Chek in clinic today is 142. The patient has been reminded that for optimal wound healing, his blood glucoses should remain below 150. 3. End-stage renal disease. 4. History of hypertension. 5. History of peripheral vascular disease. 6. Obstructive sleep apnea. 7. History of gastrointestinal bleeding. 8. Anemia. 9. Charcot foot. 10. Gastroesophageal reflux disease. Job ID: [id number]
[2019-02-11] MEDS ORDERED: Lidocaine 2% PF 100 mg/5 ml Syringe ONE (15:00)
[2019-02-11] MEDS ORDERED: Sodium Chloride 0.9% 15 ML NEB ONE (15:00)
== END 2019-02-11 12:11 | disposition home or self-care (01) ==
LOC: WCC 12:10
PROVIDERS: ATTEND Family Medicine
DX: E11.621 Type 2 diabetes mellitus with foot ulcer (principal); L97.529 Non-pressure chronic ulcer of other part of left foot with unspecified severity; K21.9 Gastro-esophageal reflux disease without esophagitis; G47.33 Obstructive sleep apnea (adult) (pediatric); I12.0 Hypertensive chronic kidney disease with stage 5 chronic kidney disease or end stage renal disease; N18.6 End stage renal disease; E11.22 Type 2 diabetes mellitus with diabetic chronic kidney disease; D63.1 Anemia in chronic kidney disease; A52.16 Charcot's arthropathy (tabetic); E11.51 Type 2 diabetes mellitus with diabetic peripheral angiopathy without gangrene
CPT/HCPCS: 11042; A4218; J2001

== ENCOUNTER 2019-03-25 11:04 | Outpatient (CLI) | payer MEDICARE, BC ==
--- NOTE | 2019-03-25 11:25 | PRG ---
DATE OF SERVICE: 03/25/2019 SUBJECTIVE: Mr. Sean Hicks is a very pleasant 69-year-old gentleman, who presents to the [facility] for evaluation of an ulceration of the plantar surface of the lateral aspect of the left foot. MRI of the left lower extremity obtained on 04/11/2018 revealed osteomyelitis of the plantar aspect of the cuboid as well as of the fifth and likely the fourth metatarsal bases. Also during the patient's hospital stay, Mr. Hicks was seen in consultation by Dr. Sean Singh on 04/15/2018. The patient underwent percutaneous revascularization of the left lower extremity. The patient previously stated that he completed a course of IV antibiotics at dialysis for a total of 6 weeks. The patient has also received p.o. antibiotics as per Infectious Diseases. Since the patient's last visit, Mr. Hicks has received dressing changes of SilvaSorb gel sheet with the assistance of Home Health. OBJECTIVE: VITAL SIGNS: Temperature 98.3, pulse 101, respirations 18, blood pressure 117/56. Accu-Chek 139. EXTREMITIES: An ulceration of the lateral aspect of the left foot is present, which measures approximately 1.1 x 2.1 cm. The dimensions of the wound at the time of the patient's last visit were approximately 1.7 x 1.2 cm. Granulation tissue is present within the wound margins. Nonviable tissue present within the wound margins was debrided with an excisional full-thickness debridement. Callus desiccated tissue and undermining at the periphery of the wound were eliminated with the use of scissors. No purulent drainage is associated with the wound. No erythema of the skin surrounding the wound is present. No maceration of the skin of the periwound is noted. No significant edema of the left foot is present on exam today. ASSESSMENT AND PLAN: 1. Ulceration of plantar surface of the left foot over the lateral aspect of the foot. Dressing changes of SilvaSorb gel sheet will be continued 3 times per week after cleansing and irrigation with the assistance of Home Health. An ABD and Kerlix will be utilized as secondary dressings. As stated above, the patient has received IV and p.o. antibiotics as per Infectious Diseases for left foot osteomyelitis. In addition on 04/15/2018, the patient underwent percutaneous revascularization of the left lower extremity by Dr. Sean Singh. I will see Mr. Hicks again in 4 weeks. 2. Diabetes mellitus. The patient's Accu-Chek in clinic today is 139. The patient has been reminded that for optimal wound healing, his blood glucoses should remain below 150. 3. End-stage renal disease. 4. History of hypertension. 5. History of peripheral vascular disease. 6. Obstructive sleep apnea. 7. History of gastrointestinal bleeding. 8. Anemia. 9. Charcot foot. 10. Gastroesophageal reflux disease. Job ID: [id number]
== END 2019-03-25 11:05 | disposition home or self-care (01) ==
LOC: WCC 11:04
PROVIDERS: ATTEND Family Medicine
DX: E11.621 Type 2 diabetes mellitus with foot ulcer (principal); L97.429 Non-pressure chronic ulcer of left heel and midfoot with unspecified severity; M86.9 Osteomyelitis, unspecified; I12.9 Hypertensive chronic kidney disease with stage 1 through stage 4 chronic kidney disease, or unspecified chronic kidney disease; E11.22 Type 2 diabetes mellitus with diabetic chronic kidney disease; N18.6 End stage renal disease; D63.1 Anemia in chronic kidney disease; G47.33 Obstructive sleep apnea (adult) (pediatric); K21.9 Gastro-esophageal reflux disease without esophagitis; E11.610 Type 2 diabetes mellitus with diabetic neuropathic arthropathy; Z86.79 Personal history of other diseases of the circulatory system; Z87.19 Personal history of other diseases of the digestive system

== ENCOUNTER 2019-04-20 07:27 | Day surgery (SDC) | payer MEDICARE, BC ==
--- NOTE | 2019-04-20 07:53 | HP ---
HISTORY OF PRESENT ILLNESS: This is a 69-year-old male comes for EGD and flexible sigmoidoscopy. Mr. Hicks has been having abdominal pain for several months.The pain is over the epigastric and periumbilical area. He has had mild nausea with the pain. . The patient also has history of rectal bleeding also. The bleeding is painless. The patient has family history of colon cancer. The patient has had a subtotal colectomy in 2012, diverticular bleed. The patient is going to undergo EGD because of abdominal pain and sigmoidoscopy because of hematochezia and family history of colon cancer. ALLERGIES: IODINE COMPOUNDS. MEDICAL ILLNESSES: 1. Chronic kidney disease, on dialysis. 2. Diverticular bleed, status post subtotal colectomy. 3. Hypertension. 4. Diabetes. 5. Peripheral vascular disease. 6. Hyperlipidemia. 7. Sleep apnea. 8. Polyneuropathy. PHYSICAL EXAMINATION: VITAL SIGNS: Pulse 74, blood pressure 100/60. HEENT: Conjunctivae are clear. NECK: Supple. CARDIOVASCULAR SYSTEM: First and second heart sounds. ABDOMEN: Tender over the epigastric area. ADMITTING DIAGNOSES: 1. Abdominal pain. 2. Hematochezia. PLAN: EGD and flexible sigmoidoscopy. Job ID: [id number] MTDD
--- NOTE | 2019-04-20 12:41 | OP ---
DATE OF PROCEDURE: 04/20/2019 PROCEDURE PERFORMED: Esophagogastroduodenoscopy with biopsy. PREOPERATIVE DIAGNOSES: Abdominal pain, this is postprandial, with nausea. The symptoms are chronic in nature. Underwent esophagogastroduodenoscopy. POSTOPERATIVE DIAGNOSES: 1. Normal esophagus. 2. Gastric polyps x2 over the gastric antrum. 3. 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 Biopsy was obtained from the area. DESCRIPTION OF PROCEDURE: The patient was placed on his left lateral position and was given sedation by Anesthesia Department. A Pentax video gastroscope under direct vision passed down the oropharynx, past the GE junction into the stomach and subsequently into the descending duodenum. The esophageal mucosa appeared normal throughout. The GE junction, no pathology seen. Retroflexion failed to show any pathology in fundus and cardia. The gastric body, no pathology seen. The gastric antrum showed 2 polyps. Biopsy was obtained from the area. The duodenal bulb, no pathology seen. In the descending duodenum, the mucosa was somewhat edematous and shows multiple whitish spots. They possibly mostly represent lymphangiectasia. Biopsy was obtained of the descending duodenum. The stomach decompressed and the scope was removed. DISCHARGE PLANNING: This is a 69-year-old male, came for EGD and flexible sigmoidoscopy. EGD showed gastric polyps. The sigmoidoscopy basically was negative for hemorrhoids. Discharge recommendations, the patient advised to call back to me in 2 weeks. Depending on the biopsy, we will make further recommendation. Job ID: [id number]
--- NOTE | 2019-04-20 15:41 | OP ---
DATE OF PROCEDURE: 04/20/2019 PROCEDURE PERFORMED: Flexible sigmoidoscopy. PREOPERATIVE DIAGNOSES: Rectal bleeding, family history of colon cancer. POSTOPERATIVE DIAGNOSIS: Normal exam except for hemorrhoids. DESCRIPTION OF PROCEDURE: The patient was placed on his left lateral position and was given sedation by Anesthesia Department. A rectal exam was done before the scope was advanced into the rectum . No lesions felt on rectal exam. A Pentax video colonoscope was introduced into the rectum and advanced to a distance of 40 cm. The patient has had previous subtotal colectomy; otherwise, the colon appears healthy. The mucosa appears normal _. No colitis or any abdominal findings seen. The rectum showed hemorrhoids. Job ID: [id number] [facility]
== END 2019-04-20 11:04 | disposition home or self-care (01) ==
LOC: SDC 07:27
PROVIDERS: ATTEND Internal Medicine Gastroenterology
PROC: 0DJD8ZZ Inspection of Lower Intestinal Tract, Via Natural or Artificial Opening Endoscopic (ICD-10-PCS; principal; 2019-04-20)
PROC: 0DB78ZX Excision of Stomach, Pylorus, Via Natural or Artificial Opening Endoscopic, Diagnostic (ICD-10-PCS; 2019-04-20)
DX: K64.9 Unspecified hemorrhoids (principal); K31.7 Polyp of stomach and duodenum; I12.9 Hypertensive chronic kidney disease with stage 1 through stage 4 chronic kidney disease, or unspecified chronic kidney disease; E11.22 Type 2 diabetes mellitus with diabetic chronic kidney disease; N18.9 Chronic kidney disease, unspecified; E11.51 Type 2 diabetes mellitus with diabetic peripheral angiopathy without gangrene; E11.42 Type 2 diabetes mellitus with diabetic polyneuropathy; E78.5 Hyperlipidemia, unspecified; G47.30 Sleep apnea, unspecified; Z99.2 Dependence on renal dialysis; Z80.0 Family history of malignant neoplasm of digestive organs; Z90.49 Acquired absence of other specified parts of digestive tract; Z91.041 Radiographic dye allergy status; Z79.4 Long term (current) use of insulin; Z79.899 Other long term (current) drug therapy
CPT/HCPCS: 36416; 88305; 88312

== ENCOUNTER 2019-04-22 10:33 | Inpatient (IN) | payer MEDICARE, BC ==
[2019-04-22] MEDS ORDERED: Ondansetron PF 4 MG/2 ML Vial ONE (11:05)
[2019-04-22] MEDS ORDERED: Piperacillin/Tazobactam 4.5 GM VIAL ONE (11:05)
[2019-04-22] MEDS ORDERED: Sodium Chloride 0.9% 100 ML ONE (11:05)
[2019-04-22] MEDS ORDERED: Fentanyl 100 MCG/2 ML VIAL ONE (11:06)
[2019-04-22] MEDS ORDERED: Acetaminophen 1,000 MG in Premix Bag 1 BAG IVPB SCH (11:15)
--- NOTE | 2019-04-22 11:15 | RAD ---
Exam: Chest one view HISTORY:Fever Comparison: 04/10/2018 FINDINGS: Cardiac silhouette:Enlarged Aorta: Atherosclerosis of the aortic knob Pulmonary vessels: Slightly prominent Costophrenic angles: Clear LUNGS: Patchy interstitial and alveolar opacities. Pneumothorax: None Osseous abnormalities: None IMPRESSION: 1. Patchy interstitial and alveolar opacities. Correlate for edema versus infiltrate. 2. Continued surveillance is recommended.
[2019-04-22 11:17] LABS: #Basophils 0.1 thou/uL (0.0-0.2); #Eosinphils 0.1 thou/uL (0.0-0.7); #Lymphocytes 1.4 thou/uL (1.20-3.40); #Monocytes 0.3 thou/uL (0.11-0.59); #Neutrophils 6.1 thou/uL (1.40-6.50); %Basophils 0.9 % (0.0-1.0); %Eosinophils 0.7 % (0.0-10.0); %Lymphocytes 17.3 % (21.0-51.0); %Monocytes 3.4 % (0.0-10.0); %Neutrophils 77.8 % (42.0-75.0); Hemoglobin 11.5 g/dL (14.0-18.0); Mean Corpuscular Hemoglobin 30.8 pg (27.0-31.0); Mean Corpuscular Volume 93.4 fL (78.0-98.0); Mean Platelet Volume 8.3 fL (7.4-10.4); Platelet Count 249 thou/uL (130-400); Red Blood Cell (RBC) Count 3.72 mill/uL (4.70-6.10); White Blood Cell (WBC) Count 7.9 thou/uL (4.8-10.8)
[2019-04-22 11:47] LABS: ALT (SGPT) Less than 7 U/L (8-55); AST (SGOT) 12 U/L (5-34); Albumin 3.6 g/dL (3.4-4.8); Alkaline Phosphatase 107 U/L (40-150); Anion Gap 24 mmol/L (10-20); BUN (Urea Nitrogen) 27 mg/dL (8.4-25.7); Bilirubin, Total 0.8 mg/dL (0.2-1.2); Calc. Creatinine Clearance 0 mL/min (70-130); Calcium 9.2 mg/dL (7.8-10.44); Carbon Dioxide 17 mmol/L (23-31); Chloride 93 mmol/L (98-107); Estimated GFR-MDRD 6; Globulin 4.6 g/dL (2.4-3.5); Glucose 99 mg/dL (80-115); Potassium 4.3 mmol/L (3.5-5.1); Protein, Total 8.2 g/dL (5.8-8.1); Sodium 130 mmol/L (136-145)
--- NOTE | 2019-04-22 12:03 | CT ---
CT ABDOMEN NONCONTRAST CT PELVIS NONCONTRAST: (Urolithiasis protocol) DATE: 04/22/2019 HISTORY: 69-year-old male with generalized abdominal pain and fever. COMPARISON: CT angiogram of 04/21/2017. TECHNIQUE: IV injection of iodinated contrast media: None Oral contrast media: None FINDINGS: Other than for urolithiasis, the lack of IV and oral contrast limits the evaluation. Again noted is the 8 x 7.5 cm defect at midline in the upper-mid abdominal wall, through which hernia joanna an air-filled segment of colon which is mildly distended with transverse diameter of approximately 6 cm, but without mural thickening. The rest of the upper colon is all on the right karsten e of the abdominal cavity. There is no: In the left side of the upper abdominal cavity. There is anastomosis with suture lines involving: In a complex manner involving in enlarged pouch of bowel (bu t not distended) near midline at the pelvic inlet, which is anastomosed with the rectosigmoid. Diffuse mural thickening of the urinary bladder could be due to nondistention. It appears similar to the previous CT. This does not necessarily imply cystitis. No small bowel dilation. Bilateral kidneys are somewhat small. No hydronephrosis. No renal, ureteral, or bladder calculus. Exophytically protruding laterally from the lower pole cortex of the left kidney, there is a 1.5 x 1 x 1 cm masslike density with attenuation slightly higher than that of adjacent renal parenchyma. This is loc ated slightly inferior and posterior to the previously described small left renal cyst. This protrusion is either new or slightly larger than on the previous study. It is unlikely to represent a hemorrhagic renal cyst because this did not appear cystic on the previous CT. It had the appearance of normal renal parenchyma previously. No small bowel dilation. No abdominal aortic aneurysm. Cholecystectomy clips in the gallbladder fossa . Low hepatic attenuation consistent with fatty liver. No splenomegaly. No gross abnormality of pancreas or adrenals. No ascites or pneumoperitoneum. No pleural effusion or consolidation at lung ba ses. No destructive osseous lesion identified. IMPRESSION: 1) ventral hernia consisting of herniation of segment of colon through the defect at midline upper ab dominal wall, unchanged since 04/11/2017. 2) evidence of previous bowel surgery with surgical manipulation of colonic anatomy and anastomoses. 3) no urolithiasis or obstructive uropathy. 4) hepatic steatosis. 5) apparent small left lower pole renal mass. If there are no contraindications to iodinated contrast , this should be further evaluated with multiphase CT of abdomen with and without contrast, renal mass protocol. If there is a contraindication to iodinated contrast, serial follow-up noncontrast CTs of abdomen are recommended, beginning in 6 months.
[2019-04-22 12:07] LABS: Troponin I 0.031 ng/mL (< 0.028)
[2019-04-22] MEDS ORDERED: Vancomycin HCl 1.5 GM in Sodium Chloride 0.9% 250 ML 300 ML IVPB SCH ×2 (12:15→22:00)
[2019-04-22] MEDS ORDERED: Digoxin 0.5 MG/2 ML AMP ONE (13:50)
[2019-04-22] MEDS ORDERED: HumaLOG 300 UNITS/3 ML VIAL SC PRN (15:23)
[2019-04-22] MEDS ORDERED: Loratadine 10 MG TAB PO PRN (15:23)
[2019-04-22] MEDS ORDERED: Ondansetron PF 4 MG/2 ML Vial IVP PRN (15:23)
[2019-04-22] MEDS ORDERED: hydrALAZINE 20 MG/ML VIAL SLOW IVP PRN (15:23)
[2019-04-22] MEDS ORDERED: Diabetic Tussin 200 MG/10 ML UDCUP PO PRN (15:23)
[2019-04-22] MEDS ORDERED: Bisacodyl 10 MG SUPP PR PRN (15:23)
[2019-04-22] MEDS ORDERED: Dextrose 5% in Water 1,000 ML IV PRN (15:23)
[2019-04-22] MEDS ORDERED: Dextrose 50% Abboject 50 ML SYRINGE SLOW IVP PRN (15:23)
[2019-04-22] MEDS ORDERED: Ondansetron ODT 4 MG TAB PO PRN (15:23)
[2019-04-22] MEDS ORDERED: Senokot S 8.6-50 MG TAB PO PRN (15:23)
[2019-04-22] MEDS ORDERED: Sodium Chloride 0.65% Nasal 44 ML BOT EA NARE PRN (15:23)
[2019-04-22 15:49] LABS: Lactic Acid 1.3 mmol/L (0.5-2.2)
[2019-04-22 15:56] LABS: Troponin I 0.053 ng/mL (< 0.028)
--- NOTE | 2019-04-22 16:13 | HP ---
PRIMARY CARE PHYSICIAN: Dr. Coppola. REASON FOR ADMISSION: Sepsis due to pneumonia. HISTORY OF PRESENT ILLNESS: A 69-year-old male, who has underlying history of ESRD, on hemodialysis as well as diabetes type 2. The patient reports that he was having fever at home about 102 to 103 at home for last 2 days. The patient had dialysis yesterday. The patient did not have any cough, pleuritic chest pain, or shortness of breath. The patient [facility] where he was having high-grade fever and that is why he was sent to emergency room for evaluation. [facility], the patient's pulse was also variable and tachycardic. The patient had colonoscopy by Dr. Phillip on which was done for rectal bleeding and the patient had normal colonoscopy except hemorrhoid. In the emergency room, the patient also reported that he had some blood in stool. In the emergency room, the patient was also febrile with temperature 102.5 and his pulse was variable from 100 to 140 and his blood pressure also dropped from normal to 88/56. In the emergency room when I saw this patient, at that time patient was alert, oriented, and he was on room air. In the emergency room, the patient had CT abdomen and pelvis, which did not show any acute abdominal process, though the patient does have finding of ventral hernia, unchanged from 2017, as well as fatty liver and left lower pole renal mass. In the emergency room, routine blood test showed hyponatremia, lactic acidosis, and he has chronically elevated troponin. He received vancomycin, Zosyn, and IV fluid. For his fever, he was given Ofirmev 1 g. REVIEW OF SYSTEMS: CONSTITUTIONAL: Negative for weight loss or gain, ability to conduct usual activities. SKIN: Negative for rash, itching. EYES: Negative for double vision, pain. ENT/MOUTH: Negative for nose bleeding, neck stiffness, pain, tenderness. CARDIOVASCULAR: Negative for palpitations, dyspnea on exertion, orthopnea. RESPIRATORY: Negative for shortness of breath, wheezing, cough, hemoptysis, fever or night sweats. GASTROINTESTINAL: Negative for poor appetite, abdominal pain, heartburn, nausea, vomiting, constipation, or diarrhea. GENITOURINARY: Negative for urgency, frequency, dysuria, nocturia. MUSCULOSKELETAL: Negative for pain, swelling. NEUROLOGIC/PSYCHIATRIC: Negative for anxiety, depression. ALLERGY/IMMUNOLOGIC: Negative for skin rash, bleeding tendency. Please see my HPI for pertinent positives and negatives. All other review of systems reviewed and negative except as mentioned in HPI. PAST MEDICAL HISTORY: ESRD on hemodialysis, gastroesophageal reflux disease, peripheral vascular disease, hypertension, dyslipidemia, obstructive sleep apnea, and diabetes type 2. PAST SURGICAL HISTORY: Partial colectomy, skin grafting, amputation of toes of bilateral feet (he has only two toes on both feet), debridement of left foot wound, dialysis access. PAST PSYCHIATRIC HISTORY: Reviewed and negative. ALLERGIES: THE PATIENT IS ALLERGIC TO IODINE. SOCIAL HISTORY: The patient is , lives at home with his . He has history of smoking. He denies any alcohol or other illicit drug abuse. FAMILY HISTORY: Positive for cancer among several family members, but no strong family history of coronary artery disease. CURRENT HOME MEDICATIONS: As per emergency room record, the patient is on; 1. Protonix 40 mg daily. 2. Restoril 15 mg p.o. at bedtime. 3. Lomotil as needed. 4. Insulin 70/30 twice daily. 5. Iron one tablet daily. 6. Amaryl 4 mg twice daily. 7. Rocaltrol 0.25 mg p.o. daily. EMERGENCY ROOM COURSE: The patient has given vancomycin, Zosyn, fentanyl, Zofran, Tylenol 1 g and IV fluid. PHYSICAL EXAMINATION: VITAL SIGNS: On arrival, blood pressure 175/97, currently 88/56; pulse 109 to 132, irregular; respiratory rate 18; temperature 102.5 on admission; saturation 94% on room air. Weight 99.8 kg. GENERAL: The patient is chronically ill, no obvious acute distress. HEENT: Head; normocephalic, atraumatic. Eyes; pupils round, reactive to light. Extraocular muscle intact. ENT, moist mucous membranes. No oral lesion. No pharyngeal erythema. No exudate. No lymphadenopathy. NECK: Supple. Range of motion is normal. No meningeal signs of irritation. No lymphadenopathy. No JVD. LUNGS: Coarse breath sound noted bilaterally. The patient does have no obvious rhonchi or wheeze or rales heard. No accessory muscles of respiration in use. CARDIAC: S1, S2. Tachycardia. Irregularly irregular. No murmur elicited. No gallop. No rub. ABDOMEN: Obesity present. Ventral hernia noted. Surgical scar noted. No peritoneal sign. No rebound. No rigidity. BACK: Unremarkable. No CVA tenderness. EXTREMITIES: Upper extremities, passive movement of all joints are normal. Lower extremity, trace bilateral lower extremity edema noted. Good distal amputated toe noted. Wound on the left foot covered with dressing. SKIN: No skin rash. HEMATOLOGIC: No lymphadenopathy. NEUROLOGIC: Nonfocal examination. PSYCHIATRIC: Normal affect. SIGNIFICANT LABORATORY DATA: EKG showing sinus tachycardia, multiple PVCs and PACs. CT abdomen and pelvis showing ventral hernia, fatty liver, left lower pole renal mass. Chest x-ray showing patchy interstitial and alveolar opacities. CBC; WBC 7.9, hemoglobin 11.5, platelet 249. BMP; sodium 130, potassium 4.3, chloride 93, carbon dioxide 17, anion gap 24, BUN 27, creatinine 10.88, glucose 99, calcium 9.2. Lactic acid 9.9. LFTs; AST 12, ALT less than 7, alkaline phosphatase 107, albumin 3.6. TSH 0.490. Troponin 0.031. ASSESSMENT AND PLAN: 1. Sepsis likely due to underlying pneumonia. 2. Bilateral pneumonia. The patient has patchy interstitial and alveolar infiltration. Another differential diagnosis pulmonary edema, but the patient has fever, lactic acidosis, pneumonia is more favored. The patient has hemodialysis yesterday. We will consult Pulmonary for their opinion. 3. Chronically elevated troponin. 4. Hyponatremia due to end-stage renal disease. 5. Lactic acidosis, likely due to underlying sepsis. 6. Rectal bleeding. The patient had colonoscopy and showed only hemorrhoid without any acute process. CT abdomen and pelvis not showing any acute abdominal process or any complication after colonoscopy. End-stage renal disease on hemodialysis. We will consult Dr. Rojo for maintenance hemodialysis. Secondary hyperparathyroidism of renal origin. We will continue calcitriol 0.25 mcg p.o. daily. 7. Diabetes type 2. We will continue insulin as per sliding scale protocol. 8. Deep venous thrombosis prophylaxis. Heparin 5000 units subcu twice daily. GI prophylaxis, Pepcid 20 mg p.o. daily. CODE STATUS: The patient is full code. The patient's is surrogate decision maker. DISPOSITION PLAN: Based on clinical course, we are expecting the patient's stay in hospital more than 2 midnights. Plan of care discussed with the patient and patient's in the emergency room. We will admit this patient to intermediate care unit and closely monitor. Job ID: [id number]
[2019-04-22 17:43] LABS: Troponin I 0.048 ng/mL (< 0.028)
[2019-04-22 20:02] VITALS: BMI 30.6
[2019-04-22] MEDS: Piperacillin/Tazobactam 2.25 GM in Sodium Chloride 0.9% 100 ML IVPB SCH (21:31)
[2019-04-22] MEDS: Heparin 5,000 UNITS/ML VIAL SC SCH (21:31)
[2019-04-22] MEDS ORDERED: Vancomycin HCl 1 GM in Premix Bag 1 BAG IVPB SCH (22:00)
[2019-04-22] MEDS ORDERED: Vancomycin HCl 1.25 GM in Sodium Chloride 0.9% 250 ML 250 ML IVPB SCH (22:00)
[2019-04-22] MEDS ORDERED: HOLD VANCOMYCIN FOR LEVEL >20 FS SCH (22:00)
[2019-04-22] MEDS ORDERED: Vancomycin HCl 500 MG in Sodium Chloride 0.9% 100 ML IVPB SCH (22:00)
[2019-04-22] MEDS ORDERED: Vancomycin HCl 750 MG in Sodium Chloride 0.9% 250 ML 250 ML IVPB SCH (22:00)
--- NOTE | 2019-04-22 22:01 | CON ---
DATE OF CONSULTATION: 04/22/2019 HISTORY OF PRESENT ILLNESS: Mr. Hicks is a 69-year-old male, who came to the ER because of fever. He said he had dialysis yesterday, felt poorly before and after that and actually felt poorly the day before, but it is really not any more specific than that. His son provided some of the history. States he is feeling little bit better, but just complains of not feeling well and feeling sick. Denies specifically chest pain or abdominal pain. Past medical history is remarkable for being admitted earlier this week for EGD and colonoscopy/sigmoidoscopy. This was done as part of workup of abdominal pain. Dr. Phillip performed both procedures. He had hemorrhoids on his sigmoidoscopy and gastric polyps. He had two lesions in his duodenum that were biopsied. He says he has been nauseated for a couple days as well. He did manage to eat a quarter of a [employer] sandwich yesterday, but has not eaten anything today ___. PAST MEDICAL HISTORY: Remarkable for, 1. Dialysis requirements for end-stage renal disease, brought on by long- standing diabetes. 2. History of diverticular bleed leading to subtotal colectomy. 3. History of hypertension. 4. Diabetes. 5. Peripheral vascular disease. 6. Lipid disorder. 7. Sleep apnea, family says he is not wearing his CPAP. 8. History of polyneuropathy. FAMILY HISTORY: Negative for lung disease in early age. SOCIAL HISTORY: Not obtained. REVIEW OF SYSTEMS: 10 point review of systems completed, otherwise negative. PHYSICAL EXAMINATION: GENERAL: He is in no distress. He was almost flat in bed, in no distress. VITAL SIGNS: Blood pressure 130s. Heart rate was in the 90s, and respiratory rate was 18. HEENT: Pupils are equal. Sclerae are anicteric. Extraocular movements are intact. HEAD: Unremarkable. NECK: Otherwise unremarkable. LUNGS: Clear. HEART: Regular rhythm. S1 and S2 are normal. ABDOMEN: Soft and nontender. EXTREMITIES: Without clubbing, cyanosis, or edema. His left foot has an Carlton wrap around it. He is missing all of his lateral toes. LABORATORY DATA: White count 7.9, hemoglobin 11.5, and platelets 249,000. Sodium 130, potassium 4.3, chloride 93, bicarb 17, BUN 27, and creatinine 10.8. IMAGING: Chest radiograph shows a diffuse increase in interstitial markings. IMPRESSION: Chest radiograph suggestive of edema. This is not a typical presentation for bacterial process. He is scheduled for dialysis tomorrow, so we would simply repeat a chest x-ray the following morning. It is reasonable to cover him with a broaden empiric antimicrobial therapy pending culture results. If an echocardiogram has not been done recently, then this should be considered. Went back through records here in 2018, I do not find any echocardiograms going back as far as April. He did have a cardiac catheterization on April 10, 2018. He was seen by Dr. Singh that admission, and he underwent left superficial femoral angioplasty and left posterior tibial angioplasty. I will follow with the other physicians caring for him. This is a 70 minute consult, with greater than 50% of time spent on unit coordinating care. Job ID: [id number] MTDD
[2019-04-23] MEDS: Piperacillin/Tazobactam 2.25 GM in Sodium Chloride 0.9% 100 ML IVPB SCH ×3 (05:11→21:17)
[2019-04-23] MEDS: Acetaminophen 325 MG TAB PO PRN ×2 (05:11→21:16)
[2019-04-23 05:51] LABS: #Eosinphils 0.1 thou/uL (0.0-0.7); #Lymphocytes 0.8 thou/uL (1.20-3.40); #Monocytes 1.2 thou/uL (0.11-0.59); #Neutrophils 8.1 thou/uL (1.40-6.50); %Basophils 0.3 % (0.0-1.0); %Eosinophils 1.2 % (0.0-10.0); %Monocytes 11.7 % (0.0-10.0); %Neutrophils 78.8 % (42.0-75.0); Mean Corpuscular HGB CONC 33.1 g/dL (32.0-36.0); Mean Corpuscular Hemoglobin 30.6 pg (27.0-31.0); Mean Corpuscular Volume 92.3 fL (78.0-98.0); Mean Platelet Volume 8.1 fL (7.4-10.4); Platelet Count 213 thou/uL (130-400); RBC Distribution Width 13.1 % (11.5-14.5); Red Blood Cell (RBC) Count 2.93 mill/uL (4.70-6.10); White Blood Cell (WBC) Count 10.3 thou/uL (4.8-10.8)
[2019-04-23 06:07] LABS: ALT (SGPT) Less than 7 U/L (8-55); AST (SGOT) 20 U/L (5-34); Alkaline Phosphatase 84 U/L (40-150); Anion Gap 17 mmol/L (10-20); BUN (Urea Nitrogen) 34 mg/dL (8.4-25.7); Bilirubin, Total 0.5 mg/dL (0.2-1.2); Calc. Creatinine Clearance 8 mL/min (70-130); Calcium 7.9 mg/dL (7.8-10.44); Carbon Dioxide 23 mmol/L (23-31); Chloride 94 mmol/L (98-107); Estimated GFR-MDRD 5; Globulin 3.6 g/dL (2.4-3.5); Glucose 75 mg/dL (80-115); Potassium 3.7 mmol/L (3.5-5.1); Protein, Total 6.6 g/dL (5.8-8.1); Sodium 130 mmol/L (136-145)
--- NOTE | 2019-04-23 09:32 | PRG ---
DATE OF SERVICE: 04/23/2019 SUBJECTIVE: Sean Hicks has no complaints today. He denies shortness of breath. Since he has been admitted, he has had no fever. OBJECTIVE: VITAL SIGNS: His blood pressure is 103/60, heart rate is 100, respiratory rate is 21, and oximetry is 99. LUNGS: Clear. HEART: Regular rhythm. ABDOMEN: Soft and nontender. EXTREMITIES: Without edema. His left foot is bandaged. LABORATORY DATA: White count 10.3, hemoglobin 9, platelets 213. Sodium 130, potassium 3.7, chloride 94, bicarb 23, BUN 34, IMPRESSION: Diffuse infiltrates on chest x-ray with a fever, more likely to be pulmonary edema than a pneumonia. We will repeat a chest x-ray in the morning tomorrow after he is dialyzed today. He will continue with the empiric antimicrobial therapy. Blood cultures so far have not grown anything. We will continue to follow. Job ID: [id number] MTDD
[2019-04-23] MEDS: Famotidine 20 MG TAB PO SCH (10:18)
[2019-04-23] MEDS: Heparin 5,000 UNITS/ML VIAL SC SCH ×2 (10:19→21:17)
[2019-04-23] MEDS ORDERED: Heparin 1,000 UNITS/ML VIAL ONE (11:11)
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
--- NOTE | 2019-04-23 15:15 | PDOC.HOSPP ---
- Subjective Encounter Date: 04/23/19 Encounter Time: 08:30 Subjective: no sob or chest pain, is watching tv will have HD this afternoon is trying to eat his breakfast - Objective Vital Signs & Weight: Vital Signs (12 hours) Temp Pulse Ox 04/23/19 11:20 98.0 F 04/23/19 08:00 94 L 04/23/19 07:24 96.7 F L 04/23/19 03:17 98.6 F Weight Admit Weight 225 lb 9.6 oz Weight 226 lb Most Recent Monitor Data Heart Rate from ECG 95 NIBP 160/76 NIBP BP-Mean 104 Respiration from ECG 20 SpO2 100 I&O: 04/22/19 04/23/19 04/24/19 06:59 06:59 06:59 Intake Total 1050 Output Total 0 Balance 1050 Result Diagrams: 04/23/19 05:20 04/23/19 05:20 Additional Labs: Accuchecks 04/23/19 04/23/19 04/22/19 10:32 05:18 21:07 POC Glucose 132 H 68 L 130 H ROS - Medication Medications: Active Medications Generic Name Dose Route Start Last Admin Trade Name Freq PRN Reason Stop Dose Admin Acetaminophen 650 mg 04/22/19 15:23 04/23/19 05:11 Tylenol PO 650 mg Q4H PRN Administration Headache/Fever/Mild Pain (1-3) Famotidine 20 mg 04/23/19 09:00 04/23/19 10:18 Pepcid PO 20 mg DAILY HOLLIE Administration Heparin Sodium (Porcine) 5,000 units 04/22/19 21:00 04/23/19 10:19 Heparin SC 5,000 units BID HOLLIE Administration Piperacillin Sod/Tazobactam 100 mls @ 200 mls/hr 04/22/19 22:00 04/23/19 05: 11 Sod 2.25 gm/ Sodium Chloride IVPB 100 mls Q8HR HOLLIE Administration - Exam NAD, awake alert Eye: PERRL, anicteric sclera ENT: normocephalic atraumatic, moist mucosa Neck: supple, no JVD Heart: RRR, no murmur Respiratory: no wheezes, rales Gastrointestinal: soft, non-tender, normal bowel sounds Extremities: 1+ LE edema Extremeties - other findings: chronic left foot ulcer over the 5th MT head area Neurological: CN's grossly intact, no focal deficits Psychiatric: normal affect, A&O x 3 Hosp A/P (1) Diabetic foot ulcer Code(s): E11.621 - TYPE 2 DIABETES MELLITUS WITH FOOT ULCER; L97.509 - NON- PRESSURE CHRONIC ULCER OTH PRT UNSP FOOT W UNSP SEVERITY Status: Chronic Qualifiers: Diabetic foot ulcer location: midfoot Diabetes mellitus type: type 2 Laterality: left Non-pressure ulcer stage: with necrosis of muscle Qualified Code(s): E11.621 - Type 2 diabetes mellitus with foot ulcer; L97.423 - Non-pressure chronic ulcer of left heel and midfoot with necrosis of muscle (2) Chronic anemia Code(s): D64.9 - ANEMIA, UNSPECIFIED Status: Chronic (3) DM type 2 (diabetes mellitus, type 2) Status: Chronic Qualifiers: Diabetes mellitus terminal clerk insulin use: with terminal clerk use Diabetes mellitus complication status: with kidney complications Diabetes mellitus complication detail: with chronic kidney disease Chronic kidney disease stage : on chronic dialysis Qualified Code(s): E11.22 - Type 2 diabetes mellitus with diabetic chronic kidney disease; N18.6 - End stage renal disease; Z79.4 - tank terminal gauger (current) use of insulin; Z99.2 - Dependence on renal dialysis (4) Diabetic peripheral neuropathy Code(s): E11.42 - TYPE 2 DIABETES MELLITUS WITH DIABETIC POLYNEUROPATHY Status : Chronic (5) Dyslipidemia Code(s): E78.5 - HYPERLIPIDEMIA, UNSPECIFIED Status: Chronic (6) End stage renal disease Code(s): N18.6 - END STAGE RENAL DISEASE Status: Chronic (7) Peripheral vascular disease Code(s): I73.9 - PERIPHERAL VASCULAR DISEASE, UNSPECIFIED Status: Chronic (8) Bacteremia Code(s): R78.81 - BACTEREMIA Status: Acute Plan: citrobacter 1/2 - Plan is on vanc and zosyn for HD today, cxr in am wound care, ID consult, plain xray foot to r/o osteo hemostable
--- NOTE | 2019-04-23 15:45 | CON ---
DATE OF CONSULTATION: 04/23/2019 REASON FOR CONSULTATION: Bacteremia. HISTORY OF PRESENT ILLNESS: A 69-year-old known to me from prior visits both here as well as [facility], who has a history of type 2 diabetes, COPD, peripheral vascular disease complications related to neuropathy in lower extremities with partial amputations and recent treatment for osteomyelitis of the left mid foot region, who had a recent upper and lower endoscopy to evaluate hematochezia. The upper endoscopy showed possible lymphangiectasia and the colonoscopy was normal except for hemorrhoids. On , he went to Wound Care and in the Wound Care, they felt that he did not look right and sent him to the emergency room. He was admitted after being found hypotensive with the lactic acid of 9.9. The patient has been admitted to the [facility] and has been dialyzed at the moment. One out of two sets of blood cultures returned with Citrobacter species. During the endoscopic procedures, the patient had a biopsy of two polyps found in the gastric antrum and there was a biopsy of the descending duodenum according to the explosive technician of the procedure dictation. Currently, Mr. Hicks is being dialyzed. He is awake, alert, oriented, and appears in no distress. Some headaches yesterday, but not now. Chronic vision impairment due to diabetic retinopathy. No sore throat, odynophagia, or dysphagia. No neck pain. No shoulder pain. No dyspnea or chest pain. Little bit of cough. Mid abdominal pain, which is about 4/10 in the midline above the umbilicus. No diarrhea. The patient has no urinary output. He had a little bit of pain in the left foot ulcer, but not any more. No change in neurological status. PAST MEDICAL HISTORY: ESRD secondary to type 2 diabetes associated with nephropathy; hypertension; dyslipidemia; GISELE; COPD; neuropathy; peripheral vascular disease; chronic complications in both feet with partial amputations; chronic ulcer in bottom aspect of the left mid foot region, which is being managed by Wound Care; AV fistula placement, which is used for hemodialysis at this time; recent EGD and colonoscopy with biopsies in the gastric area and duodenum. ALLERGIES: IODINE. SOCIAL HISTORY: [place] town. Prior smoker. FAMILY HISTORY: Cancer. MEDICATIONS: 1. Tylenol. 2. Dulcolax. 3. Pepcid. 4. Glucagon. 5. Robitussin. 6. Heparin. 7. Apresoline. 8. Insulin. 9. Vancomycin. 10. Zosyn. PHYSICAL EXAMINATION: VITAL SIGNS: T-max 99.9, BP 160/76, pulse 95, respirations 16 to 20, and O2 saturation 100%. SKIN: With a shallow irregular ulcer at the bottom aspect of the left mid foot region. Surrounding this area, there is hyperpigmentation. No tenderness. No drainage. No evidence of bone exposure. The patient is being dialyzed at this moment, and he has an AV fistula in the right upper extremity and does not have Chaney catheter. GENERAL: He is awake, in no distress, pleasant as usual. LYMPH: There is no lymphadenopathy. HEENT: Ocular movements are conjugate. Sclerae are white. Conjunctivae normal. Oral cavity is not remarkable. NECK: Supple. No jugular vein distention. No shoulder involvement. No neck tenderness. No sternoclavicular joint tenderness. LUNGS: Clear breath sounds. HEART: S1 and S2 without murmurs. ABDOMEN: Soft, not distended or tender. No ascites. No bladder distention. No genital abnormalities. MUSCULOSKELETAL: No other joint inflammatory process noted. Pulses are 1+ in popliteals and faintly palpable in dorsalis pedis. He is able to move extremities. NEUROLOGIC: His cognitive function appears to be intact and stable. LABORATORY DATA: White cell count 7.9, hemoglobin 11.5, platelets 249. Sodium 130, creatinine 12.24. AST 20, ALT less than 7, alkaline phosphatase 84, albumin 3.0. One out of two sets of blood cultures, Citrobacter species pending susceptibility and identification. IMAGING STUDIES: Includes an abdomen and pelvis CT with ventral hernia, no obstructive uropathy, hepatic steatosis, small pole renal mass. ASSESSMENT: 1. End-stage renal disease secondary to type 2 diabetes. 2. Peripheral vascular disease with prior partial amputations in right and left foot. 3. Chronic ulcer in bottom aspect of the left mid foot region. 4. Recent endoscopic procedure with biopsies of the gastric area and duodenum. 5. Citrobacter species bacteremia in one out of two sets with sepsis. DISCUSSION: The differential diagnosis includes bacteremia secondary to the endoscopic procedure, which is the more likely scenario versus bacteremia from the ulcer in the foot or an alternate site that is not yet apparent at this time. He does have mild mid abdominal tenderness, but nothing worrisome was found in the CT scan. About 8% of endoscopic procedures are associated with transient bacteremia and this is the more likely scenario. We will wait for the susceptibility studies and hopefully discharge the patient on oral quinolone for a few days, unless his clinical presentation changes in the followup. Job ID: [id number]
--- NOTE | 2019-04-23 17:19 | RAD ---
LEFT FOOT: 04/23/19 INDICATIONS: Ulcer over fifth metatarsal plantar region. COMPARISON: 04/10/18 films left foot. Post amputation of the third, fourth and fifth digits at the mid metatarsal regions. Radiopaque pledg et at the base of the fifth metatarsal. Degenerative changes at the tarsometatarsal joints appear sta ble. No new erosive or lytic process seen when compared to the prior study. Soft tissue swelling cons istent with cellulitis. No soft tissue gas identified. IMPRESSION: Stable osseous findings with degenerative and postoperative changes. No evidence of osteomyelitis whe n compared to prior study. POS: [facility]
[2019-04-24] MEDS: Piperacillin/Tazobactam 2.25 GM in Sodium Chloride 0.9% 100 ML IVPB SCH ×3 (05:13→22:28)
--- NOTE | 2019-04-24 09:13 | RAD ---
PORTABLE CHEST ONE VIEW: 04/24/2019 5:21 a.m. HISTORY: Post dialysis. COMPARISON: 04/22/2019 FINDINGS: The heart size is borderline. No lobar consolidation, pneumothoraces, jae pulmonary edema, or pleu ral effusions are seen. POS: [facility]
[2019-04-24] MEDS: Heparin 5,000 UNITS/ML VIAL SC SCH ×2 (09:59→22:28)
[2019-04-24] MEDS: Famotidine 20 MG TAB PO SCH (09:59)
[2019-04-24] MEDS: HumaLOG 300 UNITS/3 ML VIAL SC PRN (12:17)
--- NOTE | 2019-04-24 13:04 | PDOC.HOSPP ---
- Subjective Encounter Date: 04/24/19 Encounter Time: 08:45 Subjective: no foot pain, sob or chest pain feels better had HD yesterday - Objective Vital Signs & Weight: Vital Signs (12 hours) Temp Pulse Pulse Ox 04/24/19 11:27 97.4 F L 04/24/19 07:40 97 04/24/19 07:08 97.8 F 04/24/19 04:40 98.6 F 04/24/19 04:00 115 H 04/24/19 03:00 117 H Weight Admit Weight 225 lb 9.6 oz Weight 226 lb 13.69 oz Most Recent Monitor Data Heart Rate from ECG 97 NIBP 143/60 NIBP BP-Mean 87 Respiration from ECG 16 SpO2 96 I&O: 04/23/19 04/24/19 04/25/19 06:59 06:59 06:59 Intake Total 1050 1730 Output Total 0 1300 Balance 1050 430 Result Diagrams: 04/23/19 05:20 04/23/19 05:20 Additional Labs: Accuchecks 04/24/19 04/23/19 04/23/19 10:34 19:55 16:46 POC Glucose 217 H 182 H 103 ROS - Medication Medications: Active Medications Generic Name Dose Route Start Last Admin Trade Name Freq PRN Reason Stop Dose Admin Acetaminophen 650 mg 04/22/19 15:23 04/23/19 21:16 Tylenol PO 650 mg Q4H PRN Administration Headache/Fever/Mild Pain (1-3) Famotidine 20 mg 04/23/19 09:00 04/24/19 09:59 Pepcid PO 20 mg DAILY HOLLIE Administration Heparin Sodium (Porcine) 5,000 units 04/22/19 21:00 04/24/19 09:59 Heparin SC 5,000 units BID HOLLIE Administration Piperacillin Sod/Tazobactam 100 mls @ 200 mls/hr 04/22/19 22:00 04/24/19 05: 13 Sod 2.25 gm/ Sodium Chloride IVPB 100 mls Q8HR HOLLIE Administration Insulin Human Lispro 0 units 04/22/19 15:23 04/24/19 12:17 Humalog SC 4 unit .MODERATE SLIDING SC PRN Administration Moderate Correctional Scale - Exam NAD, awake alert Eye: PERRL, anicteric sclera ENT: no oropharyngeal lesions, moist mucosa Neck: supple, no JVD Heart: RRR, no murmur Respiratory: no wheezes, no rales Gastrointestinal: soft, non-tender, normal bowel sounds Extremities: no cyanosis, no edema Neurological: CN's grossly intact, no focal deficits Psychiatric: normal affect, A&O x 3 Hosp A/P (1) Diabetic foot ulcer Code(s): E11.621 - TYPE 2 DIABETES MELLITUS WITH FOOT ULCER; L97.509 - NON- PRESSURE CHRONIC ULCER OTH PRT UNSP FOOT W UNSP SEVERITY Status: Chronic Qualifiers: Diabetic foot ulcer location: midfoot Diabetes mellitus type: type 2 Laterality: left Non-pressure ulcer stage: with necrosis of muscle Qualified Code(s): E11.621 - Type 2 diabetes mellitus with foot ulcer; L97.423 - Non-pressure chronic ulcer of left heel and midfoot with necrosis of muscle (2) Chronic anemia Code(s): D64.9 - ANEMIA, UNSPECIFIED Status: Chronic (3) DM type 2 (diabetes mellitus, type 2) Status: Chronic Qualifiers: Diabetes mellitus terminal operations manager insulin use: with halfway use Diabetes mellitus complication status: with kidney complications Diabetes mellitus complication detail: with chronic kidney disease Chronic kidney disease stage : on chronic dialysis Qualified Code(s): E11.22 - Type 2 diabetes mellitus with diabetic chronic kidney disease; N18.6 - End stage renal disease; Z79.4 - terminal operations manager (current) use of insulin; Z99.2 - Dependence on renal dialysis (4) Diabetic peripheral neuropathy Code(s): E11.42 - TYPE 2 DIABETES MELLITUS WITH DIABETIC POLYNEUROPATHY Status : Chronic (5) Dyslipidemia Code(s): E78.5 - HYPERLIPIDEMIA, UNSPECIFIED Status: Chronic (6) End stage renal disease Code(s): N18.6 - END STAGE RENAL DISEASE Status: Chronic (7) Peripheral vascular disease Code(s): I73.9 - PERIPHERAL VASCULAR DISEASE, UNSPECIFIED Status: Chronic (8) Bacteremia Code(s): R78.81 - BACTEREMIA Status: Acute Plan: citrobacter - Plan is on vanc and zosyn Had HD yesterday, cxr is clear this am wound care, plain xray foot shows no signs of osteo await full culture results may tx to medical floor PT to mobilize as tolerated hemostable
[2019-04-24] MEDS: Acetaminophen 325 MG TAB PO PRN ×2 (14:28→20:14)
--- NOTE | 2019-04-24 17:06 | PRG ---
DATE OF SERVICE: 04/24/2019 SERVICE: Pulmonary Medicine. INTERVAL HISTORY: The patient is doing really well from respiratory standpoint. He has no complaints of shortness of breath, chest pain, cough, or sputum production. Otherwise, there has been no interval change to his condition. PHYSICAL EXAMINATION: VITAL SIGNS: Afebrile, pulse 104, blood pressure 146/75, respirations 16, and saturation 96% on room air. GENERAL: The patient is awake and alert, in no apparent distress. LUNGS: Decent air entry. No prolonged expiratory phase or wheezing is appreciated. HEART: Normal rate and regular. ABDOMEN: Soft, nontender, and nondistended. Bowel sounds are positive. MUSCULOSKELETAL: No cyanosis or clubbing. No pitting in the bilateral lower extremities. NEUROLOGIC: Grossly nonfocal. LABORATORY DATA: WBC 10.3, hemoglobin 9.0, and platelets 213,000. Blood sugar ranges from 103 to 217. Magnesium 1.7. Blood culture is growing Citrobacter in 1/2. IMAGING STUDIES: Chest x-ray demonstrates no obvious consolidation, pneumothorax, or pleural effusions are present. His foot x-ray demonstrates no obvious evidence of osteomyelitis. ASSESSMENT: 1. Severe sepsis, resolved. 2. Bacteremia. 3. Foot ulcer. 4. End-stage renal disease. DISCUSSION AND PLAN: The patient is doing fine from respiratory standpoint. At this point, there are no further requirements for inpatient Pulmonary Critical Care opinion, and I will sign off. Please call with additional questions or concerns through time. Job ID: [id number]
[2019-04-25] MEDS: Piperacillin/Tazobactam 2.25 GM in Sodium Chloride 0.9% 100 ML IVPB SCH (05:13)
[2019-04-25] MEDS: Famotidine 20 MG TAB PO SCH (09:39)
[2019-04-25] MEDS: Heparin 5,000 UNITS/ML VIAL SC SCH ×2 (09:40→20:29)
[2019-04-25] MEDS ORDERED: EPOETIN ALFA-EPBX (ESRD) 4,000 UNIT/ML VIAL SC SCH (12:00)
--- NOTE | 2019-04-25 12:14 | PDOC.HOSPP ---
- Subjective Encounter Date: 04/25/19 Encounter Time: 09:15 Subjective: c/o diarrhea multiple episodes from yesterday, no blood in it no nausea or abd pain stood up with PT, says he is amb with walker in room to use rest room - Objective Vital Signs & Weight: Vital Signs (12 hours) Temp Pulse Resp BP BP Pulse Ox 04/25/19 08:00 94 L 04/25/19 06:59 98.8 F 100 18 110/77 94 L 04/25/19 04:40 98.8 F 82 20 123/49 L 92 L Weight Admit Weight 225 lb 9.6 oz Weight 226 lb 13.69 oz Most Recent Monitor Data Heart Rate from ECG 97 NIBP 143/60 NIBP BP-Mean 87 Respiration from ECG 16 SpO2 96 I&O: 04/24/19 04/25/19 04/26/19 06:59 06:59 06:59 Intake Total 1730 240 Output Total 1300 600 Balance 430 -360 Result Diagrams: 04/23/19 05:20 04/23/19 05:20 Additional Labs: Accuchecks 04/25/19 04/25/19 04/24/19 11:36 04:45 15:16 POC Glucose 258 H 156 H 157 H 04/24/19 05:45 POC Glucose 148 H ROS - Medication Medications: Active Medications Generic Name Dose Route Start Last Admin Trade Name Freq PRN Reason Stop Dose Admin Acetaminophen 650 mg 04/22/19 15:23 04/24/19 20:14 Tylenol PO 650 mg Q4H PRN Administration Headache/Fever/Mild Pain (1-3) Famotidine 20 mg 04/23/19 09:00 04/25/19 09:39 Pepcid PO 20 mg DAILY HOLLIE Administration Heparin Sodium (Porcine) 5,000 units 04/22/19 21:00 04/25/19 09:40 Heparin SC 5,000 units BID HOLLIE Administration Insulin Human Lispro 0 units 04/22/19 15:23 04/24/19 12:17 Humalog SC 4 unit .MODERATE SLIDING SC PRN Administration Moderate Correctional Scale - Exam NAD, awake alert Eye: PERRL, anicteric sclera Neck: supple, no JVD Heart: RRR, no murmur Respiratory: no wheezes, no rales Gastrointestinal: soft, non-tender, normal bowel sounds Extremities: no cyanosis, no edema Neurological: CN's grossly intact, no focal deficits Psychiatric: normal affect, A&O x 3 Hosp A/P (1) Diabetic foot ulcer Code(s): E11.621 - TYPE 2 DIABETES MELLITUS WITH FOOT ULCER; L97.509 - NON- PRESSURE CHRONIC ULCER OTH PRT UNSP FOOT W UNSP SEVERITY Status: Chronic Qualifiers: Diabetic foot ulcer location: midfoot Diabetes mellitus type: type 2 Laterality: left Non-pressure ulcer stage: with necrosis of muscle Qualified Code(s): E11.621 - Type 2 diabetes mellitus with foot ulcer; L97.423 - Non-pressure chronic ulcer of left heel and midfoot with necrosis of muscle (2) Chronic anemia Code(s): D64.9 - ANEMIA, UNSPECIFIED Status: Chronic (3) DM type 2 (diabetes mellitus, type 2) Status: Chronic Qualifiers: Diabetes mellitus skilled nursing insulin use: with long wall mining machine helper use Diabetes mellitus complication status: with kidney complications Diabetes mellitus complication detail: with chronic kidney disease Chronic kidney disease stage : on chronic dialysis Qualified Code(s): E11.22 - Type 2 diabetes mellitus with diabetic chronic kidney disease; N18.6 - End stage renal disease; Z79.4 - half-way (current) use of insulin; Z99.2 - Dependence on renal dialysis (4) Diabetic peripheral neuropathy Code(s): E11.42 - TYPE 2 DIABETES MELLITUS WITH DIABETIC POLYNEUROPATHY Status : Chronic (5) Dyslipidemia Code(s): E78.5 - HYPERLIPIDEMIA, UNSPECIFIED Status: Chronic (6) End stage renal disease Code(s): N18.6 - END STAGE RENAL DISEASE Status: Chronic (7) Peripheral vascular disease Code(s): I73.9 - PERIPHERAL VASCULAR DISEASE, UNSPECIFIED Status: Chronic (8) Bacteremia Code(s): R78.81 - BACTEREMIA Status: Acute Plan: citrobacter 1/2 - Plan will dc vanc and zosyn, start levaquin oral stool studies in view of diarrhea wound care, plain xray foot shows no signs of osteo PT to mobilize as tolerated, may need rehab if he didn't ambulate hemostable
--- NOTE | 2019-04-25 12:15 | PRG ---
DATE OF SERVICE: 04/25/2019 SUBJECTIVE: Mr. Hicks is a 69-year-old black male with ESRD and followed up by the [facility]al Service for his maintenance hemodialysis. He was admitted for fever and was bacteremic. He is on empiric IV antibiotics. ID has been consulted. This morning, no new complaints. No chest pain or shortness of breath. OBJECTIVE: VITAL SIGNS: Blood pressure is 123/49, heart rate 100, respiratory rate 18, temperature 98.8, and pulse ox 94%. GENERAL: The patient is awake, alert, comfortable, not in overt distress. SKIN: Adequate turgor. HEENT: He has a slightly pale conjunctivae. Anicteric sclerae. NECK: No neck mass. No carotid bruits. No JVD. CHEST: No deformities. LUNGS: Clear breath sounds. No wheezing. No crackles. HEART: Normal sinus rhythm. No murmur. No gallops. No rubs. ABDOMEN: Globular, soft, and nontender. No masses. EXTREMITIES: No edema. No deformities. MEDICATIONS: Medications of April 25, 2019, reviewed. LABORATORY DATA: Laboratories of April 23, 2019; hemoglobin 9. Potassium was noted at 3.7, BUN 34, and creatinine 12.24. ASSESSMENT AND PLAN: 1. End-stage renal disease, stable. Continue current hemodialysis regimen. Fluid removal only as tolerated. We will continue Friday, Friday, and Friday schedule. No indication for any emergent dialysis. 2. Bacteremia, on IV antibiotics. ID has been consulted. Possibility of being discharged on p.o. Cipro. 3. Anemia, continuing weekly Epogen for the patient. P.r.n. blood transfusion. Job ID: [id number]
--- NOTE | 2019-04-25 17:01 | PRG ---
DATE OF SERVICE: 04/25/2019 SUBJECTIVE: Still having fevers, having worsening lower back pain, particularly when he walks. No headaches. Not much in terms of coughing spells. No dyspnea. No chest pain. No genitourinary symptoms. Had liquid stool earlier. No abdominal pain. OBJECTIVE: VITAL SIGNS: Temperature max 102 at 7 p.m. yesterday, BP 110/77, pulse 100, respiratory rate 18. GENERAL: Awake, alert, and oriented. Does not appear in distress except when he tries to move in bed. Ocular movements conjugate. Oral cavity normal. LUNGS: Symmetric. Clear breath sounds. S1 and S2 without murmurs. Regular rate. ABDOMEN: Soft, mildly distended with a midline hernia. MUSCULOSKELETAL: Moderate lumbosacral spine tenderness on palpation. No joint inflammatory activity outside the area of involvement. Cognitive function appears to be intact. Moves all extremities equally. LABORATORY DATA: White cell count 10.3, hemoglobin 9, platelets 213, 78% neutrophils. Sodium 130, creatinine 12. Liver profile normal. Albumin 3.0. 1/2 sets of blood cultures with Citrobacter lambert susceptible. ASSESSMENT AND DISCUSSION: End-stage renal disease secondary to type 2 diabetes, peripheral vascular disease, and prior partial amputations right and left feet, chronic ulcer, bottom aspect of the left mid foot region, and recent endoscopic procedure with biopsies. Citrobacter species bacteremia 1/2 sets and now worsening low back pain. We will check his lower back with MRI without contrast. Switch him to oral Cipro, adjusted for renal function. Job ID: [id number]
[2019-04-26 05:17] LABS: Anion Gap 18 mmol/L (10-20); BUN (Urea Nitrogen) 34 mg/dL (8.4-25.7); Calc. Creatinine Clearance 7 mL/min (70-130); Calcium 8.6 mg/dL (7.8-10.44); Carbon Dioxide 19 mmol/L (23-31); Chloride 97 mmol/L (98-107); Estimated GFR-MDRD 4; Glucose 160 mg/dL (80-115); Potassium 3.8 mmol/L (3.5-5.1); Sodium 130 mmol/L (136-145)
[2019-04-26 05:38] LABS: Band 10 % (5-11); Eosinophils 1 % (0-10); Hemoglobin 9.5 g/dL (14.0-18.0); Lymphocytes 20 % (21-51); MDiff Complete? YES; Mean Corpuscular HGB CONC 33.3 g/dL (32.0-36.0); Mean Corpuscular Hemoglobin 31.1 pg (27.0-31.0); Mean Corpuscular Volume 93.5 fL (78.0-98.0); Mean Platelet Volume 7.7 fL (7.4-10.4); Monocytes 8 % (0-10); Neutrophil 61 % (42-75); Platelet Count 271 thou/uL (130-400); RBC Distribution Width 13.4 % (11.5-14.5); Red Blood Cell (RBC) Count 3.04 mill/uL (4.70-6.10); White Blood Cell (WBC) Count 15.7 thou/uL (4.8-10.8)
--- NOTE | 2019-04-26 08:53 | PRG ---
DATE OF SERVICE: 04/26/2019 SUBJECTIVE: Mr. Hicks is a 69-year-old black male, who was admitted for fever and bacteremia. He has been empirically treated with antibiotics. ID is following. We are currently dialyzing this patient. He is tolerating said treatment. We are doing fluid removal as tolerated. No new complaints today. No chest pain or shortness of breath. OBJECTIVE: VITAL SIGNS: Blood pressure 103/57, heart rate 112, temperature 98.8, pulse ox is 97% on room air, and respiratory rate 20. GENERAL: Awake, alert, and comfortable, not in distress. SKIN: Adequate turgor. HEENT: He has a slightly pale conjunctivae. Anicteric sclerae. NECK: No neck mass. No carotid bruits. No JVD. CHEST: No deformities. LUNGS: Clear breath sounds. HEART: Normal sinus rhythm. No murmur. No gallops. No rubs. ABDOMEN: Globular, soft, and nontender. No masses. EXTREMITIES: No edema. No deformities. MEDICATIONS: Medications of April 26, 2019, reviewed. LABORATORY DATA: Laboratories of April 26, 2019; white count 15.7, hemoglobin 9.5, and hematocrit 28.4. Sodium 130, potassium 3.8, chloride 97, carbon dioxide 19, BUN 34, creatinine 14, glucose 160, and calcium 8.6. ASSESSMENT AND PLAN: 1. Citrobacter bacteremia - currently on Levaquin. The patient is afebrile. This may be related to his procedure done - the patient had colonoscopy. 2. End-stage renal disease, stable, tolerating current hemodialysis regimen. Fluid removal only as tolerated. 3. Anemia. Continuing weekly Epogen. Agree with current management for possible discharge today. Job ID: [id number]
[2019-04-26] MEDS: Heparin 5,000 UNITS/ML VIAL SC SCH ×2 (11:09→20:37)
--- NOTE | 2019-04-26 11:58 | PDOC.HOSPP ---
- Subjective Encounter Date: 04/26/19 Encounter Time: 10:15 Subjective: getting HD, no sob - Objective Vital Signs & Weight: Weight Admit Weight 225 lb 9.6 oz Weight 226 lb 13.69 oz Most Recent Monitor Data Heart Rate from ECG 97 NIBP 143/60 NIBP BP-Mean 87 Respiration from ECG 16 SpO2 96 I&O: 04/25/19 04/26/19 04/27/19 06:59 06:59 06:59 Intake Total 240 100 Output Total 600 Balance -360 100 Result Diagrams: 04/26/19 04:16 04/26/19 04:16 Additional Labs: Accuchecks 04/26/19 04/25/19 04/25/19 04:49 19:07 15:33 POC Glucose 180 H 187 H 195 H ROS - Medication Medications: Active Medications Generic Name Dose Route Start Last Admin Trade Name Freq PRN Reason Stop Dose Admin Acetaminophen 650 mg 04/22/19 15:23 04/24/19 20:14 Tylenol PO 650 mg Q4H PRN Administration Headache/Fever/Mild Pain (1-3) Epoetin Rafael-epbx 7,500 unit 04/25/19 12:00 04/25/19 16:00 Retacrit SC 7,500 unit Q7D HOLLIE Administration Famotidine 20 mg 04/23/19 09:00 04/25/19 09:39 Pepcid PO 20 mg DAILY HOLLIE Administration Heparin Sodium (Porcine) 5,000 units 04/22/19 21:00 04/26/19 11:09 Heparin SC Not Given BID HOLLIE Insulin Human Lispro 0 units 04/22/19 15:23 04/24/19 12:17 Humalog SC 4 unit .MODERATE SLIDING SC PRN Administration Moderate Correctional Scale Levofloxacin 250 mg 04/26/19 06:00 04/26/19 05:26 Levaquin PO 250 mg 0600 HOLLIE Administration - Exam NAD, awake alert Eye: PERRL, anicteric sclera ENT: no oropharyngeal lesions, moist mucosa Neck: supple, no JVD Heart: RRR, no murmur Respiratory: no wheezes, no rales Gastrointestinal: soft, non-tender, non-distended, normal bowel sounds Extremities: no cyanosis, no edema Neurological: CN's grossly intact, no focal deficits Hosp A/P (1) Bacteremia Code(s): R78.81 - BACTEREMIA Status: Acute Plan: citrobacter 1/2 (2) Diabetic foot ulcer Code(s): E11.621 - TYPE 2 DIABETES MELLITUS WITH FOOT ULCER; L97.509 - NON- PRESSURE CHRONIC ULCER OTH PRT UNSP FOOT W UNSP SEVERITY Status: Chronic Qualifiers: Diabetic foot ulcer location: midfoot Diabetes mellitus type: type 2 Laterality: left Non-pressure ulcer stage: with necrosis of muscle Qualified Code(s): E11.621 - Type 2 diabetes mellitus with foot ulcer; L97.423 - Non-pressure chronic ulcer of left heel and midfoot with necrosis of muscle (3) Chronic anemia Code(s): D64.9 - ANEMIA, UNSPECIFIED Status: Chronic (4) DM type 2 (diabetes mellitus, type 2) Status: Chronic Qualifiers: Diabetes mellitus custodial insulin use: with custodial use Diabetes mellitus complication status: with kidney complications Diabetes mellitus complication detail: with chronic kidney disease Chronic kidney disease stage : on chronic dialysis Qualified Code(s): E11.22 - Type 2 diabetes mellitus with diabetic chronic kidney disease; N18.6 - End stage renal disease; Z79.4 - terminal manager (current) use of insulin; Z99.2 - Dependence on renal dialysis (5) Diabetic peripheral neuropathy Code(s): E11.42 - TYPE 2 DIABETES MELLITUS WITH DIABETIC POLYNEUROPATHY Status : Chronic (6) Dyslipidemia Code(s): E78.5 - HYPERLIPIDEMIA, UNSPECIFIED Status: Chronic (7) End stage renal disease Code(s): N18.6 - END STAGE RENAL DISEASE Status: Chronic (8) Peripheral vascular disease Code(s): I73.9 - PERIPHERAL VASCULAR DISEASE, UNSPECIFIED Status: Chronic - Plan levaquin oral, wbc is 15k this am, will check in am stool studies in view of diarrhea has not been collected yet. wound care, plain xray foot shows no signs of osteo, lumbar spine MRI pending to r/o osteo PT to mobilize as tolerated, may need rehab if he didn't ambulate hemostable
[2019-04-26] MEDS: Famotidine 20 MG TAB PO SCH (13:11)
[2019-04-26] MEDS ORDERED: Heparin 10,000 UNITS/1 ML VIAL ONE (15:00)
--- NOTE | 2019-04-26 16:09 | MRI ---
MRI LUMBAR SPINE: 04/26/2019 COMPARISON: 09/19/2016 HISTORY: Low back pain with bacteremia. TECHNIQUE: Multiplanar, multisequence MR imaging of the lumbar spine obtained without contrast. FINDINGS: The sagittal STIR imaging demonstrates no significant osseous marrow edema. On the basis of five lumbar type vertebral bodies, the conus medullaris terminates at the T12 level. T12-L1: Mild bilateral facet hypertrophy. Intervertebral disc height and signal intensity is within normal limits with no significant central canal or neural foraminal stenosis. L1-2: Intervertebral disc height and signal intensity is within normal limits. Mild bilateral facet hypertrophy, left greater than right. No significant central canal or neural foraminal stenosis. L2-3: There is disc space narrowing, disc desiccation, and mild disc bulge. Prominent bilateral fac et hypertrophy and hypertrophy of the ligamentum flavum. No significant neural foraminal stenosis. Moderate central canal stenosis. L3-4: Bilateral facet hypertrophy, left greater than right. Intervertebral disc height and signal i ntensity appears within normal limits. There is mild central canal stenosis. No significant neural foraminal stenosis noted on either side. L4-5: Bilateral facet hypertrophy, right greater than left. No significant central canal or neural foraminal stenosis. L5-S1: Stable increased T1 and T2 signal intensity within the intervertebral disc with no significan t central canal or neural foraminal stenosis. Imaged retroperitoneal structures demonstrate no acute findings. The kidneys appear relatively hypop lastic bilaterally. IMPRESSION: Multilevel degenerative change noted within the lumbar spine, most prominent at L2-3. No MRI evidenc e for discitis/osteomyelitis. Transcribed Date/Time: 04/26/2019 4:25 PM
--- NOTE | 2019-04-26 17:00 | PRG ---
DATE OF SERVICE: 04/26/2019 SUBJECTIVE: Feeling better. No headaches. No shortness of breath. Still with some back pain. Abdomen feeling much better. OBJECTIVE: VITAL SIGNS: Last temp elevation was 2 days ago. GENERAL: Awake, oriented, follows commands. LUNGS: Clear. HEART: S1 and S2, regular rate. ABDOMEN: Soft, not distended. Midline hernia as previously noted. LABORATORY DATA: White blood cell count 15.7, hemoglobin 9.5, platelets 271 with normal differential and sodium 130. Microbiology with no new findings. Lumbar spine MRI with just degenerative joint disease. ASSESSMENT AND DISCUSSION: End-stage renal disease secondary to type 2 diabetes; peripheral vascular disease and prior partial amputations, right and left feet; chronic ulcer, bottom aspect of the left mid foot region without inflammatory changes and recent endoscopic procedure with biopsies and transient Citrobacter species bacteremia 1/2 sets. He continues on Cipro and should be able to be discharged on Cipro tomorrow if he remains well. Repeat WBC count. Treat for about 1 week. Follow up in clinic. Job ID: [id number]
[2019-04-27] MEDS: HumaLOG 300 UNITS/3 ML VIAL SC PRN (06:03)
[2019-04-27] MEDS: Famotidine 20 MG TAB PO SCH (08:52)
[2019-04-27] MEDS: Heparin 5,000 UNITS/ML VIAL SC SCH (08:53)
--- NOTE | 2019-04-27 09:03 | DIS ---
DATE OF ADMISSION: 04/22/2019 DATE OF DISCHARGE: 04/27/2019 PRIMARY CARE PHYSICIAN: Pravin Perry MD DISPOSITION: Discharged home. FINAL DIAGNOSES: Sepsis secondary to Citrobacter bacteremia with Citrobacter end-stage renal disease on hemodialysis, diabetes mellitus type 2 with chronic kidney disease, end-stage renal disease, dyslipidemia, and anemia of chronic disease. DISCHARGE MEDICATIONS: 1. Levaquin 250 mg a day for seven more days plus his usual medications. 2. Amaryl 4 mg twice a day. 3. Restoril 15 mg at night p.r.n. 4. Lomotil 1 tablet b.i.d. 5. Hydrocodone 10/325 one every 4 hours as needed for pain. 6. Aspirin 81 mg a day. 7. Humulin 70/30 b.i.d. 8. Ferrous sulfate 325 mg a day. 9. Protonix 40 mg a day. 10. Calcitriol 0.25 mcg a day. ALLERGIES: NO KNOWN DRUG ALLERGIES. DIET: Diabetic. PENDING AT TIME OF DISCHARGE: Nothing. CODE STATUS: Full. HOSPITAL COURSE: The patient admitted to [facility] through [place] [facility] with sepsis syndrome, lactic acidosis, diabetes mellitus type 2, and end-stage renal disease on hemodialysis. The patient was started on antibiotics. Pulmonology was consulted. Dr. Prasanna Woo, Pulmonology was consulted. Dr. Emory Rojo, Nephrology was consulted. Dr. Mcneil, Infectious Disease was consulted. He had a chest x-ray that was initially thought to be pneumonia, but was later considered to be vascular congestion secondary to his end-stage renal disease. His white count was 7.9 with an absolute neutrophilia with a hemoglobin of 11.5. Chemistry showed a marked elevation of creatinine at 10.88 with a sodium of 130, a CO2 of 17, and a lactic acid of 9.9. After treatment with fluids and antibiotics, his lactic acid came down to normal. His Citrobacter koseri positive 1/2 on cultures. The patient had had a recent endoscopy and it was thought that this is probably the source of this infection. Citrobacter was sensitive to quinolones. He is currently on oral quinolones for that. He is afebrile, feeling well, doing well. One more week of oral quinolones has been recommended. He has been discharged to follow up with his PCP, Dr. Perry and to keep his Friday, Friday, and Friday dialysis appointments. Physical exam; chest is clear. Heart was regular rate and rhythm. Vital signs stable. Afebrile at the time of discharge. Job ID: [id number]
--- NOTE | 2019-04-27 09:39 | PRG ---
DATE OF SERVICE: 04/27/2019 SUBJECTIVE: Mr. Hicks is a 69-year-old black male, who was initially admitted for fever and bacteremia. We are following him up for his maintenance hemodialysis. He underwent dialysis yesterday without any difficulty. ID has also seen the patient. Recommendation is to continue either the Cipro or Levaquin. This morning, he is feeling better. He denies any chest pain or shortness of breath. OBJECTIVE: VITAL SIGNS: Blood pressure is 112/89, heart rate 92, respiratory rate 20, temperature 99.6, and pulse ox 91% on room air. GENERAL: Awake, alert, comfortable, not in overt distress. SKIN: Adequate turgor. HEENT: He has a slightly pale conjunctivae. Anicteric sclerae. NECK: No neck mass. No carotid bruits. No JVD. CHEST: No deformities. LUNGS: Clear breath sounds. No wheezing. No crackles. HEART: Normal sinus rhythm. No murmurs, no gallops, no rubs. ABDOMEN: Globular, soft, nontender. No masses. EXTREMITIES: No edema. MEDICATIONS: Medications of April 27, 2019, reviewed. LABORATORY DATA: Laboratories of April 26, 2019; white count 15.7, hemoglobin 9.5. Sodium 130, potassium 3.8, chloride 97, carbon dioxide 19, BUN 34, creatinine 14, glucose 160, calcium 8.6. ASSESSMENT AND PLAN: 1. End-stage renal disease, stable. We will continue current hemodialysis regimen on Friday, Friday, and Friday. Fluid removal only as tolerated. 2. Bacteremia. Currently, on p.o. antibiotics. Currently, on Levaquin. 3. Erythrocyte sedimentation rate anemia on weekly Epogen. P.r.n. blood transfusion. Overall agree with current management. The patient is for possible discharge today. Job ID: [id number]
[2019-04-27 11:55] VITALS: BP 101/56; TEMP 98.3
== END 2019-04-27 12:37 | disposition home health service (06) | DRG 871 ==
LOC: ERS 10:33 → IMCU/EMU 14:17 → T4-A 04-24 13:16
PROVIDERS: ADMIT Internal Medicine; ATTEND Internal Medicine
PROC: 5A1D70Z Performance of Urinary Filtration, Intermittent, Less than 6 Hours Per Day (ICD-10-PCS; principal; 2019-04-23)
DX: A41.59 Other Gram-negative sepsis (principal); N18.6 End stage renal disease; I12.0 Hypertensive chronic kidney disease with stage 5 chronic kidney disease or end stage renal disease; E87.2 Acidosis; E87.1 Hypo-osmolality and hyponatremia; J81.1 Chronic pulmonary edema; R65.20 Severe sepsis without septic shock; E11.22 Type 2 diabetes mellitus with diabetic chronic kidney disease; D63.1 Anemia in chronic kidney disease; E78.5 Hyperlipidemia, unspecified; K21.9 Gastro-esophageal reflux disease without esophagitis; E11.51 Type 2 diabetes mellitus with diabetic peripheral angiopathy without gangrene; G47.33 Obstructive sleep apnea (adult) (pediatric); E21.3 Hyperparathyroidism, unspecified; K64.9 Unspecified hemorrhoids; E11.42 Type 2 diabetes mellitus with diabetic polyneuropathy; K52.9 Noninfective gastroenteritis and colitis, unspecified; E11.621 Type 2 diabetes mellitus with foot ulcer; L97.529 Non-pressure chronic ulcer of other part of left foot with unspecified severity; Z89.421 Acquired absence of other right toe(s); Z89.422 Acquired absence of other left toe(s); Z79.899 Other long term (current) drug therapy; Z99.2 Dependence on renal dialysis; Z79.82 Long term (current) use of aspirin; Z91.041 Radiographic dye allergy status; Z79.84 Long term (current) use of oral hypoglycemic drugs; Z90.49 Acquired absence of other specified parts of digestive tract; F17.210 Nicotine dependence, cigarettes, uncomplicated; Z91.048 Other nonmedicinal substance allergy status; Z79.4 Long term (current) use of insulin; E11.21 Type 2 diabetes mellitus with diabetic nephropathy; J44.9 Chronic obstructive pulmonary disease, unspecified
CPT/HCPCS: 36415; 36416; 71045; 72148; 74176; 80048; 80053; 83605; 83735; 84443; 84484; 85025; 86850; 86900; 86901; 87040; 87045; 87046; 87077; 87149; 87186; 87324; 87427; 87449; 88305; 88312; 90935; 93005; 96360; 96365; 96367; 96368; 96375; 97602; A4218; G0257; J0131; J1160; J1644; J2001; J2405; J2543; J2704; J3010; J3370; J3490; J7050; Q5105

== ENCOUNTER 2019-06-24 15:03 | Outpatient (CLI) | payer MEDICARE, BC ==
--- NOTE | 2019-06-24 10:29 | PRG ---
DATE OF SERVICE: 06/24/2019 HISTORY: Mr. Sean Hicks is a very pleasant 69-year-old gentleman, who presents to the wound center for evaluation of an ulceration of the plantar surface of the lateral aspect of the left foot. The patient was last seen in the wound center on 04/22/2019, at which time he was referred immediately to the emergency department. On 04/22/2019, the patient was admitted for sepsis. The patient states that since his discharge from the hospital he has been receiving dressing changes of SilvaSorb gel sheet for his left plantar wound with the assistance of Home Health. He states that Home Health has ran out of SilvaSorb gel sheet, and today, the patient presents to the wound center with the ulceration dressed with Medihoney followed by QAMAR and Kirill. The patient has no other complaints today. He denies any fever or chills. PHYSICAL EXAMINATION: VITAL SIGNS: Temperature 98.1, pulse 105, respirations 20, blood pressure 105/46. Accu-Chek 136. EXTREMITIES: An ulceration of the plantar surface of the left foot is present, which measures approximately 2.5 x 4.5 cm. The dimensions of the wound at the time of the patient's visit on 03/25/2019 were approximately 1.1 x 2.1 cm. The depth of the wound is approximately 1.5 cm and bone is palpable with a curette on today's exam. Poor-quality granulation tissue is visible within the wound margins. A sample of granulation tissue was excised with the use of scissors and sent for aerobic and anaerobic cultures. No grossly purulent drainage is associated with the wound. No erythema of the skin surrounding the wound is present. No maceration of the skin of the periwound is noted. No significant edema of the left foot is present on exam today. ASSESSMENT AND PLAN: 1. Ulceration of plantar surface of left foot as described above. The dimensions of the wound have significantly increased since the patient's last visit. Moreover, bone is now palpable with a curette on today's exam. As stated above, the depth of the wound today is 1.5 cm. The depth of the wound at the time of the patient's visit on 04/22/2019 was approximately 0.2 cm. I have recommended to Mr. Hicks that he present to the emergency department for evaluation for admission for imaging of the left foot to look for findings suggestive of osteomyelitis. I have explained to the patient that should he be admitted to the hospital, he will likely be seen by General Surgery and Infectious Diseases. The patient understands and is in agreement with the preceding treatment plan. 2. Diabetes mellitus. The patient's Accu-Chek in clinic today is 136. 3. End-stage renal disease. 4. History of hypertension. 5. History of peripheral vascular disease. 6. Obstructive sleep apnea. 7. History of gastrointestinal bleeding. 8. Anemia. 9. Charcot foot. 10. Gastroesophageal reflux disease. Job ID: [id number]
[2019-06-24] MEDS ORDERED: Lidocaine 2% PF 100 mg/5 ml Syringe ONE (16:34)
[2019-06-24] MEDS ORDERED: Sodium Chloride 0.9% 15 ML NEB ONE (16:34)
== END 2019-06-24 15:04 | disposition home or self-care (01) ==
LOC: WCC 15:03
PROVIDERS: ATTEND Family Medicine
DX: E11.621 Type 2 diabetes mellitus with foot ulcer (principal); L97.529 Non-pressure chronic ulcer of other part of left foot with unspecified severity; I12.0 Hypertensive chronic kidney disease with stage 5 chronic kidney disease or end stage renal disease; E11.22 Type 2 diabetes mellitus with diabetic chronic kidney disease; N18.6 End stage renal disease; D63.1 Anemia in chronic kidney disease; G47.33 Obstructive sleep apnea (adult) (pediatric); K21.9 Gastro-esophageal reflux disease without esophagitis; M14.679 Charcot's joint, unspecified ankle and foot; Z86.79 Personal history of other diseases of the circulatory system; Z87.19 Personal history of other diseases of the digestive system
CPT/HCPCS: 87070; 87077; 87186; 87205; 97602; A4218; J2001

== ENCOUNTER 2019-08-14 14:08 | Day surgery (SDC) | payer MEDICARE, BC ==
[2019-08-14 14:53] VITALS: BMI 28.7
[2019-08-14 18:14] VITALS: BP 170/67; TEMP 98.5
== END 2019-08-14 18:45 | disposition home or self-care (01) ==
LOC: SDC/OP 14:08 → UNDOADMIN 14:08 → SURG B 14:08 → UNDODISIN 18:45 → SDC/OP 18:45 → EDSTATUS 09-17 14:32
PROVIDERS: ATTEND Internal Medicine Nephrology
PROC: 30233N1 Transfusion of Nonautologous Red Blood Cells into Peripheral Vein, Percutaneous Approach (ICD-10-PCS; principal; 2019-08-14)
DX: D50.0 Iron deficiency anemia secondary to blood loss (chronic) (principal); Z79.4 Long term (current) use of insulin; Z79.899 Other long term (current) drug therapy
CPT/HCPCS: 36415; 36430; 86850; 86900; 86901; P9016

== ENCOUNTER 2019-12-02 11:41 | Inpatient (IN) | payer MEDICARE, BC ==
--- NOTE | 2019-12-02 12:22 | RAD ---
CHEST 1 VIEW: Date: 12/02/2019 INDICATION: History of hypotension and weakness. COMPARISON: Prior chest radiograph dated 04/24/[address] abdomen and pelvis without contrast dated 04/22/2019. FINDINGS: There is gaseous distention underlying the right hemidiaphragm which may reflect gas-filled colon. No definite consolidation is evident. There are low lung volumes. There are vascular calcifications inv olving the aortic arch. No pneumothorax is evident. No acute osseous abnormality is evident. IMPRESSION: Gaseous density overlying the right hemidiaphragm may reflect intercalated gas-filled colon. Recommen d correlation with clinical examination as pneumoperitoneum is not excluded. If there is concern for acute abdomen, further evaluation with CT abdomen and pelvis with IV contrast recommended. Alternativ winston, left lateral decubitus abdominal radiograph may be helpful. Findings called to STERLING Zhu, and 1210 hours on 12/02/2019. CODE CR. POS: [facility]
[2019-12-02 12:39] LABS: Hemoglobin 13.6 g/dL (14.0-18.0); Mean Corpuscular HGB CONC 33.3 g/dL (32.0-36.0); Mean Corpuscular Hemoglobin 30.7 pg (27.0-31.0); Mean Corpuscular Volume 92.1 fL (78.0-98.0); Mean Platelet Volume 9.3 fL (7.4-10.4); Platelet Count 187 thou/uL (130-400); Red Blood Cell (RBC) Count 4.44 mill/uL (4.70-6.10); White Blood Cell (WBC) Count 28.1 thou/uL (4.8-10.8)
[2019-12-02 13:01] LABS: Band 47 % (5-11); MDiff Complete? YES; Monocytes 5 % (0-10); Neutrophil 47 % (42-75); Platelet Morphology Comment Appears Adequate; Polychromasia SLIGHT = 2-3 cells (100X) (0-2/hpf); Reactive Lymphocytes 1 % (0-10); Reflex for Review?? YES
[2019-12-02 13:09] LABS: ALT (SGPT) 31 U/L (8-55); AST (SGOT) 32 U/L (5-34); Albumin 3.9 g/dL (3.4-4.8); Alkaline Phosphatase 120 U/L (40-110); Anion Gap 18 mmol/L (10-20); BUN (Urea Nitrogen) 25 mg/dL (8.4-25.7); Bilirubin, Total 0.5 mg/dL (0.2-1.2); CK (CPK) 251 U/L (30-200); Calc. Creatinine Clearance 0 mL/min (70-130); Carbon Dioxide 27 mmol/L (23-31); Chloride 95 mmol/L (98-107); Estimated GFR-MDRD 7; Glucose 126 mg/dL (80-115); Lipase 29 U/L (8-78); Protein, Total 7.9 g/dL (5.8-8.1); Sodium 136 mmol/L (136-145)
[2019-12-02] MEDS ORDERED: Piperacillin/Tazobactam 4.5 GM VIAL ONE (13:50)
--- NOTE | 2019-12-02 14:14 | RAD ---
PORTABLE ABDOMEN: FINDINGS: A single view obtained. The exam is very subtle optimal due to positioning and exposure. There appe ars to be gas in the right colon. Small bowel gas pattern is nonspecific and unremarkable on this si ngle projection. No abnormal calcification. IMPRESSION: Very limited exam. POS: [facility]
--- NOTE | 2019-12-02 14:19 | CT ---
CT abdomen and pelvis noncontrast HISTORY: Flank pain. COMPARISON: Multiple exams back to 04/11/2017. FINDINGS: Lung bases are clear. Old right posterior rib fractures. There are degenerative changes thr oughout the lumbar spine. At each renal collecting system, ureter, and urinary bladder are decompressed. A tiny calcification a t the superior aspect of the right kidney is favored to be vascular in origin, as there is prominent arterial calcification throughout the abdomen and pelvis. Anterior abdominal wall umbilical hernia is stable. Supraumbilical hernia also unchanged in appearanc e, containing nonobstructed bowel. Lack of contrast limits evaluation of the soft tissues. Small hyperdense cyst, 1.5 cm, projecting lat erally from the inferior pole of the left kidney is stable. There are postoperative changes of the distal colon. Subtle circumferential wall thickening and minim al adjacent fat stranding involving the rectum and distal colon and the colon of the right IMPRESSION : Subtly inflamed appearance of the distal colon/rectum and colon of the the upper quadrant. Cause is n ot apparent. Possibly infection? Anterior abdominal wall hernias and other chronic-type findings are stable. Prominent atherosclerosis.
[2019-12-02] MEDS ORDERED: Vancomycin 1 GM/200 ML BAG ONE (14:30)
[2019-12-02] MEDS ORDERED: Dextrose 5% in Water 1,000 ML IV PRN (14:35)
[2019-12-02] MEDS ORDERED: HumaLOG 300 UNITS/3 ML VIAL SC PRN (14:35)
--- NOTE | 2019-12-02 14:57 | PDOC.HHP ---
Hospitalist HPI - History of Present Illness Hypotension, generalized weakness, bright red blood per rectum History of Present Illness: This is a 69 year old gentleman who presented to the ER from dialysis center with hypotension. Apparently his usual BP is in the 100's/50's range but was 75/60 per EMS. Patient was given gentle hydration and had an IO access prior to arrival. BP now in the low 110's with gentle hydration. Patient notes having chronic diarrhea due to h/o colectomy but was having bright red blood per rectum for the past 3 days. He noted 3 episodes today. Patient denies fevers but endorses chills and abdominal cramping. He denies SOB, Chest pain, palpitations, nausea or vomiting, headaches or urinary symptoms. 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 At the ER, patient vital signs are stable but CBC showed an elevated WBC of 28.1 , and a lactic acid of 3.2. His H/H was 13.6/40.9. CXR was showed free air under the diaphragm but CT abdomen did not show perforation. CT of the abdomen revealed inflammation of the distal colon. Will admit the patient for further work-up and management Hospitalist ROS - Review of Systems Constitutional: reports: chills, weakness, malaise. denies: fever Eyes: reports: vision change ENT: denies: ear pain, ear discharge Respiratory: reports: SOB with excertion. denies: cough, shortness of breath, hemoptysis Cardiovascular: denies: chest pain, palpitations, orthopnea Gastrointestinal: reports: diarrhea, melena. denies: nausea, vomiting, abdominal pain Genitourinary: denies: dysuria, frequency, hematuria Musculoskeletal: reports: other. denies: neck pain, arm pain Skin: denies: rash, lesions Neurological: reports: weakness. denies: numbness, change in speech, confusion - Medication Medications: blind to the right eye Hospitalist History - Past Medical History Gastrointestinal: reports: GI bleed, Other (DM, Hypotebnsion, ESRD, Blind to the right eye, chronic back pain s/p fall 10 years ago,) - Past Surgical History Other Surgical History: BKA, Colectomy, right leg 3 toes amputation, endoscopy/colonoscopy 3-6 months ago - Family History Family History: reports: cancer, diabetes mellitus - Social History Smoking Status: Current every day smoker Tobacco Type: cigarettes Alcohol: reports: None Drugs: reports: none Living Situation: With Family Domestic Violence: Negative - Exam General Appearance: awake alert Eye: PERRL Eye - other findings: blind to the right eye but tracks ENT: normocephalic atraumatic Neck: supple, symmetric, no JVD, no thyromegaly, no lymphadenopathy, no carotid bruit Heart: RRR, no murmur Respiratory: CTAB, no wheezes, no rales Gastrointestinal: soft, non-tender Gastrointestinal - other findings: retractable hernia Extremities: no cyanosis Skin: normal turgor, no lesions, no rashes Neurological: cranial nerve grossly intact, normal sensation to touch, no weakness, no focal deficits, no new deficit Musculoskeletal: generalized weakness Psychiatric: normal affect, normal behavior, A&O x 3 Hospitalist Results - Labs Result Diagrams: 12/02/19 12:22 12/02/19 12:22 Lab results: WBC 28.1 thou/uL (4.8-10.8) H 12/02/19 12:22 Hgb 13.6 g/dL (14.0-18.0) L 12/02/19 12:22 Hct 40.9 % (42.0-52.0) L 12/02/19 12:22 MCV 92.1 fL (78.0-98.0) 12/02/19 12:22 Plt Count 187 thou/uL (130-400) 12/02/19 12:22 Band Neuts % (Manual) 47 % (5-11) H 12/02/19 12:22 Sodium 136 mmol/L (136-145) 12/02/19 12:22 Potassium 4.0 mmol/L (3.5-5.1) 12/02/19 12:22 Chloride 95 mmol/L (98-107) L 12/02/19 12:22 Carbon Dioxide 27 mmol/L (23-31) 12/02/19 12:22 BUN 25 mg/dL (8.4-25.7) 12/02/19 12:22 Creatinine 8.68 mg/dL (0.7-1.3) H 12/02/19 12:22 Glucose 126 mg/dL (80-115) H 12/02/19 12:22 Lactic Acid 3.2 mmol/L (0.5-2.2) H 12/02/19 12:22 Calcium 9.0 mg/dL (7.8-10.44) 12/02/19 12:22 Total Bilirubin 0.5 mg/dL (0.2-1.2) 12/02/19 12:22 AST 32 U/L (5-34) 12/02/19 12:22 ALT 31 U/L (8-55) 12/02/19 12:22 Alkaline Phosphatase 120 U/L (40-110) H 12/02/19 12:22 Creatine Kinase 251 U/L (30-200) H 12/02/19 12:22 Troponin I 0.017 ng/mL (< 0.028) 12/02/19 12:22 B-Natriuretic Peptide 124.9 pg/mL (0-100) H 12/02/19 12:22 Serum Total Protein 7.9 g/dL (5.8-8.1) 12/02/19 12:22 Albumin 3.9 g/dL (3.4-4.8) 12/02/19 12:22 Lipase 29 U/L (8-78) 12/02/19 12:22 - EKG Interpretation EKG: NSR with [facility] Hospitalist H&P A/P - Problem (1) Colitis Code(s): K52.9 - NONINFECTIVE GASTROENTERITIS AND COLITIS, UNSPECIFIED Status : Acute (2) Hypotension Status: Acute (3) GI bleed Code(s): K92.2 - GASTROINTESTINAL HEMORRHAGE, UNSPECIFIED Status: Acute (4) Sepsis Code(s): A41.9 - SEPSIS, UNSPECIFIED ORGANISM Status: Acute (5) DM type 2 (diabetes mellitus, type 2) Status: Chronic Qualifiers: Diabetes mellitus oysterman insulin use: with fdc use Diabetes mellitus complication status: with kidney complications Diabetes mellitus complication detail: with chronic kidney disease Chronic kidney disease stage : on chronic dialysis Qualified Code(s): E11.22 - Type 2 diabetes mellitus with diabetic chronic kidney disease; N18.6 - End stage renal disease; Z79.4 - equipment operator intermodal 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 (current) use of insulin; Z99.2 - Dependence on renal dialysis (6) Diabetic foot ulcer Code(s): E11.621 - TYPE 2 DIABETES MELLITUS WITH FOOT ULCER; L97.509 - NON- PRESSURE CHRONIC ULCER OTH PRT UNSP FOOT W UNSP SEVERITY Status: Chronic Qualifiers: Diabetic foot ulcer location: midfoot Diabetes mellitus type: type 2 Laterality: left Non-pressure ulcer stage: with necrosis of muscle Qualified Code(s): E11.621 - Type 2 diabetes mellitus with foot ulcer; L97.423 - Non-pressure chronic ulcer of left heel and midfoot with necrosis of muscle (7) Diabetic peripheral neuropathy Code(s): E11.42 - TYPE 2 DIABETES MELLITUS WITH DIABETIC POLYNEUROPATHY Status : Chronic (8) End stage renal disease Code(s): N18.6 - END STAGE RENAL DISEASE Status: Chronic - Plan Plan: Sepsis Leukocytes with WBC OF 28.1 and lactic acid of 3.2 Had hypotension in HD that responded to gentle hydration due to ESRD Given vanc and Zosyn for broad coverage Continue broad IV antibiotic coverage with gentle hydrations GI bleed Had had upper GI scope and a colonoscopy few months ago (3-6 months) but not sure if there were any interventions. HGB is currently stable and >13 Monitor H/H Q6H Most likely from ulcerative colitis Will consults GI Hemmorrhagic vs inflammatory Colitis CT abdomen showing inflammations of the distal Colon Patient with frequent loose stools with bright red blood per rectum Will start patient on steroids Antibiotics as above Gentle hydration given his ESRD NPO for now Hypotension BP responded to gently hydration., Received about 400cc of NS prior to arrival Received 1L IVF in ED Will give another liter of NS Will closely monitor ESRD Patient on a Friday, and Friday dialysis schedule at home. Therapy was aborted today for hypotension and sepsis Patient has a right fore arm fistula Will consult nephrology to manage his Dialysis Monitor renal function with am labs DM Patient on Glyburide and insulin at home Will start a low dose SSI Monitor glucose levels via finger sticks q6h Chronic back pain Resume home regimen PPI proph Protonix DVT proph Patient with GI bleed and holding off from chemical prophylaxis at this time May initiate SCD to right leg
[2019-12-02] MEDS ORDERED: Vancomycin HCl 500 MG in Sodium Chloride 0.9% 100 ML IVPB SCH ×2 (16:30→17:00)
[2019-12-02] MEDS ORDERED: Vancomycin Sliding Scale 1 EACH FS ONE (16:30)
[2019-12-02] MEDS ORDERED: Vancomycin 1 GM in Premix Bag 1 BAG IVPB SCH (16:30)
[2019-12-02] MEDS ORDERED: Vancomycin HCl 750 MG in Sodium Chloride 0.9% 250 ML 250 ML IVPB SCH (16:30)
[2019-12-02] MEDS ORDERED: Vancomycin HCl 1.25 GM in Sodium Chloride 0.9% 250 ML 250 ML IVPB SCH (16:30)
[2019-12-02] MEDS ORDERED: HOLD VANCOMYCIN FOR LEVEL >20 FS SCH (16:30)
[2019-12-02] MEDS ORDERED: Sodium Chloride 0.9% 1,000 ML IV SCH (16:30)
--- NOTE | 2019-12-02 18:00 | CON ---
DATE OF CONSULTATION: 12/02/2019 CHIEF COMPLAINT: Low blood pressure. HISTORY OF PRESENT ILLNESS: Mr. Hicks is a 69-year-old man, who went in for dialysis today. He states his blood pressure was so low, they could not detect it when he was in the dialysis unit, so they sent him on to the emergency room for further care. 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 He has chronic diarrhea related to that and has a bowel movement 3 or 4 times per day, usually 20 or 30 minutes after eating. The stools are loose to liquidy at baseline. About a week ago, he started noticing some blood mixed with the stool. Two days ago, he developed severe diarrhea with watery stools every hour or two. Again, he had red blood mixed with the stool. He has had no nausea or vomiting with this. He does report cramping right lower quadrant abdominal pain, four bowel movements and intermittent through the day. This is mild to moderate overall and lasts for minutes at a time. His weight has been stable. His last EGD was April of [address] Phillip. He had a flexible sigmoidoscopy at that time. This patient has had a subtotal colectomy to view the entire rectosigmoid and then through the anastomosis to the ileum to about 40 cm. He has also had endoscopy in 2016 and 2014 which have been negative. PAST MEDICAL HISTORY: 1. End-stage renal disease, on hemodialysis. 2. Osteomyelitis of the foot for which he was treated with antibiotics back in April of 2019. PAST SURGICAL HISTORY: He has had a subtotal colectomy for diverticular hemorrhage, toe amputation, upper and lower endoscopy multiple times by Dr. Phillip and Dr. Alvarez. FAMILY HISTORY: Positive for cancer, unknown type. SOCIAL HISTORY: Smokes daily. No drugs or alcohol. ALLERGIES: NO KNOWN DRUG ALLERGIES. MEDICATIONS: Currently in the hospital include; 1. Nicotine patch. 2. Pantoprazole. 3. Zosyn. 4. Vancomycin. REVIEW OF SYSTEMS: Negative x10 systems reviewed except as stated in history of present illness. PHYSICAL EXAMINATION: VITAL SIGNS: Pulse 94, blood pressure 102/59, temperature 98.4. GENERAL: He is in no acute distress. Alert and oriented x3. HEENT: Eyes have no scleral icterus. Oropharynx is clear without lesions. No cervical or supraclavicular lymphadenopathy. LUNGS: Clear to auscultation bilaterally. HEART: Regular rate and rhythm without murmur. ABDOMEN: Soft. Mild tenderness in the right lower quadrant without guarding. He has a midline hernia. Bowel sounds are present. EXTREMITIES: No lower extremity edema, status post amputation. LABORATORY DATA: White blood cell count 28.1, hemoglobin 13.6, platelets 287. After he received some fluids, his hemoglobin was 11.0. Creatinine 8.68, lactate 3.5, bilirubin 0.5. AST 32, ALT 31, alkaline phosphatase 120. IMAGING: He had a CT scan of the abdomen and pelvis performed without contrast. This showed some subtle thickening and fat stranding around the rectosigmoid. IMPRESSION: 1. Acute infectious gastroenteritis. He has had severe diarrhea for the last couple of days and blood in the stool. He has been hospitalized with significant course of antibiotics several months ago and is at risk for Clostridium difficile. He has had a subtotal colectomy that still would need to consider Campylobacter, Shigella, Salmonella, or E coli. He could have some ischemia given the severe dehydration, but his pain really is minimal at this point. 2. Hematochezia. He has had upper and lower endoscopy recently, which was negative back in April of 2019. Endoscopy will not change management coordinator in the acute diarrhea setting at this point. 3. Severe dehydration. His baseline hemoglobin back in April was between 9 and 11. He presented with a hemoglobin of 13.6, which dropped to 11 after fluids. 4. End-stage renal disease. 5. Hypotension and leukocytosis on presentation. I think this was more related to the severe dehydration and potentially could be sepsis related to infectious gastroenteritis. RECOMMENDATIONS: 1. Check stool studies including Clostridium difficile and culture, ova, parasite and lactoferrin. 2. If the C diff comes back positive, then we will need to quickly adjust his antibiotics to oral vancomycin and stop the Zosyn. 3. IV fluids per the primary service and Nephrology. Job ID: [id number]
[2019-12-02] MEDS: Nicotine 14 MG PATCH TD SCH (18:13)
[2019-12-02 18:36] LABS: Lactic Acid 1.9 mmol/L (0.5-2.2)
[2019-12-02] MEDS: Dextrose 50% Abboject 50 ML SYRINGE SLOW IVP PRN ×3 (20:20→23:30)
[2019-12-02] MEDS ORDERED: Sodium Chloride 0.9% 500 ML IV SCH (20:30)
[2019-12-02] MEDS: Piperacillin/Tazobactam 2.25 GM in Sodium Chloride 0.9% 100 ML IVPB SCH (20:42)
--- NOTE | 2019-12-02 20:42 | PDOC.EVN ---
Event Note - Event Note Event Note: Notified by RN, patient with shaking and chills. Glucose was checked and low at 45. Patient also hypotensive in 70s systolic. Nurse indicated they were attempting to obtain manual bp. BP likely low as a reaction to low glucose. Hypoglycemia orders placed earlier by admitting team. I advised to give 1 amp of D50 stat and hold off on rechecking BP for now. Amp of D50 being given on arrival to patient bedside. Awake and alert. I have asked to place patient in trendelenburg and repeat BP. It has improved to 90s systolic. Awaiting repeat glucose. 250 bolus of NS given to help improve BP further. Will place patient on maintenance D5W given poor PO intake and being diabetic.
[2019-12-02] MEDS ORDERED: Famotidine 20 MG TAB PO SCH (21:00)
[2019-12-02] MEDS ORDERED: Vancomycin HCl 1 GM in Sodium Chloride 0.9% 250 ML 300 ML IVPB SCH (21:00)
[2019-12-02] MEDS: Pantoprazole 40 MG VIAL IVP SCH (21:40)
[2019-12-02] MEDS ORDERED: methylPREDNISolone Sod Succ 40 MG VIAL IVP SCH (22:00)
[2019-12-02] MEDS: Dextrose 5 %-0.45 % NaCl 1,000 ML IV SCH (23:26)
[2019-12-03] MEDS: Piperacillin/Tazobactam 2.25 GM in Sodium Chloride 0.9% 100 ML IVPB SCH ×2 (03:49→12:58)
[2019-12-03 05:14] LABS: #Basophils 0.1 thou/uL (0.0-0.2); #Eosinphils 0.2 thou/uL (0.0-0.7); #Lymphocytes 0.8 thou/uL (1.20-3.40); #Monocytes 0.7 thou/uL (0.11-0.59); #Neutrophils 12.6 thou/uL (1.40-6.50); %Basophils 0.4 % (0.0-1.0); %Eosinophils 1.3 % (0.0-10.0); %Lymphocytes 5.6 % (21.0-51.0); %Monocytes 5.1 % (0.0-10.0); %Neutrophils 87.7 % (42.0-75.0); Hemoglobin 9.9 g/dL (14.0-18.0); Mean Corpuscular HGB CONC 33.1 g/dL (32.0-36.0); Mean Corpuscular Volume 93.6 fL (78.0-98.0); Mean Platelet Volume 8.5 fL (7.4-10.4); Platelet Count 141 thou/uL (130-400); RBC Distribution Width 13.8 % (11.5-14.5); Red Blood Cell (RBC) Count 3.19 mill/uL (4.70-6.10); White Blood Cell (WBC) Count 14.4 thou/uL (4.8-10.8)
[2019-12-03] MEDS: Dextrose 50% Abboject 50 ML SYRINGE SLOW IVP PRN (05:16)
[2019-12-03] MEDS ORDERED: Dextrose 50% Abboject 50 ML SYRINGE SLOW IVP PRN (05:17)
[2019-12-03 05:31] LABS: Anion Gap 17 mmol/L (10-20); BUN (Urea Nitrogen) 30 mg/dL (8.4-25.7); Calc. Creatinine Clearance 8 mL/min (70-130); Calcium 7.7 mg/dL (7.8-10.44); Carbon Dioxide 23 mmol/L (23-31); Chloride 102 mmol/L (98-107); Estimated GFR-MDRD 7; Glucose 61 mg/dL (80-115); Potassium 3.5 mmol/L (3.5-5.1); Sodium 138 mmol/L (136-145)
[2019-12-03] MEDS ORDERED: Enoxaparin Sodium 30 MG/0.3 ML SYRINGE SC SCH (09:00)
[2019-12-03] MEDS ORDERED: Epoetin (ESRD) 20,000 UNITS/ML SC SCH (09:30)
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
[2019-12-03] MEDS: Pantoprazole 40 MG VIAL IVP SCH (10:05)
[2019-12-03 10:54] LABS: Hemoglobin 10.6 g/dL (14.0-18.0)
[2019-12-03] MEDS ORDERED: EPOETIN ALFA-EPBX (ESRD) 4,000 UNIT/ML VIAL SC SCH (12:00)
--- NOTE | 2019-12-03 12:27 | PRG ---
DATE OF SERVICE: 12/03/2019 SUBJECTIVE: Mr. Hicks has had 3 or 4 liquidy stools this morning. He has no abdominal pain or other complaints. He feels much better. OBJECTIVE: VITAL SIGNS: Temperature 97.7, pulse 80, blood pressure 113/58. GENERAL: He is in no acute distress. Alert and oriented x3. LUNGS: Clear to auscultation bilaterally. HEART: Regular rate and rhythm without murmur. ABDOMEN: Soft, nontender, and nondistended. Bowel sounds are present. EXTREMITIES: No lower extremity edema. LABORATORY DATA: White blood cell count 14.4, hemoglobin 10.6, platelets 141. IMPRESSION: 1. Clostridium difficile colitis. His Clostridium difficile antigen is positive with positive lactoferrin. He has had multiple prior hospitalizations and extended antibiotic treatments, which certainly puts him at risk for this. The C diff PCR toxin is pending. However, I think we need to proceed with treatment regardless of that result at this point given the positive antigen and lactoferrin and clinical picture. 2. Hematochezia. He has no significant ongoing overt bleeding and recent endoscopy and will not require repeat endoscopy at this time. 3. Severe dehydration on presentation. 4. End-stage renal disease. 5. Hypotension and leukocytosis with suspected sepsis, which is likely secondary to clostridium difficile. RECOMMENDATIONS: 1. Start oral vancomycin. 2. If the C diff toxin PCR comes back positive, then ideally we should stop any other antibiotics that will disrupt the normal santosh of the bowel as soon as possible. Job ID: [id number]
[2019-12-03] MEDS ORDERED: Temazepam 15 MG CAP PO PRN (13:46)
--- NOTE | 2019-12-03 13:46 | PDOC.HOSPP ---
- Subjective Encounter Date: 12/03/19 Encounter Time: 10:55 Subjective: pt up in bed still has some pain to his lower abdomen but diarrhea has improved. - Objective Vital Signs & Weight: Vital Signs (12 hours) Temp Pulse Resp BP Pulse Ox 12/03/19 11:31 97.7 F 80 16 113/58 L 98 12/03/19 07:17 97.4 F L 78 18 101/51 L 12/03/19 03:37 97.5 F L 76 18 104/63 97 Weight Admit Weight 171 lb 1.248 oz Weight 171 lb 1.248 oz I&O: 12/02/19 12/03/19 12/04/19 06:59 06:59 06:59 Intake Total 500 Balance 500 Result Diagrams: 12/03/19 10:34 12/03/19 04:57 Additional Labs: Accuchecks 12/03/19 12/03/19 12/03/19 12:15 08:51 06:14 POC Glucose 74 100 137 H 12/03/19 12/03/19 12/03/19 05:12 02:42 00:07 POC Glucose 47 L* 92 147 H 12/02/19 12/02/19 12/02/19 23:30 20:43 20:18 POC Glucose 51 L* 154 H 45 L* Hospitalist ROS - Review of Systems Respiratory: denies: cough, dry, shortness of breath, hemoptysis, SOB with excertion, pleuritic pain, sputum, wheezing, other Cardiovascular: denies: chest pain, palpitations, orthopnea, paroxysmal noc. dyspnea, edema, light headedness, other Gastrointestinal: reports: abdominal pain. denies: nausea, vomiting, diarrhea, constipation, melena, hematochezia, other - Medication Medications: Active Medications Generic Name Dose Route Start Last Admin Trade Name Freq PRN Reason Stop Dose Admin Dextrose/Water 25 gm 12/02/19 14:35 12/03/19 05:16 Dextrose 50% SLOW IVP 25 gm PRN PRN Administration Hypoglycemia Epoetin Rafael-epbx 7,500 unit 12/03/19 12:00 12/03/19 13:20 Retacrit SC 7,500 unit Q7D HOLLIE Administration Dextrose/Sodium Chloride 1,000 mls @ 50 mls/hr 12/02/19 20:45 12/02/19 23:26 D5 1/2 Ns IV 1,000 mls .Q20H HOLLIE Administration Nicotine 14 mg 12/02/19 15:00 12/02/19 18:13 Nicoderm Patch TD 14 mg Q24HR HOLLIE Administration - Exam Neck: negative: supple, symmetric, no JVD, no thyromegaly, no lymphadenopathy, no carotid bruit, JVD Heart: negative: RRR, no murmur, no gallops, no rubs, normal peripheral pulses, irregular, diminshed peripheral pulses, murmur present, II/IV, III/IV Respiratory: negative: CTAB, no wheezes, no rales, no ronchi, normal chest expansion, no tachypnea, normal percussion, rales, rhonchi, tachypneic, wheezes Gastrointestinal: soft, normal bowel sounds Gastrointestinal - other findings: mild pain on palpation of lower abdomen Hosp A/P (1) C. difficile diarrhea Code(s): A04.72 - ENTEROCOLITIS D/T CLOSTRIDIUM DIFFICILE, NOT SPCF RECUR Status: Acute (2) Colitis Code(s): K52.9 - NONINFECTIVE GASTROENTERITIS AND COLITIS, UNSPECIFIED Status : Acute (3) GI bleed Code(s): K92.2 - GASTROINTESTINAL HEMORRHAGE, UNSPECIFIED Status: Acute (4) Sepsis Code(s): A41.9 - SEPSIS, UNSPECIFIED ORGANISM Status: Acute (5) DM type 2 (diabetes mellitus, type 2) Status: Chronic Qualifiers: Diabetes mellitus terminal manager insulin use: with terminal manager use Diabetes mellitus complication status: with kidney complications Diabetes mellitus complication detail: with chronic kidney disease Chronic kidney disease stage : on chronic dialysis Qualified Code(s): E11.22 - Type 2 diabetes mellitus with diabetic chronic kidney disease; N18.6 - End stage renal disease; Z79.4 - 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 will monitor hh for now. renal diet started. will continue home meds. will restart his asa.
[2019-12-03] MEDS: Dextrose 5 %-0.45 % NaCl 1,000 ML IV SCH (15:50)
[2019-12-03] MEDS: Nicotine 14 MG PATCH TD SCH (15:50)
[2019-12-03 17:42] LABS: HBSAg Index 0.18 S/CO (0-0.99); Hep B Surf Ag Non-Reactive S/CO (NonReactive)
[2019-12-03] MEDS: Vancomycin HCl 25 MG/ML Oral PO SCH (17:51)
[2019-12-03] MEDS: Famotidine 20 MG TAB PO SCH (20:21)
[2019-12-04] MEDS: Vancomycin HCl 25 MG/ML Oral PO SCH ×4 (00:29→17:08)
[2019-12-04 05:26] LABS: #Eosinphils 0.4 thou/uL (0.0-0.7); #Lymphocytes 1.2 thou/uL (1.20-3.40); #Monocytes 0.7 thou/uL (0.11-0.59); #Neutrophils 7.3 thou/uL (1.40-6.50); %Basophils 0.5 % (0.0-1.0); %Eosinophils 3.8 % (0.0-10.0); %Lymphocytes 12.3 % (21.0-51.0); %Monocytes 7.4 % (0.0-10.0); %Neutrophils 76.1 % (42.0-75.0); Hemoglobin 10.3 g/dL (14.0-18.0); Mean Corpuscular Hemoglobin 30.8 pg (27.0-31.0); Mean Corpuscular Volume 93.3 fL (78.0-98.0); Platelet Count 156 thou/uL (130-400); RBC Distribution Width 13.6 % (11.5-14.5); Red Blood Cell (RBC) Count 3.33 mill/uL (4.70-6.10); White Blood Cell (WBC) Count 9.5 thou/uL (4.8-10.8)
[2019-12-04 05:50] LABS: Anion Gap 20 mmol/L (10-20); BUN (Urea Nitrogen) 33 mg/dL (8.4-25.7); Calc. Creatinine Clearance 7 mL/min (70-130); Calcium 7.8 mg/dL (7.8-10.44); Carbon Dioxide 17 mmol/L (23-31); Chloride 102 mmol/L (98-107); Estimated GFR-MDRD 6; Glucose 97 mg/dL (80-115); Potassium 3.8 mmol/L (3.5-5.1); Sodium 135 mmol/L (136-145)
[2019-12-04 06:00] VITALS: BMI 26.7
[2019-12-04] MEDS: Calcitriol 0.25 MCG CAP PO SCH (07:52)
[2019-12-04] MEDS: Aspirin 81 mg Enteric Coated Tablet PO SCH (07:52)
[2019-12-04] MEDS: Ferrous Sulfate 325 MG TAB PO SCH (07:53)
[2019-12-04 08:15] LABS: Vancomycin, Random 9.8 ug/mL (See Comment)
[2019-12-04] MEDS ORDERED: Acetaminophen 325 MG TAB PO PRN (10:47)
--- NOTE | 2019-12-04 11:56 | PRG ---
DATE OF SERVICE: 12/04/2019 SUBJECTIVE: Mr. Hicks is a 69-year-old black male, who is admitted for hypotension and for possible sepsis. GI has evaluated this patient and he has been diagnosed to have C difficile colitis. Currently, on p.o. oral vancomycin. His low blood pressure is also much improved with volume repletion. He is currently undergoing dialysis and tolerating said treatment. We are minimizing fluid removal due to the diarrhea and low blood pressure previously. No other complaints. No chest pain or shortness of breath. OBJECTIVE: VITAL SIGNS: Blood pressure 146/74, heart rate 75, respiratory rate 16, temperature 97.5, and pulse ox 100%. GENERAL: Noted to be awake, alert, comfortable, not in distress. SKIN: Adequate turgor. HEENT: Slightly pale conjunctivae. Anicteric sclerae. NECK: No neck mass. No carotid bruits. No JVD. CHEST: No deformities. LUNGS: Clear breath sounds. No wheezing. No crackles. HEART: Normal sinus rhythm. No murmurs. No gallops. No rubs. ABDOMEN: Globular, soft, and nontender. No masses. EXTREMITIES: No edema. Status post left BKA. MEDICATIONS: Medications of December 04, 2019, reviewed. LABORATORY DATA: Laboratories of December 04, 2019; white count 9.5, hemoglobin 10.3. Sodium 135, potassium 3.8, chloride 102, carbon dioxide 17, BUN 33, creatinine 10.89, and calcium 7.8. ASSESSMENT AND PLAN: 1. Clostridium difficile colitis, currently on oral vancomycin. GI following. 2. Hypertension, resolved with volume repletion. 3. End-stage renal disease, stable, continuing 3 times a week hemodialysis regimen with this patient. Fluid removal only as tolerated. Overall, agree with current management. Job ID: [id number]
[2019-12-04] MEDS: Dextrose 5 %-0.45 % NaCl 1,000 ML IV SCH (13:16)
--- NOTE | 2019-12-04 13:39 | PRG ---
DATE OF SERVICE: 12/04/2019 SUBJECTIVE: Mr. Hicks is on dialysis today. He is having thicker stools with 3 or 4 stools yesterday and today. He feels much better overall. PHYSICAL EXAMINATION: VITAL SIGNS: Temperature 97.5, pulse 75, and blood pressure 146/74. GENERAL: He is in no acute distress. Alert and oriented x3. LUNGS: Clear to auscultation bilaterally. HEART: Regular rate and rhythm without murmur. ABDOMEN: Soft, nontender, and nondistended. Bowel sounds are present. EXTREMITIES: No lower extremity edema. LABORATORY DATA: Hemoglobin is 10.3 and white blood cell count 9.5. IMPRESSION: Clostridium difficile colitis, improving with oral vancomycin. His other antibiotics have been discontinued. RECOMMENDATIONS: Continue 14-day course of vancomycin by mouth. Job ID: [id number]
[2019-12-04] MEDS: Nicotine 14 MG PATCH TD SCH (14:05)
--- NOTE | 2019-12-04 16:00 | PDOC.HOSPP ---
- Subjective Encounter Date: 12/04/19 Encounter Time: 11:15 Subjective: pt up in dialysis no complains. He had about 4 bouts of diarrhea early this am. - Objective Vital Signs & Weight: Vital Signs (12 hours) Temp Pulse Resp BP Pulse Ox 12/04/19 13:21 98.1 F 84 16 135/66 97 12/04/19 07:30 97.5 F L 75 16 146/74 H 100 12/04/19 05:55 147/72 H 12/04/19 04:53 98.3 F 77 16 151/57 H 95 Weight Admit Weight 171 lb 1.248 oz Weight 197 lb 8 oz I&O: 12/03/19 12/04/19 12/05/19 06:59 06:59 06:59 Intake Total 500 840 840 Output Total 0 Balance 500 840 840 Result Diagrams: 12/04/19 05:16 12/04/19 05:16 Additional Labs: Accuchecks 12/04/19 12/04/19 12/04/19 13:19 05:00 00:08 POC Glucose 88 103 94 12/03/19 12/03/19 20:39 15:51 POC Glucose 114 H 101 Hospitalist ROS - Review of Systems Cardiovascular: denies: chest pain, palpitations, orthopnea, paroxysmal noc. dyspnea, edema, light headedness, other Gastrointestinal: reports: diarrhea Genitourinary: denies: dysuria, frequency, incontinence, hematuria, retention, other Musculoskeletal: denies: neck pain, shoulder pain, arm pain, back pain, hand pain, leg pain, foot pain, other - Medication Medications: Active Medications Generic Name Dose Route Start Last Admin Trade Name Freq PRN Reason Stop Dose Admin Acetaminophen 650 mg 12/04/19 10:47 12/04/19 13:16 Tylenol PO 650 mg Q6H PRN Administration Pain Aspirin 81 mg 12/04/19 09:00 12/04/19 07:52 Ecotrin PO 81 mg DAILY HOLLIE Administration Calcitriol 0.25 mcg 12/04/19 09:00 12/04/19 07:52 Rocaltrol PO 0.25 mcg DAILY HOLLIE Administration Dextrose/Water 25 gm 12/02/19 14:35 12/03/19 05:16 Dextrose 50% SLOW IVP 25 gm PRN PRN Administration Hypoglycemia Epoetin Rafael-epbx 7,500 unit 12/03/19 12:00 12/03/19 13:20 Retacrit SC 7,500 unit Q7D HOLLIE Administration Famotidine 20 mg 12/03/19 21:00 12/03/19 20:21 Pepcid PO 20 mg 2100 HOLLIE Administration Ferrous Sulfate 325 mg 12/04/19 09:00 12/04/19 07:53 Feosol PO 325 mg DAILY HOLLIE Administration Dextrose/Sodium Chloride 1,000 mls @ 50 mls/hr 12/02/19 20:45 12/04/19 13:16 D5 1/2 Ns IV 1,000 mls .Q20H HOLLIE Administration Nicotine 14 mg 12/02/19 15:00 12/04/19 14:05 Nicoderm Patch TD Not Given Q24HR HOLLIE Vancomycin HCl 125 mg 12/03/19 18:00 12/04/19 14:04 First Vancomycin PO 125 mg Q6HR HOLLIE Administration - Exam Heart: negative: RRR, no murmur, no gallops, no rubs, normal peripheral pulses, irregular, diminshed peripheral pulses, murmur present, II/IV, III/IV Respiratory: negative: CTAB, no wheezes, no rales, no ronchi, normal chest expansion, no tachypnea, normal percussion, rales, rhonchi, tachypneic, wheezes Gastrointestinal: negative: soft, non-tender, non-distended, normal bowel sounds , no palpable masses, no hepatomegaly, no splenomegaly, no bruit, no guarding, no rigidity, tender to palpation, distended, diminished bowl sounds, voluntary guarding Hosp A/P (1) C. difficile diarrhea Code(s): A04.72 - ENTEROCOLITIS D/T CLOSTRIDIUM DIFFICILE, NOT SPCF RECUR Status: Acute (2) Colitis Code(s): K52.9 - NONINFECTIVE GASTROENTERITIS AND COLITIS, UNSPECIFIED Status : Acute (3) GI bleed Code(s): K92.2 - GASTROINTESTINAL HEMORRHAGE, UNSPECIFIED Status: Acute (4) Sepsis Code(s): A41.9 - SEPSIS, UNSPECIFIED ORGANISM Status: Acute (5) DM type 2 (diabetes mellitus, type 2) Status: Chronic Qualifiers: Diabetes mellitus custodial insulin use: with custodial use Diabetes mellitus complication status: with kidney complications Diabetes mellitus complication detail: with chronic kidney disease Chronic kidney disease stage : on chronic dialysis Qualified Code(s): E11.22 - Type 2 diabetes mellitus with diabetic chronic kidney disease; N18.6 - End stage renal disease; Z79.4 - intermediate (current) use of insulin; Z99.2 - Dependence on renal dialysis (6) End stage renal disease Code(s): N18.6 - END STAGE RENAL DISEASE Status: Chronic - Plan sepsis resolved, will continue oral vanco. will monitor hh for now. renal diet started. will continue home meds. will restart his asa. 12/03 pt's hh stable, will continue po vanco. possible discharge in the next 24- 48hr. He tolerated his dinner last night.
[2019-12-04] MEDS: Famotidine 20 MG TAB PO SCH (21:23)
[2019-12-05] MEDS: Vancomycin HCl 25 MG/ML Oral PO SCH ×3 (01:02→12:48)
[2019-12-05] MEDS: Dextrose 5 %-0.45 % NaCl 1,000 ML IV SCH (06:10)
[2019-12-05] MEDS: Aspirin 81 mg Enteric Coated Tablet PO SCH (09:36)
[2019-12-05] MEDS: Ferrous Sulfate 325 MG TAB PO SCH (09:36)
[2019-12-05] MEDS: Calcitriol 0.25 MCG CAP PO SCH (09:36)
--- NOTE | 2019-12-05 11:44 | PRG ---
DATE OF SERVICE: 12/05/2019 SUBJECTIVE: Mr. Hicks is a 69-year-old black male with ESRD and on maintenance hemodialysis. He was initially admitted for hypotension. He was empirically treated with volume repletion with improvement in blood pressure. He was found to have an active C diff colitis. He has been started on oral vancomycin. This morning, he is doing better. He denies any chest pain or shortness of breath. He was also found to be anemic; for that reason, he has been started on ferrous sulfate as well as Epogen. OBJECTIVE: VITAL SIGNS: Blood pressure 135/78, heart rate 77, respiratory rate 18, temperature 97.8, pulse ox 97%. GENERAL: Noted to be awake, alert, comfortable, not in overt distress. SKIN: Adequate turgor. HEENT: He has slightly pale conjunctivae. Anicteric sclerae. No neck mass. No carotid bruits. No JVD. CHEST: No deformities. LUNGS: Clear breath sounds. No wheezing. No crackles. HEART: Normal sinus rhythm. No murmurs, gallops, or rubs. ABDOMEN: Globular, soft, nontender. No masses. EXTREMITIES: Status post left BKA. MEDICATIONS: Medications of December 05, 2019, were reviewed. LABORATORY DATA: Laboratories of December 04, 2019; hemoglobin 10.3, sodium 135, potassium 3.8, chloride 102, carbon dioxide 17, BUN 33, creatinine 10.89, calcium 7.8. On December 05, 2019, glucose 171. ASSESSMENT AND PLAN: 1. End-stage renal disease, stable, tolerating current hemodialysis regimen. Minimal fluid removal was done with yesterday's dialysis. There is no indication for an emergent dialysis today. 2. Clostridium difficile colitis, currently on oral vancomycin. Doing well. 3. Anemia. Continuing weekly Epogen. The patient is currently on iron supplementation. Overall, agree with current management. Job ID: [id number]
[2019-12-05 12:01] VITALS: BP 170/65; TEMP 97.4
--- NOTE | 2019-12-05 14:46 | PRG ---
DATE OF SERVICE: 12/05/2019 SUBJECTIVE: Mr. Khan stool is thicker and his diarrhea has markedly improved. He has no abdominal pain. OBJECTIVE: VITAL SIGNS: Temperature 97.4, pulse 63, and blood pressure 170/65. ABDOMEN: Soft, nontender, and nondistended. Bowel sounds are present. LABORATORY DATA: Hemoglobin is 10.3. IMPRESSION: 1. Clostridium difficile colitis, improving with vancomycin orally. 2. Chronic anemia, stable. He has had upper and lower endoscopy recently. RECOMMENDATIONS: 1. Complete a 14-day course of vancomycin orally. 2. Anticipate discharge home today. I will sign off. Please call if GI can be of assistance. Job ID: [id number]
== END 2019-12-05 14:15 | disposition home or self-care (01) | DRG 871 ==
LOC: ERS 11:41 → SURG A 14:07
PROVIDERS: ADMIT Internal Medicine; ATTEND Internal Medicine
PROC: 5A1D70Z Performance of Urinary Filtration, Intermittent, Less than 6 Hours Per Day (ICD-10-PCS; principal; 2019-12-04)
DX: A41.9 Sepsis, unspecified organism (principal); N18.6 End stage renal disease; A04.72 Enterocolitis due to Clostridium difficile, not specified as recurrent; K92.2 Gastrointestinal hemorrhage, unspecified; I12.0 Hypertensive chronic kidney disease with stage 5 chronic kidney disease or end stage renal disease; R65.20 Severe sepsis without septic shock; E78.5 Hyperlipidemia, unspecified; F17.210 Nicotine dependence, cigarettes, uncomplicated; I95.9 Hypotension, unspecified; E11.621 Type 2 diabetes mellitus with foot ulcer; G89.29 Other chronic pain; E86.0 Dehydration; E11.22 Type 2 diabetes mellitus with diabetic chronic kidney disease; I73.9 Peripheral vascular disease, unspecified; H54.61 Unqualified visual loss, right eye, normal vision left eye; Z90.49 Acquired absence of other specified parts of digestive tract; Z79.4 Long term (current) use of insulin; Z89.612 Acquired absence of left leg above knee; Z89.512 Acquired absence of left leg below knee
CPT/HCPCS: 36415; 36416; 71045; 74018; 74176; 80048; 80053; 80202; 82550; 83605; 83630; 83690; 83880; 84484; 85025; 85060; 87040; 87045; 87046; 87081; 87324; 87328; 87329; 87340; 87427; 87449; 87493; 87804; 90935; 93005; 96365; 96367; C9113; G0257; J2543; J3370; J3490; Q5105

== ENCOUNTER 2021-10-16 10:47 | Emergency (ER) | payer MEDICARE ==
[2021-10-16 11:41] LABS: #Basophils 0.1 thou/uL (0.0-0.2); #Eosinphils 0.3 thou/uL (0.0-0.7); #Lymphocytes 1.6 thou/uL (1.20-3.40); #Monocytes 0.9 thou/uL (0.11-0.59); %Basophils 0.5 % (0.0-1.0); %Eosinophils 3.2 % (0.0-10.0); %Lymphocytes 15.9 % (21.0-51.0); %Monocytes 9.4 % (0.0-10.0); %Neutrophils 70.8 % (42.0-75.0); Mean Corpuscular HGB CONC 33.2 g/dL (32.0-36.0); Mean Corpuscular Hemoglobin 31.1 pg (27.0-31.0); Mean Corpuscular Volume 93.7 fL (78.0-98.0); Mean Platelet Volume 8.5 fL (7.4-10.4); Platelet Count 233 thou/uL (130-400); RBC Distribution Width 13.9 % (11.5-14.5); Red Blood Cell (RBC) Count 4.49 mill/uL (4.70-6.10); White Blood Cell (WBC) Count 9.8 thou/uL (4.8-10.8)
[2021-10-16 12:04] LABS: ALT (SGPT) 7 U/L (8-55); AST (SGOT) 3 U/L (5-34); Albumin 4.2 g/dL (3.4-4.8); Alkaline Phosphatase 95 U/L (40-110); Anion Gap 20 mmol/L (10-20); BUN (Urea Nitrogen) 37 mg/dL (8.4-25.7); Bilirubin, Total 0.5 mg/dL (0.2-1.2); Calc. Creatinine Clearance 0 mL/min (70-130); Calcium 10.5 mg/dL (7.8-10.44); Carbon Dioxide 22 mmol/L (23-31); Chloride 96 mmol/L (98-107); Globulin 4.6 g/dL (2.4-3.5); Glucose 217 mg/dL (83-110); Potassium 3.6 mmol/L (3.5-5.1); Protein, Total 8.8 g/dL (5.8-8.1); Sodium 134 mmol/L (136-145)
[2021-10-16] MEDS ORDERED: Fludrocortisone Acetate 0.1 MG TAB PO SCH (14:00)
== END 2021-10-16 18:06 | disposition home or self-care (01) ==
LOC: ERS 10:47
DX: I95.9 Hypotension, unspecified (principal); R55 Syncope and collapse; I49.8 Other specified cardiac arrhythmias; I12.0 Hypertensive chronic kidney disease with stage 5 chronic kidney disease or end stage renal disease; E11.22 Type 2 diabetes mellitus with diabetic chronic kidney disease; N18.6 End stage renal disease; E78.5 Hyperlipidemia, unspecified; F17.210 Nicotine dependence, cigarettes, uncomplicated; Z99.2 Dependence on renal dialysis; Z79.4 Long term (current) use of insulin; Z87.19 Personal history of other diseases of the digestive system; Z79.899 Other long term (current) drug therapy
CPT/HCPCS: 36415; 80053; 83735; 85025; 93005; 94760

== ENCOUNTER 2022-01-03 15:34 | Inpatient (IN) | payer MEDICARE ==
[2022-01-03] MEDS ORDERED: Norepinephrine 4 MG/4 ML VIAL ONE ×2 (15:58→15:59)
[2022-01-03] MEDS ORDERED: Cefepime 2 GM VIAL ONE (15:58)
[2022-01-03 16:45] LABS: #Eosinphils 0.1 thou/uL (0.0-0.7); #Lymphocytes 1.6 thou/uL (1.20-3.40); #Monocytes 1.2 thou/uL (0.11-0.59); %Eosinophils 0.9 % (0.0-10.0); %Lymphocytes 9.8 % (21.0-51.0); %Monocytes 7.4 % (0.0-10.0); Hemoglobin 12.1 g/dL (14.0-18.0); Mean Corpuscular HGB CONC 31.2 g/dL (32.0-36.0); Mean Corpuscular Volume 96.3 fL (78.0-98.0); Mean Platelet Volume 8.4 fL (7.4-10.4); Platelet Count 268 thou/uL (130-400); RBC Distribution Width 14.4 % (11.5-14.5); Red Blood Cell (RBC) Count 4.03 mill/uL (4.70-6.10); White Blood Cell (WBC) Count 15.9 thou/uL (4.8-10.8)
[2022-01-03] MEDS ORDERED: Vancomycin 1 GM/200 ML BAG ONE ×2 (16:48→16:49)
[2022-01-03 17:05] LABS: ALT (SGPT) 7 U/L (8-55); AST (SGOT) 5 U/L (5-34); Albumin 3.6 g/dL (3.4-4.8); Alkaline Phosphatase 89 U/L (40-110); Anion Gap 23 mmol/L (10-20); BUN (Urea Nitrogen) 49 mg/dL (8.4-25.7); Bilirubin, Total 0.3 mg/dL (0.2-1.2); Calc. Creatinine Clearance 0 mL/min (70-130); Calcium 9.5 mg/dL (7.8-10.44); Carbon Dioxide 11 mmol/L (23-31); Chloride 103 mmol/L (98-107); Globulin 4.1 g/dL (2.4-3.5); Glucose 207 mg/dL (83-110); Potassium 4.4 mmol/L (3.5-5.1); Protein, Total 7.7 g/dL (5.8-8.1); Sodium 133 mmol/L (136-145)
[2022-01-03 17:20] LABS: Actual Bicarbonate (HCO3a) 15.8 mEq/L (22-28); Analyzer IN Cardio ER; Base Excess (BEa) -11.6 mEq/L (-2.0 to +3.0); CO2 Tension 40.7 mmHg (35.0-45.0); Calcium, Ionized (arterial) 1.28 mmol/L (1.12-1.30); Carboxyhemoglobin (COHb) 0.9 gm% (0.0-3.0); Hemoglobin (Hb) 14.2 g/dL (14.0-18.0); Potassium - ABG Lab 4.81 mmol/L (3.70-5.30)
[2022-01-03 17:25] LABS: ALV-art Gradient 50.255 mmHg (0-20); O2 Tension (PaO2), arterial 48.6 mmHg (> 70.0); Puncture Site LRA; pH, Arterial 7.21 (7.35-7.45)
[2022-01-03 18:34] LABS: SARS-CoV-2 NAA Rapid Test Not Detected (NotDetected)
[2022-01-03] MEDS ORDERED: Ondansetron ODT 4 MG TAB PO PRN (19:14)
[2022-01-03] MEDS ORDERED: Ondansetron PF 4 MG/2 ML Vial IVP PRN (19:14)
[2022-01-03] MEDS ORDERED: HYDROcodone/Acetaminophen 5/325 mg Tablet PO PRN (19:14)
[2022-01-03] MEDS ORDERED: Dextrose 5% in Water 1,000 ML IV PRN (19:19)
[2022-01-03] MEDS ORDERED: HumaLOG 300 UNITS/3 ML VIAL SC PRN (19:19)
[2022-01-03] MEDS ORDERED: Dextrose 50% Abboject 50 ML SYRINGE SLOW IVP PRN (19:19)
[2022-01-03] MEDS ORDERED: Vancomycin 1 GM in Premix Bag 1 BAG IVPB SCH (19:30)
[2022-01-03 20:18] VITALS: BMI 23.4
[2022-01-03] MEDS: HYDROcodone/Acetaminophen 5/325 mg Tablet PO PRN (21:26)
[2022-01-03] MEDS: Heparin 5,000 UNITS/ML VIAL SC SCH (21:26)
[2022-01-03] MEDS ORDERED: Vancomycin HCl 500 MG in Sodium Chloride 0.9% 100 ML IVPB SCH (21:30)
[2022-01-03] MEDS ORDERED: Vancomycin Diaylsis Sliding Scale (Wt 71-99) FS SCH (21:30)
[2022-01-04 04:26] LABS: #Basophils 0.1 thou/uL (0.0-0.2); #Eosinphils 0.3 thou/uL (0.0-0.7); #Lymphocytes 2.1 thou/uL (1.20-3.40); #Monocytes 1.6 thou/uL (0.11-0.59); %Basophils 0.5 % (0.0-1.0); %Eosinophils 1.7 % (0.0-10.0); %Lymphocytes 10.8 % (21.0-51.0); %Monocytes 8.6 % (0.0-10.0); %Neutrophils 78.4 % (42.0-75.0); Hemoglobin 12.4 g/dL (14.0-18.0); Mean Corpuscular Hemoglobin 30.3 pg (27.0-31.0); Mean Corpuscular Volume 94.7 fL (78.0-98.0); Mean Platelet Volume 8.4 fL (7.4-10.4); Platelet Count 354 thou/uL (130-400); RBC Distribution Width 14.5 % (11.5-14.5); Red Blood Cell (RBC) Count 4.09 mill/uL (4.70-6.10); White Blood Cell (WBC) Count 19.2 thou/uL (4.8-10.8)
[2022-01-04 04:48] LABS: Anion Gap 22 mmol/L (10-20); BUN (Urea Nitrogen) 55 mg/dL (8.4-25.7); Calc. Creatinine Clearance 6 mL/min (70-130); Calcium 9.7 mg/dL (7.8-10.44); Carbon Dioxide 12 mmol/L (23-31); Chloride 103 mmol/L (98-107); Glucose 136 mg/dL (83-110); Potassium 4.7 mmol/L (3.5-5.1); Sodium 132 mmol/L (136-145)
[2022-01-04 06:52] LABS: Vancomycin, Random 23.1 ug/mL (See Comment)
[2022-01-04 09:19] LABS: HBSAg Index 0.34 S/CO (0-0.99); Hep B Surf Ag Non-Reactive S/CO (NonReactive)
[2022-01-04] MEDS: Pantoprazole 40 MG VIAL IVP SCH (09:19)
[2022-01-04] MEDS: Albumin 25% 25 GM/100 ML BOT IVPB SCH ×3 (09:19→20:02)
[2022-01-04] MEDS: Heparin 5,000 UNITS/ML VIAL SC SCH ×3 (09:19→20:07)
[2022-01-04] MEDS: Midodrine HCl 5 MG TAB PO SCH ×3 (09:19→20:03)
[2022-01-04 09:31] LABS: HBSAB Concentration 28.37 mIU/mL; Hep B Surf AB Reactive (NonReactive)
[2022-01-04] MEDS ORDERED: Norepinephrine 8 MG/0.9% NS 250 ML IVPB SCH (12:00)
[2022-01-04] MEDS: Cefepime 1 GM in Sodium Chloride 0.9% 100 ML IVPB SCH (16:33)
[2022-01-05] MEDS: Albumin 25% 25 GM/100 ML BOT IVPB SCH (03:05)
[2022-01-05 03:55] LABS: #Basophils 0.1 thou/uL (0.0-0.2); #Eosinphils 0.4 thou/uL (0.0-0.7); #Lymphocytes 1.9 thou/uL (1.20-3.40); #Neutrophils 5.8 thou/uL (1.40-6.50); %Basophils 0.9 % (0.0-1.0); %Eosinophils 4.7 % (0.0-10.0); %Lymphocytes 20.4 % (21.0-51.0); %Monocytes 10.6 % (0.0-10.0); %Neutrophils 63.5 % (42.0-75.0); Hemoglobin 10.5 g/dL (14.0-18.0); Mean Corpuscular Hemoglobin 30.3 pg (27.0-31.0); Mean Corpuscular Volume 94.6 fL (78.0-98.0); Mean Platelet Volume 7.8 fL (7.4-10.4); Platelet Count 263 thou/uL (130-400); RBC Distribution Width 14.4 % (11.5-14.5); Red Blood Cell (RBC) Count 3.46 mill/uL (4.70-6.10); White Blood Cell (WBC) Count 9.1 thou/uL (4.8-10.8)
[2022-01-05 04:38] LABS: Anion Gap 17 mmol/L (10-20); BUN (Urea Nitrogen) 28 mg/dL (8.4-25.7); Calc. Creatinine Clearance 9 mL/min (70-130); Calcium 9.5 mg/dL (7.8-10.44); Carbon Dioxide 25 mmol/L (23-31); Chloride 96 mmol/L (98-107); Glucose 94 mg/dL (83-110); Potassium 3.3 mmol/L (3.5-5.1); Sodium 135 mmol/L (136-145)
[2022-01-05 06:25] LABS: Vancomycin, Random 14.7 ug/mL (See Comment)
[2022-01-05] MEDS ORDERED: Epoetin (ESRD) 20,000 UNITS/ML SC SCH (06:45)
[2022-01-05] MEDS ORDERED: Albumin 25% 25 GM/100 ML BOT IVPB SCH (06:45)
[2022-01-05] MEDS: Midodrine HCl 5 MG TAB PO SCH ×3 (08:42→20:14)
[2022-01-05] MEDS: Heparin 5,000 UNITS/ML VIAL SC SCH ×3 (08:42→20:14)
[2022-01-05] MEDS: Pantoprazole 40 MG VIAL IVP SCH (08:42)
[2022-01-05] MEDS: HYDROcodone/Acetaminophen 5/325 mg Tablet PO PRN ×3 (08:44→20:14)
[2022-01-05] MEDS ORDERED: EPOETIN ALFA-EPBX (ESRD) 10,000 UNIT/ML VIAL SC SCH (12:00)
[2022-01-05] MEDS: Cefepime 1 GM in Sodium Chloride 0.9% 100 ML IVPB SCH (16:30)
[2022-01-05] MEDS ORDERED: Vancomycin HCl 750 MG in Sodium Chloride 0.9% 250 ML 250 ML IVPB SCH (17:00)
[2022-01-06 04:40] LABS: #Eosinphils 0.4 thou/uL (0.0-0.7); #Lymphocytes 1.7 thou/uL (1.20-3.40); #Monocytes 0.9 thou/uL (0.11-0.59); #Neutrophils 4.3 thou/uL (1.40-6.50); %Basophils 0.5 % (0.0-1.0); %Eosinophils 5.8 % (0.0-10.0); %Lymphocytes 23.6 % (21.0-51.0); %Monocytes 12.2 % (0.0-10.0); %Neutrophils 57.9 % (42.0-75.0); Hemoglobin 10.7 g/dL (14.0-18.0); Mean Corpuscular HGB CONC 31.6 g/dL (32.0-36.0); Mean Corpuscular Hemoglobin 30.2 pg (27.0-31.0); Mean Corpuscular Volume 95.8 fL (78.0-98.0); Mean Platelet Volume 7.8 fL (7.4-10.4); Platelet Count 270 thou/uL (130-400); RBC Distribution Width 14.5 % (11.5-14.5); Red Blood Cell (RBC) Count 3.54 mill/uL (4.70-6.10); White Blood Cell (WBC) Count 7.4 thou/uL (4.8-10.8)
[2022-01-06 05:02] LABS: Anion Gap 17 mmol/L (10-20); BUN (Urea Nitrogen) 17 mg/dL (8.4-25.7); Calc. Creatinine Clearance 12 mL/min (70-130); Calcium 9.5 mg/dL (7.8-10.44); Carbon Dioxide 26 mmol/L (23-31); Chloride 99 mmol/L (98-107); Glucose 101 mg/dL (83-110); Potassium 3.3 mmol/L (3.5-5.1); Sodium 139 mmol/L (136-145)
[2022-01-06] MEDS ORDERED: Non-Formulary Item 1 EACH (Vit D3-Vit K/Berberine/Hops [Ostera Tablet] 1 TABLET Tablet) PO SCH (09:00)
[2022-01-06] MEDS ORDERED: Potassium Chloride 20 MEQ TAB PO SCH (09:45)
[2022-01-06] MEDS: Midodrine HCl 5 MG TAB PO SCH ×3 (11:09→20:14)
[2022-01-06] MEDS: Saccharomyces boulardii 250 MG CAP PO SCH (11:09)
[2022-01-06] MEDS: Heparin 5,000 UNITS/ML VIAL SC SCH ×3 (11:09→20:14)
[2022-01-06] MEDS: Ferrous Sulfate 325 MG TAB PO SCH (11:09)
[2022-01-06] MEDS: Aspirin 81 mg Enteric Coated Tablet PO SCH (11:09)
[2022-01-06] MEDS: Cefepime 1 GM in Sodium Chloride 0.9% 100 ML IVPB SCH (16:25)
[2022-01-06] MEDS: HYDROcodone/Acetaminophen 5/325 mg Tablet PO PRN (20:14)
[2022-01-06] MEDS: Calcium Carbonate 500 MG ChewTAB PO PRN (22:21)
[2022-01-07 04:48] LABS: #Eosinphils 0.4 thou/uL (0.0-0.7); #Lymphocytes 1.6 thou/uL (1.20-3.40); #Neutrophils 4.9 thou/uL (1.40-6.50); %Basophils 0.5 % (0.0-1.0); %Eosinophils 5.5 % (0.0-10.0); %Lymphocytes 20.2 % (21.0-51.0); %Monocytes 11.9 % (0.0-10.0); %Neutrophils 61.8 % (42.0-75.0); Hemoglobin 11.6 g/dL (14.0-18.0); Mean Corpuscular HGB CONC 31.6 g/dL (32.0-36.0); Mean Corpuscular Hemoglobin 30.5 pg (27.0-31.0); Mean Corpuscular Volume 96.6 fL (78.0-98.0); Mean Platelet Volume 7.5 fL (7.4-10.4); Platelet Count 265 thou/uL (130-400); RBC Distribution Width 14.4 % (11.5-14.5); Red Blood Cell (RBC) Count 3.79 mill/uL (4.70-6.10)
[2022-01-07 05:13] LABS: Anion Gap 17 mmol/L (10-20); BUN (Urea Nitrogen) 27 mg/dL (8.4-25.7); Calc. Creatinine Clearance 8 mL/min (70-130); Calcium 9.7 mg/dL (7.8-10.44); Carbon Dioxide 24 mmol/L (23-31); Chloride 102 mmol/L (98-107); Glucose 134 mg/dL (83-110); Potassium 3.8 mmol/L (3.5-5.1); Sodium 139 mmol/L (136-145)
[2022-01-07] MEDS: Ferrous Sulfate 325 MG TAB PO SCH (09:44)
[2022-01-07] MEDS: Aspirin 81 mg Enteric Coated Tablet PO SCH (09:44)
[2022-01-07] MEDS: Heparin 5,000 UNITS/ML VIAL SC SCH ×3 (09:44→20:39)
[2022-01-07] MEDS: Midodrine HCl 5 MG TAB PO SCH ×3 (09:44→20:38)
[2022-01-07] MEDS: Saccharomyces boulardii 250 MG CAP PO SCH (09:45)
[2022-01-07] MEDS: cefTRIAXone\\ROCEPHIN 1 GM in Sodium Chloride 0.9% 100 ML IVPB SCH (15:55)
[2022-01-07] MEDS: Calcium Carbonate 500 MG ChewTAB PO PRN (22:16)
[2022-01-08 07:14] LABS: #Basophils 0.1 thou/uL (0.0-0.2); #Eosinphils 0.6 thou/uL (0.0-0.7); #Lymphocytes 1.9 thou/uL (1.20-3.40); #Monocytes 0.9 thou/uL (0.11-0.59); #Neutrophils 5.1 thou/uL (1.40-6.50); %Basophils 0.8 % (0.0-1.0); %Eosinophils 6.5 % (0.0-10.0); %Lymphocytes 22.2 % (21.0-51.0); %Monocytes 10.5 % (0.0-10.0); %Neutrophils 60.1 % (42.0-75.0); Hemoglobin 11.5 g/dL (14.0-18.0); Mean Corpuscular HGB CONC 30.8 g/dL (32.0-36.0); Mean Corpuscular Hemoglobin 30.2 pg (27.0-31.0); Mean Corpuscular Volume 98.1 fL (78.0-98.0); Mean Platelet Volume 7.3 fL (7.4-10.4); Platelet Count 290 thou/uL (130-400); RBC Distribution Width 14.5 % (11.5-14.5); White Blood Cell (WBC) Count 8.5 thou/uL (4.8-10.8)
[2022-01-08 07:24] LABS: Anion Gap 18 mmol/L (10-20); BUN (Urea Nitrogen) 36 mg/dL (8.4-25.7); Calc. Creatinine Clearance 6 mL/min (70-130); Calcium 9.7 mg/dL (7.8-10.44); Carbon Dioxide 22 mmol/L (23-31); Chloride 101 mmol/L (98-107); Glucose 140 mg/dL (83-110); Potassium 3.9 mmol/L (3.5-5.1); Sodium 137 mmol/L (136-145); Vancomycin, Random 17.7 ug/mL (See Comment)
[2022-01-08] MEDS: Midodrine HCl 5 MG TAB PO SCH ×3 (08:33→21:18)
[2022-01-08] MEDS: Heparin 5,000 UNITS/ML VIAL SC SCH ×3 (08:34→21:18)
[2022-01-08] MEDS: Aspirin 81 mg Enteric Coated Tablet PO SCH (14:35)
[2022-01-08] MEDS: Saccharomyces boulardii 250 MG CAP PO SCH (14:35)
[2022-01-08] MEDS: Ferrous Sulfate 325 MG TAB PO SCH (14:35)
[2022-01-08] MEDS ORDERED: Vancomycin HCl 500 MG in Sodium Chloride 0.9% 100 ML IVPB SCH (17:00)
[2022-01-08] MEDS: cefTRIAXone\\ROCEPHIN 1 GM in Sodium Chloride 0.9% 100 ML IVPB SCH (17:24)
[2022-01-09] MEDS: Ferrous Sulfate 325 MG TAB PO SCH (08:12)
[2022-01-09] MEDS: Heparin 5,000 UNITS/ML VIAL SC SCH (08:12)
[2022-01-09] MEDS: Midodrine HCl 5 MG TAB PO SCH (08:12)
[2022-01-09] MEDS: Saccharomyces boulardii 250 MG CAP PO SCH (08:12)
[2022-01-09] MEDS: Aspirin 81 mg Enteric Coated Tablet PO SCH (08:12)
[2022-01-09 08:20] VITALS: TEMP 98.6
[2022-01-09 08:35] VITALS: BP 93/58
== END 2022-01-09 13:15 | disposition home health service (06) | DRG 871 ==
LOC: ERS 15:34 → CCU 18:24 → 2NO 01-05 14:34 → T4-B 01-07 13:33
PROVIDERS: ADMIT Internal Medicine; ATTEND Family Medicine
PROC: 3E03329 Introduction of Other Anti-infective into Peripheral Vein, Percutaneous Approach (ICD-10-PCS; principal; 2022-01-03)
PROC: 3E033XZ Introduction of Vasopressor into Peripheral Vein, Percutaneous Approach (ICD-10-PCS; 2022-01-03)
PROC: 5A1D70Z Performance of Urinary Filtration, Intermittent, Less than 6 Hours Per Day (ICD-10-PCS; 2022-01-03)
DX: A41.9 Sepsis, unspecified organism (principal); N18.6 End stage renal disease; R65.21 Severe sepsis with septic shock; E87.2 Acidosis; E11.52 Type 2 diabetes mellitus with diabetic peripheral angiopathy with gangrene; Z20.822 Contact with and (suspected) exposure to COVID-19; I73.9 Peripheral vascular disease, unspecified; E11.22 Type 2 diabetes mellitus with diabetic chronic kidney disease; E11.621 Type 2 diabetes mellitus with foot ulcer; E11.42 Type 2 diabetes mellitus with diabetic polyneuropathy; H54.40 Blindness, one eye, unspecified eye; L97.519 Non-pressure chronic ulcer of other part of right foot with unspecified severity; Z79.899 Other long term (current) drug therapy; Z89.512 Acquired absence of left leg below knee; Z99.2 Dependence on renal dialysis; Z79.4 Long term (current) use of insulin
CPT/HCPCS: 36415; 36416; 36556; 36600; 71045; 80048; 80053; 80202; 82805; 83605; 85025; 86706; 87040; 87070; 87077; 87186; 87205; 87340; 90935; 96365; 96366; 96368; C9113; G0257; J0692; J0696; J1644; J3370; J3490; J7050; P9047; Q5105; U0002

== ENCOUNTER 2023-04-09 16:03 | Inpatient (IN) | payer MEDICARE ==
[~2023-04-09 16:03] MED LIST changes: +Iopamidol-370 76% 500 ML MDV (1 ML CHARGE) ONE; -Lidocaine 2% PF 100 mg/5 ml Syringe ONE; -Sodium Chloride 0.9% 15 ML NEB ONE
[2023-04-09 16:24] LABS: Actual Bicarbonate (HCO3v) 25.6 mEq/L (22-28); Base Excess -1.3 mEq/L (-2.0 to +3.0); Calcium, Ionized (venous) 1.16 mmol/L (1.16-1.32); Chloride (VBG) 96 mmol/L (98-106); Hematocrit-VBG 44 % (42.0-52.0); Potassium (VBG) 4.37 mmol/L (3.70-5.30); Sodium 133.2 mmol/L (133-146); pH (venous) 7.314 (7.32-7.43)
[2023-04-09 16:28] LABS: #Basophils 0.1 thou/uL (0.0-0.2); #Eosinphils 0.1 thou/uL (0.0-0.7); #Monocytes 0.9 thou/uL (0.11-0.59); #Neutrophils 4.9 thou/uL (1.40-6.50); %Basophils 1.2 % (0.0-1.0); %Eosinophils 1.7 % (0.0-10.0); %Lymphocytes 24.3 % (21.0-51.0); %Monocytes 11.6 % (0.0-10.0); %Neutrophils 60.5 % (42.0-75.0); Hematocrit 44.2 % (42.0-52.0); Hemoglobin 13.7 g/dL (14.0-18.0); Mean Corpuscular Hemoglobin 30.6 pg (27.0-31.0); Mean Corpuscular Volume 98.9 fl (78.0-98.0); Mean Platelet Volume 10.2 fL (7.4-10.4); Platelet Count 310 10x3/uL (130-400); RBC Distribution Width 16.6 % (11.5-14.5); Red Blood Cell (RBC) Count 4.47 mill/uL (4.70-6.10); White Blood Cell (WBC) Count 8.1 10x3/uL (4.8-10.8)
[2023-04-09 17:35] LABS: ALT (SGPT) 9 U/L (8-55); AST (SGOT) 7 U/L (5-34); Albumin 4.5 g/dL (3.4-4.8); Alkaline Phosphatase 91 U/L (40-110); Anion Gap 25 mmol/L (10-20); BUN (Urea Nitrogen) 14 mg/dL (8.4-25.7); Bilirubin, Total 0.3 mg/dL (0.2-1.2); Calc. Creatinine Clearance 0 mL/min (70-130); Carbon Dioxide 19 mmol/L (23-31); Chloride 98 mmol/L (98-107); Estimated GFR 8; Globulin 3.9 g/dL (2.4-3.5); Glucose 113 mg/dL (83-110); Potassium 4.4 mmol/L (3.5-5.1); Protein, Total 8.4 g/dL (5.8-8.1); Sodium 138 mmol/L (136-145)
[2023-04-09] MEDS ORDERED: Clindamycin/D5W 300 MG/50 ML BAG ONE (19:17)
[2023-04-09 21:04] LABS: Lactic Acid 2.7 mmol/L (0.5-2.2)
[2023-04-09] MEDS ORDERED: Albumin 25% 25 GM/100 ML BOT IVPB SCH (21:15)
[2023-04-09] MEDS ORDERED: Dextrose 5% in Water 1,000 ML IV PRN (21:26)
[2023-04-09] MEDS ORDERED: Dextrose 50% Abboject 50 ML SYRINGE SLOW IVP PRN (21:26)
[2023-04-09] MEDS ORDERED: HumaLOG 300 UNITS/3 ML VIAL SC PRN (21:26)
[2023-04-09] MEDS ORDERED: Glucagon 1 MG/ML KIT IM PRN (21:26)
[2023-04-10 05:06] LABS: #Basophils 0.1 thou/uL (0.0-0.2); #Eosinphils 0.2 thou/uL (0.0-0.7); #Monocytes 1.1 thou/uL (0.11-0.59); #Neutrophils 5.3 thou/uL (1.40-6.50); %Basophils 1.5 % (0.0-1.0); %Eosinophils 2.1 % (0.0-10.0); %Lymphocytes 24.4 % (21.0-51.0); %Monocytes 12.1 % (0.0-10.0); %Neutrophils 59.3 % (42.0-75.0); Hematocrit 40.6 % (42.0-52.0); Hemoglobin 12.7 g/dL (14.0-18.0); Mean Corpuscular HGB CONC 31.3 g/dL (32.0-36.0); Mean Corpuscular Hemoglobin 30.6 pg (27.0-31.0); Mean Corpuscular Volume 97.8 fl (78.0-98.0); Mean Platelet Volume 9.8 fL (7.4-10.4); Platelet Count 291 10x3/uL (130-400); RBC Distribution Width 16.7 % (11.5-14.5); Red Blood Cell (RBC) Count 4.15 mill/uL (4.70-6.10)
[2023-04-10 05:28] LABS: Lactic Acid 1.3 mmol/L (0.5-2.2)
[2023-04-10 05:32] LABS: ALT (SGPT) 8 U/L (8-55); AST (SGOT) 6 U/L (5-34); Albumin 4.4 g/dL (3.4-4.8); Alkaline Phosphatase 85 U/L (40-110); Anion Gap 17 mmol/L (10-20); BUN (Urea Nitrogen) 18 mg/dL (8.4-25.7); Bilirubin, Total 0.2 mg/dL (0.2-1.2); Calc. Creatinine Clearance 7 mL/min (70-130); Calcium 9.4 mg/dL (7.8-10.44); Carbon Dioxide 22 mmol/L (23-31); Chloride 100 mmol/L (98-107); Estimated GFR 7; Globulin 3.4 g/dL (2.4-3.5); Glucose 108 mg/dL (83-110); Potassium 4.3 mmol/L (3.5-5.1); Protein, Total 7.8 g/dL (5.8-8.1); Sodium 135 mmol/L (136-145)
[2023-04-10] MEDS ORDERED: DAPTOmycin 500 MG VIAL SLOW IVP SCH (06:15)
[2023-04-10] MEDS ORDERED: sulfaSALAzine 500 MG TAB PO SCH ×2 (07:45→14:00)
[2023-04-10] MEDS ORDERED: DAPTOmycin 500 MG in Sodium Chloride 0.9% 100 ML IVPB SCH (08:00)
[2023-04-10] MEDS ORDERED: Heparin 10,000 UNITS/ 10 ML VIAL ONE (08:20)
[2023-04-10] MEDS ORDERED: Non-Formulary Item 1 EACH (Midodrine [Midodrine] 10 MG Tab) PO SCH (09:00)
[2023-04-10] MEDS ORDERED: DorzolamidE/Timolol 2%/0.5% Ophth Soln 10 ml Bottle EA EYE SCH (09:00)
[2023-04-10] MEDS ORDERED: Latanoprost 0.005% Ophth Soln 2.5 ml Bottle EA EYE SCH (09:00)
[2023-04-10] MEDS ORDERED: Midodrine HCl 5 MG TAB PO SCH (09:00)
[2023-04-10] MEDS: Fludrocortisone Acetate 0.1 MG TAB PO SCH ×2 (09:53→20:17)
[2023-04-10] MEDS: Cholecalciferol 1,000 UNITS (25 MCG) TAB PO SCH (09:54)
[2023-04-10] MEDS: Heparin 5,000 UNITS/ML VIAL SC SCH ×3 (09:54→20:29)
[2023-04-10] MEDS: Aspirin 81 mg Enteric Coated Tablet PO SCH (09:54)
[2023-04-10] MEDS: Midodrine HCl 5 MG TAB PO SCH ×3 (09:56→20:17)
[2023-04-10] MEDS: DorzolamidE/Timolol 2%/0.5% Ophth Soln 10 ml Bottle EA EYE SCH (10:06)
[2023-04-10] MEDS: Latanoprost 0.005% Ophth Soln 2.5 ml Bottle EA EYE SCH (10:06)
[2023-04-10] MEDS ORDERED: Albumin 25% 25 GM/100 ML BOT IVPB SCH (20:15)
[2023-04-10] MEDS ORDERED: Cefepime 1 GM in Sodium Chloride 0.9% 100 ML IVPB SCH (22:00)
[2023-04-11] MEDS: sulfaSALAzine 500 MG TAB PO SCH ×4 (00:27→23:28)
[2023-04-11] MEDS ORDERED: Albumin 25% 25 GM/100 ML BOT IVPB SCH (01:30)
[2023-04-11 07:47] LABS: Glucose 126 mg/dL (83-110)
[2023-04-11 08:30] LABS: Anion Gap 21 mmol/L (10-20); BUN (Urea Nitrogen) 16 mg/dL (8.4-25.7); Calc. Creatinine Clearance 10 mL/min (70-130); Calcium 10.3 mg/dL (7.8-10.44); Carbon Dioxide 20 mmol/L (23-31); Chloride 99 mmol/L (98-107); Estimated GFR 10; Glucose 121 mg/dL (83-110); Potassium 4.2 mmol/L (3.5-5.1); Sodium 136 mmol/L (136-145)
[2023-04-11] MEDS: Fludrocortisone Acetate 0.1 MG TAB PO SCH ×2 (09:22→20:28)
[2023-04-11] MEDS: Cholecalciferol 1,000 UNITS (25 MCG) TAB PO SCH (09:22)
[2023-04-11] MEDS: Aspirin 81 mg Enteric Coated Tablet PO SCH (09:26)
[2023-04-11] MEDS: Midodrine HCl 5 MG TAB PO SCH ×3 (09:26→20:29)
[2023-04-11] MEDS: Latanoprost 0.005% Ophth Soln 2.5 ml Bottle EA EYE SCH (09:27)
[2023-04-11] MEDS: Heparin 5,000 UNITS/ML VIAL SC SCH ×3 (09:27→20:29)
[2023-04-11] MEDS: DorzolamidE/Timolol 2%/0.5% Ophth Soln 10 ml Bottle EA EYE SCH (09:27)
[2023-04-11] MEDS ORDERED: Diphenoxylate HCl/Atropine Tablet PO SCH (11:15)
[2023-04-11 12:23] LABS: Glucose 169 mg/dL (83-110)
[2023-04-11] MEDS: DAPTOmycin 500 MG in Sodium Chloride 0.9% 100 ML IVPB SCH (16:25)
[2023-04-11 18:00] LABS: Glucose 113 mg/dL (83-110)
[2023-04-11] MEDS: Diphenoxylate HCl/Atropine Tablet PO SCH (20:28)
[2023-04-11 21:29] LABS: Glucose 157 mg/dL (83-110)
[2023-04-12 04:38] LABS: #Basophils 0.1 thou/uL (0.0-0.2); #Eosinphils 0.3 thou/uL (0.0-0.7); #Monocytes 1.1 thou/uL (0.11-0.59); #Neutrophils 5.1 thou/uL (1.40-6.50); %Basophils 1.3 % (0.0-1.0); %Eosinophils 3.5 % (0.0-10.0); %Lymphocytes 28.9 % (21.0-51.0); %Monocytes 11.9 % (0.0-10.0); Hematocrit 42.6 % (42.0-52.0); Mean Corpuscular HGB CONC 30.5 g/dL (32.0-36.0); Mean Corpuscular Hemoglobin 30.7 pg (27.0-31.0); Mean Corpuscular Volume 100.5 fl (78.0-98.0); Mean Platelet Volume 9.9 fL (7.4-10.4); Platelet Count 392 10x3/uL (130-400); RBC Distribution Width 16.7 % (11.5-14.5); Red Blood Cell (RBC) Count 4.24 mill/uL (4.70-6.10); White Blood Cell (WBC) Count 9.4 10x3/uL (4.8-10.8)
[2023-04-12 05:00] LABS: Anion Gap 21 mmol/L (10-20); BUN (Urea Nitrogen) 20 mg/dL (8.4-25.7); Calc. Creatinine Clearance 7 mL/min (70-130); Calcium 10.3 mg/dL (7.8-10.44); Carbon Dioxide 20 mmol/L (23-31); Chloride 99 mmol/L (98-107); Estimated GFR 7; Glucose 109 mg/dL (83-110); Potassium 3.5 mmol/L (3.5-5.1); Sodium 136 mmol/L (136-145)
[2023-04-12 08:28] LABS: Glucose 114 mg/dL (83-110)
[2023-04-12] MEDS ORDERED: Heparin 10,000 UNITS/ 10 ML VIAL ONE (11:17)
[2023-04-12 12:29] LABS: Glucose 105 mg/dL (83-110)
[2023-04-12] MEDS: Diphenoxylate HCl/Atropine Tablet PO SCH ×2 (13:19→20:16)
[2023-04-12] MEDS: sulfaSALAzine 500 MG TAB PO SCH ×2 (13:20→17:07)
[2023-04-12] MEDS: Fludrocortisone Acetate 0.1 MG TAB PO SCH ×2 (13:22→20:15)
[2023-04-12] MEDS: Cholecalciferol 1,000 UNITS (25 MCG) TAB PO SCH (13:23)
[2023-04-12] MEDS: Aspirin 81 mg Enteric Coated Tablet PO SCH (13:23)
[2023-04-12] MEDS: Midodrine HCl 5 MG TAB PO SCH ×3 (13:23→20:16)
[2023-04-12] MEDS: Potassium Bicarbonate/Cit Ac 20 MEQ TAB PO SCH ×2 (13:23→19:12)
[2023-04-12] MEDS: Heparin 5,000 UNITS/ML VIAL SC SCH ×3 (13:24→20:15)
[2023-04-12] MEDS: DorzolamidE/Timolol 2%/0.5% Ophth Soln 10 ml Bottle EA EYE SCH (13:25)
[2023-04-12] MEDS: Latanoprost 0.005% Ophth Soln 2.5 ml Bottle EA EYE SCH (13:25)
[2023-04-12] MEDS ORDERED: Saccharomyces boulardii 250 MG CAP PO SCH (16:15)
[2023-04-12 17:31] LABS: Glucose 166 mg/dL (83-110)
[2023-04-12] MEDS: DAPTOmycin 500 MG in Sodium Chloride 0.9% 100 ML IVPB SCH (18:12)
[2023-04-12] MEDS ORDERED: Ondansetron ODT 4 MG TAB PO PRN (20:47)
[2023-04-12] MEDS: Ondansetron PF 4 MG/2 ML Vial IVP PRN (20:56)
[2023-04-12 22:09] LABS: Glucose 126 mg/dL (83-110)
[2023-04-13] MEDS: sulfaSALAzine 500 MG TAB PO SCH ×4 (00:03→23:50)
[2023-04-13] MEDS ORDERED: Sodium Chloride 0.9% 250 ML IV SCH (03:45)
[2023-04-13 08:01] LABS: Anion Gap 19 mmol/L (10-20); BUN (Urea Nitrogen) 17 mg/dL (8.4-25.7); BUN/Creatinine Ratio 2.89; Calc. Creatinine Clearance 9 mL/min (70-130); Calcium 10.2 mg/dL (7.8-10.44); Carbon Dioxide 21 mmol/L (23-31); Chloride 98 mmol/L (98-107); Estimated GFR 9; Glucose 120 mg/dL (83-110); Phosphorus 4.9 mg/dL (2.3-4.7); Potassium 3.9 mmol/L (3.5-5.1); Sodium 134 mmol/L (136-145)
[2023-04-13] MEDS: Midodrine HCl 5 MG TAB PO SCH ×3 (09:40→20:31)
[2023-04-13] MEDS: Calcium Carbonate 500 MG ChewTAB PO PRN (09:40)
[2023-04-13] MEDS: Fludrocortisone Acetate 0.1 MG TAB PO SCH ×2 (09:40→20:30)
[2023-04-13] MEDS: Cholecalciferol 1,000 UNITS (25 MCG) TAB PO SCH (09:42)
[2023-04-13] MEDS: Aspirin 81 mg Enteric Coated Tablet PO SCH (09:42)
[2023-04-13] MEDS: Latanoprost 0.005% Ophth Soln 2.5 ml Bottle EA EYE SCH (09:42)
[2023-04-13] MEDS: DorzolamidE/Timolol 2%/0.5% Ophth Soln 10 ml Bottle EA EYE SCH (09:43)
[2023-04-13] MEDS: Sodium Bicarbonate 50 MEQ in Sodium Chloride 0.45% 1,000 ML IV SCH ×2 (09:44→21:50)
[2023-04-13] MEDS: Heparin 5,000 UNITS/ML VIAL SC SCH ×3 (09:45→20:30)
[2023-04-13] MEDS: Diphenoxylate HCl/Atropine Tablet PO SCH ×2 (09:59→20:30)
[2023-04-13 12:02] LABS: Glucose 120 mg/dL (83-110)
[2023-04-13] MEDS: Saccharomyces boulardii 250 MG CAP PO SCH (12:24)
[2023-04-13] MEDS: Loperamide HCl 2 MG CAP PO PRN (15:43)
[2023-04-13] MEDS ORDERED: DAPTOmycin 500 MG in Sodium Chloride 0.9% 50 ML IVPB SCH (16:00)
[2023-04-13 17:49] LABS: Glucose 112 mg/dL (83-110)
[2023-04-13 21:46] LABS: Glucose 128 mg/dL (83-110)
[2023-04-14 05:50] LABS: Anion Gap 19 mmol/L (10-20); BUN (Urea Nitrogen) 23 mg/dL (8.4-25.7); Calc. Creatinine Clearance 7 mL/min (70-130); Calcium 10.1 mg/dL (7.8-10.44); Carbon Dioxide 25 mmol/L (23-31); Chloride 94 mmol/L (98-107); Estimated GFR 7; Glucose 111 mg/dL (83-110); Potassium 3.9 mmol/L (3.5-5.1); Sodium 134 mmol/L (136-145)
[2023-04-14] MEDS: Sodium Bicarbonate 50 MEQ in Sodium Chloride 0.45% 1,000 ML IV SCH (06:28)
[2023-04-14 08:11] LABS: Glucose 106 mg/dL (83-110)
[2023-04-14] MEDS: Diphenoxylate HCl/Atropine Tablet PO SCH ×2 (08:54→20:13)
[2023-04-14] MEDS: DorzolamidE/Timolol 2%/0.5% Ophth Soln 10 ml Bottle EA EYE SCH (08:54)
[2023-04-14] MEDS: Latanoprost 0.005% Ophth Soln 2.5 ml Bottle EA EYE SCH (08:54)
[2023-04-14] MEDS: sulfaSALAzine 500 MG TAB PO SCH ×3 (08:54→23:34)
[2023-04-14] MEDS: Fludrocortisone Acetate 0.1 MG TAB PO SCH ×2 (08:55→20:13)
[2023-04-14] MEDS: Midodrine HCl 5 MG TAB PO SCH ×3 (08:55→20:13)
[2023-04-14] MEDS: Aspirin 81 mg Enteric Coated Tablet PO SCH (08:56)
[2023-04-14] MEDS: Saccharomyces boulardii 250 MG CAP PO SCH (08:56)
[2023-04-14] MEDS: Cholecalciferol 1,000 UNITS (25 MCG) TAB PO SCH (08:56)
[2023-04-14] MEDS: Heparin 5,000 UNITS/ML VIAL SC SCH ×3 (09:02→20:13)
[2023-04-14 12:07] LABS: Glucose 100 mg/dL (83-110)
[2023-04-14] MEDS: Calcium Carbonate 500 MG ChewTAB PO PRN (17:07)
[2023-04-14 17:23] LABS: Glucose 105 mg/dL (83-110)
[2023-04-14 21:31] LABS: Glucose 125 mg/dL (83-110)
[2023-04-15] MEDS: Heparin 5,000 UNITS/ML VIAL SC SCH ×3 (08:06→20:58)
[2023-04-15] MEDS: DorzolamidE/Timolol 2%/0.5% Ophth Soln 10 ml Bottle EA EYE SCH (08:08)
[2023-04-15] MEDS: Latanoprost 0.005% Ophth Soln 2.5 ml Bottle EA EYE SCH (08:08)
[2023-04-15] MEDS: Diphenoxylate HCl/Atropine Tablet PO SCH ×2 (08:09→20:58)
[2023-04-15] MEDS: Midodrine HCl 5 MG TAB PO SCH ×3 (08:09→20:57)
[2023-04-15] MEDS: Cholecalciferol 1,000 UNITS (25 MCG) TAB PO SCH (08:09)
[2023-04-15] MEDS: sulfaSALAzine 500 MG TAB PO SCH ×3 (08:09→22:19)
[2023-04-15] MEDS: Aspirin 81 mg Enteric Coated Tablet PO SCH (08:09)
[2023-04-15] MEDS: Fludrocortisone Acetate 0.1 MG TAB PO SCH ×2 (08:09→20:57)
[2023-04-15] MEDS: Saccharomyces boulardii 250 MG CAP PO SCH (08:10)
[2023-04-15 08:31] LABS: Glucose 96 mg/dL (83-110)
[2023-04-15] MEDS ORDERED: Heparin 10,000 UNITS/ 10 ML VIAL ONE (09:12)
[2023-04-15 13:54] LABS: Glucose 90 mg/dL (83-110)
[2023-04-15 17:21] LABS: Glucose 106 mg/dL (83-110)
[2023-04-15] MEDS: Calcium Carbonate 500 MG ChewTAB PO PRN (20:57)
[2023-04-15 21:37] LABS: Glucose 117 mg/dL (83-110)
[2023-04-15] MEDS ORDERED: Sodium Chloride 0.9% 500 ML IV SCH (22:00)
[2023-04-16 08:27] LABS: Glucose 108 mg/dL (83-110)
[2023-04-16] MEDS: sulfaSALAzine 500 MG TAB PO SCH ×2 (09:35→16:30)
[2023-04-16] MEDS: Heparin 5,000 UNITS/ML VIAL SC SCH ×3 (09:35→21:16)
[2023-04-16] MEDS: Fludrocortisone Acetate 0.1 MG TAB PO SCH ×2 (09:36→21:16)
[2023-04-16] MEDS: Diphenoxylate HCl/Atropine Tablet PO SCH ×2 (09:36→21:16)
[2023-04-16] MEDS: Midodrine HCl 5 MG TAB PO SCH ×3 (09:36→21:15)
[2023-04-16] MEDS: Cholecalciferol 1,000 UNITS (25 MCG) TAB PO SCH (09:36)
[2023-04-16] MEDS: Saccharomyces boulardii 250 MG CAP PO SCH (09:36)
[2023-04-16] MEDS: Aspirin 81 mg Enteric Coated Tablet PO SCH (09:37)
[2023-04-16] MEDS: Latanoprost 0.005% Ophth Soln 2.5 ml Bottle EA EYE SCH (11:00)
[2023-04-16] MEDS: DorzolamidE/Timolol 2%/0.5% Ophth Soln 10 ml Bottle EA EYE SCH (11:18)
[2023-04-16 13:48] LABS: Glucose 102 mg/dL (83-110)
[2023-04-16] MEDS: Acetaminophen 325 MG TAB PO PRN (16:29)
[2023-04-16 17:38] LABS: Glucose 93 mg/dL (83-110)
[2023-04-16] MEDS: Calcium Carbonate 500 MG ChewTAB PO PRN (21:15)
[2023-04-16 22:01] LABS: Glucose 96 mg/dL (83-110)
[2023-04-17] MEDS: sulfaSALAzine 500 MG TAB PO SCH ×4 (00:12→23:26)
[2023-04-17] MEDS: Midodrine HCl 5 MG TAB PO SCH ×3 (08:40→20:02)
[2023-04-17] MEDS: Heparin 5,000 UNITS/ML VIAL SC SCH ×3 (08:41→20:04)
[2023-04-17] MEDS ORDERED: Heparin 10,000 UNITS/ 10 ML VIAL ONE (09:03)
[2023-04-17] MEDS ORDERED: Sodium Chloride 1 GM TAB PO SCH ×2 (09:30→15:00)
[2023-04-17 11:02] LABS: Glucose 115 mg/dL (83-110)
[2023-04-17 12:08] LABS: Glucose 103 mg/dL (83-110)
[2023-04-17] MEDS: Saccharomyces boulardii 250 MG CAP PO SCH (15:35)
[2023-04-17] MEDS: Aspirin 81 mg Enteric Coated Tablet PO SCH (15:38)
[2023-04-17] MEDS: Latanoprost 0.005% Ophth Soln 2.5 ml Bottle EA EYE SCH (15:38)
[2023-04-17] MEDS: Fludrocortisone Acetate 0.1 MG TAB PO SCH ×2 (15:38→20:03)
[2023-04-17] MEDS: Sodium Chloride 1 GM TAB PO SCH ×2 (15:39→20:03)
[2023-04-17] MEDS: DorzolamidE/Timolol 2%/0.5% Ophth Soln 10 ml Bottle EA EYE SCH (15:39)
[2023-04-17] MEDS: Cholecalciferol 1,000 UNITS (25 MCG) TAB PO SCH (15:40)
[2023-04-17] MEDS: Diphenoxylate HCl/Atropine Tablet PO SCH ×2 (15:41→20:02)
[2023-04-17 17:45] LABS: Glucose 122 mg/dL (83-110)
[2023-04-17 21:46] LABS: Glucose 135 mg/dL (83-110)
[2023-04-18 02:45] LABS: HBSAB Concentration Less than 8.00 mIU/mL; Hep B Core Total Ab Non-Reactive (NonReactive); Hep B Core Total Index 0.11 S/CO (0-0.79); Hep B Surf AB Non-Reactive (NonReactive); Hep B Surf Ag Non-Reactive S/CO (NonReactive); Hep C IgG Ab Non-Reactive S/CO (NonReactive); Hep C Index 0.07 S/CO (0-0.79)
[2023-04-18 07:55] LABS: Glucose 116 mg/dL (83-110)
[2023-04-18 09:12] LABS: Anion Gap 22 mmol/L (10-20); BUN (Urea Nitrogen) 16 mg/dL (8.4-25.7); Calc. Creatinine Clearance 8 mL/min (70-130); Calcium 9.9 mg/dL (7.8-10.44); Carbon Dioxide 19 mmol/L (23-31); Chloride 98 mmol/L (98-107); Estimated GFR 8; Glucose 120 mg/dL (83-110); Potassium 4.2 mmol/L (3.5-5.1); Sodium 135 mmol/L (136-145)
[2023-04-18] MEDS: sulfaSALAzine 500 MG TAB PO SCH ×3 (09:24→23:30)
[2023-04-18] MEDS: Fludrocortisone Acetate 0.1 MG TAB PO SCH ×2 (09:27→20:21)
[2023-04-18] MEDS: Sodium Chloride 1 GM TAB PO SCH ×3 (09:27→20:21)
[2023-04-18] MEDS: Saccharomyces boulardii 250 MG CAP PO SCH (09:27)
[2023-04-18] MEDS: Midodrine HCl 5 MG TAB PO SCH ×3 (09:27→20:21)
[2023-04-18] MEDS: Aspirin 81 mg Enteric Coated Tablet PO SCH (09:28)
[2023-04-18] MEDS: DorzolamidE/Timolol 2%/0.5% Ophth Soln 10 ml Bottle EA EYE SCH (09:28)
[2023-04-18] MEDS: Latanoprost 0.005% Ophth Soln 2.5 ml Bottle EA EYE SCH (09:28)
[2023-04-18] MEDS: Cholecalciferol 1,000 UNITS (25 MCG) TAB PO SCH (09:29)
[2023-04-18] MEDS: Heparin 5,000 UNITS/ML VIAL SC SCH ×3 (09:34→20:22)
[2023-04-18] MEDS: Diphenoxylate HCl/Atropine Tablet PO SCH ×2 (10:17→20:21)
[2023-04-18] MEDS: Calcium Carbonate 500 MG ChewTAB PO PRN (10:22)
[2023-04-18 11:41] LABS: Glucose 135 mg/dL (83-110)
[2023-04-18 17:09] LABS: Glucose 133 mg/dL (83-110)
[2023-04-18 21:38] LABS: Glucose 130 mg/dL (83-110)
[2023-04-19 08:09] LABS: Glucose 127 mg/dL (83-110)
[2023-04-19] MEDS: Fludrocortisone Acetate 0.1 MG TAB PO SCH ×2 (08:36→20:11)
[2023-04-19] MEDS: sulfaSALAzine 500 MG TAB PO SCH ×3 (08:36→23:42)
[2023-04-19] MEDS: Diphenoxylate HCl/Atropine Tablet PO SCH ×2 (08:36→20:11)
[2023-04-19] MEDS: Saccharomyces boulardii 250 MG CAP PO SCH (08:36)
[2023-04-19] MEDS: Heparin 5,000 UNITS/ML VIAL SC SCH ×3 (08:36→20:11)
[2023-04-19] MEDS: Midodrine HCl 5 MG TAB PO SCH ×3 (08:37→20:11)
[2023-04-19] MEDS: Aspirin 81 mg Enteric Coated Tablet PO SCH (08:37)
[2023-04-19] MEDS: Sodium Chloride 1 GM TAB PO SCH ×3 (08:37→20:11)
[2023-04-19] MEDS: Latanoprost 0.005% Ophth Soln 2.5 ml Bottle EA EYE SCH (08:38)
[2023-04-19] MEDS: DorzolamidE/Timolol 2%/0.5% Ophth Soln 10 ml Bottle EA EYE SCH (08:38)
[2023-04-19] MEDS: Cholecalciferol 1,000 UNITS (25 MCG) TAB PO SCH (08:38)
[2023-04-19] MEDS ORDERED: Heparin 10,000 UNITS/ 10 ML VIAL ONE (11:27)
[2023-04-19 12:06] LABS: Glucose 137 mg/dL (83-110)
[2023-04-19 17:43] LABS: Glucose 126 mg/dL (83-110)
[2023-04-19] MEDS: Calcium Carbonate 500 MG ChewTAB PO PRN (18:40)
[2023-04-19 21:34] LABS: Glucose 128 mg/dL (83-110)
[2023-04-20] MEDS ORDERED: Sodium Chloride 0.9% 500 ML IV SCH (03:30)
[2023-04-20 07:30] LABS: Glucose 140 mg/dL (83-110)
[2023-04-20] MEDS: DorzolamidE/Timolol 2%/0.5% Ophth Soln 10 ml Bottle EA EYE SCH (10:51)
[2023-04-20] MEDS: Sodium Chloride 1 GM TAB PO SCH ×3 (10:52→20:34)
[2023-04-20] MEDS: Latanoprost 0.005% Ophth Soln 2.5 ml Bottle EA EYE SCH (10:52)
[2023-04-20] MEDS: Fludrocortisone Acetate 0.1 MG TAB PO SCH ×2 (10:53→20:34)
[2023-04-20] MEDS: Midodrine HCl 5 MG TAB PO SCH ×3 (10:53→20:34)
[2023-04-20] MEDS: sulfaSALAzine 500 MG TAB PO SCH ×3 (10:53→23:29)
[2023-04-20] MEDS: Cholecalciferol 1,000 UNITS (25 MCG) TAB PO SCH (10:53)
[2023-04-20] MEDS: Saccharomyces boulardii 250 MG CAP PO SCH (10:54)
[2023-04-20] MEDS: Aspirin 81 mg Enteric Coated Tablet PO SCH (10:54)
[2023-04-20] MEDS: Heparin 5,000 UNITS/ML VIAL SC SCH ×3 (10:55→20:32)
[2023-04-20] MEDS: Diphenoxylate HCl/Atropine Tablet PO SCH ×2 (11:17→20:34)
[2023-04-20 12:02] LABS: Glucose 133 mg/dL (83-110)
[2023-04-20 17:19] LABS: Glucose 127 mg/dL (83-110)
[2023-04-20] MEDS: Calcium Carbonate 500 MG ChewTAB PO PRN (17:55)
[2023-04-20 21:32] LABS: Glucose 115 mg/dL (83-110)
[2023-04-21] MEDS: Ondansetron PF 4 MG/2 ML Vial IVP PRN (03:43)
[2023-04-21] MEDS: Loperamide HCl 2 MG CAP PO PRN (03:43)
[2023-04-21 06:21] LABS: Anion Gap 21 mmol/L (10-20); BUN (Urea Nitrogen) 22 mg/dL (8.4-25.7); Calc. Creatinine Clearance 7 mL/min (70-130); Calcium 10.4 mg/dL (7.8-10.44); Carbon Dioxide 17 mmol/L (23-31); Chloride 101 mmol/L (98-107); Estimated GFR 7; Glucose 141 mg/dL (83-110); Sodium 135 mmol/L (136-145)
[2023-04-21 07:56] LABS: Glucose 127 mg/dL (83-110)
[2023-04-21] MEDS ORDERED: Heparin 10,000 UNITS/ 10 ML VIAL ONE (09:11)
[2023-04-21] MEDS: Sodium Bicarbonate Tab 325 MG TAB PO SCH ×3 (09:18→21:14)
[2023-04-21] MEDS: sulfaSALAzine 500 MG TAB PO SCH ×3 (09:18→23:32)
[2023-04-21] MEDS: Diphenoxylate HCl/Atropine Tablet PO SCH ×2 (09:19→21:14)
[2023-04-21] MEDS: Sodium Chloride 1 GM TAB PO SCH ×3 (09:19→21:13)
[2023-04-21] MEDS: Midodrine HCl 5 MG TAB PO SCH ×3 (09:20→21:13)
[2023-04-21] MEDS: Fludrocortisone Acetate 0.1 MG TAB PO SCH ×2 (09:20→21:14)
[2023-04-21] MEDS: Saccharomyces boulardii 250 MG CAP PO SCH (09:20)
[2023-04-21] MEDS: Cholecalciferol 1,000 UNITS (25 MCG) TAB PO SCH (09:20)
[2023-04-21] MEDS: Aspirin 81 mg Enteric Coated Tablet PO SCH (09:20)
[2023-04-21] MEDS: DorzolamidE/Timolol 2%/0.5% Ophth Soln 10 ml Bottle EA EYE SCH (09:20)
[2023-04-21] MEDS: Latanoprost 0.005% Ophth Soln 2.5 ml Bottle EA EYE SCH (09:21)
[2023-04-21] MEDS: Calcium Carbonate 500 MG ChewTAB PO PRN ×3 (09:26→21:14)
[2023-04-21] MEDS: Heparin 5,000 UNITS/ML VIAL SC SCH ×3 (09:37→21:12)
[2023-04-21 12:24] LABS: Glucose 173 mg/dL (83-110)
[2023-04-21 17:45] LABS: Glucose 127 mg/dL (83-110)
[2023-04-21 22:06] LABS: Glucose 159 mg/dL (83-110)
[2023-04-22 05:10] LABS: #Basophils 0.1 thou/uL (0.0-0.2); #Eosinphils 0.9 thou/uL (0.0-0.7); #Monocytes 0.8 thou/uL (0.11-0.59); #Neutrophils 5.2 thou/uL (1.40-6.50); %Eosinophils 9.6 % (0.0-10.0); %Lymphocytes 23.4 % (21.0-51.0); %Monocytes 8.5 % (0.0-10.0); Hematocrit 47.6 % (42.0-52.0); Hemoglobin 14.5 g/dL (14.0-18.0); Mean Corpuscular HGB CONC 30.5 g/dL (32.0-36.0); Mean Corpuscular Hemoglobin 30.9 pg (27.0-31.0); Mean Corpuscular Volume 101.3 fl (78.0-98.0); Platelet Count 313 10x3/uL (130-400); RBC Distribution Width 16.3 % (11.5-14.5); White Blood Cell (WBC) Count 9.2 10x3/uL (4.8-10.8)
[2023-04-22] MEDS: Ondansetron PF 4 MG/2 ML Vial IVP PRN ×2 (05:22→21:05)
[2023-04-22 05:29] LABS: Anion Gap 21 mmol/L (10-20); BUN (Urea Nitrogen) 29 mg/dL (8.4-25.7); Calc. Creatinine Clearance 6 mL/min (70-130); Calcium 11.6 mg/dL (7.8-10.44); Carbon Dioxide 19 mmol/L (23-31); Chloride 100 mmol/L (98-107); Estimated GFR 6; Glucose 151 mg/dL (83-110); Potassium 4.2 mmol/L (3.5-5.1); Sodium 136 mmol/L (136-145)
[2023-04-22] MEDS ORDERED: Sodium Chloride 0.9% 250 ML 250 ML IVPB SCH (05:45)
[2023-04-22] MEDS ORDERED: Midodrine HCl 5 MG TAB PO SCH (05:45)
[2023-04-22] MEDS: Heparin 5,000 UNITS/ML VIAL SC SCH ×3 (08:08→21:05)
[2023-04-22] MEDS: Midodrine HCl 5 MG TAB PO SCH ×3 (08:08→21:05)
[2023-04-22 09:48] LABS: Glucose 134 mg/dL (83-110)
[2023-04-22] MEDS: Albumin 25% 25 GM/100 ML BOT IVPB SCH ×3 (12:22→21:04)
[2023-04-22] MEDS: sulfaSALAzine 500 MG TAB PO SCH ×4 (12:23→23:35)
[2023-04-22] MEDS: Sodium Bicarbonate Tab 325 MG TAB PO SCH ×3 (12:24→21:06)
[2023-04-22] MEDS: Fludrocortisone Acetate 0.1 MG TAB PO SCH ×2 (12:25→21:06)
[2023-04-22] MEDS: Sodium Chloride 1 GM TAB PO SCH ×3 (12:26→21:05)
[2023-04-22] MEDS: Aspirin 81 mg Enteric Coated Tablet PO SCH (12:26)
[2023-04-22] MEDS: Saccharomyces boulardii 250 MG CAP PO SCH (12:26)
[2023-04-22] MEDS: Cholecalciferol 1,000 UNITS (25 MCG) TAB PO SCH (12:26)
[2023-04-22] MEDS: DorzolamidE/Timolol 2%/0.5% Ophth Soln 10 ml Bottle EA EYE SCH (12:29)
[2023-04-22] MEDS: Loperamide HCl 2 MG CAP PO PRN (12:29)
[2023-04-22] MEDS: Latanoprost 0.005% Ophth Soln 2.5 ml Bottle EA EYE SCH (12:29)
[2023-04-22 13:41] LABS: Glucose 115 mg/dL (83-110)
[2023-04-22] MEDS: Calcium Carbonate 500 MG ChewTAB PO PRN (18:41)
[2023-04-22 19:45] LABS: Glucose 149 mg/dL (83-110)
[2023-04-22] MEDS: Diphenoxylate HCl/Atropine Tablet PO SCH ×2 (20:40→21:05)
[2023-04-22] MEDS ORDERED: Lidocaine 2% Viscous Solution 10 ML, Aluminum & Magnesium Hydroxide 30 ML SSW SCH (21:45)
[2023-04-22 21:52] LABS: Glucose 161 mg/dL (83-110)
[2023-04-23] MEDS: Albumin 25% 25 GM/100 ML BOT IVPB SCH (01:11)
[2023-04-23] MEDS ORDERED: Sodium Chloride 0.9% 250 ML IV SCH (05:00)
[2023-04-23 07:12] LABS: Anion Gap 31 mmol/L (10-20); BUN (Urea Nitrogen) 19 mg/dL (8.4-25.7); Calc. Creatinine Clearance 8 mL/min (70-130); Calcium 12.1 mg/dL (7.8-10.44); Carbon Dioxide 12 mmol/L (23-31); Chloride 99 mmol/L (98-107); Estimated GFR 8; Glucose 132 mg/dL (83-110); Potassium 4.2 mmol/L (3.5-5.1); Sodium 138 mmol/L (136-145)
[2023-04-23 07:39] LABS: Glucose 126 mg/dL (83-110)
[2023-04-23] MEDS: Diphenoxylate HCl/Atropine Tablet PO SCH ×2 (08:34→21:31)
[2023-04-23] MEDS: Midodrine HCl 5 MG TAB PO SCH ×3 (08:35→21:31)
[2023-04-23] MEDS: Sodium Bicarbonate Tab 325 MG TAB PO SCH ×3 (08:36→21:31)
[2023-04-23] MEDS: Fludrocortisone Acetate 0.1 MG TAB PO SCH ×2 (08:36→21:30)
[2023-04-23] MEDS: Saccharomyces boulardii 250 MG CAP PO SCH (08:37)
[2023-04-23] MEDS: Aspirin 81 mg Enteric Coated Tablet PO SCH (08:37)
[2023-04-23] MEDS: Ondansetron PF 4 MG/2 ML Vial IVP PRN (08:37)
[2023-04-23] MEDS: Cholecalciferol 1,000 UNITS (25 MCG) TAB PO SCH (08:37)
[2023-04-23] MEDS: Sodium Chloride 1 GM TAB PO SCH ×3 (08:37→21:31)
[2023-04-23] MEDS: sulfaSALAzine 500 MG TAB PO SCH ×3 (08:37→22:58)
[2023-04-23] MEDS: Heparin 5,000 UNITS/ML VIAL SC SCH ×3 (08:38→21:31)
[2023-04-23] MEDS: DorzolamidE/Timolol 2%/0.5% Ophth Soln 10 ml Bottle EA EYE SCH (09:42)
[2023-04-23] MEDS: Latanoprost 0.005% Ophth Soln 2.5 ml Bottle EA EYE SCH (09:42)
[2023-04-23] MEDS: Calcium Carbonate 500 MG ChewTAB PO PRN (11:54)
[2023-04-23] MEDS: Acetaminophen 325 MG TAB PO PRN (11:54)
[2023-04-23] MEDS: Sodium Chloride 0.9% 1,000 ML IV SCH ×3 (11:56→22:57)
[2023-04-23 12:17] LABS: Glucose 190 mg/dL (83-110)
[2023-04-23] MEDS ORDERED: NOREPINEPHRINE 8 MG/250 ML-D5W 250 ML IVPB SCH (17:30)
[2023-04-23] MEDS: Vasopressin 20 UNITS in Sodium Chloride 0.9% 50 ML IV SCH ×2 (17:43→22:58)
[2023-04-23 19:12] LABS: Glucose 149 mg/dL (83-110)
[2023-04-23 19:40] LABS: Free T4 (Free Thyroxine) 0.85 ng/dL (0.70-1.48)
[2023-04-23] MEDS ORDERED: methylPREDNISolone Sod Succ 40 MG VIAL IVP SCH (22:00)
[2023-04-24 04:10] LABS: Anion Gap 21 mmol/L (10-20); BUN (Urea Nitrogen) 38 mg/dL (8.4-25.7); Calc. Creatinine Clearance 6 mL/min (70-130); Calcium 10.7 mg/dL (7.8-10.44); Carbon Dioxide 18 mmol/L (23-31); Chloride 102 mmol/L (98-107); Estimated GFR 7; Glucose 154 mg/dL (83-110); Potassium 3.4 mmol/L (3.5-5.1); Sodium 138 mmol/L (136-145)
[2023-04-24] MEDS: Vasopressin 20 UNITS in Sodium Chloride 0.9% 50 ML IV SCH (07:35)
[2023-04-24 08:23] LABS: #Basophils 0.1 thou/uL (0.0-0.2); #Eosinphils 0.3 thou/uL (0.0-0.7); #Neutrophils 14.9 thou/uL (1.40-6.50); %Basophils 0.5 % (0.0-1.0); %Eosinophils 1.5 % (0.0-10.0); %Lymphocytes 11.2 % (21.0-51.0); %Monocytes 5.4 % (0.0-10.0); %Neutrophils 80.9 % (42.0-75.0); Hematocrit 43.1 % (42.0-52.0); Hemoglobin 13.2 g/dL (14.0-18.0); Mean Corpuscular HGB CONC 30.6 g/dL (32.0-36.0); Mean Corpuscular Hemoglobin 31.2 pg (27.0-31.0); Mean Corpuscular Volume 101.9 fl (78.0-98.0); Mean Platelet Volume 10.7 fL (7.4-10.4); Platelet Count 284 10x3/uL (130-400); RBC Distribution Width 16.4 % (11.5-14.5); Red Blood Cell (RBC) Count 4.23 mill/uL (4.70-6.10); White Blood Cell (WBC) Count 18.4 10x3/uL (4.8-10.8)
[2023-04-24] MEDS ORDERED: Heparin 10,000 UNITS/ 10 ML VIAL ONE (08:48)
[2023-04-24] MEDS: sulfaSALAzine 500 MG TAB PO SCH ×3 (09:30→23:16)
[2023-04-24] MEDS: Diphenoxylate HCl/Atropine Tablet PO SCH ×2 (09:30→21:17)
[2023-04-24] MEDS ORDERED: Vancomycin Hemodialysis Sliding Scale FS SCH (09:30)
[2023-04-24] MEDS ORDERED: Vancomycin 1 GM in Premix Bag 1 BAG IVPB SCH ×2 (09:30→12:00)
[2023-04-24] MEDS: Sodium Chloride 1 GM TAB PO SCH ×3 (09:31→21:18)
[2023-04-24] MEDS: Midodrine HCl 5 MG TAB PO SCH ×3 (09:31→21:18)
[2023-04-24] MEDS: Cholecalciferol 1,000 UNITS (25 MCG) TAB PO SCH (09:32)
[2023-04-24] MEDS: Sodium Bicarbonate Tab 325 MG TAB PO SCH ×3 (09:32→21:18)
[2023-04-24] MEDS: Saccharomyces boulardii 250 MG CAP PO SCH (09:32)
[2023-04-24] MEDS: Aspirin 81 mg Enteric Coated Tablet PO SCH (09:33)
[2023-04-24] MEDS: Heparin 5,000 UNITS/ML VIAL SC SCH ×3 (09:33→21:17)
[2023-04-24] MEDS: DorzolamidE/Timolol 2%/0.5% Ophth Soln 10 ml Bottle EA EYE SCH (10:00)
[2023-04-24] MEDS ORDERED: Cosyntropin 250 MCG VIAL SLOW IVP SCH (10:00)
[2023-04-24] MEDS: Fludrocortisone Acetate 0.1 MG TAB PO SCH ×2 (11:00→21:18)
[2023-04-24] MEDS: Sodium Chloride 0.9% 1,000 ML IV SCH ×3 (11:58→21:28)
[2023-04-24] MEDS: Latanoprost 0.005% Ophth Soln 2.5 ml Bottle EA EYE SCH (12:02)
[2023-04-24] MEDS: Cefepime 1 GM in Sodium Chloride 0.9% 100 ML IVPB SCH (15:27)
[2023-04-24] MEDS: Calcium Carbonate 500 MG ChewTAB PO PRN ×2 (15:51→21:34)
[2023-04-24] MEDS ORDERED: NOREPINEPHRINE 8 MG/250 ML-D5W 250 ML IVPB PRN (18:45)
[2023-04-24] MEDS: methylPREDNISolone Sod Succ 40 MG VIAL IVP SCH (21:17)
[2023-04-25] MEDS: Sodium Chloride 0.9% 1,000 ML IV SCH ×3 (04:02→21:17)
[2023-04-25 04:18] LABS: Campy jejuni + coli by PCR Negative (Negative); STEC Shiga Toxin 1+2 Negative (Negative); Salmonella spp. by PCR Negative (Negative); Shigella spp + EIEC by PCR Negative (Negative)
[2023-04-25 04:24] LABS: #Basophils 0.1 thou/uL (0.0-0.2); #Eosinphils 0.1 thou/uL (0.0-0.7); #Monocytes 1.2 thou/uL (0.11-0.59); #Neutrophils 13.6 thou/uL (1.40-6.50); %Basophils 0.3 % (0.0-1.0); %Eosinophils 0.8 % (0.0-10.0); %Lymphocytes 5.8 % (21.0-51.0); %Monocytes 7.2 % (0.0-10.0); %Neutrophils 85.1 % (42.0-75.0); Hematocrit 37.5 % (42.0-52.0); Hemoglobin 11.8 g/dL (14.0-18.0); Mean Corpuscular HGB CONC 31.5 g/dL (32.0-36.0); Mean Corpuscular Hemoglobin 31.5 pg (27.0-31.0); Mean Platelet Volume 10.6 fL (7.4-10.4); Platelet Count 247 10x3/uL (130-400); RBC Distribution Width 16.5 % (11.5-14.5); Red Blood Cell (RBC) Count 3.75 mill/uL (4.70-6.10)
[2023-04-25 04:46] LABS: Anion Gap 16 mmol/L (10-20); BUN (Urea Nitrogen) 27 mg/dL (8.4-25.7); Calc. Creatinine Clearance 10 mL/min (70-130); Calcium 9.7 mg/dL (7.8-10.44); Carbon Dioxide 20 mmol/L (23-31); Chloride 106 mmol/L (98-107); Estimated GFR 11; Glucose 137 mg/dL (83-110); Potassium 2.9 mmol/L (3.5-5.1); Sodium 139 mmol/L (136-145)
[2023-04-25] MEDS: methylPREDNISolone Sod Succ 40 MG VIAL IVP SCH ×3 (05:04→21:16)
[2023-04-25] MEDS ORDERED: Potassium Chloride 20 MEQ TAB PO SCH (07:45)
[2023-04-25] MEDS: Saccharomyces boulardii 250 MG CAP PO SCH (07:59)
[2023-04-25] MEDS: Sodium Bicarbonate Tab 325 MG TAB PO SCH ×3 (07:59→20:23)
[2023-04-25] MEDS: Fludrocortisone Acetate 0.1 MG TAB PO SCH ×2 (07:59→20:22)
[2023-04-25] MEDS: Aspirin 81 mg Enteric Coated Tablet PO SCH (08:00)
[2023-04-25] MEDS: Cholecalciferol 1,000 UNITS (25 MCG) TAB PO SCH (08:01)
[2023-04-25] MEDS: Midodrine HCl 5 MG TAB PO SCH ×3 (08:01→20:22)
[2023-04-25] MEDS: Diphenoxylate HCl/Atropine Tablet PO SCH ×2 (08:01→20:22)
[2023-04-25] MEDS: Sodium Chloride 1 GM TAB PO SCH ×3 (08:02→20:22)
[2023-04-25] MEDS: Heparin 5,000 UNITS/ML VIAL SC SCH ×3 (08:14→20:23)
[2023-04-25] MEDS: Calcium Carbonate 500 MG ChewTAB PO PRN ×2 (08:19→12:21)
[2023-04-25] MEDS: sulfaSALAzine 500 MG TAB PO SCH ×3 (08:54→23:53)
[2023-04-25] MEDS: DorzolamidE/Timolol 2%/0.5% Ophth Soln 10 ml Bottle EA EYE SCH (08:54)
[2023-04-25] MEDS: Latanoprost 0.005% Ophth Soln 2.5 ml Bottle EA EYE SCH (08:54)
[2023-04-25] MEDS: Cefepime 1 GM in Sodium Chloride 0.9% 100 ML IVPB SCH (15:23)
[2023-04-26] MEDS: Sodium Chloride 0.9% 1,000 ML IV SCH ×2 (05:36→18:31)
[2023-04-26] MEDS: methylPREDNISolone Sod Succ 40 MG VIAL IVP SCH ×3 (05:37→23:39)
[2023-04-26 07:15] LABS: Vancomycin, Random 11.7 ug/mL (See Comment)
[2023-04-26 07:46] LABS: Anion Gap 17 mmol/L (10-20); BUN (Urea Nitrogen) 35 mg/dL (8.4-25.7); Calc. Creatinine Clearance 8 mL/min (70-130); Calcium 9.4 mg/dL (7.8-10.44); Carbon Dioxide 11 mmol/L (23-31); Chloride 116 mmol/L (98-107); Estimated GFR 8; Glucose 127 mg/dL (83-110); Potassium 3.2 mmol/L (3.5-5.1); Sodium 141 mmol/L (136-145)
[2023-04-26] MEDS: sulfaSALAzine 500 MG TAB PO SCH ×3 (08:03→23:40)
[2023-04-26] MEDS: Midodrine HCl 5 MG TAB PO SCH ×3 (08:04→20:49)
[2023-04-26] MEDS: Saccharomyces boulardii 250 MG CAP PO SCH (08:05)
[2023-04-26] MEDS: Diphenoxylate HCl/Atropine Tablet PO SCH ×2 (08:05→20:31)
[2023-04-26] MEDS: Cholecalciferol 1,000 UNITS (25 MCG) TAB PO SCH (08:05)
[2023-04-26] MEDS: Aspirin 81 mg Enteric Coated Tablet PO SCH (08:05)
[2023-04-26] MEDS: Sodium Bicarbonate Tab 325 MG TAB PO SCH ×3 (08:05→20:36)
[2023-04-26] MEDS: Latanoprost 0.005% Ophth Soln 2.5 ml Bottle EA EYE SCH (08:06)
[2023-04-26] MEDS: DorzolamidE/Timolol 2%/0.5% Ophth Soln 10 ml Bottle EA EYE SCH (08:06)
[2023-04-26] MEDS: Sodium Chloride 1 GM TAB PO SCH ×3 (08:07→20:36)
[2023-04-26] MEDS: Heparin 5,000 UNITS/ML VIAL SC SCH ×3 (08:08→20:38)
[2023-04-26] MEDS ORDERED: Heparin 10,000 UNITS/ 10 ML VIAL ONE (08:42)
[2023-04-26] MEDS ORDERED: Potassium Chloride 20 MEQ TAB PO SCH (12:00)
[2023-04-26] MEDS: Fludrocortisone Acetate 0.1 MG TAB PO SCH ×2 (13:53→20:32)
[2023-04-26] MEDS: Cefepime 1 GM in Sodium Chloride 0.9% 100 ML IVPB SCH (15:13)
[2023-04-26] MEDS ORDERED: Vancomycin HCl 750 MG in Sodium Chloride 0.9% 250 ML 250 ML IVPB SCH (17:00)
[2023-04-26] MEDS ORDERED: GoLYTELY 4,000 ml Bottle PO SCH (17:00)
[2023-04-27] MEDS: Sodium Chloride 0.9% 1,000 ML IV SCH ×3 (02:00→15:30)
[2023-04-27] MEDS: methylPREDNISolone Sod Succ 40 MG VIAL IVP SCH (06:46)
[2023-04-27 07:33] LABS: #Eosinphils 0.2 thou/uL (0.0-0.7); #Monocytes 0.7 thou/uL (0.11-0.59); %Basophils 0.4 % (0.0-1.0); %Eosinophils 2.2 % (0.0-10.0); %Lymphocytes 22.8 % (21.0-51.0); %Monocytes 8.9 % (0.0-10.0); %Neutrophils 65.3 % (42.0-75.0); Hematocrit 37.3 % (42.0-52.0); Hemoglobin 11.5 g/dL (14.0-18.0); Mean Corpuscular HGB CONC 30.8 g/dL (32.0-36.0); Mean Corpuscular Hemoglobin 30.9 pg (27.0-31.0); Mean Corpuscular Volume 100.3 fl (78.0-98.0); Mean Platelet Volume 10.6 fL (7.4-10.4); Platelet Count 226 10x3/uL (130-400); RBC Distribution Width 16.3 % (11.5-14.5); Red Blood Cell (RBC) Count 3.72 mill/uL (4.70-6.10); White Blood Cell (WBC) Count 7.6 10x3/uL (4.8-10.8)
[2023-04-27 07:47] LABS: Anion Gap 15 mmol/L (10-20); BUN (Urea Nitrogen) 16 mg/dL (8.4-25.7); Calc. Creatinine Clearance 13 mL/min (70-130); Calcium 8.6 mg/dL (7.8-10.44); Carbon Dioxide 16 mmol/L (23-31); Chloride 113 mmol/L (98-107); Estimated GFR 14; Glucose 98 mg/dL (83-110); Potassium 3.6 mmol/L (3.5-5.1); Sodium 140 mmol/L (136-145)
[2023-04-27] MEDS ORDERED: PHENYLEPHRINE-NS 100 MCG/ML 10 ML SYRINGE ONE (08:11)
[2023-04-27] MEDS ORDERED: Lidocaine 1% PF 5 ML VIAL ONE (08:11)
[2023-04-27] MEDS ORDERED: PROPOFOL 200 MG/20 ML VIAL ONE (08:11)
[2023-04-27] MEDS ORDERED: Konsyl 6 gm Packet PO SCH (09:15)
[2023-04-27] MEDS: Fludrocortisone Acetate 0.1 MG TAB PO SCH ×2 (10:21→19:57)
[2023-04-27] MEDS: Midodrine HCl 5 MG TAB PO SCH ×3 (10:22→20:00)
[2023-04-27] MEDS: Sodium Chloride 1 GM TAB PO SCH ×3 (10:22→19:55)
[2023-04-27] MEDS: Cholecalciferol 1,000 UNITS (25 MCG) TAB PO SCH (10:22)
[2023-04-27] MEDS: Sodium Bicarbonate Tab 325 MG TAB PO SCH ×3 (10:22→19:54)
[2023-04-27] MEDS: Aspirin 81 mg Enteric Coated Tablet PO SCH (10:22)
[2023-04-27] MEDS: Heparin 5,000 UNITS/ML VIAL SC SCH ×3 (10:23→19:58)
[2023-04-27] MEDS: Latanoprost 0.005% Ophth Soln 2.5 ml Bottle EA EYE SCH (10:23)
[2023-04-27] MEDS: DorzolamidE/Timolol 2%/0.5% Ophth Soln 10 ml Bottle EA EYE SCH (10:23)
[2023-04-27] MEDS: sulfaSALAzine 500 MG TAB PO SCH (10:38)
[2023-04-27] MEDS: Saccharomyces boulardii 250 MG CAP PO SCH (10:38)
[2023-04-27] MEDS: Diphenoxylate HCl/Atropine Tablet PO SCH (10:38)
[2023-04-27] MEDS ORDERED: Potassium Chloride 20 MEQ TAB PO SCH (10:45)
[2023-04-27] MEDS ORDERED: Metamucil PACK PO SCH (12:00)
[2023-04-27] MEDS: Cefepime 1 GM in Sodium Chloride 0.9% 100 ML IVPB SCH (15:30)
[2023-04-27] MEDS: Loperamide HCl 2 MG CAP PO SCH ×2 (15:30→19:58)
[2023-04-28] MEDS: Sodium Chloride 0.9% 1,000 ML IV SCH ×4 (00:02→20:58)
[2023-04-28 06:03] LABS: #Basophils 0.1 thou/uL (0.0-0.2); #Eosinphils 0.3 thou/uL (0.0-0.7); #Monocytes 0.6 thou/uL (0.11-0.59); #Neutrophils 3.7 thou/uL (1.40-6.50); %Basophils 0.8 % (0.0-1.0); %Eosinophils 4.4 % (0.0-10.0); %Lymphocytes 26.9 % (21.0-51.0); %Monocytes 9.9 % (0.0-10.0); %Neutrophils 57.7 % (42.0-75.0); Hematocrit 37.1 % (42.0-52.0); Hemoglobin 11.5 g/dL (14.0-18.0); Mean Corpuscular Hemoglobin 31.2 pg (27.0-31.0); Mean Corpuscular Volume 100.5 fl (78.0-98.0); Mean Platelet Volume 10.6 fL (7.4-10.4); Platelet Count 220 10x3/uL (130-400); RBC Distribution Width 16.2 % (11.5-14.5); Red Blood Cell (RBC) Count 3.69 mill/uL (4.70-6.10); White Blood Cell (WBC) Count 6.4 10x3/uL (4.8-10.8)
[2023-04-28 06:27] LABS: Anion Gap 13 mmol/L (10-20); BUN (Urea Nitrogen) 21 mg/dL (8.4-25.7); Calc. Creatinine Clearance 11 mL/min (70-130); Calcium 8.8 mg/dL (7.8-10.44); Carbon Dioxide 16 mmol/L (23-31); Chloride 117 mmol/L (98-107); Estimated GFR 10; Glucose 123 mg/dL (83-110); Magnesium 1.7 mg/dL (1.6-2.6); Potassium 3.2 mmol/L (3.5-5.1); Sodium 143 mmol/L (136-145)
[2023-04-28] MEDS: Aspirin 81 mg Enteric Coated Tablet PO SCH (08:40)
[2023-04-28] MEDS: Sodium Chloride 1 GM TAB PO SCH ×3 (08:41→20:50)
[2023-04-28] MEDS: Heparin 5,000 UNITS/ML VIAL SC SCH ×3 (08:41→20:49)
[2023-04-28] MEDS: Loperamide HCl 2 MG CAP PO SCH ×3 (08:46→20:51)
[2023-04-28] MEDS: Fludrocortisone Acetate 0.1 MG TAB PO SCH ×2 (08:46→20:52)
[2023-04-28] MEDS: Sodium Bicarbonate Tab 325 MG TAB PO SCH ×3 (08:46→20:50)
[2023-04-28] MEDS: Metamucil PACK PO SCH (08:47)
[2023-04-28] MEDS: Midodrine HCl 5 MG TAB PO SCH ×3 (08:55→20:51)
[2023-04-28] MEDS: DorzolamidE/Timolol 2%/0.5% Ophth Soln 10 ml Bottle EA EYE SCH (08:56)
[2023-04-28] MEDS: Latanoprost 0.005% Ophth Soln 2.5 ml Bottle EA EYE SCH (08:56)
[2023-04-28] MEDS ORDERED: Konsyl 6 gm Packet PO SCH (09:00)
[2023-04-28] MEDS ORDERED: Potassium Chloride 20 MEQ TAB PO SCH ×2 (09:00→17:00)
[2023-04-28] MEDS ORDERED: Magnesium 2 GM/50 ML(in water) 2 GM in Premix Bag 1 BAG IVPB SCH (09:00)
[2023-04-28] MEDS: Cholecalciferol 1,000 UNITS (25 MCG) TAB PO SCH (09:51)
[2023-04-28] MEDS: Cefepime 1 GM in Sodium Chloride 0.9% 100 ML IVPB SCH (15:00)
[2023-04-28 16:24] VITALS: BMI 33.0
[2023-04-29 06:09] LABS: #Basophils 0.1 thou/uL (0.0-0.2); #Eosinphils 0.4 thou/uL (0.0-0.7); #Monocytes 0.7 thou/uL (0.11-0.59); #Neutrophils 5.2 thou/uL (1.40-6.50); %Basophils 0.7 % (0.0-1.0); %Eosinophils 4.6 % (0.0-10.0); %Monocytes 9.1 % (0.0-10.0); %Neutrophils 64.4 % (42.0-75.0); Hematocrit 36.2 % (42.0-52.0); Hemoglobin 11.3 g/dL (14.0-18.0); Mean Corpuscular HGB CONC 31.2 g/dL (32.0-36.0); Mean Corpuscular Hemoglobin 31.1 pg (27.0-31.0); Mean Corpuscular Volume 99.7 fl (78.0-98.0); Mean Platelet Volume 10.9 fL (7.4-10.4); Platelet Count 212 10x3/uL (130-400); RBC Distribution Width 16.3 % (11.5-14.5); Red Blood Cell (RBC) Count 3.63 mill/uL (4.70-6.10); White Blood Cell (WBC) Count 8.1 10x3/uL (4.8-10.8)
[2023-04-29 06:32] LABS: Anion Gap 14 mmol/L (10-20); BUN (Urea Nitrogen) 24 mg/dL (8.4-25.7); Calc. Creatinine Clearance 9 mL/min (70-130); Calcium 8.7 mg/dL (7.8-10.44); Carbon Dioxide 15 mmol/L (23-31); Chloride 119 mmol/L (98-107); Estimated GFR 9; Glucose 91 mg/dL (83-110); Magnesium 2.1 mg/dL (1.6-2.6); Sodium 144 mmol/L (136-145)
[2023-04-29 07:31] LABS: Vancomycin, Random 15.1 ug/mL (See Comment)
[2023-04-29] MEDS: Sodium Chloride 0.9% 1,000 ML IV SCH ×2 (07:42→15:03)
[2023-04-29] MEDS: Loperamide HCl 2 MG CAP PO SCH ×2 (08:51→16:20)
[2023-04-29] MEDS: Metamucil PACK PO SCH (08:51)
[2023-04-29] MEDS: Midodrine HCl 5 MG TAB PO SCH ×2 (08:51→16:21)
[2023-04-29] MEDS: Fludrocortisone Acetate 0.1 MG TAB PO SCH (08:52)
[2023-04-29] MEDS: Sodium Chloride 1 GM TAB PO SCH ×2 (08:52→16:21)
[2023-04-29] MEDS: Aspirin 81 mg Enteric Coated Tablet PO SCH (08:53)
[2023-04-29] MEDS: Cholecalciferol 1,000 UNITS (25 MCG) TAB PO SCH (08:53)
[2023-04-29] MEDS: Sodium Bicarbonate Tab 325 MG TAB PO SCH ×2 (08:53→16:21)
[2023-04-29] MEDS: Heparin 5,000 UNITS/ML VIAL SC SCH ×2 (08:55→15:02)
[2023-04-29] MEDS: Latanoprost 0.005% Ophth Soln 2.5 ml Bottle EA EYE SCH (08:55)
[2023-04-29] MEDS: DorzolamidE/Timolol 2%/0.5% Ophth Soln 10 ml Bottle EA EYE SCH (08:56)
[2023-04-29] MEDS ORDERED: Heparin 10,000 UNITS/ 10 ML VIAL ONE (10:08)
[2023-04-29 17:15] VITALS: BP 159/74; TEMP 97.9
== END 2023-04-29 17:30 | disposition home or self-care (01) | DRG 391 ==
LOC: ERS 16:03 → SURG B 19:44 → 2SE 22:05 → CCU 04-23 16:47 → 2SE 04-23 16:48 → CCU 04-23 17:09 → SURG B 04-25 16:35
PROVIDERS: ADMIT Internal Medicine Nephrology; ATTEND Internal Medicine
PROC: 30233J1 Transfusion of Nonautologous Serum Albumin into Peripheral Vein, Percutaneous Approach (ICD-10-PCS; 2023-04-09)
PROC: 3E033XZ Introduction of Vasopressor into Peripheral Vein, Percutaneous Approach (ICD-10-PCS; 2023-04-23)
PROC: 5A1D70Z Performance of Urinary Filtration, Intermittent, Less than 6 Hours Per Day (ICD-10-PCS; 2023-04-24)
PROC: 0DB98ZX Excision of Duodenum, Via Natural or Artificial Opening Endoscopic, Diagnostic (ICD-10-PCS; principal; 2023-04-27)
PROC: 0DB78ZX Excision of Stomach, Pylorus, Via Natural or Artificial Opening Endoscopic, Diagnostic (ICD-10-PCS; 2023-04-27)
PROC: 0DBB8ZX Excision of Ileum, Via Natural or Artificial Opening Endoscopic, Diagnostic (ICD-10-PCS; 2023-04-27)
PROC: 0DBP8ZX Excision of Rectum, Via Natural or Artificial Opening Endoscopic, Diagnostic (ICD-10-PCS; 2023-04-27)
DX: K52.9 Noninfective gastroenteritis and colitis, unspecified (principal); N18.6 End stage renal disease; R57.1 Hypovolemic shock; E87.20 Acidosis, unspecified; I50.32 Chronic diastolic (congestive) heart failure; Z16.21 Resistance to vancomycin; I13.2 Hypertensive heart and chronic kidney disease with heart failure and with stage 5 chronic kidney disease, or end stage renal disease; I95.1 Orthostatic hypotension; K29.70 Gastritis, unspecified, without bleeding; E78.5 Hyperlipidemia, unspecified; E11.51 Type 2 diabetes mellitus with diabetic peripheral angiopathy without gangrene; F17.210 Nicotine dependence, cigarettes, uncomplicated; E86.0 Dehydration; E83.52 Hypercalcemia; G89.29 Other chronic pain; R13.10 Dysphagia, unspecified; E11.22 Type 2 diabetes mellitus with diabetic chronic kidney disease; E87.6 Hypokalemia; Z90.49 Acquired absence of other specified parts of digestive tract; Z98.890 Other specified postprocedural states; Z89.512 Acquired absence of left leg below knee; Z89.511 Acquired absence of right leg below knee; Z79.82 Long term (current) use of aspirin; Z79.899 Other long term (current) drug therapy; Z99.2 Dependence on renal dialysis
CPT/HCPCS: 36415; 36416; 70450; 71045; 74177; 76770; 80048; 80053; 80202; 80400; 82384; 82533; 82805; 82947; 83605; 83630; 83735; 84145; 84439; 84443; 84481; 84484; 85025; 86140; 86704; 87040; 87324; 87449; 87505; 88305; 88342; 90935; 93005; 93010; 93306; 93880; 96361; 96365; G0257; J0692; J0834; J0878; J1644; J2405; J2704; J2920; J3370; J3370-JW; J3475; J3490; J7030; J7050; P9047; Q9967